=== PATIENT | male | born 1960 | race Caucasian/White ===

== ENCOUNTER 2016-10-23 19:07 | Emergency (ER) | payer MEDICARE, OTHER ==
[~2016-10-23] VITALS: Ht 170.2 cm; Wt 75.0 kg
[~2016-10-23 19:07] MED LIST: ARIP10TA14 PO; DSS100 PO; FERR-89 PO; INSLAN SQ; PROZ10 PO
[2016-10-23] MEDS ORDERED: METF500T4 PO (19:10)
[2016-10-23 19:35] LABS: BASOPHILS % (AUTO) 0.5 % (0.0-2.0); EOSINOPHILS % (AUTO) 1.8 % (1.0-6.0); HEMATOCRIT 44.7 % (41-53); HEMOGLOBIN 13.9 g/dL (13.5-17.5); LYMPHOCYTES # (AUTO) 2.2 K/uL (1.0-4.8); LYMPHOCYTES % (AUTO) 20.7 % (22.0-44.0); MEAN CORPUSCULAR HEMOGLOBIN 20.2 pg (26.0-34.0); MEAN CORPUSCULAR HGB CONC 31.2 G/dL (31.0-37.0); MEAN CORPUSCULAR VOLUME 65 fL (80-100); MONOCYTES # (AUTO) 0.7 K/uL (0.1-1.0); MONOCYTES % (AUTO) 6.7 % (2.0-9.0); NEUTROPHILS # (AUTO) 7.3 K/uL (1.8-7.7); NEUTROPHILS % (AUTO) 70.3 % (40.0-70.0); PLATELET COUNT (AUTO) 192 K/uL (150-450); RED BLOOD CELL COUNT(AUTO) 6.89 MIL/uL (4.50-5.90); RED CELL DISTRIBUTION WIDTH 16.1 % (11.5-14.5); WHITE BLOOD COUNT (AUTO) 10.4 K/uL (4.5-11.0)
[2016-10-23 19:49] LABS: ALANINE AMINOTRANSFERASE 26 U/L (12-78); ALBUMIN 3.5 g/dL (3.4-5.0); ANION GAP 8 mmol/L (8-16); ASPARTATE AMINOTRANSFERASE 13 U/L (15-37); BILIRUBIN,TOTAL 0.3 mg/dL (0.1-1.0); CALCIUM, TOTAL 8.8 mg/dL (8.8-10.5); CARBON DIOXIDE 25 mmol/L (22-29); CHLORIDE 96 mmol/L (98-107); CREATININE 1.51 mg/dL (0.60-1.30); GLOMERULAR FILTR. RATE CALC 48 mL/min (>60); POTASSIUM 4.1 mmol/L (3.5-5.1); SODIUM SERUM 129 mmol/L (136-145); TOTAL PROTEIN, SERUM 7.6 g/dL (6.4-8.2); UREA NITROGEN, BLOOD 22 mg/dL (7-18)
[2016-10-23] MEDS ORDERED: INSU100I15 SQ (20:25)
[2016-10-23] MEDS ORDERED: INSULIN REGULAR, HUMAN 100 UNITS/ML SQ ONE (20:30)
[2016-10-23 21:16] LABS: GLUCOSE,POINT OF CARE 553 MG/DL (70-110)
[2016-10-23 23:07] LABS: GLUCOSE,POINT OF CARE 378 MG/DL (70-110)
[2016-10-23 23:10] VITALS: BP 132/84
[2016-10-23] MEDS ORDERED: LORazepam 2 MG TABLET PO ONE (23:15)
== END 2016-10-23 23:37 | disposition home or self-care (01) ==
LOC: EMS 19:09
DX: F41.9 Anxiety disorder, unspecified (principal); F31.9 Bipolar disorder, unspecified; E11.65 Type 2 diabetes mellitus with hyperglycemia; R45.851 Suicidal ideations; Z79.4 Long term (current) use of insulin
CPT/HCPCS: 36415; 71010; 80053; 80307; 82009; 82962; 83690; 84484; 85025; 93005; 96372; 99285; G0480; J1815

== ENCOUNTER 2017-06-06 01:30 | Inpatient (IN) | payer MEDICARE, MEDICAID ==
[~2017-06-06] VITALS: Ht 170.2 cm; Wt 65.8 kg
[~2017-06-06 01:30] MED LIST changes: -ARIP10TA14 PO; +ARIP10TA8 PO; +INSU100I15 SQ; +METF500T4 PO
[2017-06-06 02:10] VITALS: BP 94/55
[2017-06-06] MEDS ORDERED: INFLUENZA VIRUS VACCINE QVS 2017-18 (3YR+)/PF 60 MCG/0.5 ML SYRINGE IM ONE (05:30)
[2017-06-06] MEDS ORDERED: PNEUMOCOCCAL VACCINE POLYVALENT 0.5 ML VIAL [PPSV23] IM ONE (05:30)
[2017-06-06 06:12] LABS: GLUCOSE,POINT OF CARE 156 MG/DL (70-110)
[2017-06-06 07:02] LABS: CHOL/HDL RATIO 5.5 (4.2-7.3)
[2017-06-06] MEDS ORDERED: ONDANSETRON HCL 4 MG TABLET PO PRN (07:45)
[2017-06-06] MEDS ORDERED: BENZOCAINE/MENTHOL LOZENGE [8 LOZENGES/PACKET] MM PRN (07:45)
[2017-06-06] MEDS ORDERED: CloNIDine HCL 0.1 MG TABLET PO PRN (07:45)
[2017-06-06] MEDS ORDERED: DEXTROSE 50%-WATER 25 GM/50 ML SYRINGE IVP PRN (07:45)
[2017-06-06] MEDS ORDERED: MAGNESIUM HYDROXIDE SUSPENSION 30 ML UDCUP PO PRN (07:45)
[2017-06-06] MEDS ORDERED: PETROLATUM,WHITE 71 GM JELLY TP PRN (07:45)
[2017-06-06] MEDS ORDERED: LOPERAMIDE HCL 2 MG CAPSULE PO PRN (07:45)
[2017-06-06] MEDS ORDERED: MAG HYDROX/AL HYDROX/SIMETH ES 30 ML SUSPENSION UDCUP PO PRN (07:45)
[2017-06-06] MEDS ORDERED: BACITRACIN 28.4 GM OINTMENT TP PRN (07:45)
[2017-06-06] MEDS ORDERED: ACETAMINOPHEN 325 MG TABLET PO PRN (07:45)
[2017-06-06] MEDS ORDERED: IBUPROFEN 600 MG TABLET PO PRN (07:45)
[2017-06-06] MEDS ORDERED: ALBUTEROL SULFATE HFA 90 MCG/PUFF 8 GM INHALER IH PRN (07:45)
[2017-06-06 11:18] LABS: GLUCOSE,POINT OF CARE 174 MG/DL (70-110)
[2017-06-06] MEDS: INSULIN ASPART 100 UNITS/ML SQ PRN ×2 (11:42→17:58)
[2017-06-06] MEDS: MetFORMIN HCL 500 MG TABLET PO SCH ×2 (16:27→17:30)
[2017-06-06] MEDS: INSULIN DETEMIR 100 UNITS/ML SQ SCH (21:00)
[2017-06-06 21:57] LABS: GLUCOSE,POINT OF CARE 295 MG/DL (70-110)
[2017-06-07 05:28] LABS: GLUCOSE COMMENT 1 Received Meds; GLUCOSE,POINT OF CARE 269 MG/DL (70-110)
[2017-06-07] MEDS: MetFORMIN HCL 500 MG TABLET PO SCH ×2 (07:25→17:30)
[2017-06-07] MEDS: INSULIN ASPART 100 UNITS/ML SQ PRN ×2 (07:27→11:48)
[2017-06-07 08:00] VITALS: BP 108/68
[2017-06-07] MEDS: FLUoxetine HCL 10 MG CAPSULE PO SCH (09:00)
[2017-06-07] MEDS: ARIPiprazole 10 MG TABLET PO SCH (09:00)
[2017-06-07 11:23] LABS: GLUCOSE,POINT OF CARE 284 MG/DL (70-110)
[2017-06-07] MEDS ORDERED: LORazepam 2 MG/ML VIAL IM ONE (15:15)
[2017-06-07] MEDS ORDERED: DiphenhydrAMINE HCL 50 MG/ML VIAL IM ONE (15:15)
[2017-06-07] MEDS ORDERED: HALOPERIDOL LACTATE 5 MG/ML VIAL IM ONE (15:15)
[2017-06-07] MEDS: INSULIN DETEMIR 100 UNITS/ML SQ SCH (21:00)
[2017-06-08 05:38] LABS: GLUCOSE COMMENT 1 Received Meds; GLUCOSE,POINT OF CARE 223 MG/DL (70-110)
[2017-06-08] MEDS: INSULIN ASPART 100 UNITS/ML SQ PRN ×2 (07:07→12:26)
[2017-06-08] MEDS: MetFORMIN HCL 500 MG TABLET PO SCH ×2 (07:16→17:07)
[2017-06-08 08:30] VITALS: BP 99/58
[2017-06-08] MEDS: FLUoxetine HCL 10 MG CAPSULE PO SCH (08:42)
[2017-06-08] MEDS: ARIPiprazole 10 MG TABLET PO SCH (08:42)
[2017-06-08] MEDS: OMEGA-3/DHA/EPA/FISH OIL 500 MG CAPSULE PO SCH (08:42)
[2017-06-08 12:07] LABS: GLUCOSE,POINT OF CARE 318 MG/DL (70-110)
[2017-06-08 16:43] LABS: GLUCOSE,POINT OF CARE 444 MG/DL (70-110)
[2017-06-08] MEDS: HALOPERIDOL 5 MG TABLET PO PRN (17:06)
[2017-06-08] MEDS: LORazepam 2 MG TABLET PO PRN (17:06)
[2017-06-08] MEDS ORDERED: INSULIN ASPART 100 UNITS/ML SQ ONE ×2 (17:30→19:00)
[2017-06-08 20:15] LABS: GLUCOSE,POINT OF CARE 336 MG/DL (70-110)
[2017-06-08 20:33] LABS: GLUCOSE,POINT OF CARE 295 MG/DL (70-110)
[2017-06-08 20:41] VITALS: BP 104/62
[2017-06-08] MEDS: INSULIN DETEMIR 100 UNITS/ML SQ SCH (21:00)
[2017-06-09 06:29] LABS: GLUCOSE COMMENT 1 Received Meds; GLUCOSE,POINT OF CARE 168 MG/DL (70-110)
[2017-06-09] MEDS: INSULIN ASPART 100 UNITS/ML SQ PRN ×4 (07:14→21:38)
[2017-06-09] MEDS: MetFORMIN HCL 500 MG TABLET PO SCH ×2 (07:14→16:32)
[2017-06-09 08:19] VITALS: BP 107/60
[2017-06-09] MEDS: OMEGA-3/DHA/EPA/FISH OIL 500 MG CAPSULE PO SCH (09:00)
[2017-06-09] MEDS: FLUoxetine HCL 10 MG CAPSULE PO SCH (09:00)
[2017-06-09] MEDS: ARIPiprazole 10 MG TABLET PO SCH (09:26)
[2017-06-09] MEDS ORDERED: PHENYLEPHRINE/SHK LV/MIN OIL/PET 57 GM OINTMENT TP PRN (10:45)
[2017-06-09 12:08] LABS: GLUCOSE,POINT OF CARE 300 MG/DL (70-110)
[2017-06-09 16:09] VITALS: BP 113/79
[2017-06-09] MEDS: LORazepam 2 MG TABLET PO PRN (17:30)
[2017-06-09] MEDS: HALOPERIDOL 5 MG TABLET PO PRN (17:30)
[2017-06-09 18:29] LABS: GLUCOSE,POINT OF CARE 310 MG/DL (70-110)
[2017-06-09] MEDS: INSULIN DETEMIR 100 UNITS/ML SQ SCH (21:37)
[2017-06-10 00:23] LABS: GLUCOSE,POINT OF CARE 348 MG/DL (70-110)
[2017-06-10] MEDS: MetFORMIN HCL 500 MG TABLET PO SCH ×2 (07:19→17:10)
[2017-06-10 08:55] VITALS: BP 93/54
[2017-06-10] MEDS: ARIPiprazole 10 MG TABLET PO SCH (09:00)
[2017-06-10] MEDS: OMEGA-3/DHA/EPA/FISH OIL 500 MG CAPSULE PO SCH (09:00)
[2017-06-10] MEDS: FLUoxetine HCL 10 MG CAPSULE PO SCH (09:00)
[2017-06-10] MEDS: INSULIN ASPART 100 UNITS/ML SQ PRN ×3 (11:39→21:09)
[2017-06-10 11:48] LABS: GLUCOSE,POINT OF CARE 280 MG/DL (70-110)
[2017-06-10 18:12] VITALS: BP 120/77
[2017-06-10 19:03] LABS: GLUCOSE,POINT OF CARE 292 MG/DL (70-110)
[2017-06-10] MEDS: INSULIN DETEMIR 100 UNITS/ML SQ SCH (21:08)
[2017-06-11 00:08] LABS: GLUCOSE,POINT OF CARE 249 MG/DL (70-110)
[2017-06-11 05:43] LABS: GLUCOSE COMMENT 1 Juice/Food/D50 Given; GLUCOSE,POINT OF CARE 169 MG/DL (70-110)
[2017-06-11 06:05] VITALS: BP 103/79
[2017-06-11] MEDS: MetFORMIN HCL 500 MG TABLET PO SCH ×2 (07:03→17:04)
[2017-06-11] MEDS: INSULIN ASPART 100 UNITS/ML SQ PRN ×4 (07:16→21:48)
[2017-06-11 08:45] VITALS: BP 104/76
[2017-06-11] MEDS: OMEGA-3/DHA/EPA/FISH OIL 500 MG CAPSULE PO SCH (09:00)
[2017-06-11] MEDS: FLUoxetine HCL 10 MG CAPSULE PO SCH (09:00)
[2017-06-11] MEDS: ARIPiprazole 10 MG TABLET PO SCH (09:13)
[2017-06-11 11:38] LABS: GLUCOSE,POINT OF CARE 197 MG/DL (70-110)
[2017-06-11 17:00] VITALS: BP 98/56
[2017-06-11 17:07] LABS: GLUCOSE COMMENT 1 Received Meds; GLUCOSE,POINT OF CARE 215 MG/DL (70-110)
[2017-06-11] MEDS: INSULIN DETEMIR 100 UNITS/ML SQ SCH (21:46)
[2017-06-11] MEDS: ZOLPIDEM TARTRATE 10 MG TABLET PO PRN (22:33)
[2017-06-11 23:28] LABS: GLUCOSE COMMENT 1 Received Meds; GLUCOSE,POINT OF CARE 270 MG/DL (70-110)
[2017-06-12 06:07] LABS: GLUCOSE,POINT OF CARE 133 MG/DL (70-110)
[2017-06-12] MEDS: MetFORMIN HCL 500 MG TABLET PO SCH ×2 (06:42→17:33)
[2017-06-12 08:29] VITALS: BP 118/78
[2017-06-12] MEDS: OMEGA-3/DHA/EPA/FISH OIL 500 MG CAPSULE PO SCH (09:00)
[2017-06-12] MEDS: FLUoxetine HCL 10 MG CAPSULE PO SCH (09:00)
[2017-06-12] MEDS: ARIPiprazole 10 MG TABLET PO SCH (09:00)
[2017-06-12 11:18] LABS: GLUCOSE COMMENT 1 Received Meds; GLUCOSE,POINT OF CARE 332 MG/DL (70-110)
[2017-06-12] MEDS: INSULIN ASPART 100 UNITS/ML SQ PRN ×3 (11:31→21:50)
[2017-06-12 16:45] VITALS: BP 105/77
[2017-06-12 17:37] LABS: GLUCOSE COMMENT 1 Received Meds; GLUCOSE,POINT OF CARE 231 MG/DL (70-110)
[2017-06-12] MEDS: ZOLPIDEM TARTRATE 10 MG TABLET PO PRN (20:10)
[2017-06-12 21:48] LABS: GLUCOSE,POINT OF CARE 251 MG/DL (70-110)
[2017-06-12] MEDS: INSULIN DETEMIR 100 UNITS/ML SQ SCH (21:49)
[2017-06-13 05:48] LABS: GLUCOSE,POINT OF CARE 139 MG/DL (70-110)
[2017-06-13] MEDS: MetFORMIN HCL 500 MG TABLET PO SCH ×2 (06:51→17:29)
[2017-06-13 07:08] LABS: BASOPHILS % (AUTO) 0.5 % (0.0-2.0); HEMOGLOBIN 12.4 g/dL (13.5-17.5); LYMPHOCYTES # (AUTO) 1.7 K/uL (1.0-4.8); LYMPHOCYTES % (AUTO) 25.9 % (22.0-44.0); MEAN CORPUSCULAR HEMOGLOBIN 20.6 pg (26.0-34.0); MEAN CORPUSCULAR HGB CONC 32.5 G/dL (31.0-37.0); MEAN CORPUSCULAR VOLUME 63 fL (80-100); MONOCYTES # (AUTO) 0.7 K/uL (0.1-1.0); MONOCYTES % (AUTO) 10.3 % (2.0-9.0); NEUTROPHILS # (AUTO) 3.9 K/uL (1.8-7.7); NEUTROPHILS % (AUTO) 59.3 % (40.0-70.0); PLATELET COUNT (AUTO) 177 K/uL (150-450); RED BLOOD CELL COUNT(AUTO) 6.01 MIL/uL (4.50-5.90); RED CELL DISTRIBUTION WIDTH 15.7 % (11.5-14.5); WHITE BLOOD COUNT (AUTO) 6.6 K/uL (4.5-11.0)
[2017-06-13 07:37] LABS: HEMOGLOBIN A1C 11.1 % (4.5-6.2)
[2017-06-13 07:46] LABS: ANION GAP 6 mmol/L (8-16); CALCIUM, TOTAL 8.7 mg/dL (8.8-10.5); CARBON DIOXIDE 31 mmol/L (22-29); CHLORIDE 100 mmol/L (98-107); CHOL/HDL RATIO 5.7 (4.2-7.3); CREATININE 0.88 mg/dL (0.60-1.30); GLOMERULAR FILTR. RATE CALC > 60 mL/min (>60); PHOSPHORUS 2.8 mg/dL (2.5-4.9); POTASSIUM 3.9 mmol/L (3.5-5.1); SODIUM SERUM 137 mmol/L (136-145); THYROID STIMULATING HORMONE 2.88 uIU/mL (0.36-3.74); UREA NITROGEN, BLOOD 20 mg/dL (7-18)
[2017-06-13 08:13] VITALS: BP 106/70
[2017-06-13 08:29] LABS: RBC MORPHOLOGY COMMENT ABNORMAL RBC MORPH
[2017-06-13] MEDS: ARIPiprazole 10 MG TABLET PO SCH (08:35)
[2017-06-13] MEDS: FLUoxetine HCL 10 MG CAPSULE PO SCH (08:35)
[2017-06-13] MEDS: OMEGA-3/DHA/EPA/FISH OIL 500 MG CAPSULE PO SCH (08:35)
[2017-06-13] MEDS: INSULIN ASPART 100 UNITS/ML SQ PRN ×3 (11:53→21:01)
[2017-06-13 13:20] LABS: GLUCOSE,POINT OF CARE 220 MG/DL (70-110)
[2017-06-13] MEDS: CARBAMIDE PEROXIDE 6.5% 15 ML OTIC SOLUTION AU SCH (16:23)
[2017-06-13] MEDS: INSULIN DETEMIR 100 UNITS/ML SQ SCH (21:00)
[2017-06-14] MEDS: MetFORMIN HCL 500 MG TABLET PO SCH ×2 (07:10→17:32)
[2017-06-14] MEDS: INSULIN ASPART 100 UNITS/ML SQ PRN ×2 (07:25→11:20)
[2017-06-14 08:03] LABS: GLUCOSE,POINT OF CARE 146 MG/DL (70-110)
[2017-06-14 08:39] VITALS: BP 101/70
[2017-06-14] MEDS: ARIPiprazole 10 MG TABLET PO SCH (08:41)
[2017-06-14] MEDS: OMEGA-3/DHA/EPA/FISH OIL 500 MG CAPSULE PO SCH (08:42)
[2017-06-14] MEDS: FLUoxetine HCL 10 MG CAPSULE PO SCH (08:42)
[2017-06-14] MEDS: CARBAMIDE PEROXIDE 6.5% 15 ML OTIC SOLUTION AU SCH ×2 (08:42→16:41)
[2017-06-14] MEDS ORDERED: CHOLECALCIFEROL (VIT D3) 1,000 UNITS TABLET PO SCH (09:00)
[2017-06-14 09:05] LABS: GLUCOSE COMMENT 1 Received Meds; GLUCOSE,POINT OF CARE 168 MG/DL (70-110)
[2017-06-14 09:11] LABS: GLUCOSE COMMENT 1 Received Meds; GLUCOSE,POINT OF CARE 291 MG/DL (70-110)
[2017-06-14 11:14] LABS: GLUCOSE,POINT OF CARE 188 MG/DL (70-110)
[2017-06-14] MEDS ORDERED: OMEG100033 PO (15:44)
[2017-06-14] MEDS ORDERED: INSU100V12 SQ (15:44)
[2017-06-14] MEDS ORDERED: CARB15DR61 AU (15:44)
[2017-06-14] MEDS ORDERED: VITAD1000 PO (15:44)
[2017-06-14 16:47] LABS: GLUCOSE COMMENT 1 Doctor Notified; GLUCOSE COMMENT 2 Received Meds; GLUCOSE,POINT OF CARE 410 MG/DL (70-110)
[2017-06-14 17:17] LABS: GLUCOSE COMMENT 1 Doctor Notified; GLUCOSE COMMENT 2 Received Meds; GLUCOSE,POINT OF CARE 424 MG/DL (70-110)
[2017-06-14] MEDS ORDERED: INSULIN ASPART 100 UNITS/ML SQ ONE (17:30)
[2017-06-14 20:06] LABS: GLUCOSE,POINT OF CARE 207 MG/DL (70-110)
== END 2017-06-14 20:15 | disposition home or self-care (01) | DRG 885 ==
LOC: 3EX 01:30
DX: F33.2 Major depressive disorder, recurrent severe without psychotic features (principal); E11.65 Type 2 diabetes mellitus with hyperglycemia; R45.851 Suicidal ideations; E78.5 Hyperlipidemia, unspecified; F60.9 Personality disorder, unspecified; G47.00 Insomnia, unspecified; K21.9 Gastro-esophageal reflux disease without esophagitis; K59.00 Constipation, unspecified; Z79.899 Other long term (current) drug therapy; Z91.19 Patient's noncompliance with other medical treatment and regimen; Z91.5 Personal history of self-harm; Z28.21 Immunization not carried out because of patient refusal
CPT/HCPCS: 82306; 82962; 83036; 83735; 84100; 84443; J1200; J1630; J1815; J2060

== ENCOUNTER 2017-08-13 20:21 | Inpatient (IN) | payer BC, MEDICAID ==
[~2017-08-13] VITALS: Ht 170.2 cm; Wt 64.9 kg
[~2017-08-13 20:21] MED LIST changes: +CARB15DR61 AU; -DSS100 PO; -FERR-89 PO; -INSLAN SQ; -INSU100I15 SQ; +INSU100V12 SQ; +OMEG100033 PO; +VITAD1000 PO
[2017-08-13] MEDS ORDERED: LORazepam 2 MG/ML VIAL IM ONE (21:00)
[2017-08-13] MEDS ORDERED: LORazepam 2 MG TABLET PO PRN (21:00)
[2017-08-13] MEDS ORDERED: HALOPERIDOL 5 MG TABLET PO PRN (21:00)
[2017-08-13] MEDS ORDERED: HALOPERIDOL LACTATE 5 MG/ML VIAL IM ONE ×2 (21:00→21:15)
[2017-08-13] MEDS ORDERED: ZOLPIDEM TARTRATE 10 MG TABLET PO PRN (21:00)
[2017-08-13] MEDS ORDERED: DiphenhydrAMINE HCL 50 MG/ML VIAL IM ONE (21:00)
[2017-08-13] MEDS ORDERED: LORazepam 2 MG/ML VIAL ONE (21:03)
[2017-08-13] MEDS ORDERED: HALOPERIDOL LACTATE 5 MG/ML VIAL ONE (21:03)
[2017-08-13] MEDS ORDERED: DiphenhydrAMINE HCL 50 MG/ML VIAL ONE (21:03)
[2017-08-13] MEDS ORDERED: QUEtiapine FUMARATE 100 MG TABLET PO PRN (21:15)
[2017-08-13] MEDS ORDERED: PNEUMOCOCCAL VACCINE POLYVALENT 0.5 ML VIAL [PPSV23] IM ONE (21:45)
[2017-08-13] MEDS ORDERED: INFLUENZA VIRUS VACCINE QVS 2017-18 (3YR+)/PF 60 MCG/0.5 ML SYRINGE IM ONE (21:45)
[2017-08-13 21:47] VITALS: BP 137/85
[2017-08-13 21:58] LABS: GLUCOSE,POINT OF CARE 326 MG/DL (70-110)
[2017-08-13] MEDS ORDERED: GLUCAGON,HUMAN RECOMBINANT 1 MG VIAL IM PRN (22:15)
[2017-08-13] MEDS: INSULIN ASPART 100 UNITS/ML SQ PRN (22:24)
[2017-08-14 06:23] LABS: GLUCOSE,POINT OF CARE 194 MG/DL (70-110)
[2017-08-14] MEDS: MetFORMIN HCL 500 MG TABLET PO SCH ×2 (06:54→17:10)
[2017-08-14] MEDS: INSULIN ASPART 100 UNITS/ML SQ PRN ×2 (06:56→17:11)
[2017-08-14 08:03] LABS: EOSINOPHILS % (AUTO) 4.8 % (1.0-6.0); HEMATOCRIT 41.7 % (41-53); HEMOGLOBIN 13.4 g/dL (13.5-17.5); LYMPHOCYTES # (AUTO) 2.3 K/uL (1.0-4.8); LYMPHOCYTES % (AUTO) 33.3 % (22.0-44.0); MEAN CORPUSCULAR HEMOGLOBIN 20.5 pg (26.0-34.0); MEAN CORPUSCULAR HGB CONC 32.1 G/dL (31.0-37.0); MEAN CORPUSCULAR VOLUME 64 fL (80-100); MONOCYTES # (AUTO) 0.6 K/uL (0.1-1.0); MONOCYTES % (AUTO) 8.7 % (2.0-9.0); NEUTROPHILS # (AUTO) 3.6 K/uL (1.8-7.7); NEUTROPHILS % (AUTO) 53.2 % (40.0-70.0); PLATELET COUNT (AUTO) 137 K/uL (150-450); RED BLOOD CELL COUNT(AUTO) 6.52 MIL/uL (4.50-5.90); RED CELL DISTRIBUTION WIDTH 16.3 % (11.5-14.5); WHITE BLOOD COUNT (AUTO) 6.8 K/uL (4.5-11.0)
[2017-08-14] MEDS ORDERED: ARIPiprazole 10 MG TABLET PO SCH (09:00)
[2017-08-14 09:13] LABS: ALANINE AMINOTRANSFERASE 34 U/L (12-78); ALBUMIN 3.3 g/dL (3.4-5.0); ANION GAP 8 mmol/L (8-16); ASPARTATE AMINOTRANSFERASE 22 U/L (15-37); BILIRUBIN,TOTAL 0.5 mg/dL (0.1-1.0); CALCIUM, TOTAL 8.6 mg/dL (8.8-10.5); CARBON DIOXIDE 30 mmol/L (22-29); CHLORIDE 100 mmol/L (98-107); CREATININE 0.81 mg/dL (0.60-1.30); GLOMERULAR FILTR. RATE CALC > 60 mL/min (>60); POTASSIUM 3.6 mmol/L (3.5-5.1); SODIUM SERUM 138 mmol/L (136-145); THYROID STIMULATING HORMONE 2.62 uIU/mL (0.36-3.74); TOTAL PROTEIN, SERUM 6.8 g/dL (6.4-8.2); UREA NITROGEN, BLOOD 17 mg/dL (7-18)
[2017-08-14] MEDS ORDERED: BACITRACIN 28.4 GM OINTMENT TP PRN (09:15)
[2017-08-14] MEDS ORDERED: IBUPROFEN 600 MG TABLET PO PRN (09:15)
[2017-08-14] MEDS ORDERED: PETROLATUM,WHITE 71 GM JELLY TP PRN (09:15)
[2017-08-14] MEDS ORDERED: CloNIDine HCL 0.1 MG TABLET PO PRN (09:15)
[2017-08-14] MEDS ORDERED: MAG HYDROX/AL HYDROX/SIMETH ES 30 ML SUSPENSION UDCUP PO PRN (09:15)
[2017-08-14] MEDS ORDERED: ALBUTEROL SULFATE HFA 90 MCG/PUFF 8 GM INHALER IH PRN (09:15)
[2017-08-14] MEDS ORDERED: LOPERAMIDE HCL 2 MG CAPSULE PO PRN ×2 (09:15→13:45)
[2017-08-14] MEDS ORDERED: MAGNESIUM HYDROXIDE SUSPENSION 30 ML UDCUP PO PRN (09:15)
[2017-08-14] MEDS ORDERED: ONDANSETRON HCL 4 MG TABLET PO PRN (09:15)
[2017-08-14] MEDS ORDERED: ACETAMINOPHEN 325 MG TABLET PO PRN (09:15)
[2017-08-14] MEDS ORDERED: BENZOCAINE/MENTHOL LOZENGE MM PRN (09:15)
[2017-08-14 10:04] LABS: HEMOGLOBIN A1C 8.5 % (4.5-6.2)
[2017-08-14 10:11] LABS: RBC MORPHOLOGY COMMENT ABNORMAL RBC MORPH
[2017-08-14] MEDS: CHOLECALCIFEROL (VIT D3) 1,000 UNITS TABLET PO SCH (10:38)
[2017-08-14] MEDS: FLUoxetine HCL 10 MG CAPSULE PO SCH (10:38)
[2017-08-14] MEDS: OMEGA-3/DHA/EPA/FISH OIL 1,000 MG CAPSULE PO SCH (10:40)
[2017-08-14] MEDS ORDERED: GuaiFENesin/D-METHORPHAN [SUGAR-FREE] 200-20MG/10 ML SYRUP UDCUP PO PRN (13:45)
[2017-08-14] MEDS ORDERED: PROMETHAZINE HCL 25 MG TABLET PO PRN (13:45)
[2017-08-14] MEDS ORDERED: HydrOXYzine PAMOATE 50 MG CAPSULE PO PRN (13:45)
[2017-08-14] MEDS ORDERED: OLANZapine 5 MG RAPDIS TABLET PO PRN (14:15)
[2017-08-14 16:05] VITALS: BP 101/62
[2017-08-14 16:22] LABS: GLUCOSE,POINT OF CARE 278 MG/DL (70-110)
[2017-08-14] MEDS: THIAMINE HCL 100 MG TABLET PO SCH (17:10)
[2017-08-14] MEDS: OLANZapine 5 MG RAPDIS TABLET PO SCH (21:00)
[2017-08-14] MEDS: INSULIN DETEMIR 100 UNITS/ML SQ SCH (21:00)
[2017-08-15 04:00] VITALS: BP 100/60
[2017-08-15 06:18] LABS: GLUCOSE,POINT OF CARE 253 MG/DL (70-110)
[2017-08-15] MEDS: MetFORMIN HCL 500 MG TABLET PO SCH ×2 (06:58→16:57)
[2017-08-15] MEDS: INSULIN ASPART 100 UNITS/ML SQ PRN ×3 (07:08→17:00)
[2017-08-15 08:21] VITALS: BP 110/68
[2017-08-15] MEDS: OMEGA-3/DHA/EPA/FISH OIL 1,000 MG CAPSULE PO SCH (08:50)
[2017-08-15] MEDS: FOLIC ACID 1 MG TABLET PO SCH (08:50)
[2017-08-15] MEDS: THIAMINE HCL 100 MG TABLET PO SCH ×2 (08:51→16:57)
[2017-08-15] MEDS: CHOLECALCIFEROL (VIT D3) 1,000 UNITS TABLET PO SCH (08:51)
[2017-08-15] MEDS: FLUoxetine HCL 10 MG CAPSULE PO SCH (08:51)
[2017-08-15] MEDS: MULTIVITAMINS WITH MINERALS, THERAPEUTIC TABLET PO SCH (08:51)
[2017-08-15] MEDS ORDERED: MULTIVITAMINS WITH MINERALS, THERAPEUTIC TABLET PO SCH (09:00)
[2017-08-15 11:38] LABS: GLUCOSE,POINT OF CARE 243 MG/DL (70-110)
[2017-08-15 16:04] VITALS: BP 103/63
[2017-08-15 16:42] LABS: GLUCOSE,POINT OF CARE 271 MG/DL (70-110)
[2017-08-15] MEDS: OLANZapine 5 MG RAPDIS TABLET PO SCH (20:42)
[2017-08-15] MEDS: INSULIN DETEMIR 100 UNITS/ML SQ SCH (20:42)
[2017-08-16 06:23] LABS: GLUCOSE,POINT OF CARE 202 MG/DL (70-110)
[2017-08-16 07:10] VITALS: BP 100/60
[2017-08-16] MEDS: MetFORMIN HCL 500 MG TABLET PO SCH ×2 (07:16→16:33)
[2017-08-16 08:06] VITALS: BP 115/69
[2017-08-16] MEDS: CHOLECALCIFEROL (VIT D3) 1,000 UNITS TABLET PO SCH (09:00)
[2017-08-16] MEDS: OMEGA-3/DHA/EPA/FISH OIL 1,000 MG CAPSULE PO SCH (09:00)
[2017-08-16] MEDS: FOLIC ACID 1 MG TABLET PO SCH (09:00)
[2017-08-16] MEDS: FLUoxetine HCL 10 MG CAPSULE PO SCH (09:00)
[2017-08-16] MEDS: THIAMINE HCL 100 MG TABLET PO SCH ×2 (09:00→16:33)
[2017-08-16] MEDS: MULTIVITAMINS WITH MINERALS, THERAPEUTIC TABLET PO SCH (09:00)
[2017-08-16] MEDS: INSULIN ASPART 100 UNITS/ML SQ PRN ×2 (11:03→16:15)
[2017-08-16 11:13] LABS: GLUCOSE,POINT OF CARE 208 MG/DL (70-110)
[2017-08-16 16:22] LABS: GLUCOSE COMMENT 1 Doctor Notified; GLUCOSE,POINT OF CARE 410 MG/DL (70-110)
[2017-08-16 16:35] VITALS: BP 112/65
[2017-08-16 17:58] LABS: GLUCOSE,POINT OF CARE 311 MG/DL (70-110)
[2017-08-16] MEDS ORDERED: INSULIN ASPART 100 UNITS/ML SQ ONE (18:00)
[2017-08-16 20:22] LABS: GLUCOSE,POINT OF CARE 214 MG/DL (70-110)
== END 2017-08-16 19:30 | disposition home or self-care (01) | DRG 885 ==
LOC: B2X 21:01 → EDSTATUS 21:25
PROVIDERS: ADMIT Psychiatry & Neurology Psychiatry; ATTEND Psychiatry & Neurology Psychiatry
DX: F25.1 Schizoaffective disorder, depressive type (principal); D69.6 Thrombocytopenia, unspecified; R45.851 Suicidal ideations; E11.65 Type 2 diabetes mellitus with hyperglycemia; E55.9 Vitamin D deficiency, unspecified; E78.5 Hyperlipidemia, unspecified; G47.00 Insomnia, unspecified; I10 Essential (primary) hypertension; K21.9 Gastro-esophageal reflux disease without esophagitis; K59.00 Constipation, unspecified; Z81.8 Family history of other mental and behavioral disorders; Z87.891 Personal history of nicotine dependence; Z91.19 Patient's noncompliance with other medical treatment and regimen; Z91.5 Personal history of self-harm; Z28.21 Immunization not carried out because of patient refusal
CPT/HCPCS: 82962; 83036; 84439; 84443; J1200; J1630; J1815; J2060

== ENCOUNTER 2017-09-05 11:40 | Inpatient (IN) | payer BC, MEDICAID ==
[~2017-09-05] VITALS: Ht 165.1 cm; Wt 70.8 kg
[~2017-09-05 11:40] MED LIST changes: -ARIP10TA8 PO; -CARB15DR61 AU; -PROZ10 PO
[2017-09-05] MEDS ORDERED: INSULIN REGULAR, HUMAN 100 UNITS/ML IVP ONE ×3 (12:00→19:15)
[2017-09-05] MEDS ORDERED: SODIUM CHLORIDE 0.9% 1,000 ML IV ONE ×2 (12:00→17:30)
[2017-09-05 12:04] LABS: GLUCOSE,POINT OF CARE 580 MG/DL (70-110)
[2017-09-05] MEDS ORDERED: HALOPERIDOL 5 MG TABLET PO PRN (13:15)
[2017-09-05 13:22] LABS: GLUCOSE,POINT OF CARE 376 MG/DL (70-110)
[2017-09-05 15:02] LABS: GLUCOSE,POINT OF CARE 248 MG/DL (70-110)
[2017-09-05 15:40] LABS: BASOPHILS % (AUTO) 0.4 % (0.0-2.0); EOSINOPHILS % (AUTO) 0.4 % (1.0-6.0); HEMATOCRIT 42.3 % (41-53); HEMOGLOBIN 13.7 g/dL (13.5-17.5); LYMPHOCYTES # (AUTO) 1.3 K/uL (1.0-4.8); LYMPHOCYTES % (AUTO) 14.7 % (22.0-44.0); MEAN CORPUSCULAR HEMOGLOBIN 20.3 pg (26.0-34.0); MEAN CORPUSCULAR HGB CONC 32.4 G/dL (31.0-37.0); MEAN CORPUSCULAR VOLUME 63 fL (80-100); MONOCYTES # (AUTO) 0.9 K/uL (0.1-1.0); MONOCYTES % (AUTO) 9.9 % (2.0-9.0); NEUTROPHILS # (AUTO) 6.7 K/uL (1.8-7.7); NEUTROPHILS % (AUTO) 74.6 % (40.0-70.0); PLATELET COUNT (AUTO) 167 K/uL (150-450); RED BLOOD CELL COUNT(AUTO) 6.76 MIL/uL (4.50-5.90); RED CELL DISTRIBUTION WIDTH 16.8 % (11.5-14.5)
[2017-09-05 15:48] LABS: ANION GAP 10 mmol/L (8-16); CALCIUM, TOTAL 9.1 mg/dL (8.8-10.5); CARBON DIOXIDE 28 mmol/L (22-29); CHLORIDE 100 mmol/L (98-107); GLOMERULAR FILTR. RATE CALC > 60 mL/min (>60); GLUCOSE,RANDOM 269 mg/dL (70-110); POTASSIUM 4.5 mmol/L (3.5-5.1); SODIUM SERUM 138 mmol/L (136-145); UREA NITROGEN, BLOOD 28 mg/dL (7-18)
[2017-09-05 15:54] LABS: ALANINE AMINOTRANSFERASE 32 U/L (12-78); ALBUMIN 3.5 g/dL (3.4-5.0); ALKALINE PHOSPHATASE 101 U/L (46-116); ASPARTATE AMINOTRANSFERASE 20 U/L (15-37); BILIRUBIN,TOTAL 0.7 mg/dL (0.1-1.0); TOTAL PROTEIN, SERUM 7.7 g/dL (6.4-8.2)
[2017-09-05 16:12] LABS: GLUCOSE,POINT OF CARE 249 MG/DL (70-110)
[2017-09-05 17:32] LABS: GLUCOSE,POINT OF CARE 273 MG/DL (70-110)
[2017-09-05] MEDS ORDERED: SODIUM CHLORIDE 0.9% 500 ML IV ONE (19:15)
[2017-09-05 19:27] LABS: GLUCOSE,POINT OF CARE 541 MG/DL (70-110)
[2017-09-05] MEDS ORDERED: DiphenhydrAMINE HCL 50 MG/ML VIAL IM ONE (19:30)
[2017-09-05] MEDS ORDERED: LORazepam 2 MG/ML VIAL IM ONE (19:30)
[2017-09-05] MEDS ORDERED: HALOPERIDOL LACTATE 5 MG/ML VIAL IM ONE (19:30)
[2017-09-05 20:27] LABS: GLUCOSE,POINT OF CARE 518 MG/DL (70-110)
[2017-09-05 21:32] LABS: GLUCOSE,POINT OF CARE 334 MG/DL (70-110)
[2017-09-05 22:47] LABS: GLUCOSE,POINT OF CARE 297 MG/DL (70-110)
[2017-09-05 23:47] LABS: GLUCOSE,POINT OF CARE 253 MG/DL (70-110)
[2017-09-06] MEDS ORDERED: PNEUMOCOCCAL VACCINE POLYVALENT 0.5 ML VIAL [PPSV23] IM ONE (00:15)
[2017-09-06] MEDS ORDERED: INFLUENZA VIRUS VACCINE QVS 2017-18 (3YR+)/PF 60 MCG/0.5 ML SYRINGE IM ONE (00:15)
[2017-09-06 00:33] VITALS: BP 100/61
[2017-09-06 00:42] LABS: GLUCOMETER DEV NAME(LOC) BV2S; GLUCOSE,POINT OF CARE 266 MG/DL (70-110)
[2017-09-06 06:13] LABS: GLUCOMETER DEV NAME(LOC) BV2S; GLUCOSE,POINT OF CARE 252 MG/DL (70-110)
[2017-09-06] MEDS: INSULIN ASPART 100 UNITS/ML SQ PRN ×2 (07:29→17:13)
[2017-09-06] MEDS ORDERED: GLUCAGON,HUMAN RECOMBINANT 1 MG VIAL IM PRN (07:30)
[2017-09-06 08:29] VITALS: BP 100/59
[2017-09-06 08:44] LABS: HEMOGLOBIN A1C 11.3 % (4.5-6.2)
[2017-09-06] MEDS: CHOLECALCIFEROL (VIT D3) 1,000 UNITS TABLET PO SCH (09:00)
[2017-09-06] MEDS: FOLIC ACID 1 MG TABLET PO SCH (09:00)
[2017-09-06] MEDS: OMEGA-3/DHA/EPA/FISH OIL 1,000 MG CAPSULE PO SCH (09:00)
[2017-09-06] MEDS: THIAMINE HCL 100 MG TABLET PO SCH ×2 (09:00→16:46)
[2017-09-06] MEDS: MULTIVITAMINS WITH MINERALS, THERAPEUTIC TABLET PO SCH (09:00)
[2017-09-06 09:20] LABS: CHOL/HDL RATIO 4.5 (4.2-7.3); CHOLESTEROL 154 mg/dL (131-200); FREE T4 (FREE THYROXINE) 1.07 ng/dL (0.76-1.46); HDL CHOLESTEROL 34 mg/dL (40-60); LDL CHOL (CALC.) 99 mg/dL (0-130); THYROID STIMULATING HORMONE 1.88 uIU/mL (0.36-3.74); TRIGLYCERIDES 106 mg/dL (15-150)
[2017-09-06] MEDS ORDERED: LORazepam 2 MG/ML VIAL IM ONE (11:45)
[2017-09-06] MEDS ORDERED: HALOPERIDOL LACTATE 5 MG/ML VIAL IM ONE (11:45)
[2017-09-06] MEDS ORDERED: DiphenhydrAMINE HCL 50 MG/ML VIAL IM ONE (11:45)
[2017-09-06 13:08] LABS: VALPROIC ACID < 3 mcg/mL (50-100)
[2017-09-06] MEDS: LITHIUM CARBONATE 300 MG CAPSULE PO SCH (16:46)
[2017-09-06] MEDS: MetFORMIN HCL 500 MG TABLET PO SCH (16:46)
[2017-09-06] MEDS: DIVALPROEX SODIUM 500 MG DR TABLET PO SCH (16:46)
[2017-09-06 16:58] LABS: GLUCOMETER DEV NAME(LOC) BV2S; GLUCOSE,POINT OF CARE 242 MG/DL (70-110)
[2017-09-06 17:30] VITALS: BP 139/93
[2017-09-06] MEDS ORDERED: ACETAMINOPHEN 325 MG TABLET PO PRN (19:45)
[2017-09-06] MEDS ORDERED: ALBUTEROL SULFATE HFA 90 MCG/PUFF 8 GM INHALER IH PRN (19:45)
[2017-09-06] MEDS ORDERED: BACITRACIN 28.4 GM OINTMENT TP PRN (19:45)
[2017-09-06] MEDS ORDERED: MAGNESIUM HYDROXIDE SUSPENSION 30 ML UDCUP PO PRN (19:45)
[2017-09-06] MEDS ORDERED: BENZOCAINE/MENTHOL LOZENGE MM PRN (19:45)
[2017-09-06] MEDS ORDERED: PETROLATUM,WHITE 71 GM JELLY TP PRN (19:45)
[2017-09-06] MEDS ORDERED: MAG HYDROX/AL HYDROX/SIMETH ES 30 ML SUSPENSION UDCUP PO PRN (19:45)
[2017-09-06] MEDS ORDERED: CloNIDine HCL 0.1 MG TABLET PO PRN (19:45)
[2017-09-06] MEDS ORDERED: ONDANSETRON HCL 4 MG TABLET PO PRN (19:45)
[2017-09-06] MEDS ORDERED: LOPERAMIDE HCL 2 MG CAPSULE PO PRN (19:45)
[2017-09-06] MEDS ORDERED: IBUPROFEN 600 MG TABLET PO PRN (19:45)
[2017-09-06] MEDS: INSULIN DETEMIR 100 UNITS/ML SQ SCH (21:00)
[2017-09-06] MEDS: OLANZapine 10 MG RAPDIS TABLET PO SCH (21:00)
[2017-09-06 21:28] LABS: GLUCOMETER DEV NAME(LOC) BV2S; GLUCOSE,POINT OF CARE 125 MG/DL (70-110)
[2017-09-07] MEDS: MetFORMIN HCL 500 MG TABLET PO SCH ×2 (07:00→17:00)
[2017-09-07 08:44] VITALS: BP 98/65
[2017-09-07] MEDS: OMEGA-3/DHA/EPA/FISH OIL 1,000 MG CAPSULE PO SCH (09:09)
[2017-09-07] MEDS: MULTIVITAMINS WITH MINERALS, THERAPEUTIC TABLET PO SCH (09:09)
[2017-09-07] MEDS: DIVALPROEX SODIUM 500 MG DR TABLET PO SCH ×2 (09:09→17:00)
[2017-09-07] MEDS: THIAMINE HCL 100 MG TABLET PO SCH ×2 (09:09→17:00)
[2017-09-07] MEDS: FOLIC ACID 1 MG TABLET PO SCH (09:09)
[2017-09-07] MEDS: OMEPRAZOLE 20 MG CAPSULE PO SCH (09:09)
[2017-09-07] MEDS: LITHIUM CARBONATE 300 MG CAPSULE PO SCH ×2 (09:09→17:00)
[2017-09-07] MEDS: CHOLECALCIFEROL (VIT D3) 1,000 UNITS TABLET PO SCH (09:09)
[2017-09-07] MEDS: DOCUSATE SODIUM 100 MG CAPSULE PO SCH (09:09)
[2017-09-07] MEDS ORDERED: LORazepam 2 MG/ML VIAL ONE (10:02)
[2017-09-07] MEDS ORDERED: DiphenhydrAMINE HCL 50 MG/ML VIAL ONE (10:02)
[2017-09-07] MEDS ORDERED: HALOPERIDOL LACTATE 5 MG/ML VIAL ONE (10:03)
[2017-09-07] MEDS ORDERED: HALOPERIDOL LACTATE 5 MG/ML VIAL IM ONE (10:15)
[2017-09-07] MEDS ORDERED: LORazepam 2 MG/ML VIAL IM ONE (10:15)
[2017-09-07] MEDS ORDERED: DiphenhydrAMINE HCL 50 MG/ML VIAL IM ONE (10:15)
[2017-09-07] MEDS: INSULIN ASPART 100 UNITS/ML SQ PRN (11:13)
[2017-09-07 11:28] LABS: GLUCOMETER DEV NAME(LOC) BV2S; GLUCOSE,POINT OF CARE 229 MG/DL (70-110)
[2017-09-07 17:03] LABS: GLUCOMETER DEV NAME(LOC) BV2S; GLUCOSE,POINT OF CARE 80 MG/DL (70-110)
[2017-09-07] MEDS: OLANZapine 10 MG RAPDIS TABLET PO SCH (20:42)
[2017-09-07] MEDS: INSULIN DETEMIR 100 UNITS/ML SQ SCH (20:43)
[2017-09-08] MEDS: MetFORMIN HCL 500 MG TABLET PO SCH ×2 (07:00→17:29)
[2017-09-08] MEDS ORDERED: MUPIROCIN CALCIUM 2% 15 GM CREAM TP SCH (09:00)
[2017-09-08] MEDS: MULTIVITAMINS WITH MINERALS, THERAPEUTIC TABLET PO SCH (09:00)
[2017-09-08] MEDS: CHOLECALCIFEROL (VIT D3) 1,000 UNITS TABLET PO SCH (09:00)
[2017-09-08] MEDS: FOLIC ACID 1 MG TABLET PO SCH (09:00)
[2017-09-08] MEDS: DOCUSATE SODIUM 100 MG CAPSULE PO SCH (09:00)
[2017-09-08] MEDS: LITHIUM CARBONATE 300 MG CAPSULE PO SCH ×2 (09:00→17:29)
[2017-09-08] MEDS: OMEPRAZOLE 20 MG CAPSULE PO SCH (09:00)
[2017-09-08] MEDS: THIAMINE HCL 100 MG TABLET PO SCH ×2 (09:00→17:29)
[2017-09-08] MEDS: OMEGA-3/DHA/EPA/FISH OIL 1,000 MG CAPSULE PO SCH (09:00)
[2017-09-08] MEDS: MUPIROCIN CALCIUM 2% 22 GM OINTMENT NASAL SCH ×2 (09:00→17:29)
[2017-09-08] MEDS: DIVALPROEX SODIUM 500 MG DR TABLET PO SCH ×2 (09:00→17:29)
[2017-09-08] MEDS ORDERED: HALOPERIDOL LACTATE 5 MG/ML VIAL IM ONE (15:00)
[2017-09-08] MEDS ORDERED: DiphenhydrAMINE HCL 50 MG/ML VIAL IM ONE (15:00)
[2017-09-08] MEDS ORDERED: LORazepam 2 MG/ML VIAL IM ONE (15:00)
[2017-09-08] MEDS ORDERED: LORazepam 2 MG/ML VIAL ONE (15:07)
[2017-09-08] MEDS ORDERED: DiphenhydrAMINE HCL 50 MG/ML VIAL ONE (15:07)
[2017-09-08] MEDS ORDERED: HALOPERIDOL LACTATE 5 MG/ML VIAL ONE (15:07)
[2017-09-08] MEDS: INSULIN ASPART 100 UNITS/ML SQ PRN (16:48)
[2017-09-08 17:03] LABS: GLUCOMETER DEV NAME(LOC) BV2S; GLUCOSE,POINT OF CARE 361 MG/DL (70-110)
[2017-09-08] MEDS: SULFAMETHOX/TRIMETH DS 800-160 MG/TABLET PO SCH (17:29)
[2017-09-08] MEDS: OLANZapine 10 MG RAPDIS TABLET PO SCH (20:47)
[2017-09-08] MEDS: INSULIN DETEMIR 100 UNITS/ML SQ SCH (20:47)
[2017-09-09] MEDS: MetFORMIN HCL 500 MG TABLET PO SCH ×2 (06:48→17:00)
[2017-09-09 08:15] VITALS: BP 101/60
[2017-09-09] MEDS: LITHIUM CARBONATE 300 MG CAPSULE PO SCH ×2 (08:44→17:00)
[2017-09-09] MEDS: MUPIROCIN CALCIUM 2% 22 GM OINTMENT NASAL SCH ×2 (08:44→16:25)
[2017-09-09] MEDS: SULFAMETHOX/TRIMETH DS 800-160 MG/TABLET PO SCH ×2 (08:44→16:36)
[2017-09-09] MEDS: OMEGA-3/DHA/EPA/FISH OIL 1,000 MG CAPSULE PO SCH (08:45)
[2017-09-09] MEDS: MULTIVITAMINS WITH MINERALS, THERAPEUTIC TABLET PO SCH (08:45)
[2017-09-09] MEDS: FOLIC ACID 1 MG TABLET PO SCH (08:45)
[2017-09-09] MEDS: DOCUSATE SODIUM 100 MG CAPSULE PO SCH (08:45)
[2017-09-09] MEDS: DIVALPROEX SODIUM 500 MG DR TABLET PO SCH ×2 (08:45→17:00)
[2017-09-09] MEDS: THIAMINE HCL 100 MG TABLET PO SCH ×2 (08:45→17:00)
[2017-09-09] MEDS: OMEPRAZOLE 20 MG CAPSULE PO SCH (08:45)
[2017-09-09] MEDS: CHOLECALCIFEROL (VIT D3) 1,000 UNITS TABLET PO SCH (08:46)
[2017-09-09] MEDS: INSULIN ASPART 100 UNITS/ML SQ PRN ×2 (11:05→17:03)
[2017-09-09 11:13] LABS: GLUCOMETER DEV NAME(LOC) BV2S; GLUCOSE,POINT OF CARE 272 MG/DL (70-110)
[2017-09-09] MEDS: MUPIROCIN CALCIUM 2% 15 GM CREAM TP PRN (12:20)
[2017-09-09 16:02] VITALS: BP 120/81
[2017-09-09 17:02] LABS: GLUCOMETER DEV NAME(LOC) BV2S; GLUCOSE,POINT OF CARE 360 MG/DL (70-110)
[2017-09-09] MEDS: OLANZapine 10 MG RAPDIS TABLET PO SCH (21:00)
[2017-09-09] MEDS: INSULIN DETEMIR 100 UNITS/ML SQ SCH (21:00)
[2017-09-09] MEDS: ZOLPIDEM TARTRATE 10 MG TABLET PO PRN (21:17)
[2017-09-10] MEDS: MetFORMIN HCL 500 MG TABLET PO SCH ×2 (06:34→17:00)
[2017-09-10 08:09] VITALS: BP 102/66
[2017-09-10] MEDS: DOCUSATE SODIUM 100 MG CAPSULE PO SCH (09:00)
[2017-09-10] MEDS: SULFAMETHOX/TRIMETH DS 800-160 MG/TABLET PO SCH ×2 (09:00→17:00)
[2017-09-10] MEDS: THIAMINE HCL 100 MG TABLET PO SCH ×2 (09:00→17:00)
[2017-09-10] MEDS: OMEGA-3/DHA/EPA/FISH OIL 1,000 MG CAPSULE PO SCH (09:00)
[2017-09-10] MEDS: OMEPRAZOLE 20 MG CAPSULE PO SCH (09:00)
[2017-09-10] MEDS: DIVALPROEX SODIUM 500 MG DR TABLET PO SCH ×2 (09:00→17:00)
[2017-09-10] MEDS: MULTIVITAMINS WITH MINERALS, THERAPEUTIC TABLET PO SCH (09:00)
[2017-09-10] MEDS: FOLIC ACID 1 MG TABLET PO SCH (09:00)
[2017-09-10] MEDS: LITHIUM CARBONATE 300 MG CAPSULE PO SCH ×2 (09:00→17:00)
[2017-09-10] MEDS: CHOLECALCIFEROL (VIT D3) 1,000 UNITS TABLET PO SCH (09:00)
[2017-09-10] MEDS: MUPIROCIN CALCIUM 2% 15 GM CREAM TP PRN (09:13)
[2017-09-10] MEDS: MUPIROCIN CALCIUM 2% 22 GM OINTMENT NASAL SCH ×2 (09:13→17:00)
[2017-09-10] MEDS: INSULIN ASPART 100 UNITS/ML SQ PRN ×2 (11:03→17:07)
[2017-09-10 11:23] LABS: GLUCOMETER DEV NAME(LOC) BV2S; GLUCOSE,POINT OF CARE 319 MG/DL (70-110)
[2017-09-10 16:03] VITALS: BP 111/72
[2017-09-10 16:17] LABS: GLUCOMETER DEV NAME(LOC) BV2S; GLUCOSE,POINT OF CARE 329 MG/DL (70-110)
[2017-09-10] MEDS ORDERED: LORazepam 2 MG/ML VIAL IM ONE (18:00)
[2017-09-10] MEDS ORDERED: HALOPERIDOL LACTATE 5 MG/ML VIAL IM ONE (18:00)
[2017-09-10] MEDS ORDERED: DiphenhydrAMINE HCL 50 MG/ML VIAL IM ONE (18:00)
[2017-09-10 19:40] VITALS: BP 108/64
[2017-09-10] MEDS: OLANZapine 10 MG RAPDIS TABLET PO SCH (21:00)
[2017-09-10] MEDS: INSULIN DETEMIR 100 UNITS/ML SQ SCH (21:00)
[2017-09-11] MEDS: MetFORMIN HCL 500 MG TABLET PO SCH ×2 (06:50→17:00)
[2017-09-11 08:10] VITALS: BP 104/63
[2017-09-11] MEDS: THIAMINE HCL 100 MG TABLET PO SCH ×2 (09:00→17:00)
[2017-09-11] MEDS: SULFAMETHOX/TRIMETH DS 800-160 MG/TABLET PO SCH ×2 (09:00→17:00)
[2017-09-11] MEDS: OMEGA-3/DHA/EPA/FISH OIL 1,000 MG CAPSULE PO SCH (09:00)
[2017-09-11] MEDS: DOCUSATE SODIUM 100 MG CAPSULE PO SCH (09:00)
[2017-09-11] MEDS: OMEPRAZOLE 20 MG CAPSULE PO SCH (09:00)
[2017-09-11] MEDS: MUPIROCIN CALCIUM 2% 22 GM OINTMENT NASAL SCH ×2 (09:00→17:00)
[2017-09-11] MEDS: CHOLECALCIFEROL (VIT D3) 1,000 UNITS TABLET PO SCH (09:00)
[2017-09-11] MEDS: LITHIUM CARBONATE 300 MG CAPSULE PO SCH ×2 (09:00→17:00)
[2017-09-11] MEDS: DIVALPROEX SODIUM 500 MG DR TABLET PO SCH ×2 (09:00→17:00)
[2017-09-11] MEDS: FOLIC ACID 1 MG TABLET PO SCH (09:00)
[2017-09-11] MEDS: MULTIVITAMINS WITH MINERALS, THERAPEUTIC TABLET PO SCH (09:00)
[2017-09-11] MEDS ORDERED: HALOPERIDOL LACTATE 5 MG/ML VIAL ONE (16:08)
[2017-09-11] MEDS ORDERED: LORazepam 2 MG/ML VIAL ONE (16:08)
[2017-09-11] MEDS ORDERED: DiphenhydrAMINE HCL 50 MG/ML VIAL ONE (16:08)
[2017-09-11] MEDS ORDERED: DiphenhydrAMINE HCL 50 MG/ML VIAL IM ONE (16:15)
[2017-09-11] MEDS ORDERED: LORazepam 2 MG/ML VIAL IM ONE (16:15)
[2017-09-11] MEDS ORDERED: HALOPERIDOL LACTATE 5 MG/ML VIAL IM ONE (16:15)
[2017-09-11] MEDS: INSULIN DETEMIR 100 UNITS/ML SQ SCH (20:56)
[2017-09-11] MEDS: INSULIN ASPART 100 UNITS/ML SQ PRN (20:56)
[2017-09-11] MEDS: OLANZapine 10 MG RAPDIS TABLET PO SCH (20:56)
[2017-09-11 20:58] LABS: GLUCOMETER DEV NAME(LOC) BV2S; GLUCOSE,POINT OF CARE 193 MG/DL (70-110)
[2017-09-12] MEDS: MetFORMIN HCL 500 MG TABLET PO SCH ×2 (07:00→17:00)
[2017-09-12] MEDS: MUPIROCIN CALCIUM 2% 22 GM OINTMENT NASAL SCH ×2 (09:00→16:40)
[2017-09-12] MEDS: CHOLECALCIFEROL (VIT D3) 1,000 UNITS TABLET PO SCH (09:00)
[2017-09-12] MEDS: OMEGA-3/DHA/EPA/FISH OIL 1,000 MG CAPSULE PO SCH (09:00)
[2017-09-12] MEDS: MULTIVITAMINS WITH MINERALS, THERAPEUTIC TABLET PO SCH (09:00)
[2017-09-12] MEDS: DIVALPROEX SODIUM 500 MG DR TABLET PO SCH ×2 (09:00→16:39)
[2017-09-12] MEDS: FOLIC ACID 1 MG TABLET PO SCH (09:00)
[2017-09-12] MEDS: THIAMINE HCL 100 MG TABLET PO SCH ×2 (09:00→16:39)
[2017-09-12] MEDS: LITHIUM CARBONATE 300 MG CAPSULE PO SCH ×2 (09:00→16:40)
[2017-09-12] MEDS: SULFAMETHOX/TRIMETH DS 800-160 MG/TABLET PO SCH ×2 (09:00→17:32)
[2017-09-12] MEDS: OMEPRAZOLE 20 MG CAPSULE PO SCH (09:00)
[2017-09-12] MEDS: DOCUSATE SODIUM 100 MG CAPSULE PO SCH (09:00)
[2017-09-12] MEDS: LORazepam 2 MG TABLET PO PRN (12:42)
[2017-09-12 16:03] VITALS: BP 116/70
[2017-09-12 16:38] LABS: GLUCOMETER DEV NAME(LOC) BV2S; GLUCOSE,POINT OF CARE 325 MG/DL (70-110)
[2017-09-12] MEDS: INSULIN ASPART 100 UNITS/ML SQ PRN ×2 (17:47→21:36)
[2017-09-12] MEDS: INSULIN DETEMIR 100 UNITS/ML SQ SCH (21:02)
[2017-09-12] MEDS: OLANZapine 10 MG RAPDIS TABLET PO SCH (21:22)
[2017-09-12] MEDS: ZOLPIDEM TARTRATE 10 MG TABLET PO PRN (23:07)
[2017-09-13] MEDS: MetFORMIN HCL 500 MG TABLET PO SCH ×2 (06:34→16:31)
[2017-09-13 06:37] VITALS: BP 100/61
[2017-09-13] MEDS: INSULIN ASPART 100 UNITS/ML SQ PRN ×4 (07:00→20:35)
[2017-09-13 07:08] LABS: GLUCOMETER DEV NAME(LOC) BV2S; GLUCOSE,POINT OF CARE 155 MG/DL (70-110)
[2017-09-13] MEDS: OMEPRAZOLE 20 MG CAPSULE PO SCH (08:23)
[2017-09-13] MEDS: CHOLECALCIFEROL (VIT D3) 1,000 UNITS TABLET PO SCH (08:23)
[2017-09-13] MEDS: FOLIC ACID 1 MG TABLET PO SCH (08:23)
[2017-09-13] MEDS: DIVALPROEX SODIUM 500 MG DR TABLET PO SCH ×2 (08:23→16:31)
[2017-09-13] MEDS: MULTIVITAMINS WITH MINERALS, THERAPEUTIC TABLET PO SCH (08:23)
[2017-09-13] MEDS: LITHIUM CARBONATE 300 MG CAPSULE PO SCH ×2 (08:23→16:31)
[2017-09-13] MEDS: OMEGA-3/DHA/EPA/FISH OIL 1,000 MG CAPSULE PO SCH (08:23)
[2017-09-13] MEDS: DOCUSATE SODIUM 100 MG CAPSULE PO SCH (08:23)
[2017-09-13] MEDS: THIAMINE HCL 100 MG TABLET PO SCH ×2 (08:23→16:30)
[2017-09-13] MEDS: SULFAMETHOX/TRIMETH DS 800-160 MG/TABLET PO SCH ×2 (08:23→16:31)
[2017-09-13 16:22] LABS: GLUCOMETER DEV NAME(LOC) BV2S; GLUCOSE,POINT OF CARE 158 MG/DL (70-110)
[2017-09-13 16:23] LABS: GLUCOMETER DEV NAME(LOC) BV2S; GLUCOSE,POINT OF CARE 199 MG/DL (70-110)
[2017-09-13 17:13] VITALS: BP 100/59
[2017-09-13] MEDS: MUPIROCIN CALCIUM 2% 15 GM CREAM TP PRN (18:00)
[2017-09-13 20:28] LABS: GLUCOMETER DEV NAME(LOC) BV2S; GLUCOSE,POINT OF CARE 321 MG/DL (70-110)
[2017-09-13] MEDS: OLANZapine 10 MG RAPDIS TABLET PO SCH (20:33)
[2017-09-13] MEDS: INSULIN DETEMIR 100 UNITS/ML SQ SCH (20:35)
[2017-09-14 00:34] VITALS: BP 110/69
[2017-09-14] MEDS: LORazepam 2 MG TABLET PO PRN (00:40)
[2017-09-14] MEDS: ZOLPIDEM TARTRATE 10 MG TABLET PO PRN (00:40)
[2017-09-14] MEDS: MetFORMIN HCL 500 MG TABLET PO SCH ×2 (06:21→16:42)
[2017-09-14 06:29] LABS: GLUCOMETER DEV NAME(LOC) BV2S; GLUCOSE,POINT OF CARE 93 MG/DL (70-110)
[2017-09-14 08:30] VITALS: BP 97/63
[2017-09-14] MEDS: DOCUSATE SODIUM 100 MG CAPSULE PO SCH (08:48)
[2017-09-14] MEDS: DIVALPROEX SODIUM 500 MG DR TABLET PO SCH ×2 (08:48→16:41)
[2017-09-14] MEDS: THIAMINE HCL 100 MG TABLET PO SCH ×2 (08:48→16:41)
[2017-09-14] MEDS: MULTIVITAMINS WITH MINERALS, THERAPEUTIC TABLET PO SCH (08:48)
[2017-09-14] MEDS: FOLIC ACID 1 MG TABLET PO SCH (08:48)
[2017-09-14] MEDS: OMEPRAZOLE 20 MG CAPSULE PO SCH (08:48)
[2017-09-14] MEDS: CHOLECALCIFEROL (VIT D3) 1,000 UNITS TABLET PO SCH (08:49)
[2017-09-14] MEDS: OMEGA-3/DHA/EPA/FISH OIL 1,000 MG CAPSULE PO SCH (08:49)
[2017-09-14] MEDS: SULFAMETHOX/TRIMETH DS 800-160 MG/TABLET PO SCH ×2 (08:49→16:41)
[2017-09-14] MEDS: LITHIUM CARBONATE 300 MG CAPSULE PO SCH ×2 (08:49→16:41)
[2017-09-14] MEDS: INSULIN ASPART 100 UNITS/ML SQ PRN ×3 (11:16→20:46)
[2017-09-14 11:17] LABS: GLUCOMETER DEV NAME(LOC) BV2S; GLUCOSE,POINT OF CARE 246 MG/DL (70-110)
[2017-09-14 16:01] VITALS: BP 100/62
[2017-09-14 16:43] LABS: GLUCOMETER DEV NAME(LOC) BV2S; GLUCOSE,POINT OF CARE 257 MG/DL (70-110)
[2017-09-14] MEDS: OLANZapine 10 MG RAPDIS TABLET PO SCH (20:43)
[2017-09-14] MEDS: INSULIN DETEMIR 100 UNITS/ML SQ SCH (20:46)
[2017-09-14 20:47] LABS: GLUCOMETER DEV NAME(LOC) BV2S; GLUCOSE,POINT OF CARE 292 MG/DL (70-110)
[2017-09-15] MEDS: MetFORMIN HCL 500 MG TABLET PO SCH ×2 (06:56→16:23)
[2017-09-15 06:58] LABS: GLUCOMETER DEV NAME(LOC) BV2S; GLUCOSE,POINT OF CARE 104 MG/DL (70-110)
[2017-09-15 07:36] VITALS: BP 119/69
[2017-09-15 08:04] VITALS: BP 119/69
[2017-09-15] MEDS: DIVALPROEX SODIUM 500 MG DR TABLET PO SCH ×2 (09:11→16:23)
[2017-09-15] MEDS: DOCUSATE SODIUM 100 MG CAPSULE PO SCH (09:11)
[2017-09-15] MEDS: SULFAMETHOX/TRIMETH DS 800-160 MG/TABLET PO SCH (09:11)
[2017-09-15] MEDS: MULTIVITAMINS WITH MINERALS, THERAPEUTIC TABLET PO SCH (09:11)
[2017-09-15] MEDS: LITHIUM CARBONATE 300 MG CAPSULE PO SCH ×2 (09:12→16:23)
[2017-09-15] MEDS: CHOLECALCIFEROL (VIT D3) 1,000 UNITS TABLET PO SCH (09:12)
[2017-09-15] MEDS: FOLIC ACID 1 MG TABLET PO SCH (09:12)
[2017-09-15] MEDS: OMEPRAZOLE 20 MG CAPSULE PO SCH (09:12)
[2017-09-15] MEDS: THIAMINE HCL 100 MG TABLET PO SCH ×2 (09:12→16:23)
[2017-09-15] MEDS: OMEGA-3/DHA/EPA/FISH OIL 1,000 MG CAPSULE PO SCH (09:12)
[2017-09-15] MEDS: INSULIN ASPART 100 UNITS/ML SQ PRN ×3 (11:17→20:30)
[2017-09-15 11:38] LABS: GLUCOMETER DEV NAME(LOC) BV2S; GLUCOSE,POINT OF CARE 284 MG/DL (70-110)
[2017-09-15 16:43] LABS: GLUCOMETER DEV NAME(LOC) BV2S; GLUCOSE,POINT OF CARE 328 MG/DL (70-110)
[2017-09-15] MEDS: OLANZapine 10 MG RAPDIS TABLET PO SCH (20:14)
[2017-09-15] MEDS: ZOLPIDEM TARTRATE 10 MG TABLET PO PRN (20:20)
[2017-09-15] MEDS: INSULIN DETEMIR 100 UNITS/ML SQ SCH (20:30)
[2017-09-15 20:33] LABS: GLUCOMETER DEV NAME(LOC) BV2S; GLUCOSE,POINT OF CARE 222 MG/DL (70-110)
[2017-09-16 06:23] LABS: GLUCOMETER DEV NAME(LOC) BV2S; GLUCOSE,POINT OF CARE 142 MG/DL (70-110)
[2017-09-16] MEDS: INSULIN ASPART 100 UNITS/ML SQ PRN ×4 (06:59→20:36)
[2017-09-16] MEDS: MetFORMIN HCL 500 MG TABLET PO SCH ×2 (07:01→16:58)
[2017-09-16 08:10] VITALS: BP 105/62
[2017-09-16] MEDS: MULTIVITAMINS WITH MINERALS, THERAPEUTIC TABLET PO SCH (09:03)
[2017-09-16] MEDS: DOCUSATE SODIUM 100 MG CAPSULE PO SCH (09:03)
[2017-09-16] MEDS: LITHIUM CARBONATE 300 MG CAPSULE PO SCH ×2 (09:03→16:58)
[2017-09-16] MEDS: FOLIC ACID 1 MG TABLET PO SCH (09:03)
[2017-09-16] MEDS: OMEGA-3/DHA/EPA/FISH OIL 1,000 MG CAPSULE PO SCH (09:03)
[2017-09-16] MEDS: OMEPRAZOLE 20 MG CAPSULE PO SCH (09:03)
[2017-09-16] MEDS: THIAMINE HCL 100 MG TABLET PO SCH ×2 (09:03→16:58)
[2017-09-16] MEDS: DIVALPROEX SODIUM 500 MG DR TABLET PO SCH ×2 (09:03→16:58)
[2017-09-16] MEDS: CHOLECALCIFEROL (VIT D3) 1,000 UNITS TABLET PO SCH (09:03)
[2017-09-16 11:28] LABS: GLUCOMETER DEV NAME(LOC) BV2S; GLUCOSE,POINT OF CARE 249 MG/DL (70-110)
[2017-09-16 16:03] VITALS: BP 104/67
[2017-09-16 17:08] LABS: GLUCOMETER DEV NAME(LOC) BV2S; GLUCOSE,POINT OF CARE 345 MG/DL (70-110)
[2017-09-16] MEDS: OLANZapine 10 MG RAPDIS TABLET PO SCH (20:27)
[2017-09-16] MEDS: INSULIN DETEMIR 100 UNITS/ML SQ SCH (20:36)
[2017-09-16 20:54] LABS: GLUCOMETER DEV NAME(LOC) BV2S; GLUCOSE,POINT OF CARE 302 MG/DL (70-110)
[2017-09-16] MEDS: ZOLPIDEM TARTRATE 10 MG TABLET PO PRN (21:08)
[2017-09-17 06:03] LABS: GLUCOMETER DEV NAME(LOC) BV2S; GLUCOSE,POINT OF CARE 108 MG/DL (70-110)
[2017-09-17 06:10] VITALS: BP 116/66
[2017-09-17] MEDS: MetFORMIN HCL 500 MG TABLET PO SCH ×2 (06:51→16:33)
[2017-09-17 08:07] VITALS: BP 100/60
[2017-09-17] MEDS: OMEPRAZOLE 20 MG CAPSULE PO SCH (08:41)
[2017-09-17] MEDS: LITHIUM CARBONATE 300 MG CAPSULE PO SCH ×2 (08:41→16:33)
[2017-09-17] MEDS: DOCUSATE SODIUM 100 MG CAPSULE PO SCH (08:41)
[2017-09-17] MEDS: FOLIC ACID 1 MG TABLET PO SCH (08:41)
[2017-09-17] MEDS: CHOLECALCIFEROL (VIT D3) 1,000 UNITS TABLET PO SCH (08:41)
[2017-09-17] MEDS: MULTIVITAMINS WITH MINERALS, THERAPEUTIC TABLET PO SCH (08:41)
[2017-09-17] MEDS: DIVALPROEX SODIUM 500 MG DR TABLET PO SCH ×2 (08:41→16:33)
[2017-09-17] MEDS: OMEGA-3/DHA/EPA/FISH OIL 1,000 MG CAPSULE PO SCH (08:41)
[2017-09-17] MEDS: THIAMINE HCL 100 MG TABLET PO SCH ×2 (08:41→16:33)
[2017-09-17] MEDS: INSULIN ASPART 100 UNITS/ML SQ PRN (11:15)
[2017-09-17 12:42] LABS: GLUCOMETER DEV NAME(LOC) BV2S; GLUCOSE,POINT OF CARE 189 MG/DL (70-110)
[2017-09-17 16:12] VITALS: BP 103/66
[2017-09-17 16:27] LABS: GLUCOMETER DEV NAME(LOC) BV2S; GLUCOSE,POINT OF CARE 446 MG/DL (70-110)
[2017-09-17] MEDS ORDERED: INSULIN ASPART 100 UNITS/ML SQ ONE (16:45)
[2017-09-17] MEDS: INSULIN DETEMIR 100 UNITS/ML SQ SCH (20:46)
[2017-09-17] MEDS: OLANZapine 10 MG RAPDIS TABLET PO SCH (20:46)
[2017-09-17 20:52] LABS: GLUCOMETER DEV NAME(LOC) BV2S; GLUCOSE,POINT OF CARE 94 MG/DL (70-110)
[2017-09-18 06:02] LABS: GLUCOMETER DEV NAME(LOC) BV2S; GLUCOSE,POINT OF CARE 98 MG/DL (70-110)
[2017-09-18] MEDS: MetFORMIN HCL 500 MG TABLET PO SCH ×2 (06:50→16:30)
[2017-09-18 07:05] VITALS: BP 96/57
[2017-09-18 08:19] VITALS: BP 108/63
[2017-09-18] MEDS: LITHIUM CARBONATE 300 MG CAPSULE PO SCH ×2 (08:46→16:31)
[2017-09-18] MEDS: FOLIC ACID 1 MG TABLET PO SCH (08:46)
[2017-09-18] MEDS: THIAMINE HCL 100 MG TABLET PO SCH ×2 (08:46→16:31)
[2017-09-18] MEDS: DOCUSATE SODIUM 100 MG CAPSULE PO SCH (08:46)
[2017-09-18] MEDS: OMEPRAZOLE 20 MG CAPSULE PO SCH (08:46)
[2017-09-18] MEDS: CHOLECALCIFEROL (VIT D3) 1,000 UNITS TABLET PO SCH (08:46)
[2017-09-18] MEDS: OMEGA-3/DHA/EPA/FISH OIL 1,000 MG CAPSULE PO SCH (08:46)
[2017-09-18] MEDS: MULTIVITAMINS WITH MINERALS, THERAPEUTIC TABLET PO SCH (08:46)
[2017-09-18] MEDS: DIVALPROEX SODIUM 500 MG DR TABLET PO SCH ×2 (08:46→16:31)
[2017-09-18] MEDS: INSULIN ASPART 100 UNITS/ML SQ PRN ×3 (11:02→20:42)
[2017-09-18 12:57] LABS: GLUCOMETER DEV NAME(LOC) BV2S; GLUCOSE,POINT OF CARE 243 MG/DL (70-110)
[2017-09-18 16:00] VITALS: BP 108/78
[2017-09-18 16:13] LABS: GLUCOMETER DEV NAME(LOC) BV2S; GLUCOSE,POINT OF CARE 273 MG/DL (70-110)
[2017-09-18 20:23] LABS: GLUCOMETER DEV NAME(LOC) BV2S; GLUCOSE,POINT OF CARE 332 MG/DL (70-110)
[2017-09-18] MEDS: OLANZapine 10 MG RAPDIS TABLET PO SCH (20:41)
[2017-09-18] MEDS: INSULIN DETEMIR 100 UNITS/ML SQ SCH (20:42)
[2017-09-19 06:23] VITALS: BP 121/78
[2017-09-19] MEDS: MetFORMIN HCL 500 MG TABLET PO SCH ×2 (06:39→16:30)
[2017-09-19 07:13] LABS: GLUCOMETER DEV NAME(LOC) BV2S; GLUCOSE,POINT OF CARE 98 MG/DL (70-110)
[2017-09-19] MEDS: MULTIVITAMINS WITH MINERALS, THERAPEUTIC TABLET PO SCH (08:26)
[2017-09-19] MEDS: DIVALPROEX SODIUM 500 MG DR TABLET PO SCH ×2 (08:26→16:30)
[2017-09-19] MEDS: THIAMINE HCL 100 MG TABLET PO SCH ×2 (08:26→16:30)
[2017-09-19] MEDS: OMEGA-3/DHA/EPA/FISH OIL 1,000 MG CAPSULE PO SCH (08:26)
[2017-09-19] MEDS: OMEPRAZOLE 20 MG CAPSULE PO SCH (08:26)
[2017-09-19] MEDS: LITHIUM CARBONATE 300 MG CAPSULE PO SCH ×2 (08:26→16:30)
[2017-09-19] MEDS: CHOLECALCIFEROL (VIT D3) 1,000 UNITS TABLET PO SCH (08:26)
[2017-09-19] MEDS: DOCUSATE SODIUM 100 MG CAPSULE PO SCH (08:26)
[2017-09-19] MEDS: FOLIC ACID 1 MG TABLET PO SCH (08:26)
[2017-09-19 08:32] VITALS: BP 102/61
[2017-09-19] MEDS: INSULIN ASPART 100 UNITS/ML SQ PRN ×2 (11:08→20:40)
[2017-09-19 11:12] LABS: GLUCOMETER DEV NAME(LOC) BV2S; GLUCOSE,POINT OF CARE 261 MG/DL (70-110)
[2017-09-19 16:12] LABS: GLUCOMETER DEV NAME(LOC) BV2S; GLUCOSE,POINT OF CARE 434 MG/DL (70-110)
[2017-09-19] MEDS ORDERED: INSULIN ASPART 100 UNITS/ML SQ ONE ×2 (16:20→17:15)
[2017-09-19 16:31] VITALS: BP 102/78
[2017-09-19 17:07] LABS: GLUCOMETER DEV NAME(LOC) BV2S; GLUCOSE,POINT OF CARE 363 MG/DL (70-110)
[2017-09-19 20:27] LABS: GLUCOMETER DEV NAME(LOC) BV2S; GLUCOSE,POINT OF CARE 163 MG/DL (70-110)
[2017-09-19] MEDS: OLANZapine 10 MG RAPDIS TABLET PO SCH (20:29)
[2017-09-19] MEDS: INSULIN DETEMIR 100 UNITS/ML SQ SCH (20:39)
[2017-09-20 00:15] VITALS: BP 108/62
[2017-09-20] MEDS: MetFORMIN HCL 500 MG TABLET PO SCH ×2 (07:06→16:33)
[2017-09-20] MEDS: MULTIVITAMINS WITH MINERALS, THERAPEUTIC TABLET PO SCH (08:33)
[2017-09-20] MEDS: DOCUSATE SODIUM 100 MG CAPSULE PO SCH (08:33)
[2017-09-20] MEDS: CHOLECALCIFEROL (VIT D3) 1,000 UNITS TABLET PO SCH (08:33)
[2017-09-20] MEDS: FOLIC ACID 1 MG TABLET PO SCH (08:34)
[2017-09-20] MEDS: OMEGA-3/DHA/EPA/FISH OIL 1,000 MG CAPSULE PO SCH (08:34)
[2017-09-20] MEDS: THIAMINE HCL 100 MG TABLET PO SCH ×2 (08:34→16:33)
[2017-09-20] MEDS: LITHIUM CARBONATE 300 MG CAPSULE PO SCH ×2 (08:34→17:12)
[2017-09-20] MEDS: DIVALPROEX SODIUM 500 MG DR TABLET PO SCH ×2 (08:34→17:12)
[2017-09-20] MEDS: OMEPRAZOLE 20 MG CAPSULE PO SCH (08:34)
[2017-09-20] MEDS: INSULIN GLARGINE,HUM.REC.ANLOG 100 UNITS/ML SQ SCH (11:02)
[2017-09-20] MEDS: INSULIN ASPART 100 UNITS/ML SQ PRN ×3 (11:02→20:36)
[2017-09-20 12:07] LABS: GLUCOMETER DEV NAME(LOC) BV2S; GLUCOSE,POINT OF CARE 204 MG/DL (70-110)
[2017-09-20 17:10] VITALS: BP 109/67
[2017-09-20 17:12] LABS: GLUCOMETER DEV NAME(LOC) BV2S; GLUCOSE,POINT OF CARE 275 MG/DL (70-110)
[2017-09-20 20:17] LABS: GLUCOMETER DEV NAME(LOC) BV2S; GLUCOSE,POINT OF CARE 317 MG/DL (70-110)
[2017-09-20] MEDS: OLANZapine 10 MG RAPDIS TABLET PO SCH (20:35)
[2017-09-20] MEDS: INSULIN DETEMIR 100 UNITS/ML SQ SCH (20:36)
[2017-09-21 06:33] LABS: GLUCOMETER DEV NAME(LOC) BV2S; GLUCOSE,POINT OF CARE 87 MG/DL (70-110)
[2017-09-21 06:44] VITALS: BP 108/62
[2017-09-21] MEDS: MetFORMIN HCL 500 MG TABLET PO SCH (07:00)
[2017-09-21] MEDS: OMEPRAZOLE 20 MG CAPSULE PO SCH (08:09)
[2017-09-21] MEDS: FOLIC ACID 1 MG TABLET PO SCH (08:09)
[2017-09-21] MEDS: MULTIVITAMINS WITH MINERALS, THERAPEUTIC TABLET PO SCH (08:09)
[2017-09-21] MEDS: DIVALPROEX SODIUM 500 MG DR TABLET PO SCH (08:09)
[2017-09-21] MEDS: LITHIUM CARBONATE 300 MG CAPSULE PO SCH (08:09)
[2017-09-21] MEDS: DOCUSATE SODIUM 100 MG CAPSULE PO SCH (08:09)
[2017-09-21] MEDS: OMEGA-3/DHA/EPA/FISH OIL 1,000 MG CAPSULE PO SCH (08:09)
[2017-09-21] MEDS: CHOLECALCIFEROL (VIT D3) 1,000 UNITS TABLET PO SCH (08:10)
[2017-09-21] MEDS: THIAMINE HCL 100 MG TABLET PO SCH (08:10)
[2017-09-21 08:18] VITALS: BP 120/78
[2017-09-21] MEDS ORDERED: DIVA250T4 PO (10:13)
[2017-09-21] MEDS ORDERED: OLAN10TA6 PO (10:13)
[2017-09-21] MEDS ORDERED: LITH300C3 PO (10:13)
[2017-09-21 11:07] LABS: GLUCOMETER DEV NAME(LOC) BV2S; GLUCOSE,POINT OF CARE 176 MG/DL (70-110)
[2017-09-21] MEDS: INSULIN ASPART 100 UNITS/ML SQ PRN (11:09)
[2017-09-21] MEDS: INSULIN GLARGINE,HUM.REC.ANLOG 100 UNITS/ML SQ SCH (11:09)
== END 2017-09-21 13:05 | disposition home or self-care (01) | DRG 885 ==
LOC: EMS 11:41 → B2X 16:06 → B2S 09-07 22:52 → B2X 09-08 11:49
PROVIDERS: ADMIT Psychiatry & Neurology Psychiatry; ATTEND Psychiatry & Neurology Psychiatry
DX: F25.9 Schizoaffective disorder, unspecified (principal); R45.851 Suicidal ideations; E11.65 Type 2 diabetes mellitus with hyperglycemia; K59.00 Constipation, unspecified; E78.5 Hyperlipidemia, unspecified; K21.9 Gastro-esophageal reflux disease without esophagitis; E55.9 Vitamin D deficiency, unspecified; F32.9 Major depressive disorder, single episode, unspecified; G47.00 Insomnia, unspecified; N49.2 Inflammatory disorders of scrotum; Z22.322 Carrier or suspected carrier of Methicillin resistant Staphylococcus aureus; Z79.84 Long term (current) use of oral hypoglycemic drugs; Z79.899 Other long term (current) drug therapy; Z59.0 Homelessness
CPT/HCPCS: 82962; 83036; 84439; 84443; 87070; 87081; 87205; 96361; 96372; 96374; 96376; 99285; G0480; J1200; J1630; J1815; J2060; J7030; J7040

== ENCOUNTER 2017-10-10 03:55 | Inpatient (IN) | payer BC, MEDICAID ==
[~2017-10-10] VITALS: Ht 170.2 cm; Wt 65.9 kg
[~2017-10-10 03:55] MED LIST changes: +DIVA250T4 PO; +LITH300C3 PO; +OLAN10TA6 PO
[2017-10-10] MEDS ORDERED: LITH300C3 PO (04:03)
[2017-10-10 04:55] LABS: ANION GAP 11 mmol/L (8-16); CALCIUM, TOTAL 9.2 mg/dL (8.8-10.5); CARBON DIOXIDE 30 mmol/L (22-29); CHLORIDE 104 mmol/L (98-107); CREATININE 1.02 mg/dL (0.60-1.30); GLOMERULAR FILTR. RATE CALC > 60 mL/min (>60); GLUCOSE,RANDOM 325 mg/dL (70-110); POTASSIUM 4.4 mmol/L (3.5-5.1); SODIUM SERUM 145 mmol/L (136-145); UREA NITROGEN, BLOOD 16 mg/dL (7-18)
[2017-10-10 05:00] LABS: ALANINE AMINOTRANSFERASE 19 U/L (12-78); ALBUMIN 3.5 g/dL (3.4-5.0); ALKALINE PHOSPHATASE 99 U/L (46-116); ASPARTATE AMINOTRANSFERASE 20 U/L (15-37); BILIRUBIN,TOTAL 0.8 mg/dL (0.1-1.0); TOTAL PROTEIN, SERUM 7.5 g/dL (6.4-8.2)
[2017-10-10] MEDS ORDERED: ZOLPIDEM TARTRATE 10 MG TABLET PO PRN (05:00)
[2017-10-10 05:11] LABS: HEMATOCRIT 41.1 % (41-53); HEMOGLOBIN 13.2 g/dL (13.5-17.5); RED BLOOD CELL COUNT(AUTO) 6.56 MIL/uL (4.50-5.90)
[2017-10-10 05:12] LABS: BASOPHILS % (AUTO) 0.4 % (0.0-2.0); LYMPHOCYTES # (AUTO) 1.5 K/uL (1.0-4.8); LYMPHOCYTES % (AUTO) 21.5 % (22.0-44.0); MEAN CORPUSCULAR HEMOGLOBIN 20.2 pg (26.0-34.0); MEAN CORPUSCULAR HGB CONC 32.2 G/dL (31.0-37.0); MEAN CORPUSCULAR VOLUME 63 fL (80-100); MONOCYTES # (AUTO) 0.8 K/uL (0.1-1.0); MONOCYTES % (AUTO) 11.3 % (2.0-9.0); NEUTROPHILS # (AUTO) 4.4 K/uL (1.8-7.7); NEUTROPHILS % (AUTO) 64.8 % (40.0-70.0); PLATELET COUNT (AUTO) 150 K/uL (150-450); RED CELL DISTRIBUTION WIDTH 17.2 % (11.5-14.5)
[2017-10-10 05:24] LABS: CHOL/HDL RATIO 5.7 (4.2-7.3); CHOLESTEROL 193 mg/dL (131-200); HDL CHOLESTEROL 34 mg/dL (40-60); LDL CHOL (CALC.) 120 mg/dL (0-130); THYROID STIMULATING HORMONE 2.95 uIU/mL (0.36-3.74); TRIGLYCERIDES 194 mg/dL (15-150)
[2017-10-10] MEDS ORDERED: LORazepam 2 MG/ML VIAL IM ONE ×2 (06:45→19:30)
[2017-10-10 07:23] LABS: GLUCOSE,POINT OF CARE 240 MG/DL (70-110)
[2017-10-10 11:38] LABS: GLUCOSE,POINT OF CARE 299 MG/DL (70-110)
[2017-10-10 13:55] LABS: APPEARANCE,URINE CLEAR (CLEAR); BILIRUBIN,URINE NEGATIVE (NEGATIVE); GLUCOSE, URINE (UA) >=1000 mg/dL (NEGATIVE); KETONES,URINE TRACE mg/dL (NEGATIVE); LEUKOCYTE ESTERASE ,URINE NEGATIVE (NEGATIVE); NITRATE,URINE NEGATIVE (NEGATIVE); OCCULT BLOOD,URINE NEGATIVE (NEGATIVE); PROTEIN,URINE NEGATIVE (NEGATIVE)
[2017-10-10 14:03] LABS: RBC,URINE 0-2 /HPF (0-2); WBC,URINE 0-2 /HPF (0-5)
[2017-10-10 14:04] LABS: BACTERIA,URINE None Seen /HPF (None Seen); SQUAMOUS EPITHELIAL CELL,UR None Seen /LPF (None Seen)
[2017-10-10 15:21] LABS: AMPHET/METH SCREEN,URINE NEGATIVE (NEGATIVE); BARBITURATE SCREEN, URINE NEGATIVE (NEGATIVE); BENZODIAZEPINES SCREEN,URINE NEGATIVE (NEGATIVE); CANNABINOID SCREEN,URINE NEGATIVE (NEGATIVE); COCAINE SCREEN,URINE NEGATIVE (NEGATIVE); METHADONE SCREEN, URINE NEGATIVE (NEGATIVE); OPIATE SCREEN,URINE NEGATIVE (NEGATIVE); PHENCYCLIDINE SCREEN,URINE NEGATIVE (NEGATIVE)
[2017-10-10] MEDS ORDERED: INSULIN REGULAR, HUMAN 100 UNITS/ML IVP ONE (16:30)
[2017-10-10 18:39] VITALS: BP 98/71
[2017-10-10] MEDS ORDERED: HALOPERIDOL LACTATE 5 MG/ML VIAL IM ONE (19:30)
[2017-10-10] MEDS ORDERED: DiphenhydrAMINE HCL 50 MG/ML VIAL IM ONE (19:30)
[2017-10-10 19:33] LABS: GLUCOSE,POINT OF CARE 317 MG/DL (70-110)
[2017-10-11] MEDS ORDERED: PNEUMOCOCCAL VACCINE POLYVALENT 0.5 ML VIAL [PPSV23] IM ONE (00:15)
[2017-10-11] MEDS ORDERED: INFLUENZA VIRUS VACCINE QVS 2017-18 (3YR+)/PF 60 MCG/0.5 ML SYRINGE IM ONE (00:15)
[2017-10-11 07:12] LABS: GLUCOMETER DEV NAME(LOC) 3EC; GLUCOSE,POINT OF CARE 247 MG/DL (70-110)
[2017-10-11] MEDS ORDERED: IBUPROFEN 600 MG TABLET PO PRN (07:30)
[2017-10-11] MEDS ORDERED: LOPERAMIDE HCL 2 MG CAPSULE PO PRN ×2 (07:30→13:00)
[2017-10-11] MEDS ORDERED: ACETAMINOPHEN 325 MG TABLET PO PRN ×2 (07:30→13:00)
[2017-10-11] MEDS ORDERED: BACITRACIN 28.4 GM OINTMENT TP PRN (07:30)
[2017-10-11] MEDS ORDERED: DEXTROSE 50%-WATER 25 GM/50 ML SYRINGE IVP PRN (07:30)
[2017-10-11] MEDS ORDERED: BENZOCAINE/MENTHOL LOZENGE MM PRN (07:30)
[2017-10-11] MEDS ORDERED: ONDANSETRON HCL 4 MG TABLET PO PRN (07:30)
[2017-10-11] MEDS ORDERED: ALBUTEROL SULFATE HFA 90 MCG/PUFF 8 GM INHALER IH PRN (07:30)
[2017-10-11] MEDS: MetFORMIN HCL 500 MG TABLET PO SCH ×2 (07:30→17:54)
[2017-10-11] MEDS ORDERED: CloNIDine HCL 0.1 MG TABLET PO PRN (07:30)
[2017-10-11] MEDS ORDERED: MAGNESIUM HYDROXIDE SUSPENSION 30 ML UDCUP PO PRN ×2 (07:30→13:00)
[2017-10-11] MEDS ORDERED: PETROLATUM,WHITE 71 GM JELLY TP PRN (07:30)
[2017-10-11] MEDS ORDERED: MAG HYDROX/AL HYDROX/SIMETH ES 30 ML SUSPENSION UDCUP PO PRN (07:30)
[2017-10-11] MEDS: CHOLECALCIFEROL (VIT D3) 1,000 UNITS TABLET PO SCH (09:00)
[2017-10-11] MEDS: OMEPRAZOLE 20 MG CAPSULE PO SCH (09:00)
[2017-10-11] MEDS: OMEGA-3/DHA/EPA/FISH OIL 1,000 MG CAPSULE PO SCH (09:00)
[2017-10-11] MEDS ORDERED: PROMETHAZINE HCL 25 MG TABLET PO PRN (13:00)
[2017-10-11] MEDS ORDERED: GuaiFENesin/D-METHORPHAN [SUGAR-FREE] 200-20MG/10 ML SYRUP UDCUP PO PRN (13:00)
[2017-10-11] MEDS ORDERED: LORazepam 2 MG/ML VIAL IM ONE (15:00)
[2017-10-11] MEDS ORDERED: HALOPERIDOL LACTATE 5 MG/ML VIAL IM ONE (15:00)
[2017-10-11] MEDS ORDERED: DiphenhydrAMINE HCL 50 MG/ML VIAL IM ONE (15:00)
[2017-10-11] MEDS ORDERED: DiphenhydrAMINE HCL 50 MG/ML VIAL ONE (15:03)
[2017-10-11] MEDS ORDERED: HALOPERIDOL LACTATE 5 MG/ML VIAL ONE (15:03)
[2017-10-11] MEDS ORDERED: LORazepam 2 MG/ML VIAL ONE (15:03)
[2017-10-11 16:23] LABS: GLUCOMETER DEV NAME(LOC) 3EC; GLUCOSE,POINT OF CARE 467 MG/DL (70-110)
[2017-10-11] MEDS: THIAMINE HCL 100 MG TABLET PO SCH (16:24)
[2017-10-11 16:30] VITALS: BP 139/85
[2017-10-11] MEDS ORDERED: INSULIN ASPART 100 UNITS/ML SQ ONE (17:45)
[2017-10-11 18:53] LABS: GLUCOMETER DEV NAME(LOC) 3EC; GLUCOSE,POINT OF CARE 302 MG/DL (70-110)
[2017-10-11] MEDS ORDERED: INSULIN DETEMIR 100 UNITS/ML SQ SCH (21:00)
[2017-10-11] MEDS: INSULIN DETEMIR 100 UNITS/ML SQ SCH (21:00)
[2017-10-11] MEDS: OLANZapine 5 MG RAPDIS TABLET PO SCH (21:28)
[2017-10-12 05:47] LABS: GLUCOMETER DEV NAME(LOC) 3EC; GLUCOSE,POINT OF CARE 136 MG/DL (70-110)
[2017-10-12 06:57] LABS: BASOPHILS % (AUTO) 0.7 % (0.0-2.0); EOSINOPHILS % (AUTO) 3.4 % (1.0-6.0); HEMATOCRIT 41.1 % (41-53); HEMOGLOBIN 13.6 g/dL (13.5-17.5); LYMPHOCYTES % (AUTO) 22.1 % (22.0-44.0); MEAN CORPUSCULAR HEMOGLOBIN 20.8 pg (26.0-34.0); MEAN CORPUSCULAR HGB CONC 33.2 G/dL (31.0-37.0); MEAN CORPUSCULAR VOLUME 63 fL (80-100); MONOCYTES # (AUTO) 0.7 K/uL (0.1-1.0); MONOCYTES % (AUTO) 8.2 % (2.0-9.0); NEUTROPHILS # (AUTO) 5.8 K/uL (1.8-7.7); NEUTROPHILS % (AUTO) 65.6 % (40.0-70.0); PLATELET COUNT (AUTO) 83 K/uL (150-450); RED BLOOD CELL COUNT(AUTO) 6.55 MIL/uL (4.50-5.90); RED CELL DISTRIBUTION WIDTH 16.8 % (11.5-14.5)
[2017-10-12] MEDS: MetFORMIN HCL 500 MG TABLET PO SCH ×2 (07:03→17:42)
[2017-10-12] MEDS: INSULIN ASPART 100 UNITS/ML SQ PRN ×2 (07:04→11:42)
[2017-10-12 07:29] LABS: ALANINE AMINOTRANSFERASE 25 U/L (12-78); ALBUMIN 3.2 g/dL (3.4-5.0); ALKALINE PHOSPHATASE 92 U/L (46-116); ANION GAP 7 mmol/L (8-16); ASPARTATE AMINOTRANSFERASE 44 U/L (15-37); BILIRUBIN,TOTAL 0.6 mg/dL (0.1-1.0); CALCIUM, TOTAL 8.8 mg/dL (8.8-10.5); CARBON DIOXIDE 30 mmol/L (22-29); CHLORIDE 102 mmol/L (98-107); CHOLESTEROL 176 mg/dL (131-200); CREATININE 0.77 mg/dL (0.60-1.30); FREE T4 (FREE THYROXINE) 0.99 ng/dL (0.76-1.46); GLOMERULAR FILTR. RATE CALC > 60 mL/min (>60); GLUCOSE,RANDOM 137 mg/dL (70-110); HDL CHOLESTEROL 35 mg/dL (40-60); LDL CHOL (CALC.) 109 mg/dL (0-130); POTASSIUM 3.9 mmol/L (3.5-5.1); SODIUM SERUM 139 mmol/L (136-145); THYROID STIMULATING HORMONE 2.11 uIU/mL (0.36-3.74); TRIGLYCERIDES 160 mg/dL (15-150); UREA NITROGEN, BLOOD 22 mg/dL (7-18)
[2017-10-12 07:56] LABS: LITHIUM < 0.20 mmol/L (0.60-1.20)
[2017-10-12] MEDS: THIAMINE HCL 100 MG TABLET PO SCH ×2 (08:47→17:42)
[2017-10-12] MEDS: FOLIC ACID 1 MG TABLET PO SCH (08:47)
[2017-10-12] MEDS: OMEPRAZOLE 20 MG CAPSULE PO SCH (08:47)
[2017-10-12] MEDS: OMEGA-3/DHA/EPA/FISH OIL 1,000 MG CAPSULE PO SCH (08:47)
[2017-10-12] MEDS: CHOLECALCIFEROL (VIT D3) 1,000 UNITS TABLET PO SCH (08:47)
[2017-10-12] MEDS: FLUoxetine HCL 20 MG CAPSULE PO SCH (08:47)
[2017-10-12] MEDS: MULTIVITAMINS WITH MINERALS, THERAPEUTIC TABLET PO SCH (08:47)
[2017-10-12] MEDS: LORazepam 2 MG TABLET PO PRN (08:48)
[2017-10-12 11:28] LABS: GLUCOMETER DEV NAME(LOC) 3EC; GLUCOSE,POINT OF CARE 315 MG/DL (70-110)
[2017-10-12] MEDS: INSULIN DETEMIR 100 UNITS/ML SQ SCH (21:00)
[2017-10-12] MEDS: OLANZapine 5 MG RAPDIS TABLET PO SCH (21:18)
[2017-10-13 06:23] LABS: GLUCOMETER DEV NAME(LOC) 3EC; GLUCOSE,POINT OF CARE 219 MG/DL (70-110)
[2017-10-13] MEDS: INSULIN ASPART 100 UNITS/ML SQ PRN ×4 (06:57→21:16)
[2017-10-13] MEDS: MetFORMIN HCL 500 MG TABLET PO SCH ×2 (07:06→16:37)
[2017-10-13 08:03] VITALS: BP 120/72
[2017-10-13] MEDS: THIAMINE HCL 100 MG TABLET PO SCH ×2 (10:22→16:16)
[2017-10-13] MEDS: OMEPRAZOLE 20 MG CAPSULE PO SCH (10:22)
[2017-10-13] MEDS: FOLIC ACID 1 MG TABLET PO SCH (10:22)
[2017-10-13] MEDS: OMEGA-3/DHA/EPA/FISH OIL 1,000 MG CAPSULE PO SCH (10:22)
[2017-10-13] MEDS: CHOLECALCIFEROL (VIT D3) 1,000 UNITS TABLET PO SCH (10:24)
[2017-10-13] MEDS: FLUoxetine HCL 20 MG CAPSULE PO SCH (10:24)
[2017-10-13] MEDS: MULTIVITAMINS WITH MINERALS, THERAPEUTIC TABLET PO SCH (10:24)
[2017-10-13 11:48] LABS: GLUCOMETER DEV NAME(LOC) 3EC; GLUCOSE,POINT OF CARE 303 MG/DL (70-110)
[2017-10-13] MEDS: LORazepam 2 MG TABLET PO PRN ×2 (11:59→16:20)
[2017-10-13] MEDS: OLANZapine 5 MG RAPDIS TABLET PO PRN (12:00)
[2017-10-13] MEDS: HydrOXYzine PAMOATE 50 MG CAPSULE PO PRN (14:14)
[2017-10-13 16:17] LABS: GLUCOMETER DEV NAME(LOC) 3EC; GLUCOSE,POINT OF CARE 312 MG/DL (70-110)
[2017-10-13 17:18] VITALS: BP 121/77
[2017-10-13] MEDS: OLANZapine 5 MG RAPDIS TABLET PO SCH (20:14)
[2017-10-13 20:23] LABS: GLUCOMETER DEV NAME(LOC) 3EC; GLUCOSE,POINT OF CARE 181 MG/DL (70-110)
[2017-10-13] MEDS: INSULIN DETEMIR 100 UNITS/ML SQ SCH (21:08)
[2017-10-14 06:23] LABS: GLUCOMETER DEV NAME(LOC) 3EC; GLUCOSE,POINT OF CARE 161 MG/DL (70-110)
[2017-10-14] MEDS: MetFORMIN HCL 500 MG TABLET PO SCH ×2 (06:47→16:25)
[2017-10-14] MEDS: INSULIN ASPART 100 UNITS/ML SQ PRN ×4 (06:47→21:44)
[2017-10-14 08:05] VITALS: BP 106/68
[2017-10-14] MEDS: OMEGA-3/DHA/EPA/FISH OIL 1,000 MG CAPSULE PO SCH (08:22)
[2017-10-14] MEDS: MULTIVITAMINS WITH MINERALS, THERAPEUTIC TABLET PO SCH (08:27)
[2017-10-14] MEDS: CHOLECALCIFEROL (VIT D3) 1,000 UNITS TABLET PO SCH (08:27)
[2017-10-14] MEDS: FOLIC ACID 1 MG TABLET PO SCH (08:28)
[2017-10-14] MEDS: HydrOXYzine PAMOATE 50 MG CAPSULE PO PRN (08:28)
[2017-10-14] MEDS: OMEPRAZOLE 20 MG CAPSULE PO SCH (08:28)
[2017-10-14] MEDS: LORazepam 2 MG TABLET PO PRN (08:28)
[2017-10-14] MEDS: THIAMINE HCL 100 MG TABLET PO SCH ×2 (08:28→16:25)
[2017-10-14] MEDS: FLUoxetine HCL 20 MG CAPSULE PO SCH (08:28)
[2017-10-14] MEDS: OLANZapine 5 MG RAPDIS TABLET PO PRN (08:29)
[2017-10-14 11:58] LABS: GLUCOMETER DEV NAME(LOC) 3EC; GLUCOSE,POINT OF CARE 152 MG/DL (70-110)
[2017-10-14 16:46] VITALS: BP 111/87
[2017-10-14 18:13] LABS: GLUCOMETER DEV NAME(LOC) 3EC; GLUCOSE,POINT OF CARE 213 MG/DL (70-110)
[2017-10-14] MEDS: OLANZapine 5 MG RAPDIS TABLET PO SCH (20:46)
[2017-10-14] MEDS: INSULIN DETEMIR 100 UNITS/ML SQ SCH (21:41)
[2017-10-14 21:43] LABS: GLUCOMETER DEV NAME(LOC) 3EC; GLUCOSE,POINT OF CARE 292 MG/DL (70-110)
[2017-10-15 06:38] LABS: GLUCOMETER DEV NAME(LOC) 3EC; GLUCOSE,POINT OF CARE 140 MG/DL (70-110)
[2017-10-15] MEDS: MetFORMIN HCL 500 MG TABLET PO SCH ×2 (07:13→16:13)
[2017-10-15 08:06] VITALS: BP 122/72
[2017-10-15] MEDS: FOLIC ACID 1 MG TABLET PO SCH (08:19)
[2017-10-15] MEDS: OMEGA-3/DHA/EPA/FISH OIL 1,000 MG CAPSULE PO SCH (08:19)
[2017-10-15] MEDS: CHOLECALCIFEROL (VIT D3) 1,000 UNITS TABLET PO SCH (08:20)
[2017-10-15] MEDS: FLUoxetine HCL 20 MG CAPSULE PO SCH (08:20)
[2017-10-15] MEDS: MULTIVITAMINS WITH MINERALS, THERAPEUTIC TABLET PO SCH (08:20)
[2017-10-15] MEDS: THIAMINE HCL 100 MG TABLET PO SCH ×2 (08:20→16:13)
[2017-10-15] MEDS: OMEPRAZOLE 20 MG CAPSULE PO SCH (08:20)
[2017-10-15] MEDS: INSULIN ASPART 100 UNITS/ML SQ PRN ×3 (11:28→21:34)
[2017-10-15 11:37] LABS: GLUCOMETER DEV NAME(LOC) 3EC; GLUCOSE,POINT OF CARE 262 MG/DL (70-110)
[2017-10-15 16:58] LABS: GLUCOMETER DEV NAME(LOC) 3EC; GLUCOSE,POINT OF CARE 361 MG/DL (70-110)
[2017-10-15] MEDS: OLANZapine 10 MG RAPDIS TABLET PO SCH (21:34)
[2017-10-15] MEDS: INSULIN DETEMIR 100 UNITS/ML SQ SCH (21:34)
[2017-10-15 21:52] LABS: GLUCOMETER DEV NAME(LOC) 3EC; GLUCOSE,POINT OF CARE 177 MG/DL (70-110)
[2017-10-16 02:56] VITALS: BP 112/65
[2017-10-16 06:37] LABS: GLUCOMETER DEV NAME(LOC) 3EC; GLUCOSE,POINT OF CARE 221 MG/DL (70-110)
[2017-10-16] MEDS: MetFORMIN HCL 500 MG TABLET PO SCH ×2 (07:00→17:48)
[2017-10-16] MEDS: INSULIN ASPART 100 UNITS/ML SQ PRN ×3 (07:01→20:38)
[2017-10-16 08:22] VITALS: BP 112/78
[2017-10-16] MEDS: MULTIVITAMINS WITH MINERALS, THERAPEUTIC TABLET PO SCH (08:30)
[2017-10-16] MEDS: FOLIC ACID 1 MG TABLET PO SCH (08:31)
[2017-10-16] MEDS: THIAMINE HCL 100 MG TABLET PO SCH ×2 (08:31→15:54)
[2017-10-16] MEDS: OMEPRAZOLE 20 MG CAPSULE PO SCH (08:31)
[2017-10-16] MEDS: CHOLECALCIFEROL (VIT D3) 1,000 UNITS TABLET PO SCH (08:31)
[2017-10-16] MEDS: FLUoxetine HCL 20 MG CAPSULE PO SCH (08:31)
[2017-10-16] MEDS: OMEGA-3/DHA/EPA/FISH OIL 1,000 MG CAPSULE PO SCH (08:32)
[2017-10-16 11:48] LABS: GLUCOMETER DEV NAME(LOC) 3EC; GLUCOSE,POINT OF CARE 448 MG/DL (70-110)
[2017-10-16] MEDS ORDERED: INSULIN ASPART 100 UNITS/ML SQ ONE (12:00)
[2017-10-16 13:23] LABS: GLUCOMETER DEV NAME(LOC) 3EC; GLUCOSE,POINT OF CARE 367 MG/DL (70-110)
[2017-10-16 15:58] LABS: GLUCOMETER DEV NAME(LOC) 3EC; GLUCOSE,POINT OF CARE 263 MG/DL (70-110)
[2017-10-16 16:05] VITALS: BP 114/79
[2017-10-16] MEDS: INSULIN DETEMIR 100 UNITS/ML SQ SCH (20:37)
[2017-10-16 20:38] LABS: GLUCOMETER DEV NAME(LOC) 3EC; GLUCOSE,POINT OF CARE 247 MG/DL (70-110)
[2017-10-16] MEDS: OLANZapine 10 MG RAPDIS TABLET PO SCH (20:39)
[2017-10-17 06:08] LABS: GLUCOMETER DEV NAME(LOC) 3EC; GLUCOSE,POINT OF CARE 152 MG/DL (70-110)
[2017-10-17] MEDS: MetFORMIN HCL 500 MG TABLET PO SCH ×2 (07:03→16:57)
[2017-10-17] MEDS: INSULIN ASPART 100 UNITS/ML SQ PRN ×2 (07:10→11:59)
[2017-10-17 08:08] VITALS: BP 96/61
[2017-10-17] MEDS: OMEGA-3/DHA/EPA/FISH OIL 1,000 MG CAPSULE PO SCH (08:57)
[2017-10-17] MEDS: FLUoxetine HCL 20 MG CAPSULE PO SCH (08:58)
[2017-10-17] MEDS: MULTIVITAMINS WITH MINERALS, THERAPEUTIC TABLET PO SCH (08:58)
[2017-10-17] MEDS: OMEPRAZOLE 20 MG CAPSULE PO SCH (08:58)
[2017-10-17] MEDS: THIAMINE HCL 100 MG TABLET PO SCH ×2 (08:58→16:57)
[2017-10-17] MEDS: FOLIC ACID 1 MG TABLET PO SCH (08:59)
[2017-10-17] MEDS: CHOLECALCIFEROL (VIT D3) 1,000 UNITS TABLET PO SCH (08:59)
[2017-10-17 11:23] LABS: GLUCOMETER DEV NAME(LOC) 3EC; GLUCOSE,POINT OF CARE 224 MG/DL (70-110)
[2017-10-17 17:43] LABS: GLUCOMETER DEV NAME(LOC) 3EC; GLUCOSE,POINT OF CARE 133 MG/DL (70-110)
[2017-10-17 18:19] VITALS: BP 112/74
[2017-10-17] MEDS: OLANZapine 10 MG RAPDIS TABLET PO SCH (20:29)
[2017-10-17 20:52] LABS: GLUCOMETER DEV NAME(LOC) 3EC; GLUCOSE,POINT OF CARE 94 MG/DL (70-110)
[2017-10-17] MEDS: INSULIN DETEMIR 100 UNITS/ML SQ SCH (21:29)
[2017-10-18 05:33] LABS: GLUCOMETER DEV NAME(LOC) 3EC; GLUCOSE,POINT OF CARE 163 MG/DL (70-110)
[2017-10-18] MEDS: MetFORMIN HCL 500 MG TABLET PO SCH ×2 (07:00→16:08)
[2017-10-18] MEDS: INSULIN ASPART 100 UNITS/ML SQ PRN ×4 (07:06→20:59)
[2017-10-18 08:12] VITALS: BP 130/83
[2017-10-18] MEDS: FOLIC ACID 1 MG TABLET PO SCH (10:07)
[2017-10-18] MEDS: OMEGA-3/DHA/EPA/FISH OIL 1,000 MG CAPSULE PO SCH (10:07)
[2017-10-18] MEDS: CHOLECALCIFEROL (VIT D3) 1,000 UNITS TABLET PO SCH (10:08)
[2017-10-18] MEDS: FLUoxetine HCL 20 MG CAPSULE PO SCH (10:08)
[2017-10-18] MEDS: THIAMINE HCL 100 MG TABLET PO SCH ×2 (10:08→16:08)
[2017-10-18] MEDS: OMEPRAZOLE 20 MG CAPSULE PO SCH (10:08)
[2017-10-18] MEDS: MULTIVITAMINS WITH MINERALS, THERAPEUTIC TABLET PO SCH (10:08)
[2017-10-18 11:43] LABS: GLUCOMETER DEV NAME(LOC) 3EC; GLUCOSE,POINT OF CARE 252 MG/DL (70-110)
[2017-10-18] MEDS ORDERED: OLAN10TA22 PO (12:03)
[2017-10-18] MEDS ORDERED: OMEG-135 PO (12:03)
[2017-10-18] MEDS ORDERED: FLUO-191 PO (12:03)
[2017-10-18 16:00] VITALS: BP 109/65
[2017-10-18 16:38] LABS: GLUCOMETER DEV NAME(LOC) 3EC; GLUCOSE,POINT OF CARE 300 MG/DL (70-110)
[2017-10-18] MEDS: LORazepam 2 MG TABLET PO PRN (18:50)
[2017-10-18 20:48] LABS: GLUCOMETER DEV NAME(LOC) 3EC; GLUCOSE,POINT OF CARE 261 MG/DL (70-110)
[2017-10-18] MEDS: OLANZapine 10 MG RAPDIS TABLET PO SCH (20:55)
[2017-10-18] MEDS: INSULIN DETEMIR 100 UNITS/ML SQ SCH (20:58)
[2017-10-19 06:39] LABS: GLUCOMETER DEV NAME(LOC) 3EC; GLUCOSE,POINT OF CARE 123 MG/DL (70-110)
[2017-10-19] MEDS: MetFORMIN HCL 500 MG TABLET PO SCH (06:52)
[2017-10-19 08:07] VITALS: BP 105/66
[2017-10-19] MEDS: CHOLECALCIFEROL (VIT D3) 1,000 UNITS TABLET PO SCH (09:51)
[2017-10-19] MEDS: MULTIVITAMINS WITH MINERALS, THERAPEUTIC TABLET PO SCH (10:03)
[2017-10-19] MEDS: FLUoxetine HCL 20 MG CAPSULE PO SCH (10:03)
[2017-10-19] MEDS: THIAMINE HCL 100 MG TABLET PO SCH (10:03)
[2017-10-19] MEDS: OMEPRAZOLE 20 MG CAPSULE PO SCH (10:03)
[2017-10-19] MEDS: FOLIC ACID 1 MG TABLET PO SCH (10:03)
[2017-10-19] MEDS: OMEGA-3/DHA/EPA/FISH OIL 1,000 MG CAPSULE PO SCH (10:03)
[2017-10-19] MEDS ORDERED: METF500T4 PO (11:27)
[2017-10-19] MEDS ORDERED: OMEP20 PO (11:28)
[2017-10-19 12:28] LABS: GLUCOMETER DEV NAME(LOC) 3EC; GLUCOSE,POINT OF CARE 210 MG/DL (70-110)
[2017-10-19] MEDS: INSULIN ASPART 100 UNITS/ML SQ PRN (12:32)
== END 2017-10-19 14:30 | disposition home or self-care (01) | DRG 885 ==
LOC: EMS 03:58 → 3EX 15:56 → 3EC 20:47
PROVIDERS: ADMIT Psychiatry & Neurology Psychiatry; ATTEND Psychiatry & Neurology Psychiatry
PROC: 3E0234Z Introduction of Serum, Toxoid and Vaccine into Muscle, Percutaneous Approach (ICD-10-PCS; principal; 2017-10-11)
DX: F25.9 Schizoaffective disorder, unspecified (principal); R45.851 Suicidal ideations; E11.65 Type 2 diabetes mellitus with hyperglycemia; E78.1 Pure hyperglyceridemia; E78.5 Hyperlipidemia, unspecified; F17.200 Nicotine dependence, unspecified, uncomplicated; F32.9 Major depressive disorder, single episode, unspecified; I10 Essential (primary) hypertension; J44.9 Chronic obstructive pulmonary disease, unspecified; K21.9 Gastro-esophageal reflux disease without esophagitis; K59.00 Constipation, unspecified; E55.9 Vitamin D deficiency, unspecified; Z65.3 Problems related to other legal circumstances; Z91.19 Patient's noncompliance with other medical treatment and regimen; Z78.1 Physical restraint status; Z79.4 Long term (current) use of insulin; Z79.84 Long term (current) use of oral hypoglycemic drugs; Z23 Encounter for immunization
CPT/HCPCS: 82962; 84439; 84443; 86592; 87081; 96372; 96374; 99285; G0480; J1200; J1630; J1815; J2060

== ENCOUNTER 2017-10-30 15:03 | Inpatient (IN) | payer BC, MEDICAID ==
[~2017-10-30] VITALS: Ht 170.2 cm; Wt 66.2 kg
[~2017-10-30 15:03] MED LIST changes: -DIVA250T4 PO; +FLUO-191 PO; -LITH300C3 PO; +OLAN10TA22 PO; -OLAN10TA6 PO; +OMEG-135 PO; -OMEG100033 PO; +OMEP20 PO
[2017-10-30] MEDS ORDERED: HydrOXYzine PAMOATE 50 MG CAPSULE PO PRN (17:00)
[2017-10-30] MEDS ORDERED: MAG HYDROX/AL HYDROX/SIMETH ES 30 ML SUSPENSION UDCUP PO PRN (17:00)
[2017-10-30] MEDS ORDERED: MAGNESIUM HYDROXIDE SUSPENSION 30 ML UDCUP PO PRN (17:00)
[2017-10-30] MEDS ORDERED: ACETAMINOPHEN 325 MG TABLET PO PRN (17:00)
[2017-10-30] MEDS ORDERED: GuaiFENesin/D-METHORPHAN [SUGAR-FREE] 200-20MG/10 ML SYRUP UDCUP PO PRN (17:00)
[2017-10-30] MEDS ORDERED: PROMETHAZINE HCL 25 MG TABLET PO PRN (17:00)
[2017-10-30] MEDS ORDERED: LOPERAMIDE HCL 2 MG CAPSULE PO PRN (17:00)
[2017-10-30] MEDS ORDERED: SODIUM CHLORIDE 0.9% 1,000 ML IV ONE ×3 (17:05→17:30)
[2017-10-30 17:24] LABS: BASOPHILS % (AUTO) 0.7 % (0.0-2.0); EOSINOPHILS % (AUTO) 0.7 % (1.0-6.0); HEMOGLOBIN 12.8 g/dL (13.5-17.5); LYMPHOCYTES % (AUTO) 14.7 % (22.0-44.0); MEAN CORPUSCULAR HEMOGLOBIN 19.9 pg (26.0-34.0); MEAN CORPUSCULAR HGB CONC 31.2 G/dL (31.0-37.0); MEAN CORPUSCULAR VOLUME 64 fL (80-100); MONOCYTES # (AUTO) 0.7 K/uL (0.1-1.0); MONOCYTES % (AUTO) 9.3 % (2.0-9.0); NEUTROPHILS # (AUTO) 5.3 K/uL (1.8-7.7); NEUTROPHILS % (AUTO) 74.6 % (40.0-70.0); PLATELET COUNT (AUTO) 158 K/uL (150-450); RED BLOOD CELL COUNT(AUTO) 6.42 MIL/uL (4.50-5.90); RED CELL DISTRIBUTION WIDTH 17.1 % (11.5-14.5)
[2017-10-30] MEDS: LITHIUM CARBONATE 300 MG CAPSULE PO SCH (17:30)
[2017-10-30] MEDS ORDERED: INSULIN REGULAR, HUMAN 100 UNITS/ML IVP ONE ×2 (17:30→17:45)
[2017-10-30 17:31] LABS: AMPHET/METH SCREEN,URINE NEGATIVE (NEGATIVE); BARBITURATE SCREEN, URINE NEGATIVE (NEGATIVE); BENZODIAZEPINES SCREEN,URINE NEGATIVE (NEGATIVE); CANNABINOID SCREEN,URINE NEGATIVE (NEGATIVE); COCAINE SCREEN,URINE NEGATIVE (NEGATIVE); METHADONE SCREEN, URINE NEGATIVE (NEGATIVE); OPIATE SCREEN,URINE NEGATIVE (NEGATIVE)
[2017-10-30 17:32] LABS: PHENCYCLIDINE SCREEN,URINE NEGATIVE (NEGATIVE)
[2017-10-30 17:43] LABS: GLUCOSE,POINT OF CARE 367 MG/DL (70-110)
[2017-10-30 17:44] LABS: ALANINE AMINOTRANSFERASE 24 U/L (12-78); ALBUMIN 3.6 g/dL (3.4-5.0); ALKALINE PHOSPHATASE 91 U/L (46-116); ANION GAP 12 mmol/L (8-16); ASPARTATE AMINOTRANSFERASE 18 U/L (15-37); BILIRUBIN,TOTAL 0.5 mg/dL (0.1-1.0); CALCIUM, TOTAL 8.9 mg/dL (8.8-10.5); CARBON DIOXIDE 27 mmol/L (22-29); CHLORIDE 97 mmol/L (98-107); CREATININE 1.05 mg/dL (0.60-1.30); GLOMERULAR FILTR. RATE CALC > 60 mL/min (>60); POTASSIUM 4.2 mmol/L (3.5-5.1); SODIUM SERUM 136 mmol/L (136-145); TOTAL PROTEIN, SERUM 7.6 g/dL (6.4-8.2); UREA NITROGEN, BLOOD 16 mg/dL (7-18)
[2017-10-30 17:46] LABS: GLUCOSE,RANDOM 506 mg/dL (70-110)
[2017-10-30] MEDS: THIAMINE HCL 100 MG TABLET PO SCH (18:57)
[2017-10-30 19:13] LABS: GLUCOSE,POINT OF CARE 146 MG/DL (70-110)
[2017-10-30 20:02] LABS: GLUCOSE,POINT OF CARE 134 MG/DL (70-110)
[2017-10-30] MEDS: OLANZapine 5 MG RAPDIS TABLET PO SCH (21:00)
[2017-10-30] MEDS: LORazepam 2 MG TABLET PO PRN (21:50)
[2017-10-31 00:31] VITALS: BP 147/80
[2017-10-31] MEDS ORDERED: PNEUMOCOCCAL VACCINE POLYVALENT 0.5 ML VIAL [PPSV23] IM ONE (01:30)
[2017-10-31] MEDS ORDERED: INFLUENZA VIRUS VACCINE QVS 2017-18 (3YR+)/PF 60 MCG/0.5 ML SYRINGE IM ONE (01:30)
[2017-10-31] MEDS: LITHIUM CARBONATE 300 MG CAPSULE PO SCH ×2 (06:32→16:37)
[2017-10-31 06:33] LABS: GLUCOMETER DEV NAME(LOC) BV3N5; GLUCOSE,POINT OF CARE 261 MG/DL (70-110)
[2017-10-31] MEDS ORDERED: GLUCAGON,HUMAN RECOMBINANT 1 MG VIAL IM PRN (08:15)
[2017-10-31] MEDS: FOLIC ACID 1 MG TABLET PO SCH (08:17)
[2017-10-31] MEDS: LORazepam 2 MG TABLET PO PRN ×2 (08:17→14:35)
[2017-10-31] MEDS: THIAMINE HCL 100 MG TABLET PO SCH ×2 (08:17→16:37)
[2017-10-31] MEDS: MULTIVITAMINS WITH MINERALS, THERAPEUTIC TABLET PO SCH (08:17)
[2017-10-31] MEDS: FLUoxetine HCL 20 MG CAPSULE PO SCH (08:17)
[2017-10-31 08:37] VITALS: BP 113/76
[2017-10-31] MEDS: INSULIN ASPART 100 UNITS/ML SQ PRN ×2 (11:38→16:38)
[2017-10-31 11:44] LABS: GLUCOMETER DEV NAME(LOC) BV3N5; GLUCOSE,POINT OF CARE 337 MG/DL (70-110)
[2017-10-31] MEDS: OLANZapine 5 MG RAPDIS TABLET PO PRN (14:35)
[2017-10-31] MEDS: FERROUS SULFATE 325 MG EC TABLET PO SCH (16:37)
[2017-10-31] MEDS: MetFORMIN HCL 500 MG TABLET PO SCH (16:37)
[2017-10-31 16:51] VITALS: BP 109/70
[2017-10-31 17:08] LABS: GLUCOMETER DEV NAME(LOC) BV3N5; GLUCOSE,POINT OF CARE 166 MG/DL (70-110)
[2017-10-31] MEDS: INSULIN DETEMIR 100 UNITS/ML SQ SCH (21:00)
[2017-10-31] MEDS: OLANZapine 5 MG RAPDIS TABLET PO SCH (21:18)
[2017-10-31 21:32] LABS: GLUCOMETER DEV NAME(LOC) BV3N5; GLUCOSE,POINT OF CARE 103 MG/DL (70-110)
[2017-11-01 06:34] VITALS: BP 112/73
[2017-11-01] MEDS: FERROUS SULFATE 325 MG EC TABLET PO SCH ×2 (06:34→16:56)
[2017-11-01] MEDS: LITHIUM CARBONATE 300 MG CAPSULE PO SCH ×2 (06:34→16:56)
[2017-11-01] MEDS: MetFORMIN HCL 500 MG TABLET PO SCH ×2 (06:34→16:55)
[2017-11-01 06:48] LABS: GLUCOMETER DEV NAME(LOC) BV3N5; GLUCOSE,POINT OF CARE 139 MG/DL (70-110)
[2017-11-01 08:12] VITALS: BP 115/63
[2017-11-01 08:35] LABS: BASOPHILS % (AUTO) 0.4 % (0.0-2.0); EOSINOPHILS % (AUTO) 2.5 % (1.0-6.0); HEMATOCRIT 39.4 % (41-53); HEMOGLOBIN 12.6 g/dL (13.5-17.5); LYMPHOCYTES # (AUTO) 1.7 K/uL (1.0-4.8); LYMPHOCYTES % (AUTO) 17.6 % (22.0-44.0); MEAN CORPUSCULAR HEMOGLOBIN 20.2 pg (26.0-34.0); MEAN CORPUSCULAR VOLUME 63 fL (80-100); MONOCYTES # (AUTO) 0.7 K/uL (0.1-1.0); MONOCYTES % (AUTO) 6.8 % (2.0-9.0); NEUTROPHILS # (AUTO) 7.1 K/uL (1.8-7.7); NEUTROPHILS % (AUTO) 72.7 % (40.0-70.0); PLATELET COUNT (AUTO) 150 K/uL (150-450); RED BLOOD CELL COUNT(AUTO) 6.25 MIL/uL (4.50-5.90)
[2017-11-01 08:58] LABS: ALANINE AMINOTRANSFERASE 26 U/L (12-78); ALKALINE PHOSPHATASE 72 U/L (46-116); ANION GAP 9 mmol/L (8-16); ASPARTATE AMINOTRANSFERASE 21 U/L (15-37); BILIRUBIN,TOTAL 0.7 mg/dL (0.1-1.0); CALCIUM, TOTAL 9.1 mg/dL (8.8-10.5); CARBON DIOXIDE 30 mmol/L (22-29); CHLORIDE 104 mmol/L (98-107); CHOL/HDL RATIO 4.1 (4.2-7.3); CHOLESTEROL 153 mg/dL (131-200); CREATININE 0.77 mg/dL (0.60-1.30); GLOMERULAR FILTR. RATE CALC > 60 mL/min (>60); GLUCOSE,RANDOM 219 mg/dL (70-110); HDL CHOLESTEROL 37 mg/dL (40-60); LDL CHOL (CALC.) 89 mg/dL (0-130); POTASSIUM 3.9 mmol/L (3.5-5.1); SODIUM SERUM 143 mmol/L (136-145); TOTAL PROTEIN, SERUM 6.6 g/dL (6.4-8.2); TRIGLYCERIDES 134 mg/dL (15-150); UREA NITROGEN, BLOOD 16 mg/dL (7-18)
[2017-11-01 09:09] LABS: ALBUMIN 3.3 g/dL (3.4-5.0)
[2017-11-01] MEDS: MULTIVITAMINS WITH MINERALS, THERAPEUTIC TABLET PO SCH (09:36)
[2017-11-01] MEDS: THIAMINE HCL 100 MG TABLET PO SCH ×2 (09:36→16:56)
[2017-11-01] MEDS: FLUoxetine HCL 20 MG CAPSULE PO SCH (09:36)
[2017-11-01] MEDS: FOLIC ACID 1 MG TABLET PO SCH (09:36)
[2017-11-01] MEDS: LORazepam 2 MG TABLET PO PRN (09:36)
[2017-11-01] MEDS: INSULIN ASPART 100 UNITS/ML SQ PRN ×3 (11:46→21:19)
[2017-11-01 12:03] LABS: GLUCOMETER DEV NAME(LOC) BV3N5; GLUCOSE,POINT OF CARE 281 MG/DL (70-110)
[2017-11-01 16:00] VITALS: BP 120/65
[2017-11-01 17:08] LABS: GLUCOMETER DEV NAME(LOC) BV3N5; GLUCOSE,POINT OF CARE 292 MG/DL (70-110)
[2017-11-01] MEDS: OLANZapine 5 MG RAPDIS TABLET PO SCH (21:03)
[2017-11-01] MEDS: INSULIN DETEMIR 100 UNITS/ML SQ SCH (21:17)
[2017-11-01] MEDS: ZOLPIDEM TARTRATE 10 MG TABLET PO PRN (21:53)
[2017-11-02 01:37] LABS: GLUCOMETER DEV NAME(LOC) BV2N3; GLUCOSE,POINT OF CARE 260 MG/DL (70-110)
[2017-11-02 06:14] VITALS: BP 109/67
[2017-11-02 06:28] LABS: GLUCOMETER DEV NAME(LOC) BV2N3; GLUCOSE,POINT OF CARE 155 MG/DL (70-110)
[2017-11-02] MEDS: LITHIUM CARBONATE 300 MG CAPSULE PO SCH ×2 (07:03→17:00)
[2017-11-02] MEDS: MetFORMIN HCL 500 MG TABLET PO SCH ×2 (07:03→17:00)
[2017-11-02] MEDS: FERROUS SULFATE 325 MG EC TABLET PO SCH ×2 (07:03→17:00)
[2017-11-02] MEDS: INSULIN ASPART 100 UNITS/ML SQ PRN ×2 (07:20→20:34)
[2017-11-02] MEDS: FOLIC ACID 1 MG TABLET PO SCH (08:30)
[2017-11-02] MEDS: MULTIVITAMINS WITH MINERALS, THERAPEUTIC TABLET PO SCH (08:30)
[2017-11-02] MEDS: FLUoxetine HCL 20 MG CAPSULE PO SCH (08:30)
[2017-11-02] MEDS: THIAMINE HCL 100 MG TABLET PO SCH ×2 (08:30→17:00)
[2017-11-02 10:08] VITALS: BP 100/60
[2017-11-02 11:03] LABS: GLUCOMETER DEV NAME(LOC) BV2N3; GLUCOSE,POINT OF CARE 473 MG/DL (70-110)
[2017-11-02] MEDS ORDERED: INSULIN ASPART 100 UNITS/ML SQ ONE ×3 (11:15→14:00)
[2017-11-02] MEDS: LORazepam 2 MG TABLET PO PRN (11:23)
[2017-11-02] MEDS: OLANZapine 5 MG RAPDIS TABLET PO PRN (11:23)
[2017-11-02 11:58] LABS: GLUCOMETER DEV NAME(LOC) BV2N3; GLUCOSE,POINT OF CARE 480 MG/DL (70-110)
[2017-11-02 12:43] LABS: GLUCOMETER DEV NAME(LOC) BV2S; GLUCOSE,POINT OF CARE 427 MG/DL (70-110)
[2017-11-02 13:47] LABS: GLUCOMETER DEV NAME(LOC) BV2S; GLUCOSE,POINT OF CARE 284 MG/DL (70-110)
[2017-11-02 14:53] LABS: GLUCOMETER DEV NAME(LOC) BV2S; GLUCOSE,POINT OF CARE 122 MG/DL (70-110)
[2017-11-02 16:00] VITALS: BP 124/69
[2017-11-02 16:48] LABS: GLUCOMETER DEV NAME(LOC) BV2S; GLUCOSE,POINT OF CARE 71 MG/DL (70-110)
[2017-11-02] MEDS: OLANZapine 5 MG RAPDIS TABLET PO SCH (20:32)
[2017-11-02] MEDS: INSULIN DETEMIR 100 UNITS/ML SQ SCH (20:34)
[2017-11-02 20:52] LABS: GLUCOMETER DEV NAME(LOC) BV2S; GLUCOSE,POINT OF CARE 240 MG/DL (70-110)
[2017-11-03 06:15] VITALS: BP 125/78
[2017-11-03] MEDS: MetFORMIN HCL 500 MG TABLET PO SCH ×2 (06:40→16:42)
[2017-11-03] MEDS: FERROUS SULFATE 325 MG EC TABLET PO SCH ×2 (06:40→16:42)
[2017-11-03] MEDS: LITHIUM CARBONATE 300 MG CAPSULE PO SCH ×2 (06:41→16:42)
[2017-11-03 06:58] LABS: GLUCOMETER DEV NAME(LOC) BV2S; GLUCOSE,POINT OF CARE 118 MG/DL (70-110)
[2017-11-03] MEDS: THIAMINE HCL 100 MG TABLET PO SCH ×2 (08:16→16:42)
[2017-11-03] MEDS: FLUoxetine HCL 20 MG CAPSULE PO SCH (08:16)
[2017-11-03] MEDS: FOLIC ACID 1 MG TABLET PO SCH (08:16)
[2017-11-03] MEDS: MULTIVITAMINS WITH MINERALS, THERAPEUTIC TABLET PO SCH (08:16)
[2017-11-03 08:28] VITALS: BP 106/65
[2017-11-03] MEDS: INSULIN ASPART 100 UNITS/ML SQ PRN ×3 (11:02→20:31)
[2017-11-03 11:12] LABS: GLUCOMETER DEV NAME(LOC) BV2S; GLUCOSE,POINT OF CARE 328 MG/DL (70-110)
[2017-11-03] MEDS: LORazepam 2 MG TABLET PO PRN (12:46)
[2017-11-03 16:13] VITALS: BP 109/62
[2017-11-03 17:23] LABS: GLUCOMETER DEV NAME(LOC) BV2S; GLUCOSE,POINT OF CARE 244 MG/DL (70-110)
[2017-11-03] MEDS: INSULIN DETEMIR 100 UNITS/ML SQ SCH (20:31)
[2017-11-03] MEDS: OLANZapine 5 MG RAPDIS TABLET PO SCH (20:37)
[2017-11-03 20:38] LABS: GLUCOMETER DEV NAME(LOC) BV2S; GLUCOSE,POINT OF CARE 232 MG/DL (70-110)
[2017-11-04 01:12] VITALS: BP 104/65
[2017-11-04 06:33] LABS: GLUCOMETER DEV NAME(LOC) BV2S; GLUCOSE,POINT OF CARE 137 MG/DL (70-110)
[2017-11-04] MEDS: MetFORMIN HCL 500 MG TABLET PO SCH ×2 (06:43→16:51)
[2017-11-04] MEDS: LITHIUM CARBONATE 300 MG CAPSULE PO SCH ×2 (06:43→16:51)
[2017-11-04] MEDS: FERROUS SULFATE 325 MG EC TABLET PO SCH ×2 (06:43→16:51)
[2017-11-04] MEDS: FLUoxetine HCL 20 MG CAPSULE PO SCH (08:25)
[2017-11-04] MEDS: FOLIC ACID 1 MG TABLET PO SCH (08:25)
[2017-11-04] MEDS: MULTIVITAMINS WITH MINERALS, THERAPEUTIC TABLET PO SCH (08:26)
[2017-11-04] MEDS: THIAMINE HCL 100 MG TABLET PO SCH ×2 (08:26→16:51)
[2017-11-04 08:32] VITALS: BP 114/60
[2017-11-04] MEDS: INSULIN ASPART 100 UNITS/ML SQ PRN ×3 (11:10→20:07)
[2017-11-04 11:12] LABS: GLUCOMETER DEV NAME(LOC) BV2S; GLUCOSE,POINT OF CARE 188 MG/DL (70-110)
[2017-11-04 16:00] VITALS: BP 114/71
[2017-11-04] MEDS: OLANZapine 5 MG RAPDIS TABLET PO SCH (20:04)
[2017-11-04] MEDS: INSULIN DETEMIR 100 UNITS/ML SQ SCH (20:07)
[2017-11-04] MEDS: ZOLPIDEM TARTRATE 10 MG TABLET PO PRN (21:06)
[2017-11-04 21:23] LABS: GLUCOMETER DEV NAME(LOC) BV2S; GLUCOSE,POINT OF CARE 278 MG/DL (70-110)
[2017-11-04 21:23] LABS: GLUCOMETER DEV NAME(LOC) BV2S; GLUCOSE,POINT OF CARE 171 MG/DL (70-110)
[2017-11-05 06:13] VITALS: BP 126/77
[2017-11-05 06:18] LABS: GLUCOMETER DEV NAME(LOC) BV2S; GLUCOSE,POINT OF CARE 127 MG/DL (70-110)
[2017-11-05] MEDS: LITHIUM CARBONATE 300 MG CAPSULE PO SCH ×2 (06:28→16:38)
[2017-11-05] MEDS: MetFORMIN HCL 500 MG TABLET PO SCH ×2 (06:29→16:38)
[2017-11-05] MEDS: FERROUS SULFATE 325 MG EC TABLET PO SCH ×2 (06:29→16:37)
[2017-11-05 08:35] VITALS: BP 122/78
[2017-11-05] MEDS: THIAMINE HCL 100 MG TABLET PO SCH ×2 (08:41→16:38)
[2017-11-05] MEDS: FOLIC ACID 1 MG TABLET PO SCH (08:41)
[2017-11-05] MEDS: FLUoxetine HCL 20 MG CAPSULE PO SCH (08:41)
[2017-11-05] MEDS: MULTIVITAMINS WITH MINERALS, THERAPEUTIC TABLET PO SCH (08:41)
[2017-11-05] MEDS: INSULIN ASPART 100 UNITS/ML SQ PRN ×3 (11:04→20:48)
[2017-11-05 11:08] LABS: GLUCOMETER DEV NAME(LOC) BV2S; GLUCOSE,POINT OF CARE 256 MG/DL (70-110)
[2017-11-05 16:01] VITALS: BP 123/76
[2017-11-05 16:32] LABS: GLUCOMETER DEV NAME(LOC) BV2S; GLUCOSE,POINT OF CARE 301 MG/DL (70-110)
[2017-11-05] MEDS: OLANZapine 5 MG RAPDIS TABLET PO PRN (18:25)
[2017-11-05] MEDS: LORazepam 2 MG TABLET PO PRN (18:25)
[2017-11-05 20:17] LABS: GLUCOMETER DEV NAME(LOC) BV2S; GLUCOSE,POINT OF CARE 167 MG/DL (70-110)
[2017-11-05] MEDS: OLANZapine 5 MG RAPDIS TABLET PO SCH (20:46)
[2017-11-05] MEDS: INSULIN DETEMIR 100 UNITS/ML SQ SCH (20:48)
[2017-11-05] MEDS: ZOLPIDEM TARTRATE 10 MG TABLET PO PRN (21:03)
[2017-11-06 06:23] VITALS: BP 109/64
[2017-11-06 06:34] LABS: GLUCOMETER DEV NAME(LOC) BV2S; GLUCOSE,POINT OF CARE 123 MG/DL (70-110)
[2017-11-06] MEDS: FERROUS SULFATE 325 MG EC TABLET PO SCH ×2 (07:04→16:35)
[2017-11-06] MEDS: MetFORMIN HCL 500 MG TABLET PO SCH ×2 (07:04→16:35)
[2017-11-06] MEDS: LITHIUM CARBONATE 300 MG CAPSULE PO SCH ×2 (07:04→16:35)
[2017-11-06 08:21] VITALS: BP 115/63
[2017-11-06] MEDS: FOLIC ACID 1 MG TABLET PO SCH (08:26)
[2017-11-06] MEDS: FLUoxetine HCL 20 MG CAPSULE PO SCH (08:26)
[2017-11-06] MEDS: MULTIVITAMINS WITH MINERALS, THERAPEUTIC TABLET PO SCH (08:26)
[2017-11-06] MEDS: THIAMINE HCL 100 MG TABLET PO SCH ×2 (08:26→16:35)
[2017-11-06] MEDS: INSULIN ASPART 100 UNITS/ML SQ PRN ×3 (11:05→20:47)
[2017-11-06 11:12] LABS: GLUCOMETER DEV NAME(LOC) BV2S; GLUCOSE,POINT OF CARE 193 MG/DL (70-110)
[2017-11-06 16:07] VITALS: BP 109/73
[2017-11-06 16:22] LABS: GLUCOMETER DEV NAME(LOC) BV2S; GLUCOSE,POINT OF CARE 227 MG/DL (70-110)
[2017-11-06 20:32] LABS: GLUCOMETER DEV NAME(LOC) BV2S; GLUCOSE,POINT OF CARE 286 MG/DL (70-110)
[2017-11-06] MEDS: INSULIN DETEMIR 100 UNITS/ML SQ SCH (20:46)
[2017-11-06] MEDS: OLANZapine 10 MG RAPDIS TABLET PO SCH (20:46)
[2017-11-06] MEDS: ZOLPIDEM TARTRATE 10 MG TABLET PO PRN (20:56)
[2017-11-07 05:33] VITALS: BP 126/87
[2017-11-07] MEDS: LORazepam 2 MG TABLET PO PRN (05:34)
[2017-11-07 06:22] LABS: GLUCOMETER DEV NAME(LOC) BV2S; GLUCOSE,POINT OF CARE 181 MG/DL (70-110)
[2017-11-07] MEDS: INSULIN ASPART 100 UNITS/ML SQ PRN ×4 (07:05→20:37)
[2017-11-07] MEDS: LITHIUM CARBONATE 300 MG CAPSULE PO SCH ×2 (07:06→16:34)
[2017-11-07] MEDS: FERROUS SULFATE 325 MG EC TABLET PO SCH ×2 (07:06→16:34)
[2017-11-07] MEDS: MetFORMIN HCL 500 MG TABLET PO SCH ×2 (07:06→16:34)
[2017-11-07 08:23] LABS: LITHIUM 0.48 mmol/L (0.60-1.20)
[2017-11-07 08:25] LABS: ANION GAP 9 mmol/L (8-16); CALCIUM, TOTAL 8.9 mg/dL (8.8-10.5); CARBON DIOXIDE 31 mmol/L (22-29); CHLORIDE 101 mmol/L (98-107); CREATININE 0.82 mg/dL (0.60-1.30); GLOMERULAR FILTR. RATE CALC > 60 mL/min (>60); GLUCOSE,RANDOM 195 mg/dL (70-110); POTASSIUM 3.7 mmol/L (3.5-5.1); SODIUM SERUM 141 mmol/L (136-145); UREA NITROGEN, BLOOD 23 mg/dL (7-18)
[2017-11-07] MEDS: THIAMINE HCL 100 MG TABLET PO SCH ×2 (08:36→16:34)
[2017-11-07] MEDS: FOLIC ACID 1 MG TABLET PO SCH (08:36)
[2017-11-07] MEDS: FLUoxetine HCL 20 MG CAPSULE PO SCH (08:36)
[2017-11-07] MEDS: MULTIVITAMINS WITH MINERALS, THERAPEUTIC TABLET PO SCH (08:36)
[2017-11-07 09:40] VITALS: BP 125/69
[2017-11-07 15:12] LABS: GLUCOMETER DEV NAME(LOC) BV2S; GLUCOSE,POINT OF CARE 290 MG/DL (70-110)
[2017-11-07 16:08] VITALS: BP 113/75
[2017-11-07 16:32] LABS: GLUCOMETER DEV NAME(LOC) BV2S; GLUCOSE,POINT OF CARE 314 MG/DL (70-110)
[2017-11-07 20:22] LABS: GLUCOMETER DEV NAME(LOC) BV2S; GLUCOSE,POINT OF CARE 187 MG/DL (70-110)
[2017-11-07] MEDS: OLANZapine 10 MG RAPDIS TABLET PO SCH (20:34)
[2017-11-07] MEDS: INSULIN DETEMIR 100 UNITS/ML SQ SCH (20:37)
[2017-11-08 02:00] VITALS: BP 122/88
[2017-11-08 06:32] LABS: GLUCOMETER DEV NAME(LOC) BV2S; GLUCOSE,POINT OF CARE 123 MG/DL (70-110)
[2017-11-08] MEDS: MetFORMIN HCL 500 MG TABLET PO SCH ×2 (06:44→16:38)
[2017-11-08] MEDS: LITHIUM CARBONATE 300 MG CAPSULE PO SCH ×2 (06:44→16:38)
[2017-11-08] MEDS: FERROUS SULFATE 325 MG EC TABLET PO SCH ×2 (06:44→16:38)
[2017-11-08 08:14] VITALS: BP 109/62
[2017-11-08] MEDS: THIAMINE HCL 100 MG TABLET PO SCH ×2 (08:14→16:40)
[2017-11-08] MEDS: MULTIVITAMINS WITH MINERALS, THERAPEUTIC TABLET PO SCH (08:15)
[2017-11-08] MEDS: FOLIC ACID 1 MG TABLET PO SCH (08:15)
[2017-11-08] MEDS: FLUoxetine HCL 20 MG CAPSULE PO SCH (08:15)
[2017-11-08] MEDS: INSULIN ASPART 100 UNITS/ML SQ PRN ×3 (11:01→20:45)
[2017-11-08 11:07] LABS: GLUCOMETER DEV NAME(LOC) BV2S; GLUCOSE,POINT OF CARE 228 MG/DL (70-110)
[2017-11-08] MEDS ORDERED: OLAN10TA22 PO (11:39)
[2017-11-08] MEDS: LORazepam 2 MG TABLET PO PRN (14:22)
[2017-11-08] MEDS ORDERED: FLUO-191 PO (14:25)
[2017-11-08 16:10] VITALS: BP 134/72
[2017-11-08 16:27] LABS: GLUCOMETER DEV NAME(LOC) BV2S; GLUCOSE,POINT OF CARE 333 MG/DL (70-110)
[2017-11-08 20:22] LABS: GLUCOMETER DEV NAME(LOC) BV2S; GLUCOSE,POINT OF CARE 217 MG/DL (70-110)
[2017-11-08] MEDS: OLANZapine 10 MG RAPDIS TABLET PO SCH (20:31)
[2017-11-08] MEDS: INSULIN DETEMIR 100 UNITS/ML SQ SCH (20:45)
[2017-11-09 06:15] VITALS: BP 118/62
[2017-11-09] MEDS: INSULIN ASPART 100 UNITS/ML SQ PRN ×3 (06:49→20:53)
[2017-11-09 06:53] LABS: GLUCOMETER DEV NAME(LOC) BV2S; GLUCOSE,POINT OF CARE 189 MG/DL (70-110)
[2017-11-09] MEDS: MetFORMIN HCL 500 MG TABLET PO SCH ×2 (07:09→16:43)
[2017-11-09] MEDS: LITHIUM CARBONATE 300 MG CAPSULE PO SCH ×3 (07:09→16:43)
[2017-11-09] MEDS: FERROUS SULFATE 325 MG EC TABLET PO SCH ×2 (07:09→16:43)
[2017-11-09 08:03] VITALS: BP 137/77
[2017-11-09] MEDS: FLUoxetine HCL 20 MG CAPSULE PO SCH (08:13)
[2017-11-09] MEDS: THIAMINE HCL 100 MG TABLET PO SCH (08:13)
[2017-11-09] MEDS: FOLIC ACID 1 MG TABLET PO SCH (08:13)
[2017-11-09] MEDS: MULTIVITAMINS WITH MINERALS, THERAPEUTIC TABLET PO SCH (08:13)
[2017-11-09] MEDS ORDERED: LITH300C3 PO ×3 (08:23→08:37)
[2017-11-09] MEDS ORDERED: FLUO-191 PO (08:37)
[2017-11-09] MEDS ORDERED: OLAN10TA3 PO (08:37)
[2017-11-09] MEDS ORDERED: FERR-89 PO (08:37)
[2017-11-09 11:17] LABS: GLUCOMETER DEV NAME(LOC) BV2S; GLUCOSE,POINT OF CARE 347 MG/DL (70-110)
[2017-11-09] MEDS: LORazepam 2 MG TABLET PO PRN (12:53)
[2017-11-09 16:21] LABS: GLUCOMETER DEV NAME(LOC) BV2S; GLUCOSE,POINT OF CARE 123 MG/DL (70-110)
[2017-11-09 16:30] VITALS: BP 101/66
[2017-11-09 20:17] LABS: GLUCOMETER DEV NAME(LOC) BV2S; GLUCOSE,POINT OF CARE 262 MG/DL (70-110)
[2017-11-09] MEDS: OLANZapine 10 MG RAPDIS TABLET PO SCH (20:47)
[2017-11-09] MEDS: INSULIN DETEMIR 100 UNITS/ML SQ SCH (20:53)
[2017-11-09] MEDS: ZOLPIDEM TARTRATE 10 MG TABLET PO PRN (23:42)
[2017-11-10] VITALS: BP 137/72
[2017-11-10 06:47] LABS: GLUCOMETER DEV NAME(LOC) BV2S; GLUCOSE,POINT OF CARE 117 MG/DL (70-110)
[2017-11-10] MEDS: FERROUS SULFATE 325 MG EC TABLET PO SCH ×2 (06:47→17:16)
[2017-11-10] MEDS: MetFORMIN HCL 500 MG TABLET PO SCH ×2 (06:47→17:16)
[2017-11-10] MEDS: LITHIUM CARBONATE 300 MG CAPSULE PO SCH ×3 (06:47→17:16)
[2017-11-10 08:00] VITALS: BP 106/57
[2017-11-10] MEDS: FLUoxetine HCL 20 MG CAPSULE PO SCH (08:06)
[2017-11-10] MEDS: MULTIVITAMINS WITH MINERALS, THERAPEUTIC TABLET PO SCH (08:06)
[2017-11-10] MEDS: INSULIN ASPART 100 UNITS/ML SQ PRN ×3 (11:02→20:59)
[2017-11-10 16:10] LABS: GLUCOMETER DEV NAME(LOC) BV2S; GLUCOSE,POINT OF CARE 261 MG/DL (70-110)
[2017-11-10 16:14] VITALS: BP 115/61
[2017-11-10 16:28] LABS: GLUCOMETER DEV NAME(LOC) BV2S; GLUCOSE,POINT OF CARE 325 MG/DL (70-110)
[2017-11-10] MEDS: OLANZapine 10 MG RAPDIS TABLET PO SCH (20:51)
[2017-11-10] MEDS: INSULIN DETEMIR 100 UNITS/ML SQ SCH (20:59)
[2017-11-10 21:07] LABS: GLUCOMETER DEV NAME(LOC) BV2S; GLUCOSE,POINT OF CARE 212 MG/DL (70-110)
[2017-11-11 06:13] LABS: GLUCOMETER DEV NAME(LOC) BV2S; GLUCOSE,POINT OF CARE 159 MG/DL (70-110)
[2017-11-11] MEDS: LITHIUM CARBONATE 300 MG CAPSULE PO SCH ×3 (06:42→16:57)
[2017-11-11] MEDS: MetFORMIN HCL 500 MG TABLET PO SCH ×2 (06:43→16:58)
[2017-11-11] MEDS: FERROUS SULFATE 325 MG EC TABLET PO SCH ×2 (06:43→16:58)
[2017-11-11] MEDS: INSULIN ASPART 100 UNITS/ML SQ PRN ×4 (06:45→20:31)
[2017-11-11] MEDS: FLUoxetine HCL 20 MG CAPSULE PO SCH (08:31)
[2017-11-11] MEDS: MULTIVITAMINS WITH MINERALS, THERAPEUTIC TABLET PO SCH (08:32)
[2017-11-11 09:30] VITALS: BP 110/68
[2017-11-11 11:12] LABS: GLUCOMETER DEV NAME(LOC) BV2S; GLUCOSE,POINT OF CARE 233 MG/DL (70-110)
[2017-11-11 16:01] VITALS: BP 135/75
[2017-11-11] MEDS: INSULIN DETEMIR 100 UNITS/ML SQ SCH (20:31)
[2017-11-11] MEDS: LORazepam 2 MG TABLET PO PRN (20:33)
[2017-11-11] MEDS: OLANZapine 10 MG RAPDIS TABLET PO SCH (20:33)
[2017-11-11 22:23] LABS: GLUCOMETER DEV NAME(LOC) BV2S; GLUCOSE,POINT OF CARE 262 MG/DL (70-110)
[2017-11-11 22:23] LABS: GLUCOMETER DEV NAME(LOC) BV2S; GLUCOSE,POINT OF CARE 192 MG/DL (70-110)
[2017-11-12 06:00] VITALS: BP 117/72
[2017-11-12 06:03] LABS: GLUCOMETER DEV NAME(LOC) BV2S; GLUCOSE,POINT OF CARE 151 MG/DL (70-110)
[2017-11-12] MEDS: INSULIN ASPART 100 UNITS/ML SQ PRN ×4 (06:04→21:14)
[2017-11-12] MEDS: LITHIUM CARBONATE 300 MG CAPSULE PO SCH ×3 (06:28→16:36)
[2017-11-12] MEDS: FERROUS SULFATE 325 MG EC TABLET PO SCH ×2 (06:28→16:36)
[2017-11-12] MEDS: MetFORMIN HCL 500 MG TABLET PO SCH ×2 (06:29→16:36)
[2017-11-12] MEDS: MULTIVITAMINS WITH MINERALS, THERAPEUTIC TABLET PO SCH (08:17)
[2017-11-12] MEDS: FLUoxetine HCL 20 MG CAPSULE PO SCH (08:17)
[2017-11-12 09:15] VITALS: BP 114/69
[2017-11-12 15:07] LABS: GLUCOMETER DEV NAME(LOC) BV2S; GLUCOSE,POINT OF CARE 193 MG/DL (70-110)
[2017-11-12 17:27] LABS: GLUCOMETER DEV NAME(LOC) BV2N3; GLUCOSE,POINT OF CARE 280 MG/DL (70-110)
[2017-11-12 18:06] VITALS: BP 111/67
[2017-11-12] MEDS: OLANZapine 10 MG RAPDIS TABLET PO SCH (20:34)
[2017-11-12] MEDS: INSULIN DETEMIR 100 UNITS/ML SQ SCH (20:36)
[2017-11-12] MEDS ORDERED: CARBAMIDE PEROXIDE 6.5% 15 ML OTIC SOLUTION AS SCH (21:00)
[2017-11-12] MEDS ORDERED: CARBAMIDE PEROXIDE 6.5% 15 ML OTIC SOLUTION AU SCH (21:00)
[2017-11-12 21:12] LABS: GLUCOMETER DEV NAME(LOC) BV2N3; GLUCOSE,POINT OF CARE 169 MG/DL (70-110)
[2017-11-13 05:53] LABS: GLUCOMETER DEV NAME(LOC) BV2N3; GLUCOSE,POINT OF CARE 126 MG/DL (70-110)
[2017-11-13] MEDS: FERROUS SULFATE 325 MG EC TABLET PO SCH (06:16)
[2017-11-13] MEDS: MetFORMIN HCL 500 MG TABLET PO SCH (06:16)
[2017-11-13] MEDS: LITHIUM CARBONATE 300 MG CAPSULE PO SCH ×2 (06:16→11:20)
[2017-11-13 06:59] VITALS: BP 120/68
[2017-11-13 08:12] VITALS: BP 110/76
[2017-11-13] MEDS: MULTIVITAMINS WITH MINERALS, THERAPEUTIC TABLET PO SCH (08:42)
[2017-11-13] MEDS: FLUoxetine HCL 20 MG CAPSULE PO SCH (08:42)
[2017-11-13] MEDS: LORazepam 2 MG TABLET PO PRN (08:59)
[2017-11-13 10:48] LABS: GLUCOMETER DEV NAME(LOC) BV2N3; GLUCOSE,POINT OF CARE 349 MG/DL (70-110)
[2017-11-13] MEDS: INSULIN ASPART 100 UNITS/ML SQ PRN (11:22)
== END 2017-11-13 13:30 | disposition home or self-care (01) | DRG 885 ==
LOC: EMS 15:04 → B3A 18:24 → B2S 11-01 19:34 → B2X 11-02 10:51 → B2S 11-12 11:58
PROVIDERS: ADMIT Psychiatry & Neurology Psychiatry; ATTEND Psychiatry & Neurology Psychiatry
DX: F25.0 Schizoaffective disorder, bipolar type (principal); E11.65 Type 2 diabetes mellitus with hyperglycemia; R45.851 Suicidal ideations; Z78.1 Physical restraint status; E55.9 Vitamin D deficiency, unspecified; E78.5 Hyperlipidemia, unspecified; F41.9 Anxiety disorder, unspecified; D50.9 Iron deficiency anemia, unspecified; G47.00 Insomnia, unspecified; I10 Essential (primary) hypertension; K59.00 Constipation, unspecified; K31.9 Disease of stomach and duodenum, unspecified; I44.7 Left bundle-branch block, unspecified; K21.9 Gastro-esophageal reflux disease without esophagitis; Z81.8 Family history of other mental and behavioral disorders; Z91.19 Patient's noncompliance with other medical treatment and regimen; Z59.0 Homelessness
CPT/HCPCS: 82962; 87081; 96361; 96374; 99285; G0480; J1815; J7030

== ENCOUNTER 2017-12-03 15:16 | Inpatient (IN) | payer BC ==
[~2017-12-03] VITALS: Ht 167.6 cm; Wt 67.7 kg
[~2017-12-03 15:16] MED LIST changes: +GUAIFDM PO; +INSLAN SQ; -INSU100V12 SQ; +LITH300C3 PO; +OLAN10TA20 PO; -OLAN10TA22 PO; +OLAN10TA3 PO; -OMEP20 PO; +SIMV-259 PO
[2017-12-03] MEDS ORDERED: ZOLPIDEM TARTRATE 10 MG TABLET PO PRN (16:30)
[2017-12-03] MEDS ORDERED: OLANZapine 5 MG RAPDIS TABLET PO PRN (16:30)
[2017-12-03] MEDS ORDERED: LORazepam 2 MG TABLET PO PRN (16:30)
[2017-12-03] MEDS ORDERED: PNEUMOCOCCAL VACCINE POLYVALENT 0.5 ML VIAL [PPSV23] IM ONE (17:30)
[2017-12-03 18:04] VITALS: BP 97/62
[2017-12-03] MEDS ORDERED: ALBUTEROL SULFATE HFA 90 MCG/PUFF 8 GM INHALER IH PRN (19:45)
[2017-12-03] MEDS ORDERED: PETROLATUM,WHITE 71 GM JELLY TP PRN (19:45)
[2017-12-03] MEDS ORDERED: GLUCAGON,HUMAN RECOMBINANT 1 MG VIAL IM PRN (19:45)
[2017-12-03] MEDS ORDERED: ACETAMINOPHEN 325 MG TABLET PO PRN (19:45)
[2017-12-03] MEDS ORDERED: IBUPROFEN 600 MG TABLET PO PRN (19:45)
[2017-12-03] MEDS ORDERED: BACITRACIN 28.4 GM OINTMENT TP PRN (19:45)
[2017-12-03] MEDS ORDERED: CloNIDine HCL 0.1 MG TABLET PO PRN (19:45)
[2017-12-03] MEDS ORDERED: ONDANSETRON HCL 4 MG TABLET PO PRN (19:45)
[2017-12-03] MEDS ORDERED: BENZOCAINE/MENTHOL LOZENGE MM PRN (19:45)
[2017-12-03] MEDS ORDERED: MAG HYDROX/AL HYDROX/SIMETH ES 30 ML SUSPENSION UDCUP PO PRN (19:45)
[2017-12-03] MEDS ORDERED: LOPERAMIDE HCL 2 MG CAPSULE PO PRN (19:45)
[2017-12-03] MEDS ORDERED: MAGNESIUM HYDROXIDE SUSPENSION 30 ML UDCUP PO PRN (19:45)
[2017-12-03 20:27] LABS: GLUCOMETER DEV NAME(LOC) BV2S; GLUCOSE,POINT OF CARE 313 MG/DL (70-110)
[2017-12-03] MEDS: SIMVASTATIN 10 MG TABLET PO SCH (20:43)
[2017-12-03] MEDS: LITHIUM CARBONATE 300 MG CAPSULE PO SCH (20:44)
[2017-12-03] MEDS: OLANZapine 10 MG TABLET PO SCH (20:44)
[2017-12-03] MEDS: INSULIN GLARGINE,HUM.REC.ANLOG 100 UNITS/ML SQ SCH (21:19)
[2017-12-03] MEDS: INSULIN REGULAR, HUMAN 100 UNITS/ML SQ PRN (21:19)
[2017-12-04 00:12] VITALS: BP 109/65
[2017-12-04 06:07] LABS: GLUCOMETER DEV NAME(LOC) BV2S; GLUCOSE,POINT OF CARE 110 MG/DL (70-110)
[2017-12-04] MEDS: MetFORMIN HCL 500 MG TABLET PO SCH ×2 (06:21→16:32)
[2017-12-04 08:44] VITALS: BP 124/75
[2017-12-04] MEDS: LITHIUM CARBONATE 300 MG CAPSULE PO SCH ×3 (08:45→16:32)
[2017-12-04] MEDS: DOCUSATE SODIUM 100 MG CAPSULE PO SCH (08:45)
[2017-12-04] MEDS: FLUoxetine HCL 20 MG CAPSULE PO SCH (08:45)
[2017-12-04] MEDS: OMEPRAZOLE 20 MG CAPSULE PO SCH (08:45)
[2017-12-04] MEDS: CHOLECALCIFEROL (VIT D3) 1,000 UNITS TABLET PO SCH (08:45)
[2017-12-04] MEDS: OMEGA-3/DHA/EPA/FISH OIL 1,000 MG CAPSULE PO SCH (08:45)
[2017-12-04] MEDS ORDERED: HydrOXYzine PAMOATE 50 MG CAPSULE PO PRN (09:45)
[2017-12-04] MEDS ORDERED: LOPERAMIDE HCL 2 MG CAPSULE PO PRN (09:45)
[2017-12-04] MEDS ORDERED: GuaiFENesin/D-METHORPHAN [SUGAR-FREE] 200-20MG/10 ML SYRUP UDCUP PO PRN (09:45)
[2017-12-04] MEDS: INSULIN REGULAR, HUMAN 100 UNITS/ML SQ PRN ×3 (11:04→20:39)
[2017-12-04 11:07] LABS: GLUCOMETER DEV NAME(LOC) BV2S; GLUCOSE,POINT OF CARE 211 MG/DL (70-110)
[2017-12-04 16:19] VITALS: BP 100/68
[2017-12-04 16:22] LABS: GLUCOMETER DEV NAME(LOC) BV2S; GLUCOSE,POINT OF CARE 185 MG/DL (70-110)
[2017-12-04] MEDS: THIAMINE HCL 100 MG TABLET PO SCH (16:32)
[2017-12-04 20:22] LABS: GLUCOMETER DEV NAME(LOC) BV2S; GLUCOSE,POINT OF CARE 164 MG/DL (70-110)
[2017-12-04] MEDS: SIMVASTATIN 10 MG TABLET PO SCH (20:36)
[2017-12-04] MEDS: OLANZapine 10 MG TABLET PO SCH (20:37)
[2017-12-04] MEDS: INSULIN GLARGINE,HUM.REC.ANLOG 100 UNITS/ML SQ SCH (20:38)
[2017-12-05 05:48] LABS: GLUCOMETER DEV NAME(LOC) BV2S; GLUCOSE,POINT OF CARE 87 MG/DL (70-110)
[2017-12-05] MEDS: MetFORMIN HCL 500 MG TABLET PO SCH ×2 (06:47→17:00)
[2017-12-05 08:21] VITALS: BP 108/60
[2017-12-05] MEDS: OMEPRAZOLE 20 MG CAPSULE PO SCH (09:00)
[2017-12-05] MEDS: MULTIVITAMINS WITH MINERALS, THERAPEUTIC TABLET PO SCH (09:00)
[2017-12-05] MEDS: FLUoxetine HCL 20 MG CAPSULE PO SCH (09:00)
[2017-12-05] MEDS: OMEGA-3/DHA/EPA/FISH OIL 1,000 MG CAPSULE PO SCH (09:00)
[2017-12-05] MEDS: CHOLECALCIFEROL (VIT D3) 1,000 UNITS TABLET PO SCH (09:00)
[2017-12-05] MEDS: FOLIC ACID 1 MG TABLET PO SCH (09:00)
[2017-12-05] MEDS: DOCUSATE SODIUM 100 MG CAPSULE PO SCH (09:00)
[2017-12-05] MEDS: THIAMINE HCL 100 MG TABLET PO SCH ×2 (09:00→17:00)
[2017-12-05] MEDS: LITHIUM CARBONATE 300 MG CAPSULE PO SCH ×3 (09:00→17:00)
[2017-12-05 09:40] LABS: BASOPHILS % (AUTO) 0.6 % (0.0-2.0); EOSINOPHILS % (AUTO) 3.6 % (1.0-6.0); HEMATOCRIT 41.3 % (41-53); HEMOGLOBIN 13.5 g/dL (13.5-17.5); LYMPHOCYTES # (AUTO) 1.6 K/uL (1.0-4.8); LYMPHOCYTES % (AUTO) 18.5 % (22.0-44.0); MEAN CORPUSCULAR HEMOGLOBIN 20.9 pg (26.0-34.0); MEAN CORPUSCULAR HGB CONC 32.7 G/dL (31.0-37.0); MEAN CORPUSCULAR VOLUME 64 fL (80-100); MONOCYTES # (AUTO) 0.7 K/uL (0.1-1.0); MONOCYTES % (AUTO) 8.2 % (2.0-9.0); NEUTROPHILS # (AUTO) 5.9 K/uL (1.8-7.7); NEUTROPHILS % (AUTO) 69.1 % (40.0-70.0); PLATELET COUNT (AUTO) 161 K/uL (150-450); RED BLOOD CELL COUNT(AUTO) 6.45 MIL/uL (4.50-5.90); RED CELL DISTRIBUTION WIDTH 16.3 % (11.5-14.5)
[2017-12-05 10:40] LABS: ALANINE AMINOTRANSFERASE 23 U/L (12-78); ALBUMIN 3.3 g/dL (3.4-5.0); ALKALINE PHOSPHATASE 82 U/L (46-116); ANION GAP 8 mmol/L (8-16); ASPARTATE AMINOTRANSFERASE 20 U/L (15-37); BILIRUBIN,TOTAL 0.4 mg/dL (0.1-1.0); CALCIUM, TOTAL 9.3 mg/dL (8.8-10.5); CARBON DIOXIDE 31 mmol/L (22-29); CHLORIDE 101 mmol/L (98-107); CREATININE 0.89 mg/dL (0.60-1.30); GLOMERULAR FILTR. RATE CALC > 60 mL/min (>60); GLUCOSE,RANDOM 73 mg/dL (70-110); POTASSIUM 3.9 mmol/L (3.5-5.1); SODIUM SERUM 140 mmol/L (136-145); TOTAL PROTEIN, SERUM 7.5 g/dL (6.4-8.2); UREA NITROGEN, BLOOD 20 mg/dL (7-18)
[2017-12-05 11:02] LABS: GLUCOMETER DEV NAME(LOC) BV2S; GLUCOSE,POINT OF CARE 102 MG/DL (70-110)
[2017-12-05 15:16] LABS: LITHIUM 0.67 mmol/L (0.60-1.20)
[2017-12-05 15:57] LABS: HEMOGLOBIN A1C 9.5 % (4.5-6.2)
[2017-12-05 16:23] LABS: GLUCOMETER DEV NAME(LOC) BV2S; GLUCOSE,POINT OF CARE 191 MG/DL (70-110)
[2017-12-05 16:32] VITALS: BP 101/66
[2017-12-05] MEDS: INSULIN REGULAR, HUMAN 100 UNITS/ML SQ PRN ×2 (17:04→20:46)
[2017-12-05] MEDS: OLANZapine 10 MG TABLET PO SCH (20:39)
[2017-12-05] MEDS: SIMVASTATIN 10 MG TABLET PO SCH (20:39)
[2017-12-05 20:47] LABS: GLUCOMETER DEV NAME(LOC) BV2S; GLUCOSE,POINT OF CARE 236 MG/DL (70-110)
[2017-12-05] MEDS: INSULIN GLARGINE,HUM.REC.ANLOG 100 UNITS/ML SQ SCH (20:47)
[2017-12-06 00:41] VITALS: BP 113/68
[2017-12-06 06:18] LABS: GLUCOMETER DEV NAME(LOC) BV2S; GLUCOSE,POINT OF CARE 80 MG/DL (70-110)
[2017-12-06] MEDS: MetFORMIN HCL 500 MG TABLET PO SCH ×2 (06:34→16:43)
[2017-12-06 08:00] VITALS: BP 119/74
[2017-12-06] MEDS: CHOLECALCIFEROL (VIT D3) 1,000 UNITS TABLET PO SCH (09:00)
[2017-12-06] MEDS: DOCUSATE SODIUM 100 MG CAPSULE PO SCH (09:00)
[2017-12-06] MEDS: OMEGA-3/DHA/EPA/FISH OIL 1,000 MG CAPSULE PO SCH (09:00)
[2017-12-06] MEDS: FOLIC ACID 1 MG TABLET PO SCH (09:00)
[2017-12-06] MEDS: FLUoxetine HCL 20 MG CAPSULE PO SCH (09:00)
[2017-12-06] MEDS: LITHIUM CARBONATE 300 MG CAPSULE PO SCH ×3 (09:00→16:43)
[2017-12-06] MEDS: OMEPRAZOLE 20 MG CAPSULE PO SCH (09:00)
[2017-12-06] MEDS: MULTIVITAMINS WITH MINERALS, THERAPEUTIC TABLET PO SCH (09:00)
[2017-12-06] MEDS: THIAMINE HCL 100 MG TABLET PO SCH ×2 (09:00→16:43)
[2017-12-06] MEDS: INSULIN REGULAR, HUMAN 100 UNITS/ML SQ PRN ×3 (11:07→20:43)
[2017-12-06 11:08] LABS: GLUCOMETER DEV NAME(LOC) BV2S; GLUCOSE,POINT OF CARE 147 MG/DL (70-110)
[2017-12-06 16:21] VITALS: BP 103/63
[2017-12-06 16:43] LABS: GLUCOMETER DEV NAME(LOC) BV2S; GLUCOSE,POINT OF CARE 202 MG/DL (70-110)
[2017-12-06 20:33] LABS: GLUCOMETER DEV NAME(LOC) BV2S; GLUCOSE,POINT OF CARE 233 MG/DL (70-110)
[2017-12-06] MEDS: OLANZapine 10 MG TABLET PO SCH (20:38)
[2017-12-06] MEDS: SIMVASTATIN 10 MG TABLET PO SCH (20:38)
[2017-12-06] MEDS: INSULIN GLARGINE,HUM.REC.ANLOG 100 UNITS/ML SQ SCH (20:44)
[2017-12-07 01:04] VITALS: BP 113/85
[2017-12-07] MEDS: MetFORMIN HCL 500 MG TABLET PO SCH ×2 (06:18→16:40)
[2017-12-07 06:23] LABS: GLUCOMETER DEV NAME(LOC) BV2S; GLUCOSE,POINT OF CARE 97 MG/DL (70-110)
[2017-12-07 08:48] VITALS: BP 109/74
[2017-12-07] MEDS: LORATADINE 10 MG TABLET PO SCH (08:48)
[2017-12-07] MEDS: LITHIUM CARBONATE 300 MG CAPSULE PO SCH (08:49)
[2017-12-07] MEDS: DOCUSATE SODIUM 100 MG CAPSULE PO SCH (08:49)
[2017-12-07] MEDS: OMEGA-3/DHA/EPA/FISH OIL 1,000 MG CAPSULE PO SCH (08:50)
[2017-12-07] MEDS: THIAMINE HCL 100 MG TABLET PO SCH ×2 (08:50→16:40)
[2017-12-07] MEDS: FOLIC ACID 1 MG TABLET PO SCH (08:50)
[2017-12-07] MEDS: OMEPRAZOLE 20 MG CAPSULE PO SCH (08:50)
[2017-12-07] MEDS: FLUoxetine HCL 20 MG CAPSULE PO SCH (08:50)
[2017-12-07] MEDS: MULTIVITAMINS WITH MINERALS, THERAPEUTIC TABLET PO SCH (08:50)
[2017-12-07] MEDS: CHOLECALCIFEROL (VIT D3) 1,000 UNITS TABLET PO SCH (08:50)
[2017-12-07] MEDS: INSULIN REGULAR, HUMAN 100 UNITS/ML SQ PRN ×3 (11:02→20:42)
[2017-12-07 11:07] LABS: GLUCOMETER DEV NAME(LOC) BV2S; GLUCOSE,POINT OF CARE 247 MG/DL (70-110)
[2017-12-07] MEDS: FLUoxetine HCL 10 MG CAPSULE PO SCH (16:10)
[2017-12-07 16:23] LABS: GLUCOMETER DEV NAME(LOC) BV2S; GLUCOSE,POINT OF CARE 238 MG/DL (70-110)
[2017-12-07 17:25] VITALS: BP 105/64
[2017-12-07 20:22] LABS: GLUCOMETER DEV NAME(LOC) BV2S; GLUCOSE,POINT OF CARE 166 MG/DL (70-110)
[2017-12-07] MEDS: SIMVASTATIN 10 MG TABLET PO SCH (20:38)
[2017-12-07] MEDS: INSULIN GLARGINE,HUM.REC.ANLOG 100 UNITS/ML SQ SCH (20:42)
[2017-12-07] MEDS ORDERED: ARIPiprazole 5 MG TABLET PO SCH (21:00)
[2017-12-08] MEDS: MetFORMIN HCL 500 MG TABLET PO SCH ×2 (06:18→17:00)
[2017-12-08 06:24] VITALS: BP 104/62
[2017-12-08 06:47] LABS: GLUCOMETER DEV NAME(LOC) BV2S; GLUCOSE,POINT OF CARE 100 MG/DL (70-110)
[2017-12-08 08:00] VITALS: BP 105/66
[2017-12-08] MEDS: LORATADINE 10 MG TABLET PO SCH (08:35)
[2017-12-08] MEDS: FLUoxetine HCL 10 MG CAPSULE PO SCH (08:35)
[2017-12-08] MEDS: DOCUSATE SODIUM 100 MG CAPSULE PO SCH (08:38)
[2017-12-08] MEDS: FOLIC ACID 1 MG TABLET PO SCH (08:39)
[2017-12-08] MEDS: OMEGA-3/DHA/EPA/FISH OIL 1,000 MG CAPSULE PO SCH (08:39)
[2017-12-08] MEDS: THIAMINE HCL 100 MG TABLET PO SCH ×2 (08:39→17:00)
[2017-12-08] MEDS: MULTIVITAMINS WITH MINERALS, THERAPEUTIC TABLET PO SCH (08:39)
[2017-12-08] MEDS: OMEPRAZOLE 20 MG CAPSULE PO SCH (08:39)
[2017-12-08] MEDS: CHOLECALCIFEROL (VIT D3) 1,000 UNITS TABLET PO SCH (08:40)
[2017-12-08] MEDS: INSULIN REGULAR, HUMAN 100 UNITS/ML SQ PRN ×2 (11:12→16:49)
[2017-12-08 11:27] LABS: GLUCOMETER DEV NAME(LOC) BV2S; GLUCOSE,POINT OF CARE 173 MG/DL (70-110)
[2017-12-08 16:17] VITALS: BP 111/68
[2017-12-08 17:03] LABS: GLUCOMETER DEV NAME(LOC) BV2S; GLUCOSE,POINT OF CARE 200 MG/DL (70-110)
[2017-12-08] MEDS: ARIPiprazole 5 MG TABLET PO SCH (20:21)
[2017-12-08] MEDS: INSULIN GLARGINE,HUM.REC.ANLOG 100 UNITS/ML SQ SCH (20:21)
[2017-12-08] MEDS: SIMVASTATIN 10 MG TABLET PO SCH (20:21)
[2017-12-08 20:32] LABS: GLUCOMETER DEV NAME(LOC) BV2S; GLUCOSE,POINT OF CARE 93 MG/DL (70-110)
[2017-12-09 01:58] VITALS: BP 102/64
[2017-12-09 05:48] LABS: GLUCOMETER DEV NAME(LOC) BV2S; GLUCOSE,POINT OF CARE 126 MG/DL (70-110)
[2017-12-09] MEDS: MetFORMIN HCL 500 MG TABLET PO SCH ×2 (06:37→16:34)
[2017-12-09] MEDS: FLUoxetine HCL 10 MG CAPSULE PO SCH (08:40)
[2017-12-09 08:41] VITALS: BP 114/69
[2017-12-09] MEDS: LORATADINE 10 MG TABLET PO SCH (08:41)
[2017-12-09] MEDS: MULTIVITAMINS WITH MINERALS, THERAPEUTIC TABLET PO SCH (08:41)
[2017-12-09] MEDS: DOCUSATE SODIUM 100 MG CAPSULE PO SCH (08:41)
[2017-12-09] MEDS: THIAMINE HCL 100 MG TABLET PO SCH ×2 (08:41→16:22)
[2017-12-09] MEDS: OMEPRAZOLE 20 MG CAPSULE PO SCH (08:41)
[2017-12-09] MEDS: FOLIC ACID 1 MG TABLET PO SCH (08:41)
[2017-12-09] MEDS: OMEGA-3/DHA/EPA/FISH OIL 1,000 MG CAPSULE PO SCH (08:41)
[2017-12-09] MEDS: CHOLECALCIFEROL (VIT D3) 1,000 UNITS TABLET PO SCH (08:42)
[2017-12-09] MEDS: INSULIN REGULAR, HUMAN 100 UNITS/ML SQ PRN ×3 (11:01→21:02)
[2017-12-09 11:08] LABS: GLUCOMETER DEV NAME(LOC) BV2S; GLUCOSE,POINT OF CARE 177 MG/DL (70-110)
[2017-12-09 16:15] VITALS: BP 105/65
[2017-12-09 17:08] LABS: GLUCOMETER DEV NAME(LOC) BV2S; GLUCOSE,POINT OF CARE 166 MG/DL (70-110)
[2017-12-09] MEDS: SIMVASTATIN 10 MG TABLET PO SCH (20:45)
[2017-12-09] MEDS: ARIPiprazole 5 MG TABLET PO SCH (20:45)
[2017-12-09] MEDS: INSULIN GLARGINE,HUM.REC.ANLOG 100 UNITS/ML SQ SCH (21:02)
[2017-12-09 21:13] LABS: GLUCOMETER DEV NAME(LOC) BV2S; GLUCOSE,POINT OF CARE 147 MG/DL (70-110)
[2017-12-10 00:34] VITALS: BP 102/60
[2017-12-10 06:32] LABS: GLUCOMETER DEV NAME(LOC) BV2S; GLUCOSE,POINT OF CARE 114 MG/DL (70-110)
[2017-12-10] MEDS: MetFORMIN HCL 500 MG TABLET PO SCH (06:48)
[2017-12-10 08:23] VITALS: BP 104/60
[2017-12-10] MEDS: LORATADINE 10 MG TABLET PO SCH (08:57)
[2017-12-10] MEDS: FLUoxetine HCL 10 MG CAPSULE PO SCH (08:57)
[2017-12-10] MEDS: MULTIVITAMINS WITH MINERALS, THERAPEUTIC TABLET PO SCH (09:00)
[2017-12-10] MEDS: DOCUSATE SODIUM 100 MG CAPSULE PO SCH (09:00)
[2017-12-10] MEDS: FOLIC ACID 1 MG TABLET PO SCH (09:00)
[2017-12-10] MEDS: OMEGA-3/DHA/EPA/FISH OIL 1,000 MG CAPSULE PO SCH (09:00)
[2017-12-10] MEDS: THIAMINE HCL 100 MG TABLET PO SCH (09:00)
[2017-12-10] MEDS: OMEPRAZOLE 20 MG CAPSULE PO SCH (09:00)
[2017-12-10] MEDS: CHOLECALCIFEROL (VIT D3) 1,000 UNITS TABLET PO SCH (09:00)
[2017-12-10] MEDS ORDERED: MULT-959 PO (10:59)
[2017-12-10] MEDS ORDERED: DOCU-119 PO (10:59)
[2017-12-10] MEDS ORDERED: LORA10TA60 PO (10:59)
[2017-12-10] MEDS ORDERED: OMEP20 PO (10:59)
[2017-12-10] MEDS ORDERED: ARIP5TAB8 PO (11:03)
[2017-12-10] MEDS: INSULIN REGULAR, HUMAN 100 UNITS/ML SQ PRN (11:03)
[2017-12-10 11:07] LABS: GLUCOMETER DEV NAME(LOC) BV2S; GLUCOSE,POINT OF CARE 156 MG/DL (70-110)
== END 2017-12-10 11:15 | disposition home or self-care (01) | DRG 885 ==
LOC: B2X 16:33
PROVIDERS: ADMIT Psychiatry & Neurology Psychiatry; ATTEND Psychiatry & Neurology Psychiatry
DX: F25.0 Schizoaffective disorder, bipolar type (principal); R45.851 Suicidal ideations; E11.65 Type 2 diabetes mellitus with hyperglycemia; D50.9 Iron deficiency anemia, unspecified; E55.9 Vitamin D deficiency, unspecified; F17.210 Nicotine dependence, cigarettes, uncomplicated; E78.5 Hyperlipidemia, unspecified; F41.9 Anxiety disorder, unspecified; G47.00 Insomnia, unspecified; K21.9 Gastro-esophageal reflux disease without esophagitis; Z91.14 Patient's other noncompliance with medication regimen; Z91.19 Patient's noncompliance with other medical treatment and regimen; Z91.5 Personal history of self-harm; Z28.21 Immunization not carried out because of patient refusal; Z79.899 Other long term (current) drug therapy; Z79.4 Long term (current) use of insulin
CPT/HCPCS: 82962; 83036; 87081; J1815

== ENCOUNTER 2017-12-27 05:55 | Inpatient (IN) | payer BC ==
[~2017-12-27] VITALS: Ht 160 cm; Wt 68.8 kg
[~2017-12-27 05:55] MED LIST changes: +ARIP5TAB8 PO; +DOCU-119 PO; -FLUO-191 PO; -GUAIFDM PO; -LITH300C3 PO; +LORA10TA60 PO; -METF500T4 PO; +METF500T6 PO; +MULT-959 PO; -OLAN10TA20 PO; -OLAN10TA3 PO; +OMEP20 PO
[2017-12-27 07:57] VITALS: BP 108/50
[2017-12-27] MEDS ORDERED: PNEUMOCOCCAL VACCINE POLYVALENT 0.5 ML VIAL [PPSV23] IM ONE (08:15)
[2017-12-27] MEDS ORDERED: LORazepam 2 MG TABLET PO PRN (08:30)
[2017-12-27] MEDS ORDERED: ZOLPIDEM TARTRATE 10 MG TABLET PO PRN (08:30)
[2017-12-27] MEDS ORDERED: ONDANSETRON HCL 4 MG TABLET PO PRN (10:15)
[2017-12-27] MEDS ORDERED: IBUPROFEN 600 MG TABLET PO PRN (10:15)
[2017-12-27] MEDS ORDERED: GLUCAGON,HUMAN RECOMBINANT 1 MG VIAL IM PRN (10:15)
[2017-12-27] MEDS ORDERED: LOPERAMIDE HCL 2 MG CAPSULE PO PRN ×2 (10:15→11:45)
[2017-12-27] MEDS ORDERED: ALBUTEROL SULFATE HFA 90 MCG/PUFF 8 GM INHALER IH PRN (10:15)
[2017-12-27] MEDS ORDERED: PETROLATUM,WHITE 71 GM JELLY TP PRN (10:15)
[2017-12-27] MEDS ORDERED: BACITRACIN 28.4 GM OINTMENT TP PRN (10:15)
[2017-12-27] MEDS ORDERED: BENZOCAINE/MENTHOL LOZENGE MM PRN (10:15)
[2017-12-27] MEDS ORDERED: MAG HYDROX/AL HYDROX/SIMETH ES 30 ML SUSPENSION UDCUP PO PRN ×2 (10:15→11:45)
[2017-12-27] MEDS ORDERED: ACETAMINOPHEN 325 MG TABLET PO PRN ×2 (10:15→11:45)
[2017-12-27] MEDS ORDERED: CloNIDine HCL 0.1 MG TABLET PO PRN (10:15)
[2017-12-27] MEDS ORDERED: MAGNESIUM HYDROXIDE SUSPENSION 30 ML UDCUP PO PRN ×2 (10:15→11:45)
[2017-12-27] MEDS ORDERED: MULTIVITAMINS, THERAPEUTIC TABLET PO SCH (10:28)
[2017-12-27 10:36] VITALS: BP 106/67
[2017-12-27] MEDS: OMEGA-3/DHA/EPA/FISH OIL 1,000 MG CAPSULE PO SCH (10:48)
[2017-12-27] MEDS: CHOLECALCIFEROL (VIT D3) 1,000 UNITS TABLET PO SCH (10:48)
[2017-12-27] MEDS: LORATADINE 10 MG TABLET PO SCH (10:48)
[2017-12-27] MEDS: OMEPRAZOLE 20 MG CAPSULE PO SCH (10:48)
[2017-12-27] MEDS: INSULIN LISPRO 100 UNITS/ML SQ PRN ×3 (11:04→20:49)
[2017-12-27 11:06] LABS: GLUCOMETER DEV NAME(LOC) BV2S; GLUCOSE,POINT OF CARE 333 MG/DL (70-110)
[2017-12-27] MEDS ORDERED: PROMETHAZINE HCL 25 MG TABLET PO PRN (11:45)
[2017-12-27] MEDS ORDERED: HydrOXYzine PAMOATE 50 MG CAPSULE PO PRN (11:45)
[2017-12-27] MEDS ORDERED: PALIPERIDONE 3 MG ER TABLET PO PRN (11:45)
[2017-12-27] MEDS ORDERED: GuaiFENesin/D-METHORPHAN [SUGAR-FREE] 200-20MG/10 ML SYRUP UDCUP PO PRN (11:45)
[2017-12-27] MEDS ORDERED: PALIPERIDONE PALMITATE 234 MG/1.5 ML SYRINGE IM ONE (15:00)
[2017-12-27 16:21] VITALS: BP 128/79
[2017-12-27 16:37] LABS: GLUCOMETER DEV NAME(LOC) BV2S; GLUCOSE,POINT OF CARE 316 MG/DL (70-110)
[2017-12-27] MEDS: MetFORMIN HCL 500 MG TABLET PO SCH (17:07)
[2017-12-27] MEDS: THIAMINE HCL 100 MG TABLET PO SCH (17:07)
[2017-12-27] MEDS: PALIPERIDONE 6 MG ER TABLET PO SCH (20:27)
[2017-12-27] MEDS: SIMVASTATIN 10 MG TABLET PO SCH (20:27)
[2017-12-27] MEDS: INSULIN GLARGINE,HUM.REC.ANLOG 100 UNITS/ML SQ SCH (20:49)
[2017-12-27 21:52] LABS: GLUCOMETER DEV NAME(LOC) BV2S; GLUCOSE,POINT OF CARE 268 MG/DL (70-110)
[2017-12-28 06:10] VITALS: BP 105/65
[2017-12-28 06:12] LABS: GLUCOMETER DEV NAME(LOC) BV2S; GLUCOSE,POINT OF CARE 130 MG/DL (70-110)
[2017-12-28] MEDS: MetFORMIN HCL 500 MG TABLET PO SCH ×2 (06:45→17:12)
[2017-12-28 08:20] VITALS: BP 108/72
[2017-12-28] MEDS: LORATADINE 10 MG TABLET PO SCH (09:02)
[2017-12-28] MEDS: OMEGA-3/DHA/EPA/FISH OIL 1,000 MG CAPSULE PO SCH (09:02)
[2017-12-28] MEDS: MULTIVITAMINS WITH MINERALS, THERAPEUTIC TABLET PO SCH (09:02)
[2017-12-28] MEDS: CHOLECALCIFEROL (VIT D3) 1,000 UNITS TABLET PO SCH (09:02)
[2017-12-28] MEDS: OMEPRAZOLE 20 MG CAPSULE PO SCH (09:03)
[2017-12-28] MEDS: THIAMINE HCL 100 MG TABLET PO SCH ×2 (09:03→16:29)
[2017-12-28] MEDS: FOLIC ACID 1 MG TABLET PO SCH (09:03)
[2017-12-28] MEDS: INSULIN LISPRO 100 UNITS/ML SQ PRN ×2 (11:11→21:15)
[2017-12-28 11:17] LABS: GLUCOMETER DEV NAME(LOC) BV2S; GLUCOSE,POINT OF CARE 229 MG/DL (70-110)
[2017-12-28 16:20] VITALS: BP 133/62
[2017-12-28 16:37] LABS: GLUCOMETER DEV NAME(LOC) BV2S; GLUCOSE,POINT OF CARE 109 MG/DL (70-110)
[2017-12-28] MEDS: SIMVASTATIN 10 MG TABLET PO SCH (20:49)
[2017-12-28] MEDS: PALIPERIDONE 6 MG ER TABLET PO SCH (20:49)
[2017-12-28 21:13] LABS: GLUCOMETER DEV NAME(LOC) BV2S; GLUCOSE,POINT OF CARE 197 MG/DL (70-110)
[2017-12-28] MEDS: INSULIN GLARGINE,HUM.REC.ANLOG 100 UNITS/ML SQ SCH (21:15)
[2017-12-29 03:00] VITALS: BP 106/65
[2017-12-29 07:02] LABS: GLUCOMETER DEV NAME(LOC) BV2S; GLUCOSE,POINT OF CARE 110 MG/DL (70-110)
[2017-12-29] MEDS: MetFORMIN HCL 500 MG TABLET PO SCH ×2 (07:06→16:29)
[2017-12-29 08:46] VITALS: BP 108/70
[2017-12-29 08:57] LABS: BASOPHILS % (AUTO) 0.4 % (0.0-2.0); EOSINOPHILS % (AUTO) 2.9 % (1.0-6.0); HEMATOCRIT 38.9 % (41-53); HEMOGLOBIN 12.6 g/dL (13.5-17.5); LYMPHOCYTES # (AUTO) 1.4 K/uL (1.0-4.8); LYMPHOCYTES % (AUTO) 15.9 % (22.0-44.0); MEAN CORPUSCULAR HEMOGLOBIN 20.7 pg (26.0-34.0); MEAN CORPUSCULAR HGB CONC 32.4 G/dL (31.0-37.0); MEAN CORPUSCULAR VOLUME 64 fL (80-100); MONOCYTES # (AUTO) 0.9 K/uL (0.1-1.0); MONOCYTES % (AUTO) 9.5 % (2.0-9.0); NEUTROPHILS # (AUTO) 6.5 K/uL (1.8-7.7); NEUTROPHILS % (AUTO) 71.3 % (40.0-70.0); PLATELET COUNT (AUTO) 169 K/uL (150-450); RED BLOOD CELL COUNT(AUTO) 6.09 MIL/uL (4.50-5.90); RED CELL DISTRIBUTION WIDTH 16.6 % (11.5-14.5)
[2017-12-29] MEDS: LORATADINE 10 MG TABLET PO SCH (09:01)
[2017-12-29] MEDS: OMEGA-3/DHA/EPA/FISH OIL 1,000 MG CAPSULE PO SCH (09:01)
[2017-12-29] MEDS: THIAMINE HCL 100 MG TABLET PO SCH ×2 (09:01→16:29)
[2017-12-29] MEDS: OMEPRAZOLE 20 MG CAPSULE PO SCH (09:01)
[2017-12-29] MEDS: MULTIVITAMINS WITH MINERALS, THERAPEUTIC TABLET PO SCH (09:01)
[2017-12-29] MEDS: CHOLECALCIFEROL (VIT D3) 1,000 UNITS TABLET PO SCH (09:01)
[2017-12-29] MEDS: FOLIC ACID 1 MG TABLET PO SCH (09:02)
[2017-12-29 09:37] LABS: HEMOGLOBIN A1C 8.4 % (4.5-6.2)
[2017-12-29 09:41] LABS: ALANINE AMINOTRANSFERASE 27 U/L (12-78); ALBUMIN 3.2 g/dL (3.4-5.0); ALKALINE PHOSPHATASE 72 U/L (46-116); ANION GAP 6 mmol/L (8-16); ASPARTATE AMINOTRANSFERASE 18 U/L (15-37); BILIRUBIN,TOTAL 0.8 mg/dL (0.1-1.0); CALCIUM, TOTAL 8.8 mg/dL (8.8-10.5); CARBON DIOXIDE 33 mmol/L (22-29); CHLORIDE 102 mmol/L (98-107); CHOL/HDL RATIO 4.3 (4.2-7.3); CHOLESTEROL 153 mg/dL (131-200); CREATININE 0.83 mg/dL (0.60-1.30); GLOMERULAR FILTR. RATE CALC > 60 mL/min (>60); GLUCOSE,RANDOM 96 mg/dL (70-110); HDL CHOLESTEROL 36 mg/dL (40-60); POTASSIUM 3.4 mmol/L (3.5-5.1); SODIUM SERUM 141 mmol/L (136-145); TOTAL PROTEIN, SERUM 7.2 g/dL (6.4-8.2); TRIGLYCERIDES 146 mg/dL (15-150); UREA NITROGEN, BLOOD 14 mg/dL (7-18)
[2017-12-29 09:42] LABS: FREE T4 (FREE THYROXINE) 1.03 ng/dL (0.76-1.46); LDL CHOL (CALC.) 88 mg/dL (0-130); THYROID STIMULATING HORMONE 2.68 uIU/mL (0.36-3.74)
[2017-12-29] MEDS: INSULIN LISPRO 100 UNITS/ML SQ PRN ×2 (11:05→21:14)
[2017-12-29 11:13] LABS: GLUCOMETER DEV NAME(LOC) BV2N3; GLUCOSE,POINT OF CARE 228 MG/DL (70-110)
[2017-12-29] MEDS ORDERED: POTASSIUM CHLORIDE 20 MEQ ER TABLET PO ONE (12:00)
[2017-12-29 16:00] VITALS: BP 103/63
[2017-12-29] MEDS: MUPIROCIN CALCIUM 2% 22 GM OINTMENT NASAL SCH (16:29)
[2017-12-29 17:08] LABS: GLUCOMETER DEV NAME(LOC) BV2S; GLUCOSE,POINT OF CARE 129 MG/DL (70-110)
[2017-12-29] MEDS: PALIPERIDONE 6 MG ER TABLET PO SCH (20:47)
[2017-12-29] MEDS: SIMVASTATIN 10 MG TABLET PO SCH (20:47)
[2017-12-29 20:57] LABS: GLUCOMETER DEV NAME(LOC) BV2S; GLUCOSE,POINT OF CARE 233 MG/DL (70-110)
[2017-12-29] MEDS: INSULIN GLARGINE,HUM.REC.ANLOG 100 UNITS/ML SQ SCH (21:14)
[2017-12-30 06:03] LABS: GLUCOMETER DEV NAME(LOC) BV2S; GLUCOSE,POINT OF CARE 95 MG/DL (70-110)
[2017-12-30 06:52] VITALS: BP 100/65
[2017-12-30] MEDS: MetFORMIN HCL 500 MG TABLET PO SCH ×2 (06:53→17:16)
[2017-12-30 08:28] LABS: ANION GAP 8 mmol/L (8-16); CALCIUM, TOTAL 8.9 mg/dL (8.8-10.5); CARBON DIOXIDE 31 mmol/L (22-29); CHLORIDE 99 mmol/L (98-107); CREATININE 0.79 mg/dL (0.60-1.30); GLOMERULAR FILTR. RATE CALC > 60 mL/min (>60); GLUCOSE,RANDOM 84 mg/dL (70-110); POTASSIUM 3.6 mmol/L (3.5-5.1); SODIUM SERUM 138 mmol/L (136-145); UREA NITROGEN, BLOOD 18 mg/dL (7-18)
[2017-12-30] MEDS: LORATADINE 10 MG TABLET PO SCH (08:59)
[2017-12-30] MEDS: CHOLECALCIFEROL (VIT D3) 1,000 UNITS TABLET PO SCH (08:59)
[2017-12-30] MEDS: MULTIVITAMINS WITH MINERALS, THERAPEUTIC TABLET PO SCH (08:59)
[2017-12-30] MEDS: OMEPRAZOLE 20 MG CAPSULE PO SCH (08:59)
[2017-12-30] MEDS: FOLIC ACID 1 MG TABLET PO SCH (08:59)
[2017-12-30] MEDS: OMEGA-3/DHA/EPA/FISH OIL 1,000 MG CAPSULE PO SCH (08:59)
[2017-12-30] MEDS: THIAMINE HCL 100 MG TABLET PO SCH ×2 (08:59→17:16)
[2017-12-30] MEDS: MUPIROCIN CALCIUM 2% 22 GM OINTMENT NASAL SCH ×2 (09:01→17:16)
[2017-12-30 09:17] VITALS: BP 112/71
[2017-12-30] MEDS: INSULIN LISPRO 100 UNITS/ML SQ PRN ×2 (11:07→20:54)
[2017-12-30 11:12] LABS: GLUCOMETER DEV NAME(LOC) BV2S; GLUCOSE,POINT OF CARE 147 MG/DL (70-110)
[2017-12-30 16:49] VITALS: BP 100/61
[2017-12-30 16:58] LABS: GLUCOMETER DEV NAME(LOC) BV2S; GLUCOSE,POINT OF CARE 124 MG/DL (70-110)
[2017-12-30] MEDS: SIMVASTATIN 10 MG TABLET PO SCH (20:32)
[2017-12-30] MEDS: PALIPERIDONE 6 MG ER TABLET PO SCH (20:32)
[2017-12-30] MEDS: INSULIN GLARGINE,HUM.REC.ANLOG 100 UNITS/ML SQ SCH (20:54)
[2017-12-30 21:08] LABS: GLUCOMETER DEV NAME(LOC) BV2S; GLUCOSE,POINT OF CARE 206 MG/DL (70-110)
[2017-12-31 01:23] VITALS: BP 99/60
[2017-12-31 06:07] LABS: GLUCOMETER DEV NAME(LOC) BV2S; GLUCOSE,POINT OF CARE 97 MG/DL (70-110)
[2017-12-31] MEDS: MetFORMIN HCL 500 MG TABLET PO SCH ×2 (06:44→16:37)
[2017-12-31 08:47] VITALS: BP 108/73
[2017-12-31] MEDS: THIAMINE HCL 100 MG TABLET PO SCH ×2 (08:59→16:37)
[2017-12-31] MEDS: OMEGA-3/DHA/EPA/FISH OIL 1,000 MG CAPSULE PO SCH (08:59)
[2017-12-31] MEDS: LORATADINE 10 MG TABLET PO SCH (08:59)
[2017-12-31] MEDS: MULTIVITAMINS WITH MINERALS, THERAPEUTIC TABLET PO SCH (08:59)
[2017-12-31] MEDS: FOLIC ACID 1 MG TABLET PO SCH (08:59)
[2017-12-31] MEDS: OMEPRAZOLE 20 MG CAPSULE PO SCH (08:59)
[2017-12-31] MEDS: CHOLECALCIFEROL (VIT D3) 1,000 UNITS TABLET PO SCH (08:59)
[2017-12-31] MEDS ORDERED: PALIPERIDONE PALMITATE 156 MG/ML SYRINGE IM ONE (09:00)
[2017-12-31] MEDS ORDERED: PALIPERIDONE 6 MG ER TABLET PO SCH (09:00)
[2017-12-31] MEDS: MUPIROCIN CALCIUM 2% 22 GM OINTMENT NASAL SCH ×2 (09:01→16:37)
[2017-12-31] MEDS: INSULIN LISPRO 100 UNITS/ML SQ PRN ×2 (11:02→16:40)
[2017-12-31 11:07] LABS: GLUCOMETER DEV NAME(LOC) BV2S; GLUCOSE,POINT OF CARE 164 MG/DL (70-110)
[2017-12-31 16:05] VITALS: BP 105/65
[2017-12-31 16:47] LABS: GLUCOMETER DEV NAME(LOC) BV2S; GLUCOSE,POINT OF CARE 346 MG/DL (70-110)
[2017-12-31] MEDS: SIMVASTATIN 10 MG TABLET PO SCH (20:35)
[2017-12-31] MEDS: INSULIN GLARGINE,HUM.REC.ANLOG 100 UNITS/ML SQ SCH (20:39)
[2017-12-31 20:48] LABS: GLUCOMETER DEV NAME(LOC) BV2S; GLUCOSE,POINT OF CARE 122 MG/DL (70-110)
[2018-01-01 03:00] VITALS: BP 100/60
[2018-01-01 06:37] LABS: GLUCOMETER DEV NAME(LOC) BV2S; GLUCOSE,POINT OF CARE 104 MG/DL (70-110)
[2018-01-01] MEDS: MetFORMIN HCL 500 MG TABLET PO SCH ×2 (07:12→17:07)
[2018-01-01 08:41] VITALS: BP 102/60
[2018-01-01] MEDS: OMEPRAZOLE 20 MG CAPSULE PO SCH (08:44)
[2018-01-01] MEDS: THIAMINE HCL 100 MG TABLET PO SCH ×2 (08:44→17:06)
[2018-01-01] MEDS: LORATADINE 10 MG TABLET PO SCH (08:44)
[2018-01-01] MEDS: FOLIC ACID 1 MG TABLET PO SCH (08:44)
[2018-01-01] MEDS: CHOLECALCIFEROL (VIT D3) 1,000 UNITS TABLET PO SCH (08:44)
[2018-01-01] MEDS: MULTIVITAMINS WITH MINERALS, THERAPEUTIC TABLET PO SCH (08:44)
[2018-01-01] MEDS: OMEGA-3/DHA/EPA/FISH OIL 1,000 MG CAPSULE PO SCH (08:44)
[2018-01-01] MEDS: MUPIROCIN CALCIUM 2% 22 GM OINTMENT NASAL SCH ×2 (08:46→17:07)
[2018-01-01] MEDS: INSULIN LISPRO 100 UNITS/ML SQ PRN ×2 (11:04→21:02)
[2018-01-01 11:13] LABS: GLUCOMETER DEV NAME(LOC) BV2S; GLUCOSE,POINT OF CARE 215 MG/DL (70-110)
[2018-01-01 16:14] VITALS: BP 110/62
[2018-01-01 16:39] LABS: GLUCOMETER DEV NAME(LOC) BV2S; GLUCOSE,POINT OF CARE 103 MG/DL (70-110)
[2018-01-01] MEDS: SIMVASTATIN 10 MG TABLET PO SCH (21:01)
[2018-01-01] MEDS: INSULIN GLARGINE,HUM.REC.ANLOG 100 UNITS/ML SQ SCH (21:02)
[2018-01-01 21:08] LABS: GLUCOMETER DEV NAME(LOC) BV2S; GLUCOSE,POINT OF CARE 156 MG/DL (70-110)
[2018-01-02 03:00] VITALS: BP 101/73
[2018-01-02] MEDS: MetFORMIN HCL 500 MG TABLET PO SCH ×2 (07:03→16:37)
[2018-01-02 07:22] LABS: GLUCOMETER DEV NAME(LOC) BV2S; GLUCOSE,POINT OF CARE 90 MG/DL (70-110)
[2018-01-02 08:31] VITALS: BP 113/68
[2018-01-02] MEDS: OMEPRAZOLE 20 MG CAPSULE PO SCH (08:38)
[2018-01-02] MEDS: MULTIVITAMINS WITH MINERALS, THERAPEUTIC TABLET PO SCH (08:38)
[2018-01-02] MEDS: CHOLECALCIFEROL (VIT D3) 1,000 UNITS TABLET PO SCH (08:38)
[2018-01-02] MEDS: FOLIC ACID 1 MG TABLET PO SCH (08:39)
[2018-01-02] MEDS: THIAMINE HCL 100 MG TABLET PO SCH ×2 (08:39→16:37)
[2018-01-02] MEDS: OMEGA-3/DHA/EPA/FISH OIL 1,000 MG CAPSULE PO SCH (08:39)
[2018-01-02] MEDS: LORATADINE 10 MG TABLET PO SCH (08:39)
[2018-01-02] MEDS: MUPIROCIN CALCIUM 2% 22 GM OINTMENT NASAL SCH ×2 (08:41→16:36)
[2018-01-02] MEDS: INSULIN LISPRO 100 UNITS/ML SQ PRN ×3 (11:05→20:52)
[2018-01-02 11:12] LABS: GLUCOMETER DEV NAME(LOC) BV2S; GLUCOSE,POINT OF CARE 169 MG/DL (70-110)
[2018-01-02 16:09] VITALS: BP 116/69
[2018-01-02 16:18] LABS: GLUCOMETER DEV NAME(LOC) BV2S; GLUCOSE,POINT OF CARE 160 MG/DL (70-110)
[2018-01-02 20:42] LABS: GLUCOMETER DEV NAME(LOC) BV2S; GLUCOSE,POINT OF CARE 170 MG/DL (70-110)
[2018-01-02] MEDS: SIMVASTATIN 10 MG TABLET PO SCH (20:45)
[2018-01-02] MEDS: INSULIN GLARGINE,HUM.REC.ANLOG 100 UNITS/ML SQ SCH (20:53)
[2018-01-03 06:17] LABS: GLUCOMETER DEV NAME(LOC) BV2S; GLUCOSE,POINT OF CARE 87 MG/DL (70-110)
[2018-01-03] MEDS: MetFORMIN HCL 500 MG TABLET PO SCH ×2 (06:59→16:40)
[2018-01-03 07:06] VITALS: BP 110/68
[2018-01-03 08:38] VITALS: BP 109/79
[2018-01-03] MEDS: MUPIROCIN CALCIUM 2% 22 GM OINTMENT NASAL SCH (08:56)
[2018-01-03] MEDS: CHOLECALCIFEROL (VIT D3) 1,000 UNITS TABLET PO SCH (09:00)
[2018-01-03] MEDS: THIAMINE HCL 100 MG TABLET PO SCH ×2 (09:00→16:40)
[2018-01-03] MEDS: MULTIVITAMINS WITH MINERALS, THERAPEUTIC TABLET PO SCH (09:00)
[2018-01-03] MEDS: OMEGA-3/DHA/EPA/FISH OIL 1,000 MG CAPSULE PO SCH (09:00)
[2018-01-03] MEDS: LORATADINE 10 MG TABLET PO SCH (09:00)
[2018-01-03] MEDS: FOLIC ACID 1 MG TABLET PO SCH (09:00)
[2018-01-03] MEDS: OMEPRAZOLE 20 MG CAPSULE PO SCH (09:00)
[2018-01-03] MEDS: INSULIN LISPRO 100 UNITS/ML SQ PRN ×2 (11:08→16:43)
[2018-01-03 11:12] LABS: GLUCOMETER DEV NAME(LOC) BV2S; GLUCOSE,POINT OF CARE 201 MG/DL (70-110)
[2018-01-03 16:11] VITALS: BP 111/69
[2018-01-03 16:28] LABS: GLUCOMETER DEV NAME(LOC) BV2S; GLUCOSE,POINT OF CARE 258 MG/DL (70-110)
[2018-01-03] MEDS: SIMVASTATIN 10 MG TABLET PO SCH (20:45)
[2018-01-03 20:52] LABS: GLUCOMETER DEV NAME(LOC) BV2S; GLUCOSE,POINT OF CARE 135 MG/DL (70-110)
[2018-01-03] MEDS: INSULIN GLARGINE,HUM.REC.ANLOG 100 UNITS/ML SQ SCH (20:53)
[2018-01-04 01:44] VITALS: BP 115/75
[2018-01-04 06:33] LABS: GLUCOMETER DEV NAME(LOC) BV2S; GLUCOSE,POINT OF CARE 114 MG/DL (70-110)
[2018-01-04] MEDS: MetFORMIN HCL 500 MG TABLET PO SCH ×2 (07:00→16:35)
[2018-01-04 08:45] VITALS: BP 109/67
[2018-01-04] MEDS: OMEPRAZOLE 20 MG CAPSULE PO SCH (08:47)
[2018-01-04] MEDS: CHOLECALCIFEROL (VIT D3) 1,000 UNITS TABLET PO SCH (08:47)
[2018-01-04] MEDS: OMEGA-3/DHA/EPA/FISH OIL 1,000 MG CAPSULE PO SCH (08:47)
[2018-01-04] MEDS: MULTIVITAMINS WITH MINERALS, THERAPEUTIC TABLET PO SCH (08:48)
[2018-01-04] MEDS: FOLIC ACID 1 MG TABLET PO SCH (08:48)
[2018-01-04] MEDS: THIAMINE HCL 100 MG TABLET PO SCH ×2 (08:48→16:35)
[2018-01-04] MEDS: LORATADINE 10 MG TABLET PO SCH (08:48)
[2018-01-04 11:17] LABS: GLUCOMETER DEV NAME(LOC) BV2S; GLUCOSE,POINT OF CARE 140 MG/DL (70-110)
[2018-01-04 16:00] VITALS: BP 101/62
[2018-01-04 16:17] LABS: GLUCOMETER DEV NAME(LOC) BV2S; GLUCOSE,POINT OF CARE 209 MG/DL (70-110)
[2018-01-04] MEDS: INSULIN LISPRO 100 UNITS/ML SQ PRN (16:49)
[2018-01-04] MEDS: SIMVASTATIN 10 MG TABLET PO SCH (20:44)
[2018-01-04 20:47] LABS: GLUCOMETER DEV NAME(LOC) BV2S; GLUCOSE,POINT OF CARE 122 MG/DL (70-110)
[2018-01-04] MEDS: INSULIN GLARGINE,HUM.REC.ANLOG 100 UNITS/ML SQ SCH (20:54)
[2018-01-05 06:23] LABS: GLUCOMETER DEV NAME(LOC) BV2S; GLUCOSE,POINT OF CARE 72 MG/DL (70-110)
[2018-01-05] MEDS: MetFORMIN HCL 500 MG TABLET PO SCH ×2 (06:40→16:31)
[2018-01-05 07:02] VITALS: BP 102/61
[2018-01-05 08:13] VITALS: BP 101/70
[2018-01-05] MEDS: MULTIVITAMINS WITH MINERALS, THERAPEUTIC TABLET PO SCH (08:26)
[2018-01-05] MEDS: OMEGA-3/DHA/EPA/FISH OIL 1,000 MG CAPSULE PO SCH (08:26)
[2018-01-05] MEDS: CHOLECALCIFEROL (VIT D3) 1,000 UNITS TABLET PO SCH (08:26)
[2018-01-05] MEDS: LORATADINE 10 MG TABLET PO SCH (08:26)
[2018-01-05] MEDS: THIAMINE HCL 100 MG TABLET PO SCH ×2 (08:26→16:31)
[2018-01-05] MEDS: OMEPRAZOLE 20 MG CAPSULE PO SCH (08:26)
[2018-01-05] MEDS: FOLIC ACID 1 MG TABLET PO SCH (08:26)
[2018-01-05] MEDS: INSULIN LISPRO 100 UNITS/ML SQ PRN ×3 (11:04→20:43)
[2018-01-05 11:12] LABS: GLUCOMETER DEV NAME(LOC) BV2S; GLUCOSE,POINT OF CARE 221 MG/DL (70-110)
[2018-01-05 16:27] LABS: GLUCOMETER DEV NAME(LOC) BV2S; GLUCOSE,POINT OF CARE 232 MG/DL (70-110)
[2018-01-05 16:30] VITALS: BP 106/72
[2018-01-05] MEDS: SIMVASTATIN 10 MG TABLET PO SCH (20:42)
[2018-01-05] MEDS: INSULIN GLARGINE,HUM.REC.ANLOG 100 UNITS/ML SQ SCH (20:43)
[2018-01-05 20:47] LABS: GLUCOMETER DEV NAME(LOC) BV2S; GLUCOSE,POINT OF CARE 196 MG/DL (70-110)
[2018-01-06 06:17] LABS: GLUCOMETER DEV NAME(LOC) BV2S; GLUCOSE,POINT OF CARE 71 MG/DL (70-110)
[2018-01-06] MEDS: MetFORMIN HCL 500 MG TABLET PO SCH ×2 (06:50→17:01)
[2018-01-06 07:24] VITALS: BP 107/61
[2018-01-06 08:43] VITALS: BP 105/63
[2018-01-06] MEDS: THIAMINE HCL 100 MG TABLET PO SCH (09:02)
[2018-01-06] MEDS: MULTIVITAMINS WITH MINERALS, THERAPEUTIC TABLET PO SCH (09:02)
[2018-01-06] MEDS: CHOLECALCIFEROL (VIT D3) 1,000 UNITS TABLET PO SCH (09:02)
[2018-01-06] MEDS: OMEPRAZOLE 20 MG CAPSULE PO SCH (09:02)
[2018-01-06] MEDS: OMEGA-3/DHA/EPA/FISH OIL 1,000 MG CAPSULE PO SCH (09:02)
[2018-01-06] MEDS: FOLIC ACID 1 MG TABLET PO SCH (09:02)
[2018-01-06] MEDS: LORATADINE 10 MG TABLET PO SCH (09:02)
[2018-01-06] MEDS: INSULIN LISPRO 100 UNITS/ML SQ PRN ×3 (11:03→20:47)
[2018-01-06 11:07] LABS: GLUCOMETER DEV NAME(LOC) BV2N3; GLUCOSE,POINT OF CARE 207 MG/DL (70-110)
[2018-01-06 16:40] VITALS: BP 108/61
[2018-01-06 16:53] LABS: GLUCOMETER DEV NAME(LOC) BV2N3; GLUCOSE,POINT OF CARE 201 MG/DL (70-110)
[2018-01-06 20:37] LABS: GLUCOMETER DEV NAME(LOC) BV2N3; GLUCOSE,POINT OF CARE 166 MG/DL (70-110)
[2018-01-06] MEDS: SIMVASTATIN 10 MG TABLET PO SCH (20:39)
[2018-01-06] MEDS: INSULIN GLARGINE,HUM.REC.ANLOG 100 UNITS/ML SQ SCH (20:47)
[2018-01-07 06:23] VITALS: BP 102/66
[2018-01-07] MEDS: MetFORMIN HCL 500 MG TABLET PO SCH ×2 (06:46→16:43)
[2018-01-07 07:12] LABS: GLUCOMETER DEV NAME(LOC) BV2N3; GLUCOSE,POINT OF CARE 120 MG/DL (70-110)
[2018-01-07 08:33] VITALS: BP 104/70
[2018-01-07] MEDS: LORATADINE 10 MG TABLET PO SCH (08:37)
[2018-01-07] MEDS: MULTIVITAMINS WITH MINERALS, THERAPEUTIC TABLET PO SCH (08:37)
[2018-01-07] MEDS: OMEPRAZOLE 20 MG CAPSULE PO SCH (08:37)
[2018-01-07] MEDS: OMEGA-3/DHA/EPA/FISH OIL 1,000 MG CAPSULE PO SCH (08:37)
[2018-01-07] MEDS: CHOLECALCIFEROL (VIT D3) 1,000 UNITS TABLET PO SCH (08:37)
[2018-01-07 11:02] LABS: GLUCOMETER DEV NAME(LOC) BV2N3; GLUCOSE,POINT OF CARE 192 MG/DL (70-110)
[2018-01-07] MEDS: INSULIN LISPRO 100 UNITS/ML SQ PRN ×2 (11:02→16:50)
[2018-01-07 16:26] VITALS: BP 118/60
[2018-01-07 19:13] LABS: GLUCOMETER DEV NAME(LOC) BV2N3; GLUCOSE,POINT OF CARE 266 MG/DL (70-110)
[2018-01-07 21:17] LABS: GLUCOMETER DEV NAME(LOC) BV2S 2; GLUCOSE,POINT OF CARE 79 MG/DL (70-110)
[2018-01-07] MEDS: SIMVASTATIN 10 MG TABLET PO SCH (22:23)
[2018-01-07] MEDS: INSULIN GLARGINE,HUM.REC.ANLOG 100 UNITS/ML SQ SCH (22:33)
[2018-01-08 05:37] LABS: GLUCOMETER DEV NAME(LOC) BV2S 2; GLUCOSE,POINT OF CARE 91 MG/DL (70-110)
[2018-01-08 06:35] VITALS: BP 104/60
[2018-01-08] MEDS: MetFORMIN HCL 500 MG TABLET PO SCH (06:43)
[2018-01-08] MEDS: OMEGA-3/DHA/EPA/FISH OIL 1,000 MG CAPSULE PO SCH (08:01)
[2018-01-08] MEDS: MULTIVITAMINS WITH MINERALS, THERAPEUTIC TABLET PO SCH (08:01)
[2018-01-08] MEDS: LORATADINE 10 MG TABLET PO SCH (08:01)
[2018-01-08] MEDS: OMEPRAZOLE 20 MG CAPSULE PO SCH (08:02)
[2018-01-08] MEDS: CHOLECALCIFEROL (VIT D3) 1,000 UNITS TABLET PO SCH (08:03)
[2018-01-08] MEDS ORDERED: PALI156D IM (08:11)
[2018-01-08 08:54] VITALS: BP 110/77
== END 2018-01-08 09:45 | disposition home or self-care (01) | DRG 885 ==
LOC: EDSTATUS 09:01 → B2X 09:46 → B2S 12-29 07:40 → B2X 12-29 14:15 → B2S 01-07 18:44
PROVIDERS: ADMIT Psychiatry & Neurology Psychiatry; ATTEND Psychiatry & Neurology Psychiatry
DX: F25.0 Schizoaffective disorder, bipolar type (principal); E11.65 Type 2 diabetes mellitus with hyperglycemia; R45.851 Suicidal ideations; E55.9 Vitamin D deficiency, unspecified; E78.5 Hyperlipidemia, unspecified; F17.210 Nicotine dependence, cigarettes, uncomplicated; G47.00 Insomnia, unspecified; J31.0 Chronic rhinitis; K21.9 Gastro-esophageal reflux disease without esophagitis; B95.62 Methicillin resistant Staphylococcus aureus infection as the cause of diseases classified elsewhere; E87.6 Hypokalemia; Z59.0 Homelessness; Z65.3 Problems related to other legal circumstances; Z91.14 Patient's other noncompliance with medication regimen; Z91.19 Patient's noncompliance with other medical treatment and regimen; Z79.84 Long term (current) use of oral hypoglycemic drugs; Z79.899 Other long term (current) drug therapy; Z79.4 Long term (current) use of insulin; Z71.6 Tobacco abuse counseling
CPT/HCPCS: 82306; 83036; 84439; 84443; 87081; J1815

== ENCOUNTER 2018-03-21 14:39 | Inpatient (IN) | payer MEDICARE, MEDICAID ==
[~2018-03-21] VITALS: Ht 167.6 cm; Wt 68.0 kg
[~2018-03-21 14:39] MED LIST changes: -ARIP5TAB8 PO; -DOCU-119 PO; +PALI156D IM
[2018-03-21] MEDS ORDERED: MAG HYDROX/AL HYDROX/SIMETH ES 30 ML SUSPENSION UDCUP PO PRN ×2 (16:30→18:45)
[2018-03-21] MEDS ORDERED: PROMETHAZINE HCL 25 MG TABLET PO PRN (16:30)
[2018-03-21] MEDS ORDERED: ACETAMINOPHEN 325 MG TABLET PO PRN ×2 (16:30→18:45)
[2018-03-21] MEDS ORDERED: PALIPERIDONE 1.5 MG ER TABLET PO PRN (16:30)
[2018-03-21] MEDS ORDERED: LOPERAMIDE HCL 2 MG CAPSULE PO PRN ×2 (16:30→18:45)
[2018-03-21] MEDS ORDERED: HydrOXYzine PAMOATE 50 MG CAPSULE PO PRN (16:30)
[2018-03-21] MEDS ORDERED: PALIPERIDONE PALMITATE 234 MG/1.5 ML SYRINGE IM ONE (16:30)
[2018-03-21] MEDS ORDERED: MAGNESIUM HYDROXIDE SUSPENSION 30 ML UDCUP PO PRN ×2 (16:30→18:45)
[2018-03-21 17:21] VITALS: BP 101/68
[2018-03-21] MEDS ORDERED: GLUCAGON,HUMAN RECOMBINANT 1 MG VIAL IM PRN (18:00)
[2018-03-21] MEDS ORDERED: PNEUMOCOCCAL VACCINE POLYVALENT 0.5 ML VIAL [PPSV23] IM ONE (18:30)
[2018-03-21] MEDS: INSULIN LISPRO 100 UNITS/ML SQ PRN ×2 (18:37→21:00)
[2018-03-21] MEDS: THIAMINE HCL 100 MG TABLET PO SCH (18:39)
[2018-03-21] MEDS: OMEGA-3/DHA/EPA/FISH OIL 1,000 MG CAPSULE PO SCH (18:39)
[2018-03-21] MEDS ORDERED: ONDANSETRON HCL 4 MG TABLET PO PRN (18:45)
[2018-03-21] MEDS ORDERED: CloNIDine HCL 0.1 MG TABLET PO PRN (18:45)
[2018-03-21] MEDS ORDERED: ALBUTEROL SULFATE HFA 90 MCG/PUFF 8 GM INHALER IH PRN (18:45)
[2018-03-21] MEDS ORDERED: IBUPROFEN 600 MG TABLET PO PRN (18:45)
[2018-03-21] MEDS ORDERED: PETROLATUM,WHITE 71 GM JELLY TP PRN (18:45)
[2018-03-21] MEDS ORDERED: BACITRACIN 28.4 GM OINTMENT TP PRN (18:45)
[2018-03-21] MEDS: INSULIN GLARGINE,HUM.REC.ANLOG 100 UNITS/ML SQ SCH (21:00)
[2018-03-21] MEDS: PALIPERIDONE 3 MG ER TABLET PO SCH (21:58)
[2018-03-21] MEDS: SIMVASTATIN 10 MG TABLET PO SCH (21:58)
[2018-03-21 22:38] LABS: GLUCOMETER DEV NAME(LOC) BV3N5; GLUCOSE,POINT OF CARE 154 MG/DL (70-110)
[2018-03-22 06:23] LABS: GLUCOMETER DEV NAME(LOC) BV3N5; GLUCOSE,POINT OF CARE 137 MG/DL (70-110)
[2018-03-22] MEDS: INSULIN LISPRO 100 UNITS/ML SQ PRN ×3 (06:23→16:58)
[2018-03-22 06:26] VITALS: BP 112/71
[2018-03-22] MEDS: MetFORMIN HCL 500 MG TABLET PO SCH ×2 (06:26→16:28)
[2018-03-22 08:13] VITALS: BP 106/62
[2018-03-22] MEDS ORDERED: OMEPRAZOLE 20 MG CAPSULE PO SCH (09:00)
[2018-03-22] MEDS: OMEPRAZOLE 20 MG CAPSULE PO SCH (09:58)
[2018-03-22] MEDS: THIAMINE HCL 100 MG TABLET PO SCH ×2 (09:58→16:28)
[2018-03-22] MEDS: FOLIC ACID 1 MG TABLET PO SCH (09:58)
[2018-03-22] MEDS: MULTIVITAMINS WITH MINERALS, THERAPEUTIC TABLET PO SCH (09:58)
[2018-03-22] MEDS: OMEGA-3/DHA/EPA/FISH OIL 1,000 MG CAPSULE PO SCH ×2 (09:58→16:28)
[2018-03-22] MEDS: DOCUSATE SODIUM 100 MG CAPSULE PO SCH (09:58)
[2018-03-22 12:04] LABS: GLUCOMETER DEV NAME(LOC) BV3N5; GLUCOSE,POINT OF CARE 183 MG/DL (70-110)
[2018-03-22 16:10] VITALS: BP 105/63
[2018-03-22 16:54] LABS: GLUCOMETER DEV NAME(LOC) BV3N5; GLUCOSE,POINT OF CARE 125 MG/DL (70-110)
[2018-03-22] MEDS: SIMVASTATIN 10 MG TABLET PO SCH (20:28)
[2018-03-22] MEDS: PALIPERIDONE 3 MG ER TABLET PO SCH (20:28)
[2018-03-22] MEDS: INSULIN GLARGINE,HUM.REC.ANLOG 100 UNITS/ML SQ SCH (20:28)
[2018-03-23 06:14] LABS: GLUCOMETER DEV NAME(LOC) BV3N5; GLUCOSE,POINT OF CARE 133 MG/DL (70-110)
[2018-03-23] MEDS: INSULIN LISPRO 100 UNITS/ML SQ PRN ×4 (06:19→20:59)
[2018-03-23] MEDS: MetFORMIN HCL 500 MG TABLET PO SCH ×2 (06:20→16:27)
[2018-03-23 06:26] VITALS: BP 103/63
[2018-03-23 08:34] VITALS: BP 96/64
[2018-03-23] MEDS: THIAMINE HCL 100 MG TABLET PO SCH ×2 (08:48→16:27)
[2018-03-23] MEDS: OMEPRAZOLE 20 MG CAPSULE PO SCH (08:48)
[2018-03-23] MEDS: FOLIC ACID 1 MG TABLET PO SCH (08:48)
[2018-03-23] MEDS: DOCUSATE SODIUM 100 MG CAPSULE PO SCH (08:48)
[2018-03-23] MEDS: OMEGA-3/DHA/EPA/FISH OIL 1,000 MG CAPSULE PO SCH ×2 (08:48→16:27)
[2018-03-23] MEDS: MULTIVITAMINS WITH MINERALS, THERAPEUTIC TABLET PO SCH (08:48)
[2018-03-23 11:38] LABS: GLUCOMETER DEV NAME(LOC) BV3N5; GLUCOSE,POINT OF CARE 273 MG/DL (70-110)
[2018-03-23 16:00] VITALS: BP 103/65
[2018-03-23 16:38] LABS: GLUCOMETER DEV NAME(LOC) BV3N5; GLUCOSE,POINT OF CARE 140 MG/DL (70-110)
[2018-03-23] MEDS: PHENYLEPHRINE/SHK LV/MIN OIL/PET 57 GM OINTMENT TP SCH (17:15)
[2018-03-23] MEDS ORDERED: PHENYLEPHRINE/SHK LV/MIN OIL/PET 57 GM OINTMENT TP PRN (17:15)
[2018-03-23 20:59] LABS: GLUCOMETER DEV NAME(LOC) BV3N5; GLUCOSE,POINT OF CARE 145 MG/DL (70-110)
[2018-03-23] MEDS: PALIPERIDONE 3 MG ER TABLET PO SCH (20:59)
[2018-03-23] MEDS: INSULIN GLARGINE,HUM.REC.ANLOG 100 UNITS/ML SQ SCH (20:59)
[2018-03-23] MEDS: SIMVASTATIN 10 MG TABLET PO SCH (20:59)
[2018-03-24] MEDS: MetFORMIN HCL 500 MG TABLET PO SCH ×2 (06:21→16:44)
[2018-03-24 08:23] VITALS: BP 105/65
[2018-03-24] MEDS: MULTIVITAMINS WITH MINERALS, THERAPEUTIC TABLET PO SCH (09:00)
[2018-03-24] MEDS: OMEPRAZOLE 20 MG CAPSULE PO SCH (09:00)
[2018-03-24] MEDS: FOLIC ACID 1 MG TABLET PO SCH (09:00)
[2018-03-24] MEDS: THIAMINE HCL 100 MG TABLET PO SCH ×2 (09:00→16:44)
[2018-03-24] MEDS: OMEGA-3/DHA/EPA/FISH OIL 1,000 MG CAPSULE PO SCH ×2 (09:00→16:44)
[2018-03-24] MEDS: DOCUSATE SODIUM 100 MG CAPSULE PO SCH (09:00)
[2018-03-24] MEDS: PHENYLEPHRINE/SHK LV/MIN OIL/PET 57 GM OINTMENT TP SCH ×2 (09:42→16:44)
[2018-03-24 16:00] VITALS: BP 114/64
[2018-03-24 16:54] LABS: GLUCOMETER DEV NAME(LOC) BV3N5; GLUCOSE,POINT OF CARE 229 MG/DL (70-110)
[2018-03-24] MEDS: SIMVASTATIN 10 MG TABLET PO SCH (20:31)
[2018-03-24] MEDS: PALIPERIDONE 3 MG ER TABLET PO SCH (20:31)
[2018-03-24] MEDS: INSULIN GLARGINE,HUM.REC.ANLOG 100 UNITS/ML SQ SCH (20:31)
[2018-03-24] MEDS: INSULIN LISPRO 100 UNITS/ML SQ PRN (20:33)
[2018-03-25] MEDS: MetFORMIN HCL 500 MG TABLET PO SCH ×2 (06:21→16:52)
[2018-03-25] MEDS: DOCUSATE SODIUM 100 MG CAPSULE PO SCH (08:14)
[2018-03-25] MEDS: OMEGA-3/DHA/EPA/FISH OIL 1,000 MG CAPSULE PO SCH ×2 (08:14→16:52)
[2018-03-25] MEDS: THIAMINE HCL 100 MG TABLET PO SCH ×2 (08:15→16:52)
[2018-03-25] MEDS: OMEPRAZOLE 20 MG CAPSULE PO SCH (08:15)
[2018-03-25] MEDS: PHENYLEPHRINE/SHK LV/MIN OIL/PET 57 GM OINTMENT TP SCH ×2 (08:15→16:52)
[2018-03-25] MEDS: FOLIC ACID 1 MG TABLET PO SCH (08:15)
[2018-03-25] MEDS: MULTIVITAMINS WITH MINERALS, THERAPEUTIC TABLET PO SCH (08:15)
[2018-03-25] MEDS ORDERED: PALIPERIDONE PALMITATE 156 MG/ML SYRINGE IM ONE (09:00)
[2018-03-25 11:06] VITALS: BP 101/70
[2018-03-25 16:00] VITALS: BP 109/65
[2018-03-25] MEDS: BENZOCAINE/MENTHOL LOZENGE MM PRN (18:13)
[2018-03-25] MEDS: GuaiFENesin/D-METHORPHAN [SUGAR-FREE] 200-20MG/10 ML SYRUP UDCUP PO PRN (18:28)
[2018-03-25] MEDS: INSULIN GLARGINE,HUM.REC.ANLOG 100 UNITS/ML SQ SCH (21:00)
[2018-03-25] MEDS: SIMVASTATIN 10 MG TABLET PO SCH (21:00)
[2018-03-25] MEDS: PALIPERIDONE 3 MG ER TABLET PO SCH (21:00)
[2018-03-25] MEDS: ZOLPIDEM TARTRATE 10 MG TABLET PO PRN (21:27)
[2018-03-26] MEDS: MetFORMIN HCL 500 MG TABLET PO SCH ×2 (06:37→16:42)
[2018-03-26] MEDS: OMEPRAZOLE 20 MG CAPSULE PO SCH (09:00)
[2018-03-26] MEDS: DOCUSATE SODIUM 100 MG CAPSULE PO SCH (09:00)
[2018-03-26] MEDS: FOLIC ACID 1 MG TABLET PO SCH (09:00)
[2018-03-26] MEDS: OMEGA-3/DHA/EPA/FISH OIL 1,000 MG CAPSULE PO SCH ×2 (09:00→16:42)
[2018-03-26] MEDS: THIAMINE HCL 100 MG TABLET PO SCH ×2 (09:00→16:43)
[2018-03-26] MEDS: MULTIVITAMINS WITH MINERALS, THERAPEUTIC TABLET PO SCH (09:00)
[2018-03-26 09:13] VITALS: BP 105/62
[2018-03-26] MEDS: PHENYLEPHRINE/SHK LV/MIN OIL/PET 57 GM OINTMENT TP SCH ×2 (09:53→16:43)
[2018-03-26 11:19] LABS: GLUCOMETER DEV NAME(LOC) BV3N5; GLUCOSE,POINT OF CARE 237 MG/DL (70-110)
[2018-03-26] MEDS: INSULIN LISPRO 100 UNITS/ML SQ PRN (11:20)
[2018-03-26] MEDS: BENZOCAINE/MENTHOL LOZENGE MM PRN (14:58)
[2018-03-26 16:00] VITALS: BP 116/62
[2018-03-26] MEDS: GuaiFENesin/D-METHORPHAN [SUGAR-FREE] 200-20MG/10 ML SYRUP UDCUP PO PRN (16:31)
[2018-03-26] MEDS: INSULIN GLARGINE,HUM.REC.ANLOG 100 UNITS/ML SQ SCH (21:00)
[2018-03-26] MEDS: PALIPERIDONE 3 MG ER TABLET PO SCH (21:00)
[2018-03-26] MEDS: SIMVASTATIN 10 MG TABLET PO SCH (21:00)
[2018-03-27 00:20] VITALS: BP 109/63
[2018-03-27] MEDS: MetFORMIN HCL 500 MG TABLET PO SCH ×2 (06:54→17:00)
[2018-03-27] MEDS: INSULIN LISPRO 100 UNITS/ML SQ PRN ×2 (06:56→14:55)
[2018-03-27 08:20] VITALS: BP 116/70
[2018-03-27] MEDS: OMEGA-3/DHA/EPA/FISH OIL 1,000 MG CAPSULE PO SCH ×2 (09:00→17:00)
[2018-03-27] MEDS: OMEPRAZOLE 20 MG CAPSULE PO SCH (09:00)
[2018-03-27] MEDS: THIAMINE HCL 100 MG TABLET PO SCH ×2 (09:00→17:00)
[2018-03-27] MEDS: MULTIVITAMINS WITH MINERALS, THERAPEUTIC TABLET PO SCH (09:00)
[2018-03-27] MEDS: DOCUSATE SODIUM 100 MG CAPSULE PO SCH (09:00)
[2018-03-27] MEDS: FOLIC ACID 1 MG TABLET PO SCH (09:00)
[2018-03-27 12:59] LABS: GLUCOMETER DEV NAME(LOC) BV3N5; GLUCOSE,POINT OF CARE 173 MG/DL (70-110)
[2018-03-27] MEDS ORDERED: PALIPERIDONE PALMITATE 234 MG/1.5 ML SYRINGE IM ONE (13:45)
[2018-03-27 15:03] LABS: GLUCOMETER DEV NAME(LOC) BV3N5; GLUCOSE,POINT OF CARE 286 MG/DL (70-110)
[2018-03-27 16:00] VITALS: BP 114/63
[2018-03-27] MEDS: BENZOCAINE/MENTHOL LOZENGE MM PRN (17:26)
[2018-03-27] MEDS: GuaiFENesin/D-METHORPHAN [SUGAR-FREE] 200-20MG/10 ML SYRUP UDCUP PO PRN (17:26)
[2018-03-27] MEDS: INSULIN GLARGINE,HUM.REC.ANLOG 100 UNITS/ML SQ SCH (21:00)
[2018-03-27] MEDS: SIMVASTATIN 10 MG TABLET PO SCH (21:00)
[2018-03-27] MEDS: PALIPERIDONE 3 MG ER TABLET PO SCH (21:00)
[2018-03-28 06:33] VITALS: BP 108/62
[2018-03-28] MEDS: MetFORMIN HCL 500 MG TABLET PO SCH ×2 (07:03→16:35)
[2018-03-28 08:21] VITALS: BP 102/63
[2018-03-28] MEDS: OMEGA-3/DHA/EPA/FISH OIL 1,000 MG CAPSULE PO SCH ×2 (09:00→16:35)
[2018-03-28] MEDS: MULTIVITAMINS WITH MINERALS, THERAPEUTIC TABLET PO SCH (09:00)
[2018-03-28] MEDS: FOLIC ACID 1 MG TABLET PO SCH (09:00)
[2018-03-28] MEDS: DOCUSATE SODIUM 100 MG CAPSULE PO SCH (09:00)
[2018-03-28] MEDS: OMEPRAZOLE 20 MG CAPSULE PO SCH (09:00)
[2018-03-28] MEDS: THIAMINE HCL 100 MG TABLET PO SCH ×2 (09:00→16:35)
[2018-03-28 11:43] LABS: GLUCOMETER DEV NAME(LOC) BV3N5; GLUCOSE,POINT OF CARE 244 MG/DL (70-110)
[2018-03-28] MEDS: INSULIN LISPRO 100 UNITS/ML SQ PRN (11:46)
[2018-03-28 16:00] VITALS: BP 104/65
[2018-03-28] MEDS: PALIPERIDONE 3 MG ER TABLET PO SCH (20:42)
[2018-03-28] MEDS: INSULIN GLARGINE,HUM.REC.ANLOG 100 UNITS/ML SQ SCH (20:43)
[2018-03-28] MEDS: SIMVASTATIN 10 MG TABLET PO SCH (20:43)
[2018-03-29] MEDS: MetFORMIN HCL 500 MG TABLET PO SCH ×2 (06:50→16:28)
[2018-03-29] MEDS: INSULIN LISPRO 100 UNITS/ML SQ PRN ×4 (06:50→21:00)
[2018-03-29 06:53] LABS: GLUCOMETER DEV NAME(LOC) BV3N5; GLUCOSE,POINT OF CARE 178 MG/DL (70-110)
[2018-03-29 08:00] VITALS: BP 106/64
[2018-03-29] MEDS: OMEGA-3/DHA/EPA/FISH OIL 1,000 MG CAPSULE PO SCH ×2 (08:58→16:27)
[2018-03-29] MEDS: DOCUSATE SODIUM 100 MG CAPSULE PO SCH (08:58)
[2018-03-29] MEDS: FOLIC ACID 1 MG TABLET PO SCH (08:58)
[2018-03-29] MEDS: THIAMINE HCL 100 MG TABLET PO SCH (08:58)
[2018-03-29] MEDS: MULTIVITAMINS WITH MINERALS, THERAPEUTIC TABLET PO SCH (08:58)
[2018-03-29] MEDS: OMEPRAZOLE 20 MG CAPSULE PO SCH (08:58)
[2018-03-29 11:44] LABS: GLUCOMETER DEV NAME(LOC) BV3N5; GLUCOSE,POINT OF CARE 188 MG/DL (70-110)
[2018-03-29 16:00] VITALS: BP 105/67
[2018-03-29 16:38] LABS: GLUCOMETER DEV NAME(LOC) BV3N5; GLUCOSE,POINT OF CARE 177 MG/DL (70-110)
[2018-03-29] MEDS: SIMVASTATIN 10 MG TABLET PO SCH (20:38)
[2018-03-29] MEDS: INSULIN GLARGINE,HUM.REC.ANLOG 100 UNITS/ML SQ SCH (21:00)
[2018-03-29 21:22] LABS: GLUCOMETER DEV NAME(LOC) BV3N5; GLUCOSE,POINT OF CARE 164 MG/DL (70-110)
[2018-03-30] MEDS: MetFORMIN HCL 500 MG TABLET PO SCH ×2 (06:32→16:14)
[2018-03-30] MEDS: INSULIN LISPRO 100 UNITS/ML SQ PRN ×4 (06:33→21:17)
[2018-03-30 06:35] LABS: GLUCOMETER DEV NAME(LOC) BV3N5; GLUCOSE,POINT OF CARE 135 MG/DL (70-110)
[2018-03-30 08:33] VITALS: BP 106/67
[2018-03-30] MEDS: OMEPRAZOLE 20 MG CAPSULE PO SCH (09:00)
[2018-03-30] MEDS: OMEGA-3/DHA/EPA/FISH OIL 1,000 MG CAPSULE PO SCH ×2 (09:00→16:13)
[2018-03-30] MEDS: GuaiFENesin/D-METHORPHAN [SUGAR-FREE] 200-20MG/10 ML SYRUP UDCUP PO PRN ×2 (10:58→16:14)
[2018-03-30 11:43] LABS: GLUCOMETER DEV NAME(LOC) BV3N5; GLUCOSE,POINT OF CARE 235 MG/DL (70-110)
[2018-03-30] MEDS: BENZOCAINE/MENTHOL LOZENGE MM PRN (16:14)
[2018-03-30] MEDS: LORazepam 2 MG TABLET PO PRN (16:14)
[2018-03-30] MEDS ORDERED: BENZOCAINE 10% 7 GM GEL TP PRN (16:30)
[2018-03-30 16:34] LABS: GLUCOMETER DEV NAME(LOC) BV3N5; GLUCOSE,POINT OF CARE 160 MG/DL (70-110)
[2018-03-30 16:37] VITALS: BP 126/77
[2018-03-30] MEDS: INSULIN GLARGINE,HUM.REC.ANLOG 100 UNITS/ML SQ SCH (21:17)
[2018-03-30] MEDS: ZOLPIDEM TARTRATE 10 MG TABLET PO PRN (21:18)
[2018-03-30] MEDS: SIMVASTATIN 10 MG TABLET PO SCH (21:18)
[2018-03-30 21:39] LABS: GLUCOMETER DEV NAME(LOC) BV3N5; GLUCOSE,POINT OF CARE 135 MG/DL (70-110)
[2018-03-31] MEDS: MetFORMIN HCL 500 MG TABLET PO SCH ×2 (06:32→16:14)
[2018-03-31 06:34] LABS: GLUCOMETER DEV NAME(LOC) BV3N5; GLUCOSE,POINT OF CARE 105 MG/DL (70-110)
[2018-03-31 08:21] VITALS: BP 104/69
[2018-03-31] MEDS: OMEPRAZOLE 20 MG CAPSULE PO SCH (08:55)
[2018-03-31] MEDS: OMEGA-3/DHA/EPA/FISH OIL 1,000 MG CAPSULE PO SCH ×2 (08:55→16:14)
[2018-03-31] MEDS ORDERED: PALIPERIDONE PALMITATE 156 MG/ML SYRINGE IM ONE (09:00)
[2018-03-31 11:43] LABS: GLUCOMETER DEV NAME(LOC) BV3N5; GLUCOSE,POINT OF CARE 187 MG/DL (70-110)
[2018-03-31] MEDS: INSULIN LISPRO 100 UNITS/ML SQ PRN ×2 (11:43→16:15)
[2018-03-31] MEDS: LORazepam 2 MG TABLET PO PRN (16:14)
[2018-03-31] MEDS: BENZOCAINE/MENTHOL LOZENGE MM PRN (16:19)
[2018-03-31] MEDS: GuaiFENesin/D-METHORPHAN [SUGAR-FREE] 200-20MG/10 ML SYRUP UDCUP PO PRN (16:19)
[2018-03-31 16:36] VITALS: BP 119/81
[2018-03-31 16:49] LABS: GLUCOMETER DEV NAME(LOC) BV3N5; GLUCOSE,POINT OF CARE 181 MG/DL (70-110)
[2018-03-31] MEDS: SIMVASTATIN 10 MG TABLET PO SCH (20:47)
[2018-03-31] MEDS: INSULIN GLARGINE,HUM.REC.ANLOG 100 UNITS/ML SQ SCH (20:49)
[2018-03-31 22:43] LABS: GLUCOMETER DEV NAME(LOC) BV3N5; GLUCOSE,POINT OF CARE 159 MG/DL (70-110)
[2018-04-01] MEDS: MetFORMIN HCL 500 MG TABLET PO SCH ×2 (06:25→16:36)
[2018-04-01 06:28] LABS: GLUCOMETER DEV NAME(LOC) BV3N5; GLUCOSE,POINT OF CARE 97 MG/DL (70-110)
[2018-04-01 08:40] VITALS: BP 104/62
[2018-04-01] MEDS: OMEGA-3/DHA/EPA/FISH OIL 1,000 MG CAPSULE PO SCH ×2 (09:16→16:36)
[2018-04-01] MEDS: OMEPRAZOLE 20 MG CAPSULE PO SCH (09:16)
[2018-04-01] MEDS: INSULIN LISPRO 100 UNITS/ML SQ PRN ×3 (11:41→21:22)
[2018-04-01 11:44] LABS: GLUCOMETER DEV NAME(LOC) BV3N5; GLUCOSE,POINT OF CARE 150 MG/DL (70-110)
[2018-04-01 16:00] VITALS: BP 104/62
[2018-04-01 16:58] LABS: GLUCOMETER DEV NAME(LOC) BV3N5; GLUCOSE,POINT OF CARE 196 MG/DL (70-110)
[2018-04-01] MEDS: GuaiFENesin/D-METHORPHAN [SUGAR-FREE] 200-20MG/10 ML SYRUP UDCUP PO PRN (17:17)
[2018-04-01] MEDS: BENZOCAINE/MENTHOL LOZENGE MM PRN (17:18)
[2018-04-01] MEDS: SIMVASTATIN 10 MG TABLET PO SCH (21:19)
[2018-04-01] MEDS: LORazepam 2 MG TABLET PO PRN (21:19)
[2018-04-01] MEDS: INSULIN GLARGINE,HUM.REC.ANLOG 100 UNITS/ML SQ SCH (21:23)
[2018-04-01 21:54] LABS: GLUCOMETER DEV NAME(LOC) BV3N5; GLUCOSE,POINT OF CARE 126 MG/DL (70-110)
[2018-04-02 06:05] VITALS: BP 110/70
[2018-04-02] MEDS: MetFORMIN HCL 500 MG TABLET PO SCH ×2 (06:21→16:36)
[2018-04-02 06:28] LABS: GLUCOMETER DEV NAME(LOC) BV3N5; GLUCOSE,POINT OF CARE 89 MG/DL (70-110)
[2018-04-02 08:20] VITALS: BP 101/60
[2018-04-02] MEDS: OMEGA-3/DHA/EPA/FISH OIL 1,000 MG CAPSULE PO SCH ×2 (08:33→16:37)
[2018-04-02] MEDS: OMEPRAZOLE 20 MG CAPSULE PO SCH (08:33)
[2018-04-02] MEDS: INSULIN LISPRO 100 UNITS/ML SQ PRN ×3 (11:47→21:00)
[2018-04-02 11:49] LABS: GLUCOMETER DEV NAME(LOC) BV3N5; GLUCOSE,POINT OF CARE 129 MG/DL (70-110)
[2018-04-02 16:24] LABS: GLUCOMETER DEV NAME(LOC) BV3N5; GLUCOSE,POINT OF CARE 159 MG/DL (70-110)
[2018-04-02 16:27] VITALS: BP 105/69
[2018-04-02] MEDS: BENZOCAINE/MENTHOL LOZENGE MM PRN (16:37)
[2018-04-02] MEDS: GuaiFENesin/D-METHORPHAN [SUGAR-FREE] 200-20MG/10 ML SYRUP UDCUP PO PRN (16:37)
[2018-04-02] MEDS: INSULIN GLARGINE,HUM.REC.ANLOG 100 UNITS/ML SQ SCH (21:00)
[2018-04-02 21:18] LABS: GLUCOMETER DEV NAME(LOC) BV3N5; GLUCOSE,POINT OF CARE 167 MG/DL (70-110)
[2018-04-02] MEDS: LORazepam 2 MG TABLET PO PRN (21:32)
[2018-04-02] MEDS: SIMVASTATIN 10 MG TABLET PO SCH (21:32)
[2018-04-03 00:19] VITALS: BP 101/62
[2018-04-03 06:28] LABS: GLUCOMETER DEV NAME(LOC) BV3N5; GLUCOSE,POINT OF CARE 84 MG/DL (70-110)
[2018-04-03] MEDS: MetFORMIN HCL 500 MG TABLET PO SCH ×2 (06:35→16:22)
[2018-04-03 08:16] VITALS: BP 113/70
[2018-04-03] MEDS: OMEPRAZOLE 20 MG CAPSULE PO SCH (09:08)
[2018-04-03] MEDS: OMEGA-3/DHA/EPA/FISH OIL 1,000 MG CAPSULE PO SCH ×2 (09:08→16:22)
[2018-04-03 11:49] LABS: GLUCOMETER DEV NAME(LOC) BV3N5; GLUCOSE,POINT OF CARE 136 MG/DL (70-110)
[2018-04-03] MEDS: INSULIN LISPRO 100 UNITS/ML SQ PRN ×3 (11:49→21:15)
[2018-04-03] MEDS: BENZOCAINE/MENTHOL LOZENGE MM PRN ×2 (14:07→16:22)
[2018-04-03 16:00] VITALS: BP 105/65
[2018-04-03] MEDS: GuaiFENesin/D-METHORPHAN [SUGAR-FREE] 200-20MG/10 ML SYRUP UDCUP PO PRN (16:22)
[2018-04-03] MEDS: LORazepam 2 MG TABLET PO PRN (16:22)
[2018-04-03 17:08] LABS: GLUCOMETER DEV NAME(LOC) BV3N5; GLUCOSE,POINT OF CARE 169 MG/DL (70-110)
[2018-04-03] MEDS: SODIUM CHLORIDE 0.65% 44 ML NASAL SPRAY NASAL SCH (21:00)
[2018-04-03] MEDS: SIMVASTATIN 10 MG TABLET PO SCH (21:09)
[2018-04-03] MEDS: INSULIN GLARGINE,HUM.REC.ANLOG 100 UNITS/ML SQ SCH (21:15)
[2018-04-03 21:23] LABS: GLUCOMETER DEV NAME(LOC) BV3N5; GLUCOSE,POINT OF CARE 166 MG/DL (70-110)
[2018-04-04 06:18] LABS: GLUCOMETER DEV NAME(LOC) BV3N5; GLUCOSE,POINT OF CARE 117 MG/DL (70-110)
[2018-04-04] MEDS: MetFORMIN HCL 500 MG TABLET PO SCH ×2 (06:32→16:21)
[2018-04-04 06:38] VITALS: BP 118/72
[2018-04-04 08:29] VITALS: BP 128/72
[2018-04-04] MEDS: OMEGA-3/DHA/EPA/FISH OIL 1,000 MG CAPSULE PO SCH ×2 (09:10→16:21)
[2018-04-04] MEDS: SODIUM CHLORIDE 0.65% 44 ML NASAL SPRAY NASAL SCH ×2 (09:10→16:21)
[2018-04-04] MEDS: OMEPRAZOLE 20 MG CAPSULE PO SCH (09:10)
[2018-04-04] MEDS ORDERED: PALI117D IM (11:37)
[2018-04-04] MEDS: INSULIN LISPRO 100 UNITS/ML SQ PRN ×3 (11:41→21:14)
[2018-04-04 12:29] LABS: GLUCOMETER DEV NAME(LOC) BV3N5; GLUCOSE,POINT OF CARE 173 MG/DL (70-110)
[2018-04-04 16:00] VITALS: BP 107/68
[2018-04-04] MEDS: LORazepam 2 MG TABLET PO PRN (16:21)
[2018-04-04] MEDS: GuaiFENesin/D-METHORPHAN [SUGAR-FREE] 200-20MG/10 ML SYRUP UDCUP PO PRN (16:21)
[2018-04-04] MEDS: BENZOCAINE/MENTHOL LOZENGE MM PRN (16:22)
[2018-04-04 17:28] LABS: GLUCOMETER DEV NAME(LOC) BV3N5; GLUCOSE,POINT OF CARE 227 MG/DL (70-110)
[2018-04-04] MEDS: SIMVASTATIN 10 MG TABLET PO SCH (21:07)
[2018-04-04] MEDS: INSULIN GLARGINE,HUM.REC.ANLOG 100 UNITS/ML SQ SCH (21:14)
[2018-04-04 21:33] LABS: GLUCOMETER DEV NAME(LOC) BV3N5; GLUCOSE,POINT OF CARE 215 MG/DL (70-110)
[2018-04-05] MEDS: MetFORMIN HCL 500 MG TABLET PO SCH ×2 (06:17→16:13)
[2018-04-05 06:18] LABS: GLUCOMETER DEV NAME(LOC) BV3N5; GLUCOSE,POINT OF CARE 124 MG/DL (70-110)
[2018-04-05] MEDS: INSULIN LISPRO 100 UNITS/ML SQ PRN ×3 (06:21→20:52)
[2018-04-05 06:36] VITALS: BP 106/79
[2018-04-05 08:26] VITALS: BP 99/54
[2018-04-05] MEDS: OMEPRAZOLE 20 MG CAPSULE PO SCH (08:52)
[2018-04-05] MEDS: SODIUM CHLORIDE 0.65% 44 ML NASAL SPRAY NASAL SCH ×2 (08:52→16:13)
[2018-04-05] MEDS: OMEGA-3/DHA/EPA/FISH OIL 1,000 MG CAPSULE PO SCH ×2 (08:52→16:13)
[2018-04-05] MEDS ORDERED: TUBERCULIN, PURIFIED PROTEIN DERIVATIVE 5 TU/0.1 ML SYG ID ONE (09:00)
[2018-04-05 12:23] LABS: GLUCOMETER DEV NAME(LOC) BV3N5; GLUCOSE,POINT OF CARE 120 MG/DL (70-110)
[2018-04-05 16:00] VITALS: BP 111/64
[2018-04-05] MEDS: LORazepam 2 MG TABLET PO PRN (16:13)
[2018-04-05] MEDS: GuaiFENesin/D-METHORPHAN [SUGAR-FREE] 200-20MG/10 ML SYRUP UDCUP PO PRN (16:13)
[2018-04-05] MEDS: BENZOCAINE/MENTHOL LOZENGE MM PRN (16:17)
[2018-04-05 17:08] LABS: GLUCOMETER DEV NAME(LOC) BV3N5; GLUCOSE,POINT OF CARE 175 MG/DL (70-110)
[2018-04-05] MEDS: SIMVASTATIN 10 MG TABLET PO SCH (20:51)
[2018-04-05] MEDS: INSULIN GLARGINE,HUM.REC.ANLOG 100 UNITS/ML SQ SCH (20:53)
[2018-04-05 20:59] LABS: GLUCOMETER DEV NAME(LOC) BV3N5; GLUCOSE,POINT OF CARE 131 MG/DL (70-110)
[2018-04-06] MEDS: MetFORMIN HCL 500 MG TABLET PO SCH ×2 (06:17→16:24)
[2018-04-06 06:19] LABS: GLUCOMETER DEV NAME(LOC) BV3N5; GLUCOSE,POINT OF CARE 95 MG/DL (70-110)
[2018-04-06 06:32] VITALS: BP 116/74
[2018-04-06 07:52] VITALS: BP 107/72
[2018-04-06] MEDS: SODIUM CHLORIDE 0.65% 44 ML NASAL SPRAY NASAL SCH ×2 (08:44→16:24)
[2018-04-06] MEDS: OMEGA-3/DHA/EPA/FISH OIL 1,000 MG CAPSULE PO SCH ×2 (08:45→16:24)
[2018-04-06] MEDS: OMEPRAZOLE 20 MG CAPSULE PO SCH (08:45)
[2018-04-06 11:43] LABS: GLUCOMETER DEV NAME(LOC) BV3N5; GLUCOSE,POINT OF CARE 186 MG/DL (70-110)
[2018-04-06] MEDS: INSULIN LISPRO 100 UNITS/ML SQ PRN ×2 (11:43→16:39)
[2018-04-06] MEDS: GuaiFENesin/D-METHORPHAN [SUGAR-FREE] 200-20MG/10 ML SYRUP UDCUP PO PRN (12:34)
[2018-04-06] MEDS: BENZOCAINE/MENTHOL LOZENGE MM PRN (12:36)
[2018-04-06 13:06] VITALS: BP 122/78
[2018-04-06 16:27] VITALS: BP 108/62
[2018-04-06 16:43] LABS: GLUCOMETER DEV NAME(LOC) BV3N5; GLUCOSE,POINT OF CARE 120 MG/DL (70-110)
[2018-04-06] MEDS: SIMVASTATIN 10 MG TABLET PO SCH (20:10)
[2018-04-06] MEDS: ZOLPIDEM TARTRATE 10 MG TABLET PO PRN (20:10)
[2018-04-06 20:23] LABS: GLUCOMETER DEV NAME(LOC) BV3N5; GLUCOSE,POINT OF CARE 125 MG/DL (70-110)
[2018-04-06] MEDS: INSULIN GLARGINE,HUM.REC.ANLOG 100 UNITS/ML SQ SCH (20:47)
[2018-04-07 06:23] LABS: GLUCOMETER DEV NAME(LOC) BV3N5; GLUCOSE,POINT OF CARE 87 MG/DL (70-110)
[2018-04-07] MEDS: MetFORMIN HCL 500 MG TABLET PO SCH ×2 (06:24→16:54)
[2018-04-07 06:30] VITALS: BP 117/65
[2018-04-07 08:48] VITALS: BP 107/72
[2018-04-07] MEDS: SODIUM CHLORIDE 0.65% 44 ML NASAL SPRAY NASAL SCH ×2 (08:52→16:52)
[2018-04-07] MEDS: OMEPRAZOLE 20 MG CAPSULE PO SCH (08:53)
[2018-04-07] MEDS: OMEGA-3/DHA/EPA/FISH OIL 1,000 MG CAPSULE PO SCH ×2 (08:53→16:53)
[2018-04-07 11:23] LABS: GLUCOMETER DEV NAME(LOC) BV3N5; GLUCOSE,POINT OF CARE 141 MG/DL (70-110)
[2018-04-07] MEDS: INSULIN LISPRO 100 UNITS/ML SQ PRN ×2 (11:43→17:01)
[2018-04-07 15:39] LABS: GLUCOMETER DEV NAME(LOC) BV3N5; GLUCOSE,POINT OF CARE 187 MG/DL (70-110)
[2018-04-07 16:14] VITALS: BP 114/68
[2018-04-07] MEDS: ZOLPIDEM TARTRATE 10 MG TABLET PO PRN (20:41)
[2018-04-07] MEDS: SIMVASTATIN 10 MG TABLET PO SCH (20:41)
[2018-04-07 20:48] LABS: GLUCOMETER DEV NAME(LOC) BV3N5; GLUCOSE,POINT OF CARE 79 MG/DL (70-110)
[2018-04-07] MEDS: INSULIN GLARGINE,HUM.REC.ANLOG 100 UNITS/ML SQ SCH (21:34)
[2018-04-08 06:20] VITALS: BP 110/65
[2018-04-08 06:35] LABS: GLUCOMETER DEV NAME(LOC) BV3N5; GLUCOSE,POINT OF CARE 82 MG/DL (70-110)
[2018-04-08] MEDS: MetFORMIN HCL 500 MG TABLET PO SCH ×2 (06:37→16:10)
[2018-04-08 08:09] VITALS: BP 111/64
[2018-04-08] MEDS ORDERED: CHOLECALCIFEROL (VIT D3) 1,000 UNITS TABLET PO SCH (09:00)
[2018-04-08] MEDS: SODIUM CHLORIDE 0.65% 44 ML NASAL SPRAY NASAL SCH ×2 (09:10→16:10)
[2018-04-08] MEDS: OMEGA-3/DHA/EPA/FISH OIL 1,000 MG CAPSULE PO SCH ×2 (09:10→16:10)
[2018-04-08] MEDS: OMEPRAZOLE 20 MG CAPSULE PO SCH (09:10)
[2018-04-08] MEDS: INSULIN LISPRO 100 UNITS/ML SQ PRN ×2 (11:39→16:11)
[2018-04-08 11:44] LABS: GLUCOMETER DEV NAME(LOC) BV3N5; GLUCOSE,POINT OF CARE 128 MG/DL (70-110)
[2018-04-08] MEDS ORDERED: INSLAN SQ (13:52)
[2018-04-08 17:08] LABS: GLUCOMETER DEV NAME(LOC) BV3N5; GLUCOSE,POINT OF CARE 309 MG/DL (70-110)
== END 2018-04-08 17:05 | disposition home or self-care (01) | DRG 885 ==
LOC: B3A 16:28
PROVIDERS: ADMIT Psychiatry & Neurology Psychiatry; ATTEND Psychiatry & Neurology Psychiatry
DX: F25.0 Schizoaffective disorder, bipolar type (principal); R45.851 Suicidal ideations; Z28.21 Immunization not carried out because of patient refusal; E55.9 Vitamin D deficiency, unspecified; E11.65 Type 2 diabetes mellitus with hyperglycemia; F41.9 Anxiety disorder, unspecified; G47.00 Insomnia, unspecified; I10 Essential (primary) hypertension; K12.0 Recurrent oral aphthae; K21.9 Gastro-esophageal reflux disease without esophagitis; Z59.0 Homelessness; Z91.14 Patient's other noncompliance with medication regimen; Z91.19 Patient's noncompliance with other medical treatment and regimen; F17.210 Nicotine dependence, cigarettes, uncomplicated; E78.5 Hyperlipidemia, unspecified; D50.9 Iron deficiency anemia, unspecified; Z79.899 Other long term (current) drug therapy
CPT/HCPCS: 87081; 90471; J1815

== ENCOUNTER 2018-11-13 01:07 | Inpatient (IN) | payer MEDICARE, MEDICAID ==
[~2018-11-13] VITALS: Ht 167.6 cm; Wt 67.3 kg
[~2018-11-13 01:07] MED LIST changes: -INSLAN SQ; -LORA10TA60 PO; +METF500T PO; -METF500T6 PO; -MULT-959 PO; -OMEP20 PO; +PALI117D IM; -PALI156D IM; -SIMV-259 PO; +SIMV10TA2 PO; +TRIH2TAB3 PO; -VITAD1000 PO
[2018-11-13] MEDS ORDERED: LORazepam 2 MG TABLET PO PRN (05:00)
[2018-11-13 06:05] VITALS: BP 114/84
[2018-11-13 06:43] LABS: GLUCOMETER DEV NAME(LOC) BV2S.; GLUCOSE,POINT OF CARE 152 MG/DL (70-110)
[2018-11-13] MEDS ORDERED: MAGNESIUM HYDROXIDE SUSPENSION 30 ML UDCUP PO PRN (08:30)
[2018-11-13] MEDS ORDERED: ONDANSETRON HCL 4 MG TABLET PO PRN (08:30)
[2018-11-13] MEDS ORDERED: DOCUSATE SODIUM 100 MG CAPSULE PO PRN (08:30)
[2018-11-13] MEDS ORDERED: CloNIDine HCL 0.1 MG TABLET PO PRN (08:30)
[2018-11-13] MEDS ORDERED: PETROLATUM,WHITE 28 GM JELLY TP PRN (08:30)
[2018-11-13] MEDS ORDERED: IBUPROFEN 400 MG TABLET PO PRN (08:30)
[2018-11-13] MEDS ORDERED: MAG HYDROX/AL HYDROX/SIMETH ES 30 ML SUSPENSION UDCUP PO PRN (08:30)
[2018-11-13] MEDS ORDERED: ALBUTEROL SULFATE HFA 90 MCG/PUFF 8 GM INHALER IH PRN (08:30)
[2018-11-13] MEDS ORDERED: NICOTINE 14 MG/24 HOUR PATCH TD PRN (08:30)
[2018-11-13] MEDS ORDERED: ACETAMINOPHEN 325 MG TABLET PO PRN (08:30)
[2018-11-13] MEDS ORDERED: GuaiFENesin/D-METHORPHAN [SUGAR-FREE] 200-20MG/10 ML SYRUP UDCUP PO PRN (08:30)
[2018-11-13] MEDS ORDERED: LOPERAMIDE HCL 2 MG CAPSULE PO PRN (08:30)
[2018-11-13 09:00] VITALS: BP 100/63
[2018-11-13] MEDS ORDERED: GLUCAGON,HUMAN RECOMBINANT 1 MG VIAL IM PRN (09:00)
[2018-11-13] MEDS ORDERED: PNEUMOCOCCAL VACCINE POLYVALENT 0.5 ML VIAL [PPSV23] IM ONE (10:45)
[2018-11-13 11:13] LABS: GLUCOMETER DEV NAME(LOC) BV2S.; GLUCOSE,POINT OF CARE 140 MG/DL (70-110)
[2018-11-13 16:08] LABS: GLUCOMETER DEV NAME(LOC) BV2S.; GLUCOSE,POINT OF CARE 224 MG/DL (70-110)
[2018-11-13] MEDS: MetFORMIN HCL 500 MG TABLET PO SCH (16:43)
[2018-11-13] MEDS: INSULIN LISPRO 100 UNITS/ML SQ PRN (16:44)
[2018-11-13 16:47] VITALS: BP 116/71
[2018-11-13 20:39] LABS: GLUCOMETER DEV NAME(LOC) BV2S.; GLUCOSE,POINT OF CARE 129 MG/DL (70-110)
[2018-11-13] MEDS ORDERED: RisperiDONE 3 MG TABLET PO SCH (21:00)
[2018-11-13] MEDS: ZOLPIDEM TARTRATE 10 MG TABLET PO PRN (21:13)
[2018-11-14 00:59] VITALS: BP 120/81
[2018-11-14 06:44] LABS: GLUCOMETER DEV NAME(LOC) BV2S.; GLUCOSE,POINT OF CARE 155 MG/DL (70-110)
[2018-11-14] MEDS: INSULIN LISPRO 100 UNITS/ML SQ PRN ×4 (06:45→21:09)
[2018-11-14] MEDS: MetFORMIN HCL 500 MG TABLET PO SCH ×2 (06:47→16:38)
[2018-11-14 08:11] VITALS: BP 102/68
[2018-11-14 11:14] LABS: GLUCOMETER DEV NAME(LOC) BV2S.; GLUCOSE,POINT OF CARE 224 MG/DL (70-110)
[2018-11-14] MEDS ORDERED: PALIPERIDONE PALMITATE 234 MG/1.5 ML SYRINGE IM ONE (13:00)
[2018-11-14] MEDS ORDERED: HydrOXYzine PAMOATE 50 MG CAPSULE PO PRN (13:00)
[2018-11-14] MEDS ORDERED: ACETAMINOPHEN 325 MG TABLET PO PRN (13:00)
[2018-11-14] MEDS ORDERED: MAG HYDROX/AL HYDROX/SIMETH ES 30 ML SUSPENSION UDCUP PO PRN (13:00)
[2018-11-14] MEDS ORDERED: PROMETHAZINE HCL 25 MG TABLET PO PRN (13:00)
[2018-11-14] MEDS ORDERED: GuaiFENesin/D-METHORPHAN [SUGAR-FREE] 200-20MG/10 ML SYRUP UDCUP PO PRN (13:00)
[2018-11-14] MEDS ORDERED: MAGNESIUM HYDROXIDE SUSPENSION 30 ML UDCUP PO PRN (13:00)
[2018-11-14] MEDS ORDERED: LOPERAMIDE HCL 2 MG CAPSULE PO PRN (13:00)
[2018-11-14] MEDS ORDERED: PALIPERIDONE 1.5 MG ER TABLET PO PRN (13:00)
[2018-11-14 16:28] VITALS: BP 109/61
[2018-11-14 16:29] LABS: GLUCOMETER DEV NAME(LOC) BV2S.; GLUCOSE,POINT OF CARE 213 MG/DL (70-110)
[2018-11-14] MEDS: THIAMINE HCL 100 MG TABLET PO SCH (16:38)
[2018-11-14 20:23] LABS: GLUCOMETER DEV NAME(LOC) BV2S.; GLUCOSE,POINT OF CARE 176 MG/DL (70-110)
[2018-11-14] MEDS ORDERED: PALIPERIDONE 3 MG ER TABLET PO SCH (21:00)
[2018-11-14] MEDS: ZOLPIDEM TARTRATE 10 MG TABLET PO PRN (21:05)
[2018-11-14 23:30] VITALS: BP 105/68
[2018-11-15] VITALS: BP 110/65
[2018-11-15 06:19] LABS: GLUCOMETER DEV NAME(LOC) BV2S.; GLUCOSE,POINT OF CARE 159 MG/DL (70-110)
[2018-11-15] MEDS: MetFORMIN HCL 500 MG TABLET PO SCH ×2 (07:02→17:01)
[2018-11-15] MEDS: INSULIN LISPRO 100 UNITS/ML SQ PRN ×4 (07:03→20:57)
[2018-11-15 08:41] VITALS: BP 125/64
[2018-11-15] MEDS: THIAMINE HCL 100 MG TABLET PO SCH ×2 (08:48→17:01)
[2018-11-15] MEDS: MULTIVITAMINS WITH MINERALS, THERAPEUTIC TABLET PO SCH (08:48)
[2018-11-15] MEDS: FOLIC ACID 1 MG TABLET PO SCH (08:49)
[2018-11-15 11:18] LABS: GLUCOMETER DEV NAME(LOC) BV2S.; GLUCOSE,POINT OF CARE 197 MG/DL (70-110)
[2018-11-15 16:58] LABS: GLUCOMETER DEV NAME(LOC) BV2S.; GLUCOSE,POINT OF CARE 188 MG/DL (70-110)
[2018-11-15 18:20] VITALS: BP 133/75
[2018-11-15] MEDS: ZOLPIDEM TARTRATE 10 MG TABLET PO PRN (20:54)
[2018-11-16 06:02] VITALS: BP 117/74
[2018-11-16 06:13] LABS: GLUCOMETER DEV NAME(LOC) BV2S.; GLUCOSE,POINT OF CARE 163 MG/DL (70-110)
[2018-11-16] MEDS: GlipiZIDE 5 MG TABLET PO SCH (06:52)
[2018-11-16] MEDS: MetFORMIN HCL 500 MG TABLET PO SCH ×2 (06:53→16:45)
[2018-11-16] MEDS: INSULIN LISPRO 100 UNITS/ML SQ PRN ×3 (06:56→16:46)
[2018-11-16 07:18] LABS: GLUCOMETER DEV NAME(LOC) BV2S.; GLUCOSE,POINT OF CARE 150 MG/DL (70-110)
[2018-11-16 08:45] VITALS: BP 135/75
[2018-11-16] MEDS: THIAMINE HCL 100 MG TABLET PO SCH ×2 (09:04→16:45)
[2018-11-16] MEDS: MULTIVITAMINS WITH MINERALS, THERAPEUTIC TABLET PO SCH (09:04)
[2018-11-16] MEDS: FOLIC ACID 1 MG TABLET PO SCH (09:04)
[2018-11-16 11:24] LABS: GLUCOMETER DEV NAME(LOC) BV2S.; GLUCOSE,POINT OF CARE 189 MG/DL (70-110)
[2018-11-16 16:08] VITALS: BP 126/85
[2018-11-16 16:24] LABS: GLUCOMETER DEV NAME(LOC) BV2S.; GLUCOSE,POINT OF CARE 255 MG/DL (70-110)
[2018-11-16 20:29] LABS: GLUCOMETER DEV NAME(LOC) BV2S.; GLUCOSE,POINT OF CARE 87 MG/DL (70-110)
[2018-11-16] MEDS: ZOLPIDEM TARTRATE 10 MG TABLET PO PRN (20:43)
[2018-11-17 05:27] VITALS: BP 122/88
[2018-11-17 06:39] LABS: GLUCOMETER DEV NAME(LOC) BV2S.; GLUCOSE,POINT OF CARE 134 MG/DL (70-110)
[2018-11-17] MEDS: GlipiZIDE 5 MG TABLET PO SCH (06:49)
[2018-11-17] MEDS: MetFORMIN HCL 500 MG TABLET PO SCH ×2 (06:49→16:52)
[2018-11-17] MEDS: THIAMINE HCL 100 MG TABLET PO SCH ×2 (08:59→16:52)
[2018-11-17] MEDS: MULTIVITAMINS WITH MINERALS, THERAPEUTIC TABLET PO SCH (08:59)
[2018-11-17] MEDS: FOLIC ACID 1 MG TABLET PO SCH (08:59)
[2018-11-17 09:06] VITALS: BP 100/60
[2018-11-17 11:04] LABS: GLUCOMETER DEV NAME(LOC) BV2S.; GLUCOSE,POINT OF CARE 93 MG/DL (70-110)
[2018-11-17 16:18] VITALS: BP 122/68
[2018-11-17 16:43] LABS: GLUCOMETER DEV NAME(LOC) BV2S.; GLUCOSE,POINT OF CARE 183 MG/DL (70-110)
[2018-11-17] MEDS: INSULIN LISPRO 100 UNITS/ML SQ PRN (16:53)
[2018-11-17 20:23] LABS: GLUCOMETER DEV NAME(LOC) BV2S.; GLUCOSE,POINT OF CARE 116 MG/DL (70-110)
[2018-11-17] MEDS: ZOLPIDEM TARTRATE 10 MG TABLET PO PRN (20:54)
[2018-11-18 00:45] VITALS: BP 106/64
[2018-11-18 06:29] LABS: GLUCOMETER DEV NAME(LOC) BV2S.; GLUCOSE,POINT OF CARE 148 MG/DL (70-110)
[2018-11-18] MEDS: MetFORMIN HCL 500 MG TABLET PO SCH ×2 (07:03→16:44)
[2018-11-18] MEDS: GlipiZIDE 5 MG TABLET PO SCH (07:03)
[2018-11-18] MEDS: INSULIN LISPRO 100 UNITS/ML SQ PRN ×2 (07:04→16:55)
[2018-11-18] MEDS: MULTIVITAMINS WITH MINERALS, THERAPEUTIC TABLET PO SCH (08:33)
[2018-11-18] MEDS: FOLIC ACID 1 MG TABLET PO SCH (08:33)
[2018-11-18] MEDS: THIAMINE HCL 100 MG TABLET PO SCH ×2 (08:34→16:43)
[2018-11-18 08:52] VITALS: BP 103/70
[2018-11-18] MEDS ORDERED: PALIPERIDONE PALMITATE 156 MG/ML SYRINGE IM ONE (09:00)
[2018-11-18 11:02] LABS: GLUCOMETER DEV NAME(LOC) BV2S.; GLUCOSE,POINT OF CARE 127 MG/DL (70-110)
[2018-11-18] MEDS ORDERED: PALI117D IM (15:40)
[2018-11-18 16:33] LABS: GLUCOMETER DEV NAME(LOC) BV2S.; GLUCOSE,POINT OF CARE 206 MG/DL (70-110)
[2018-11-18 16:34] VITALS: BP 130/64
[2018-11-18 20:18] LABS: GLUCOMETER DEV NAME(LOC) BV2S.; GLUCOSE,POINT OF CARE 99 MG/DL (70-110)
[2018-11-18] MEDS: ZOLPIDEM TARTRATE 10 MG TABLET PO PRN (20:53)
[2018-11-19 05:50] VITALS: BP 125/70
[2018-11-19 06:24] LABS: GLUCOMETER DEV NAME(LOC) BV2S.; GLUCOSE,POINT OF CARE 90 MG/DL (70-110)
[2018-11-19] MEDS: GlipiZIDE 5 MG TABLET PO SCH (06:49)
[2018-11-19] MEDS: MetFORMIN HCL 500 MG TABLET PO SCH ×2 (06:49→16:38)
[2018-11-19] MEDS: THIAMINE HCL 100 MG TABLET PO SCH ×2 (08:24→16:37)
[2018-11-19] MEDS: MULTIVITAMINS WITH MINERALS, THERAPEUTIC TABLET PO SCH (08:24)
[2018-11-19] MEDS: FOLIC ACID 1 MG TABLET PO SCH (08:25)
[2018-11-19 08:43] VITALS: BP 122/70
[2018-11-19 16:10] VITALS: BP 106/65
[2018-11-19 16:14] LABS: GLUCOMETER DEV NAME(LOC) BV2S.; GLUCOSE,POINT OF CARE 98 MG/DL (70-110)
[2018-11-19 16:24] LABS: GLUCOMETER DEV NAME(LOC) BV2S.; GLUCOSE,POINT OF CARE 228 MG/DL (70-110)
[2018-11-19] MEDS: INSULIN LISPRO 100 UNITS/ML SQ PRN (16:42)
[2018-11-19 16:49] VITALS: BP 110/63
[2018-11-19] MEDS: PROPRANOLOL HCL 10 MG TABLET PO SCH (16:49)
[2018-11-19 20:35] LABS: GLUCOMETER DEV NAME(LOC) BV2S.; GLUCOSE,POINT OF CARE 89 MG/DL (70-110)
[2018-11-19] MEDS: ZOLPIDEM TARTRATE 10 MG TABLET PO PRN (20:52)
[2018-11-20 05:15] VITALS: BP 115/65
[2018-11-20 05:49] LABS: GLUCOMETER DEV NAME(LOC) BV2S.; GLUCOSE,POINT OF CARE 110 MG/DL (70-110)
[2018-11-20] MEDS: GlipiZIDE 5 MG TABLET PO SCH (06:49)
[2018-11-20] MEDS: MetFORMIN HCL 500 MG TABLET PO SCH ×2 (07:07→16:37)
[2018-11-20 08:24] VITALS: BP 110/67
[2018-11-20] MEDS: FOLIC ACID 1 MG TABLET PO SCH (08:29)
[2018-11-20] MEDS: PROPRANOLOL HCL 10 MG TABLET PO SCH ×2 (08:29→12:51)
[2018-11-20] MEDS: MULTIVITAMINS WITH MINERALS, THERAPEUTIC TABLET PO SCH (08:29)
[2018-11-20] MEDS: THIAMINE HCL 100 MG TABLET PO SCH ×2 (08:29→16:37)
[2018-11-20] MEDS: INSULIN LISPRO 100 UNITS/ML SQ PRN ×2 (11:02→16:40)
[2018-11-20 12:50] VITALS: BP 102/60
[2018-11-20 16:17] VITALS: BP 121/68
[2018-11-20 16:29] LABS: GLUCOMETER DEV NAME(LOC) BV2S.; GLUCOSE,POINT OF CARE 275 MG/DL (70-110)
[2018-11-20] MEDS: TRIHEXYPHENIDYL HCL 5 MG TABLET PO SCH (16:37)
[2018-11-20 20:28] LABS: GLUCOMETER DEV NAME(LOC) BV2S.; GLUCOSE,POINT OF CARE 110 MG/DL (70-110)
[2018-11-20] MEDS: ZOLPIDEM TARTRATE 10 MG TABLET PO PRN (20:54)
[2018-11-21 06:24] VITALS: BP 104/63
[2018-11-21 06:29] LABS: GLUCOMETER DEV NAME(LOC) BV2S.; GLUCOSE,POINT OF CARE 112 MG/DL (70-110)
[2018-11-21] MEDS: GlipiZIDE 5 MG TABLET PO SCH (06:46)
[2018-11-21] MEDS: INSULIN LISPRO 100 UNITS/ML SQ PRN ×2 (06:49→20:50)
[2018-11-21] MEDS: MetFORMIN HCL 500 MG TABLET PO SCH ×2 (06:56→16:40)
[2018-11-21 08:17] VITALS: BP 110/66
[2018-11-21] MEDS: MULTIVITAMINS WITH MINERALS, THERAPEUTIC TABLET PO SCH (08:36)
[2018-11-21] MEDS: THIAMINE HCL 100 MG TABLET PO SCH ×2 (08:36→16:40)
[2018-11-21] MEDS: TRIHEXYPHENIDYL HCL 5 MG TABLET PO SCH ×3 (08:36→16:40)
[2018-11-21] MEDS: FOLIC ACID 1 MG TABLET PO SCH (08:36)
[2018-11-21 11:09] LABS: GLUCOMETER DEV NAME(LOC) BV2S.; GLUCOSE,POINT OF CARE 77 MG/DL (70-110)
[2018-11-21 16:24] LABS: GLUCOMETER DEV NAME(LOC) BV2S.; GLUCOSE,POINT OF CARE 104 MG/DL (70-110)
[2018-11-21 16:42] VITALS: BP 110/67
[2018-11-21 20:34] LABS: GLUCOMETER DEV NAME(LOC) BV2S.; GLUCOSE,POINT OF CARE 159 MG/DL (70-110)
[2018-11-21] MEDS: ZOLPIDEM TARTRATE 10 MG TABLET PO PRN (20:51)
[2018-11-22 06:24] VITALS: BP 115/73
[2018-11-22] MEDS: GlipiZIDE 5 MG TABLET PO SCH (06:31)
[2018-11-22 06:34] LABS: GLUCOMETER DEV NAME(LOC) BV2S.; GLUCOSE,POINT OF CARE 111 MG/DL (70-110)
[2018-11-22] MEDS: MetFORMIN HCL 500 MG TABLET PO SCH ×2 (06:41→16:33)
[2018-11-22] MEDS: MULTIVITAMINS WITH MINERALS, THERAPEUTIC TABLET PO SCH (08:41)
[2018-11-22] MEDS: THIAMINE HCL 100 MG TABLET PO SCH ×2 (08:41→16:33)
[2018-11-22] MEDS: TRIHEXYPHENIDYL HCL 5 MG TABLET PO SCH ×3 (08:41→16:33)
[2018-11-22] MEDS: FOLIC ACID 1 MG TABLET PO SCH (08:41)
[2018-11-22 11:03] LABS: GLUCOMETER DEV NAME(LOC) BV2S.; GLUCOSE,POINT OF CARE 88 MG/DL (70-110)
[2018-11-22 16:20] LABS: GLUCOMETER DEV NAME(LOC) BV2S.; GLUCOSE,POINT OF CARE 133 MG/DL (70-110)
[2018-11-22 16:52] VITALS: BP 107/62
[2018-11-22 20:39] LABS: GLUCOMETER DEV NAME(LOC) BV2S.; GLUCOSE,POINT OF CARE 158 MG/DL (70-110)
[2018-11-22] MEDS: ZOLPIDEM TARTRATE 10 MG TABLET PO PRN (20:52)
[2018-11-22] MEDS: INSULIN LISPRO 100 UNITS/ML SQ PRN (20:53)
[2018-11-23 06:37] VITALS: BP 115/70
[2018-11-23] MEDS: MetFORMIN HCL 500 MG TABLET PO SCH ×2 (06:39→16:45)
[2018-11-23] MEDS: GlipiZIDE 5 MG TABLET PO SCH (06:39)
[2018-11-23 06:58] LABS: GLUCOMETER DEV NAME(LOC) BV2S.; GLUCOSE,POINT OF CARE 118 MG/DL (70-110)
[2018-11-23 07:08] LABS: BASOPHILS % (AUTO) 0.5 % (0.0-2.0); HEMATOCRIT 37.7 % (41-53); HEMOGLOBIN 11.9 g/dL (13.5-17.5); LYMPHOCYTES # (AUTO) 1.7 K/uL (1.0-4.8); MEAN CORPUSCULAR HGB CONC 31.7 G/dL (31.0-37.0); MEAN CORPUSCULAR VOLUME 63 fL (80-100); MONOCYTES # (AUTO) 0.6 K/uL (0.1-1.0); MONOCYTES % (AUTO) 9.5 % (2.0-9.0); PLATELET COUNT (AUTO) 188 K/uL (150-450); RED BLOOD CELL COUNT(AUTO) 5.97 MIL/uL (4.50-5.90); RED CELL DISTRIBUTION WIDTH 15.3 % (11.5-14.5)
[2018-11-23 07:54] LABS: ALANINE AMINOTRANSFERASE 18 U/L (12-78); ALBUMIN 3.6 g/dL (3.4-5.0); ALKALINE PHOSPHATASE 61 U/L (46-116); ANION GAP 13 mmol/L (8-16); ASPARTATE AMINOTRANSFERASE 17 U/L (15-37); BILIRUBIN,TOTAL 0.6 mg/dL (0.1-1.0); CALCIUM, TOTAL 9.3 mg/dL (8.8-10.5); CARBON DIOXIDE 27 mmol/L (22-29); CHLORIDE 101 mmol/L (98-107); CHOL/HDL RATIO 4.7 (4.2-7.3); CHOLESTEROL 175 mg/dL (131-200); CREATININE 0.84 mg/dL (0.60-1.30); FREE T4 (FREE THYROXINE) 1.34 ng/dL (0.76-1.46); GLOMERULAR FILTR. RATE CALC > 60 mL/min (>60); GLUCOSE,RANDOM 112 mg/dL (70-110); HDL CHOLESTEROL 37 mg/dL (40-60); LDL CHOL (CALC.) 111 mg/dL (0-130); POTASSIUM 3.7 mmol/L (3.5-5.1); SODIUM SERUM 141 mmol/L (136-145); THYROID STIMULATING HORMONE 3.14 uIU/mL (0.36-3.74); TOTAL PROTEIN, SERUM 6.9 g/dL (6.4-8.2); TRIGLYCERIDES 136 mg/dL (15-150); UREA NITROGEN, BLOOD 18 mg/dL (7-18)
[2018-11-23 08:15] VITALS: BP 109/68
[2018-11-23] MEDS: THIAMINE HCL 100 MG TABLET PO SCH ×2 (08:39→16:45)
[2018-11-23] MEDS: TRIHEXYPHENIDYL HCL 5 MG TABLET PO SCH ×3 (08:39→16:45)
[2018-11-23] MEDS: FOLIC ACID 1 MG TABLET PO SCH (08:39)
[2018-11-23] MEDS: MULTIVITAMINS WITH MINERALS, THERAPEUTIC TABLET PO SCH (08:39)
[2018-11-23 08:47] LABS: HEMOGLOBIN A1C 9.2 % (4.5-6.2)
[2018-11-23] MEDS: INSULIN LISPRO 100 UNITS/ML SQ PRN ×3 (11:00→20:57)
[2018-11-23 11:09] LABS: GLUCOMETER DEV NAME(LOC) BV2S.; GLUCOSE,POINT OF CARE 163 MG/DL (70-110)
[2018-11-23 16:16] VITALS: BP 119/69
[2018-11-23 16:24] LABS: GLUCOMETER DEV NAME(LOC) BV2S.; GLUCOSE,POINT OF CARE 178 MG/DL (70-110)
[2018-11-23 20:38] LABS: GLUCOMETER DEV NAME(LOC) BV2S.; GLUCOSE,POINT OF CARE 147 MG/DL (70-110)
[2018-11-23] MEDS: ZOLPIDEM TARTRATE 10 MG TABLET PO PRN (20:54)
[2018-11-24 01:15] VITALS: BP 103/62
[2018-11-24] MEDS: MetFORMIN HCL 500 MG TABLET PO SCH ×2 (06:40→17:03)
[2018-11-24] MEDS: GlipiZIDE 5 MG TABLET PO SCH (06:40)
[2018-11-24 06:53] LABS: GLUCOMETER DEV NAME(LOC) BV2S.; GLUCOSE,POINT OF CARE 123 MG/DL (70-110)
[2018-11-24 07:59] LABS: % IRON SATURATION 31.4 % (30-44)
[2018-11-24 08:26] VITALS: BP 112/68
[2018-11-24] MEDS: THIAMINE HCL 100 MG TABLET PO SCH (08:44)
[2018-11-24] MEDS: MULTIVITAMINS WITH MINERALS, THERAPEUTIC TABLET PO SCH (08:44)
[2018-11-24] MEDS: FOLIC ACID 1 MG TABLET PO SCH (08:44)
[2018-11-24] MEDS: TRIHEXYPHENIDYL HCL 5 MG TABLET PO SCH ×3 (08:44→17:03)
[2018-11-24 11:04] LABS: GLUCOMETER DEV NAME(LOC) BV2S.; GLUCOSE,POINT OF CARE 88 MG/DL (70-110)
[2018-11-24 16:08] VITALS: BP 102/65
[2018-11-24] MEDS: INSULIN LISPRO 100 UNITS/ML SQ PRN (16:52)
[2018-11-24 17:00] LABS: GLUCOMETER DEV NAME(LOC) BV2S.; GLUCOSE,POINT OF CARE 154 MG/DL (70-110)
[2018-11-25 01:09] LABS: GLUCOMETER DEV NAME(LOC) BV2S.; GLUCOSE,POINT OF CARE 150 MG/DL (70-110)
[2018-11-25 01:21] VITALS: BP 108/61
[2018-11-25 06:38] LABS: GLUCOMETER DEV NAME(LOC) BV2S.; GLUCOSE,POINT OF CARE 116 MG/DL (70-110)
[2018-11-25] MEDS: MetFORMIN HCL 500 MG TABLET PO SCH ×2 (06:46→16:36)
[2018-11-25] MEDS: GlipiZIDE 5 MG TABLET PO SCH (06:46)
[2018-11-25] MEDS: FERROUS SULFATE 325 MG EC TABLET PO SCH ×3 (06:46→16:36)
[2018-11-25 08:24] VITALS: BP 100/61
[2018-11-25] MEDS: TRIHEXYPHENIDYL HCL 5 MG TABLET PO SCH ×3 (09:07→16:36)
[2018-11-25] MEDS: MULTIVITAMINS WITH MINERALS, THERAPEUTIC TABLET PO SCH (09:08)
[2018-11-25 16:13] VITALS: BP 116/69
[2018-11-25 16:34] LABS: GLUCOMETER DEV NAME(LOC) BV2S.; GLUCOSE,POINT OF CARE 174 MG/DL (70-110)
[2018-11-25 20:20] LABS: GLUCOMETER DEV NAME(LOC) BV2S.; GLUCOSE,POINT OF CARE 149 MG/DL (70-110)
[2018-11-26 00:33] VITALS: BP 106/60
[2018-11-26 06:24] LABS: GLUCOMETER DEV NAME(LOC) BV2S.; GLUCOSE,POINT OF CARE 123 MG/DL (70-110)
[2018-11-26] MEDS: GlipiZIDE 5 MG TABLET PO SCH (06:48)
[2018-11-26] MEDS: MetFORMIN HCL 500 MG TABLET PO SCH ×2 (06:53→16:36)
[2018-11-26] MEDS: FERROUS SULFATE 325 MG EC TABLET PO SCH ×3 (06:53→16:36)
[2018-11-26 08:29] VITALS: BP 109/69
[2018-11-26] MEDS: MULTIVITAMINS WITH MINERALS, THERAPEUTIC TABLET PO SCH (08:30)
[2018-11-26] MEDS: TRIHEXYPHENIDYL HCL 5 MG TABLET PO SCH ×3 (08:30→16:36)
[2018-11-26 16:16] VITALS: BP 122/60
[2018-11-26 16:29] LABS: GLUCOMETER DEV NAME(LOC) BV2S.; GLUCOSE,POINT OF CARE 172 MG/DL (70-110)
[2018-11-26] MEDS: ZOLPIDEM TARTRATE 10 MG TABLET PO PRN (20:57)
[2018-11-27 05:53] VITALS: BP 112/70
[2018-11-27] MEDS: GlipiZIDE 5 MG TABLET PO SCH (06:30)
[2018-11-27] MEDS: MetFORMIN HCL 500 MG TABLET PO SCH ×2 (07:00→16:38)
[2018-11-27] MEDS: FERROUS SULFATE 325 MG EC TABLET PO SCH ×3 (07:00→16:37)
[2018-11-27 08:19] VITALS: BP 110/73
[2018-11-27] MEDS: TRIHEXYPHENIDYL HCL 5 MG TABLET PO SCH ×3 (08:24→16:37)
[2018-11-27] MEDS: MULTIVITAMINS WITH MINERALS, THERAPEUTIC TABLET PO SCH (08:24)
[2018-11-27] MEDS ORDERED: MULT-1239 PO (09:55)
[2018-11-27] MEDS ORDERED: FERR-89 PO (09:55)
[2018-11-27] MEDS ORDERED: GLIP5 PO (09:55)
[2018-11-27 16:28] LABS: GLUCOMETER DEV NAME(LOC) BV2S.; GLUCOSE,POINT OF CARE 142 MG/DL (70-110)
[2018-11-27 16:33] VITALS: BP 108/73
[2018-11-28 00:39] VITALS: BP 103/64
[2018-11-28 06:34] LABS: GLUCOMETER DEV NAME(LOC) BV2S.; GLUCOSE,POINT OF CARE 115 MG/DL (70-110)
[2018-11-28] MEDS: FERROUS SULFATE 325 MG EC TABLET PO SCH ×3 (07:15→16:42)
[2018-11-28] MEDS: GlipiZIDE 5 MG TABLET PO SCH (07:15)
[2018-11-28] MEDS: MetFORMIN HCL 500 MG TABLET PO SCH ×2 (07:15→16:42)
[2018-11-28] MEDS: TRIHEXYPHENIDYL HCL 5 MG TABLET PO SCH ×3 (08:06→16:42)
[2018-11-28] MEDS: MULTIVITAMINS WITH MINERALS, THERAPEUTIC TABLET PO SCH (08:06)
[2018-11-28 08:23] VITALS: BP 109/70
[2018-11-28 16:07] VITALS: BP 140/71
[2018-11-28 16:25] LABS: GLUCOMETER DEV NAME(LOC) BV2S.; GLUCOSE,POINT OF CARE 122 MG/DL (70-110)
[2018-11-29 00:35] VITALS: BP 130/70
[2018-11-29 05:53] LABS: GLUCOMETER DEV NAME(LOC) BV2S.; GLUCOSE,POINT OF CARE 105 MG/DL (70-110)
[2018-11-29] MEDS: MetFORMIN HCL 500 MG TABLET PO SCH ×2 (06:40→17:23)
[2018-11-29] MEDS: GlipiZIDE 5 MG TABLET PO SCH (06:40)
[2018-11-29] MEDS: FERROUS SULFATE 325 MG EC TABLET PO SCH ×3 (06:40→17:24)
[2018-11-29 08:25] VITALS: BP 109/69
[2018-11-29] MEDS: MULTIVITAMINS WITH MINERALS, THERAPEUTIC TABLET PO SCH (08:40)
[2018-11-29] MEDS: TRIHEXYPHENIDYL HCL 5 MG TABLET PO SCH ×3 (08:40→17:23)
[2018-11-29 16:39] VITALS: BP 118/70
[2018-11-29 17:26] LABS: GLUCOMETER DEV NAME(LOC) BV2S.; GLUCOSE,POINT OF CARE 80 MG/DL (70-110)
[2018-11-30 05:44] LABS: GLUCOMETER DEV NAME(LOC) BV2S.; GLUCOSE,POINT OF CARE 90 MG/DL (70-110)
[2018-11-30 06:24] VITALS: BP 110/68
[2018-11-30] MEDS: FERROUS SULFATE 325 MG EC TABLET PO SCH ×3 (06:33→17:08)
[2018-11-30] MEDS: MetFORMIN HCL 500 MG TABLET PO SCH ×2 (06:34→17:07)
[2018-11-30] MEDS: GlipiZIDE 5 MG TABLET PO SCH (06:41)
[2018-11-30] MEDS: MULTIVITAMINS WITH MINERALS, THERAPEUTIC TABLET PO SCH (09:00)
[2018-11-30] MEDS: TRIHEXYPHENIDYL HCL 5 MG TABLET PO SCH ×3 (09:00→17:08)
[2018-11-30 12:55] VITALS: BP 77/57
[2018-11-30 13:00] VITALS: BP 90/50
[2018-11-30 13:19] LABS: GLUCOMETER DEV NAME(LOC) BV2S.; GLUCOSE,POINT OF CARE 90 MG/DL (70-110)
[2018-11-30 13:20] VITALS: BP 96/64
[2018-11-30 14:00] VITALS: BP 96/67
[2018-11-30 17:09] LABS: GLUCOMETER DEV NAME(LOC) BV2S.; GLUCOSE,POINT OF CARE 164 MG/DL (70-110)
[2018-11-30 17:29] VITALS: BP 98/62
[2018-12-01 06:26] VITALS: BP 97/55
[2018-12-01 06:34] LABS: GLUCOMETER DEV NAME(LOC) BV2S.; GLUCOSE,POINT OF CARE 98 MG/DL (70-110)
[2018-12-01] MEDS: GlipiZIDE 5 MG TABLET PO SCH (06:56)
[2018-12-01] MEDS: FERROUS SULFATE 325 MG EC TABLET PO SCH ×3 (06:56→16:32)
[2018-12-01] MEDS: MetFORMIN HCL 500 MG TABLET PO SCH ×2 (06:56→16:32)
[2018-12-01 08:12] VITALS: BP 104/61
[2018-12-01] MEDS: MULTIVITAMINS WITH MINERALS, THERAPEUTIC TABLET PO SCH (08:50)
[2018-12-01] MEDS: TRIHEXYPHENIDYL HCL 5 MG TABLET PO SCH ×3 (08:50→16:32)
[2018-12-01 16:30] VITALS: BP 100/60
[2018-12-01 16:34] LABS: GLUCOMETER DEV NAME(LOC) BV2S.; GLUCOSE,POINT OF CARE 199 MG/DL (70-110)
[2018-12-02 06:43] VITALS: BP 110/64
[2018-12-02] MEDS: GlipiZIDE 5 MG TABLET PO SCH (06:52)
[2018-12-02] MEDS: FERROUS SULFATE 325 MG EC TABLET PO SCH ×3 (06:52→16:30)
[2018-12-02] MEDS: MetFORMIN HCL 500 MG TABLET PO SCH ×2 (06:52→16:30)
[2018-12-02] MEDS: MULTIVITAMINS WITH MINERALS, THERAPEUTIC TABLET PO SCH (08:52)
[2018-12-02] MEDS: TRIHEXYPHENIDYL HCL 5 MG TABLET PO SCH ×3 (08:52→16:30)
[2018-12-02 11:22] VITALS: BP 102/73
[2018-12-02 16:24] LABS: GLUCOMETER DEV NAME(LOC) BV2S.; GLUCOSE,POINT OF CARE 172 MG/DL (70-110)
[2018-12-02] MEDS ORDERED: TRIH5TAB2 PO (16:39)
[2018-12-02 19:32] VITALS: BP 110/72
[2018-12-03 00:19] VITALS: BP 95/64
[2018-12-03 06:50] LABS: GLUCOMETER DEV NAME(LOC) BV2S.; GLUCOSE,POINT OF CARE 143 MG/DL (70-110)
[2018-12-03] MEDS: GlipiZIDE 5 MG TABLET PO SCH (06:54)
[2018-12-03] MEDS: FERROUS SULFATE 325 MG EC TABLET PO SCH ×3 (06:55→16:40)
[2018-12-03] MEDS: MetFORMIN HCL 500 MG TABLET PO SCH ×2 (06:55→16:40)
[2018-12-03 08:46] VITALS: BP 92/73
[2018-12-03] MEDS: TRIHEXYPHENIDYL HCL 5 MG TABLET PO SCH ×3 (09:03→16:40)
[2018-12-03] MEDS: MULTIVITAMINS WITH MINERALS, THERAPEUTIC TABLET PO SCH (09:04)
[2018-12-03] MEDS: DULoxetine HCL 20 MG CAPSULE PO SCH (09:04)
[2018-12-03] MEDS ORDERED: TRIH5TAB2 PO (13:44)
[2018-12-03] MEDS ORDERED: DULO20CA30 PO (13:44)
[2018-12-03 16:00] VITALS: BP 109/64
[2018-12-03 16:29] LABS: GLUCOMETER DEV NAME(LOC) BV2S.; GLUCOSE,POINT OF CARE 140 MG/DL (70-110)
[2018-12-03] MEDS: ZOLPIDEM TARTRATE 10 MG TABLET PO PRN (21:22)
[2018-12-04 02:13] VITALS: BP 104/62
[2018-12-04] MEDS: GlipiZIDE 5 MG TABLET PO SCH (07:04)
[2018-12-04] MEDS: FERROUS SULFATE 325 MG EC TABLET PO SCH (07:04)
[2018-12-04] MEDS: MetFORMIN HCL 500 MG TABLET PO SCH (07:04)
[2018-12-04] MEDS ORDERED: DULO20CA30 PO (08:00)
[2018-12-04] MEDS ORDERED: PALI117D IM (08:22)
[2018-12-04] MEDS: TRIHEXYPHENIDYL HCL 5 MG TABLET PO SCH (08:35)
[2018-12-04] MEDS: DULoxetine HCL 20 MG CAPSULE PO SCH (08:35)
[2018-12-04] MEDS: MULTIVITAMINS WITH MINERALS, THERAPEUTIC TABLET PO SCH (08:35)
[2018-12-04 08:43] VITALS: BP 113/66
== END 2018-12-04 11:20 | disposition home or self-care (01) | DRG 885 ==
LOC: B2X 05:00 → EDSTATUS 05:52
PROVIDERS: ATTEND Psychiatry & Neurology Psychiatry
DX: F25.0 Schizoaffective disorder, bipolar type (principal); R45.851 Suicidal ideations; K29.70 Gastritis, unspecified, without bleeding; K21.9 Gastro-esophageal reflux disease without esophagitis; D64.9 Anemia, unspecified; E11.9 Type 2 diabetes mellitus without complications; E55.9 Vitamin D deficiency, unspecified; E78.5 Hyperlipidemia, unspecified; I10 Essential (primary) hypertension; J45.909 Unspecified asthma, uncomplicated; Z91.5 Personal history of self-harm; Z91.19 Patient's noncompliance with other medical treatment and regimen; Z87.11 Personal history of peptic ulcer disease; Z79.899 Other long term (current) drug therapy
CPT/HCPCS: 82728; 83036; 83540; 83550; 84439; 84443

== ENCOUNTER 2019-01-03 19:35 | Inpatient (IN) | payer MEDICARE ==
[~2019-01-03] VITALS: Ht 170.2 cm; Wt 65.3 kg
[~2019-01-03 19:35] MED LIST changes: +DULO20CA30 PO; +FERR-89 PO; +GLIP5 PO; +MULT-1239 PO; -OMEG-135 PO; -SIMV10TA2 PO; -TRIH2TAB3 PO; +TRIH5TAB2 PO
[2019-01-03 23:04] VITALS: BP 136/86
[2019-01-03] MEDS ORDERED: QUEtiapine FUMARATE 100 MG TABLET PO PRN (23:30)
[2019-01-03] MEDS ORDERED: LORazepam 2 MG TABLET PO PRN (23:30)
[2019-01-04 01:30] VITALS: BP 128/75
[2019-01-04] MEDS ORDERED: PNEUMOCOCCAL VACCINE POLYVALENT 0.5 ML VIAL [PPSV23] IM ONE (01:30)
[2019-01-04] MEDS ORDERED: DOCUSATE SODIUM 100 MG CAPSULE PO PRN (02:00)
[2019-01-04] MEDS ORDERED: GuaiFENesin/D-METHORPHAN [SUGAR-FREE] 200-20MG/10 ML SYRUP UDCUP PO PRN (02:00)
[2019-01-04] MEDS ORDERED: PETROLATUM,WHITE 28 GM JELLY TP PRN (02:00)
[2019-01-04] MEDS ORDERED: CloNIDine HCL 0.1 MG TABLET PO PRN (02:00)
[2019-01-04] MEDS ORDERED: MAG HYDROX/AL HYDROX/SIMETH ES 30 ML SUSPENSION UDCUP PO PRN (02:00)
[2019-01-04] MEDS ORDERED: LOPERAMIDE HCL 2 MG CAPSULE PO PRN (02:00)
[2019-01-04] MEDS ORDERED: MAGNESIUM HYDROXIDE SUSPENSION 30 ML UDCUP PO PRN (02:00)
[2019-01-04] MEDS ORDERED: ALBUTEROL SULFATE HFA 90 MCG/PUFF 8 GM INHALER IH PRN (02:00)
[2019-01-04] MEDS ORDERED: NICOTINE 14 MG/24 HOUR PATCH TD PRN (02:00)
[2019-01-04] MEDS ORDERED: ONDANSETRON HCL 4 MG TABLET PO PRN (02:00)
[2019-01-04] MEDS ORDERED: GLUCAGON,HUMAN RECOMBINANT 1 MG VIAL IM PRN (05:45)
[2019-01-04 07:22] LABS: BASOPHILS % (AUTO) 0.4 % (0.0-2.0); EOSINOPHILS % (AUTO) 2.5 % (1.0-6.0); HEMATOCRIT 34.5 % (41-53); HEMOGLOBIN 10.9 g/dL (13.5-17.5); LYMPHOCYTES # (AUTO) 2.5 K/uL (1.0-4.8); LYMPHOCYTES % (AUTO) 25.6 % (22.0-44.0); MEAN CORPUSCULAR HEMOGLOBIN 20.2 pg (26.0-34.0); MEAN CORPUSCULAR HGB CONC 31.7 G/dL (31.0-37.0); MEAN CORPUSCULAR VOLUME 64 fL (80-100); MONOCYTES # (AUTO) 1.1 K/uL (0.1-1.0); MONOCYTES % (AUTO) 11.5 % (2.0-9.0); NEUTROPHILS # (AUTO) 5.7 K/uL (1.8-7.7); PLATELET COUNT (AUTO) 188 K/uL (150-450); RED BLOOD CELL COUNT(AUTO) 5.41 MIL/uL (4.50-5.90); RED CELL DISTRIBUTION WIDTH 16.1 % (11.5-14.5)
[2019-01-04 07:24] LABS: GLUCOMETER DEV NAME(LOC) BV2X.; GLUCOSE,POINT OF CARE 183 MG/DL (70-110)
[2019-01-04] MEDS: INSULIN LISPRO 100 UNITS/ML SQ PRN ×3 (07:31→16:43)
[2019-01-04 08:05] VITALS: BP 114/71
[2019-01-04 08:19] LABS: HEMOGLOBIN A1C 8.6 % (4.5-6.2)
[2019-01-04 08:22] LABS: ALANINE AMINOTRANSFERASE 13 U/L (12-78); ALBUMIN 3.3 g/dL (3.4-5.0); ALKALINE PHOSPHATASE 92 U/L (46-116); ANION GAP 11 mmol/L (8-16); ASPARTATE AMINOTRANSFERASE 12 U/L (15-37); BILIRUBIN,TOTAL 0.4 mg/dL (0.1-1.0); CALCIUM, TOTAL 8.8 mg/dL (8.8-10.5); CARBON DIOXIDE 29 mmol/L (22-29); CHLORIDE 102 mmol/L (98-107); CHOL/HDL RATIO 5.9 (4.2-7.3); CHOLESTEROL 183 mg/dL (131-200); CREATININE 0.87 mg/dL (0.60-1.30); FREE T4 (FREE THYROXINE) 1.14 ng/dL (0.76-1.46); GLOMERULAR FILTR. RATE CALC > 60 mL/min (>60); GLUCOSE,RANDOM 178 mg/dL (70-110); HDL CHOLESTEROL 31 mg/dL (40-60); LDL CHOL (CALC.) 133 mg/dL (0-130); POTASSIUM 3.5 mmol/L (3.5-5.1); SODIUM SERUM 142 mmol/L (136-145); THYROID STIMULATING HORMONE 1.69 uIU/mL (0.36-3.74); TOTAL PROTEIN, SERUM 6.8 g/dL (6.4-8.2); TRIGLYCERIDES 95 mg/dL (15-150); UREA NITROGEN, BLOOD 17 mg/dL (7-18)
[2019-01-04] MEDS: DULoxetine HCL 20 MG CAPSULE PO SCH (08:59)
[2019-01-04] MEDS: TRIHEXYPHENIDYL HCL 5 MG TABLET PO SCH ×2 (08:59→16:39)
[2019-01-04 11:05] LABS: GLUCOMETER DEV NAME(LOC) BV2X.; GLUCOSE,POINT OF CARE 183 MG/DL (70-110)
[2019-01-04 16:43] VITALS: BP 144/76
[2019-01-04 16:44] LABS: GLUCOMETER DEV NAME(LOC) BV2X.; GLUCOSE,POINT OF CARE 161 MG/DL (70-110)
[2019-01-04] MEDS: MetFORMIN HCL 500 MG TABLET PO SCH (17:10)
[2019-01-04] MEDS: FERROUS SULFATE 325 MG EC TABLET PO SCH (17:10)
[2019-01-04] MEDS ORDERED: CARBAMIDE PEROXIDE 6.5% 15 ML OTIC SOLUTION AS ONE (17:30)
[2019-01-04] MEDS: RisperiDONE 2 MG TABLET PO SCH (20:39)
[2019-01-04 21:04] LABS: GLUCOMETER DEV NAME(LOC) BV2X.; GLUCOSE,POINT OF CARE 139 MG/DL (70-110)
[2019-01-05 01:00] VITALS: BP 131/86
[2019-01-05 06:40] LABS: GLUCOMETER DEV NAME(LOC) BV2X.; GLUCOSE,POINT OF CARE 187 MG/DL (70-110)
[2019-01-05] MEDS: GlipiZIDE 5 MG TABLET PO SCH (07:01)
[2019-01-05] MEDS: MetFORMIN HCL 500 MG TABLET PO SCH ×2 (07:01→17:02)
[2019-01-05] MEDS: FERROUS SULFATE 325 MG EC TABLET PO SCH ×3 (07:01→17:02)
[2019-01-05] MEDS: INSULIN LISPRO 100 UNITS/ML SQ PRN ×2 (07:05→20:54)
[2019-01-05] MEDS: TRIHEXYPHENIDYL HCL 5 MG TABLET PO SCH ×2 (08:36→17:02)
[2019-01-05] MEDS: DULoxetine HCL 20 MG CAPSULE PO SCH (08:36)
[2019-01-05 11:15] LABS: GLUCOMETER DEV NAME(LOC) BV2X.; GLUCOSE,POINT OF CARE 131 MG/DL (70-110)
[2019-01-05 17:23] VITALS: BP 113/82
[2019-01-05] MEDS: ACETAMINOPHEN 325 MG TABLET PO PRN (17:23)
[2019-01-05] MEDS: RisperiDONE 2 MG TABLET PO SCH (20:52)
[2019-01-06 00:42] VITALS: BP 110/68
[2019-01-06 01:34] LABS: GLUCOMETER DEV NAME(LOC) BV2X.; GLUCOSE,POINT OF CARE 174 MG/DL (70-110)
[2019-01-06 01:34] LABS: GLUCOMETER DEV NAME(LOC) BV2X.; GLUCOSE,POINT OF CARE 131 MG/DL (70-110)
[2019-01-06 06:05] LABS: GLUCOMETER DEV NAME(LOC) BV2X.; GLUCOSE,POINT OF CARE 136 MG/DL (70-110)
[2019-01-06] MEDS: MetFORMIN HCL 500 MG TABLET PO SCH ×2 (07:09→16:42)
[2019-01-06] MEDS: FERROUS SULFATE 325 MG EC TABLET PO SCH ×3 (07:09→16:42)
[2019-01-06] MEDS: GlipiZIDE 5 MG TABLET PO SCH (07:09)
[2019-01-06 08:33] VITALS: BP 106/63
[2019-01-06] MEDS: TRIHEXYPHENIDYL HCL 5 MG TABLET PO SCH (09:26)
[2019-01-06] MEDS: DULoxetine HCL 20 MG CAPSULE PO SCH (09:27)
[2019-01-06 11:29] LABS: GLUCOMETER DEV NAME(LOC) BV2X.; GLUCOSE,POINT OF CARE 124 MG/DL (70-110)
[2019-01-06] MEDS ORDERED: PALIPERIDONE PALMITATE 234 MG/1.5 ML SYRINGE IM ONE (16:15)
[2019-01-06] MEDS ORDERED: PALIPERIDONE 1.5 MG ER TABLET PO PRN (16:15)
[2019-01-06 16:30] VITALS: BP 100/58
[2019-01-06 16:45] VITALS: BP 106/64
[2019-01-06] MEDS: IBUPROFEN 400 MG TABLET PO PRN (16:45)
[2019-01-06 16:50] LABS: GLUCOMETER DEV NAME(LOC) BV2X.; GLUCOSE,POINT OF CARE 156 MG/DL (70-110)
[2019-01-06] MEDS: INSULIN LISPRO 100 UNITS/ML SQ PRN (17:19)
[2019-01-06 21:35] LABS: GLUCOMETER DEV NAME(LOC) BV2X.; GLUCOSE,POINT OF CARE 220 MG/DL (70-110)
[2019-01-06] MEDS: PALIPERIDONE 3 MG ER TABLET PO SCH (22:19)
[2019-01-07 01:12] VITALS: BP 110/68
[2019-01-07] MEDS: GlipiZIDE 5 MG TABLET PO SCH ×2 (06:30→06:49)
[2019-01-07] MEDS: FERROUS SULFATE 325 MG EC TABLET PO SCH ×4 (06:49→16:30)
[2019-01-07] MEDS: MetFORMIN HCL 500 MG TABLET PO SCH ×3 (06:49→16:29)
[2019-01-07 08:28] VITALS: BP 117/65
[2019-01-07 11:51] LABS: GLUCOMETER DEV NAME(LOC) BV2X.; GLUCOSE,POINT OF CARE 138 MG/DL (70-110)
[2019-01-07 16:19] VITALS: BP 104/68
[2019-01-07 16:20] LABS: GLUCOMETER DEV NAME(LOC) BV2X.; GLUCOSE,POINT OF CARE 204 MG/DL (70-110)
[2019-01-07] MEDS: INSULIN LISPRO 100 UNITS/ML SQ PRN ×2 (17:07→21:28)
[2019-01-07 21:10] LABS: GLUCOMETER DEV NAME(LOC) BV2X.; GLUCOSE,POINT OF CARE 162 MG/DL (70-110)
[2019-01-07] MEDS: PALIPERIDONE 3 MG ER TABLET PO SCH (21:11)
[2019-01-07 21:12] VITALS: BP 119/75
[2019-01-07] MEDS: IBUPROFEN 400 MG TABLET PO PRN (21:12)
[2019-01-08 00:13] VITALS: BP 107/67
[2019-01-08] MEDS: FERROUS SULFATE 325 MG EC TABLET PO SCH ×3 (06:51→17:03)
[2019-01-08] MEDS: GlipiZIDE 5 MG TABLET PO SCH (06:51)
[2019-01-08] MEDS: MetFORMIN HCL 500 MG TABLET PO SCH ×2 (06:51→17:03)
[2019-01-08 07:00] LABS: GLUCOMETER DEV NAME(LOC) BV2X.; GLUCOSE,POINT OF CARE 123 MG/DL (70-110)
[2019-01-08 08:17] VITALS: BP 122/61
[2019-01-08 11:06] LABS: GLUCOMETER DEV NAME(LOC) BV2X.; GLUCOSE,POINT OF CARE 88 MG/DL (70-110)
[2019-01-08 16:21] VITALS: BP_SYST 104; BP_SYST 114; BP_DIAS 70; BP_DIAS 74
[2019-01-08 16:55] LABS: GLUCOMETER DEV NAME(LOC) BV2X.; GLUCOSE,POINT OF CARE 112 MG/DL (70-110)
[2019-01-08] MEDS: CIPROFLOXACIN HCL 0.2%/HYDROCORT 1% 10 ML OTIC SUSPENSION AD SCH (17:04)
[2019-01-08 21:29] LABS: GLUCOMETER DEV NAME(LOC) BV2X.; GLUCOSE,POINT OF CARE 132 MG/DL (70-110)
[2019-01-09 06:24] LABS: GLUCOMETER DEV NAME(LOC) BV2X.; GLUCOSE,POINT OF CARE 127 MG/DL (70-110)
[2019-01-09] MEDS: GlipiZIDE 5 MG TABLET PO SCH (06:42)
[2019-01-09] MEDS: FERROUS SULFATE 325 MG EC TABLET PO SCH ×3 (06:42→16:34)
[2019-01-09] MEDS: MetFORMIN HCL 500 MG TABLET PO SCH ×2 (06:43→16:34)
[2019-01-09 07:17] VITALS: BP 103/70
[2019-01-09] MEDS: CIPROFLOXACIN HCL 0.2%/HYDROCORT 1% 10 ML OTIC SUSPENSION AD SCH ×3 (08:26→16:35)
[2019-01-09 08:29] VITALS: BP 104/60
[2019-01-09 11:04] LABS: GLUCOMETER DEV NAME(LOC) BV2X.; GLUCOSE,POINT OF CARE 102 MG/DL (70-110)
[2019-01-09 16:01] VITALS: BP 141/68
[2019-01-09] MEDS: IBUPROFEN 400 MG TABLET PO PRN (16:01)
[2019-01-09 16:29] LABS: GLUCOMETER DEV NAME(LOC) BV2X.; GLUCOSE,POINT OF CARE 162 MG/DL (70-110)
[2019-01-09 20:49] LABS: GLUCOMETER DEV NAME(LOC) BV2X.; GLUCOSE,POINT OF CARE 127 MG/DL (70-110)
[2019-01-10 01:57] VITALS: BP 110/68
[2019-01-10 06:20] LABS: GLUCOMETER DEV NAME(LOC) BV2X.; GLUCOSE,POINT OF CARE 110 MG/DL (70-110)
[2019-01-10] MEDS: MetFORMIN HCL 500 MG TABLET PO SCH ×2 (06:55→17:12)
[2019-01-10] MEDS: GlipiZIDE 5 MG TABLET PO SCH (06:55)
[2019-01-10] MEDS: FERROUS SULFATE 325 MG EC TABLET PO SCH ×3 (06:55→17:12)
[2019-01-10 08:22] VITALS: BP 126/95
[2019-01-10] MEDS: CIPROFLOXACIN HCL 0.2%/HYDROCORT 1% 10 ML OTIC SUSPENSION AD SCH ×3 (08:25→17:13)
[2019-01-10] MEDS: INSULIN LISPRO 100 UNITS/ML SQ PRN ×3 (10:59→20:41)
[2019-01-10 11:14] LABS: GLUCOMETER DEV NAME(LOC) BV2X.; GLUCOSE,POINT OF CARE 188 MG/DL (70-110)
[2019-01-10 16:22] VITALS: BP 109/75
[2019-01-10 16:59] LABS: GLUCOMETER DEV NAME(LOC) BV2X.; GLUCOSE,POINT OF CARE 164 MG/DL (70-110)
[2019-01-10] MEDS: TRIHEXYPHENIDYL HCL 2 MG TABLET PO SCH (17:11)
[2019-01-10] MEDS: ACETAMINOPHEN 325 MG TABLET PO PRN (17:13)
[2019-01-10] MEDS: BACITRACIN 28.4 GM OINTMENT TP SCH (19:30)
[2019-01-10] MEDS: ZOLPIDEM TARTRATE 10 MG TABLET PO PRN (20:42)
[2019-01-10 21:09] LABS: GLUCOMETER DEV NAME(LOC) BV2X.; GLUCOSE,POINT OF CARE 180 MG/DL (70-110)
[2019-01-11 03:01] VITALS: BP 111/69
[2019-01-11 06:15] LABS: GLUCOMETER DEV NAME(LOC) BV2X.; GLUCOSE,POINT OF CARE 116 MG/DL (70-110)
[2019-01-11] MEDS: FERROUS SULFATE 325 MG EC TABLET PO SCH ×3 (06:51→17:12)
[2019-01-11] MEDS: MetFORMIN HCL 500 MG TABLET PO SCH ×2 (06:51→17:12)
[2019-01-11] MEDS: GlipiZIDE 5 MG TABLET PO SCH (06:51)
[2019-01-11 08:22] VITALS: BP 129/80
[2019-01-11] MEDS: BACITRACIN 28.4 GM OINTMENT TP SCH ×2 (08:48→17:13)
[2019-01-11] MEDS: TRIHEXYPHENIDYL HCL 2 MG TABLET PO SCH ×3 (08:48→17:12)
[2019-01-11] MEDS: CIPROFLOXACIN HCL 0.2%/HYDROCORT 1% 10 ML OTIC SUSPENSION AD SCH ×3 (08:48→17:13)
[2019-01-11] MEDS: INSULIN LISPRO 100 UNITS/ML SQ PRN ×2 (10:58→16:41)
[2019-01-11 11:09] LABS: GLUCOMETER DEV NAME(LOC) BV2X.; GLUCOSE,POINT OF CARE 146 MG/DL (70-110)
[2019-01-11 16:16] VITALS: BP 107/62
[2019-01-11 16:54] LABS: GLUCOMETER DEV NAME(LOC) BV2X.; GLUCOSE,POINT OF CARE 141 MG/DL (70-110)
[2019-01-11] MEDS: ZOLPIDEM TARTRATE 10 MG TABLET PO PRN (20:32)
[2019-01-11 20:59] LABS: GLUCOMETER DEV NAME(LOC) BV2X.; GLUCOSE,POINT OF CARE 98 MG/DL (70-110)
[2019-01-12 06:19] LABS: GLUCOMETER DEV NAME(LOC) BV2X.; GLUCOSE,POINT OF CARE 101 MG/DL (70-110)
[2019-01-12] MEDS: GlipiZIDE 5 MG TABLET PO SCH (06:40)
[2019-01-12] MEDS: FERROUS SULFATE 325 MG EC TABLET PO SCH ×3 (06:41→17:16)
[2019-01-12] MEDS: MetFORMIN HCL 500 MG TABLET PO SCH ×2 (06:41→17:16)
[2019-01-12 07:01] VITALS: BP 111/50
[2019-01-12 08:07] VITALS: BP 100/63
[2019-01-12] MEDS ORDERED: PALIPERIDONE PALMITATE 156 MG/ML SYRINGE IM ONE (09:00)
[2019-01-12] MEDS: TRIHEXYPHENIDYL HCL 2 MG TABLET PO SCH ×3 (09:01→17:16)
[2019-01-12] MEDS: CARBAMIDE PEROXIDE 6.5% 15 ML OTIC SOLUTION AD SCH ×2 (09:01→18:09)
[2019-01-12] MEDS: BACITRACIN 28.4 GM OINTMENT TP SCH ×2 (09:02→17:16)
[2019-01-12] MEDS: CIPROFLOXACIN HCL 0.2%/HYDROCORT 1% 10 ML OTIC SUSPENSION AD SCH ×3 (09:37→18:41)
[2019-01-12] MEDS: INSULIN LISPRO 100 UNITS/ML SQ PRN ×2 (10:57→16:46)
[2019-01-12 11:04] LABS: GLUCOMETER DEV NAME(LOC) BV2X.; GLUCOSE,POINT OF CARE 159 MG/DL (70-110)
[2019-01-12 16:05] VITALS: BP 103/66
[2019-01-12 16:54] LABS: GLUCOMETER DEV NAME(LOC) BV2X.; GLUCOSE,POINT OF CARE 234 MG/DL (70-110)
[2019-01-12] MEDS: ZOLPIDEM TARTRATE 10 MG TABLET PO PRN (20:49)
[2019-01-12 21:09] LABS: GLUCOMETER DEV NAME(LOC) BV2X.; GLUCOSE,POINT OF CARE 101 MG/DL (70-110)
[2019-01-13 02:26] VITALS: BP 132/81
[2019-01-13] MEDS: FERROUS SULFATE 325 MG EC TABLET PO SCH ×3 (07:12→18:37)
[2019-01-13] MEDS: MetFORMIN HCL 500 MG TABLET PO SCH ×2 (07:12→18:36)
[2019-01-13] MEDS: GlipiZIDE 5 MG TABLET PO SCH (07:13)
[2019-01-13 08:00] VITALS: BP 123/66
[2019-01-13] MEDS: TRIHEXYPHENIDYL HCL 2 MG TABLET PO SCH ×3 (09:45→18:36)
[2019-01-13] MEDS: BACITRACIN 28.4 GM OINTMENT TP SCH ×2 (09:45→18:37)
[2019-01-13] MEDS: CARBAMIDE PEROXIDE 6.5% 15 ML OTIC SOLUTION AD SCH ×2 (09:47→17:03)
[2019-01-13] MEDS: CIPROFLOXACIN HCL 0.2%/HYDROCORT 1% 10 ML OTIC SUSPENSION AD SCH ×3 (09:47→17:02)
[2019-01-13 11:14] LABS: GLUCOMETER DEV NAME(LOC) BV2X.; GLUCOSE,POINT OF CARE 133 MG/DL (70-110)
[2019-01-13] MEDS: INSULIN LISPRO 100 UNITS/ML SQ PRN ×2 (11:18→16:55)
[2019-01-13 16:09] VITALS: BP 106/60
[2019-01-13] MEDS ORDERED: PALI117D IM (16:27)
[2019-01-13 16:33] LABS: GLUCOMETER DEV NAME(LOC) BV2X.; GLUCOSE,POINT OF CARE 238 MG/DL (70-110)
[2019-01-13 20:44] LABS: GLUCOMETER DEV NAME(LOC) BV2X.; GLUCOSE,POINT OF CARE 126 MG/DL (70-110)
[2019-01-13] MEDS: ZOLPIDEM TARTRATE 10 MG TABLET PO PRN (20:52)
[2019-01-14 06:15] VITALS: BP 137/79
[2019-01-14] MEDS: GlipiZIDE 5 MG TABLET PO SCH (06:30)
[2019-01-14] MEDS: MetFORMIN HCL 500 MG TABLET PO SCH (06:41)
[2019-01-14] MEDS: FERROUS SULFATE 325 MG EC TABLET PO SCH ×2 (06:41→12:27)
[2019-01-14] MEDS ORDERED: PALI156D IM (08:17)
[2019-01-14] MEDS ORDERED: CIPOTIC (08:17)
[2019-01-14] MEDS ORDERED: TRIH2TAB3 PO (08:17)
[2019-01-14] MEDS ORDERED: BACI28.434 (08:18)
[2019-01-14] MEDS ORDERED: CARB15DR61 (08:21)
[2019-01-14] MEDS: TRIHEXYPHENIDYL HCL 2 MG TABLET PO SCH ×2 (08:47→12:27)
[2019-01-14] MEDS: BACITRACIN 28.4 GM OINTMENT TP SCH (08:48)
[2019-01-14] MEDS: CARBAMIDE PEROXIDE 6.5% 15 ML OTIC SOLUTION AD SCH (08:48)
[2019-01-14] MEDS: CIPROFLOXACIN HCL 0.2%/HYDROCORT 1% 10 ML OTIC SUSPENSION AD SCH ×2 (09:17→12:27)
[2019-01-14] MEDS: INSULIN LISPRO 100 UNITS/ML SQ PRN (10:58)
[2019-01-14 11:04] LABS: GLUCOMETER DEV NAME(LOC) BV2X.; GLUCOSE,POINT OF CARE 296 MG/DL (70-110)
== END 2019-01-14 13:25 | disposition home or self-care (01) | DRG 885 ==
LOC: B2X 23:30
PROVIDERS: ADMIT Psychiatry & Neurology Psychiatry; ATTEND Psychiatry & Neurology Psychiatry
DX: F25.0 Schizoaffective disorder, bipolar type (principal); R45.851 Suicidal ideations; E78.5 Hyperlipidemia, unspecified; E55.9 Vitamin D deficiency, unspecified; E11.9 Type 2 diabetes mellitus without complications; D64.9 Anemia, unspecified; G47.00 Insomnia, unspecified; K21.9 Gastro-esophageal reflux disease without esophagitis; K27.9 Peptic ulcer, site unspecified, unspecified as acute or chronic, without hemorrhage or perforation; Z79.899 Other long term (current) drug therapy; Z87.11 Personal history of peptic ulcer disease; Z91.14 Patient's other noncompliance with medication regimen; Z91.19 Patient's noncompliance with other medical treatment and regimen
CPT/HCPCS: 83036; 84439; 84443

== ENCOUNTER 2019-01-18 14:41 | Inpatient (IN) | payer BC, MEDICAID ==
[~2019-01-18] VITALS: Ht 167.6 cm; Wt 72.3 kg
[~2019-01-18 14:41] MED LIST changes: +BACI28.434; +CARB15DR61; +CIPOTIC; -DULO20CA30 PO; -MULT-1239 PO; -TRIH5TAB2 PO
[2019-01-18] MEDS ORDERED: SODIUM CHLORIDE 0.9% 2,000 ML IV ONE (15:15)
[2019-01-18] MEDS ORDERED: INSULIN REGULAR, HUMAN 100 UNITS/ML IVP ONE (15:15)
[2019-01-18] MEDS ORDERED: LORazepam 2 MG/ML VIAL ONE (15:51)
[2019-01-18 15:53] LABS: ANION GAP 8 mmol/L (8-16); CALCIUM, TOTAL 8.8 mg/dL (8.8-10.5); CARBON DIOXIDE 29 mmol/L (22-29); CHLORIDE 99 mmol/L (98-107); CREATININE 1.25 mg/dL (0.60-1.30); GLOMERULAR FILTR. RATE CALC 60 mL/min (>60); GLUCOSE,RANDOM 395 mg/dL (70-110); POTASSIUM 3.9 mmol/L (3.5-5.1); SODIUM SERUM 136 mmol/L (136-145); UREA NITROGEN, BLOOD 15 mg/dL (7-18)
[2019-01-18 15:54] LABS: BASOPHILS % (AUTO) 0.4 % (0.0-2.0); EOSINOPHILS % (AUTO) 1.7 % (1.0-6.0); HEMATOCRIT 32.2 % (41-53); HEMOGLOBIN 10.3 g/dL (13.5-17.5); LYMPHOCYTES # (AUTO) 1.5 K/uL (1.0-4.8); LYMPHOCYTES % (AUTO) 18.3 % (22.0-44.0); MEAN CORPUSCULAR HEMOGLOBIN 19.9 pg (26.0-34.0); MEAN CORPUSCULAR VOLUME 62 fL (80-100); MONOCYTES # (AUTO) 0.6 K/uL (0.1-1.0); MONOCYTES % (AUTO) 7.1 % (2.0-9.0); NEUTROPHILS # (AUTO) 5.8 K/uL (1.8-7.7); NEUTROPHILS % (AUTO) 72.5 % (40.0-70.0); PLATELET COUNT (AUTO) 260 K/uL (150-450); RED BLOOD CELL COUNT(AUTO) 5.19 MIL/uL (4.50-5.90); RED CELL DISTRIBUTION WIDTH 16.4 % (11.5-14.5)
[2019-01-18 16:00] LABS: ALANINE AMINOTRANSFERASE 15 U/L (12-78); ALKALINE PHOSPHATASE 70 U/L (46-116); ASPARTATE AMINOTRANSFERASE 18 U/L (15-37); BILIRUBIN,TOTAL 0.4 mg/dL (0.1-1.0); TOTAL PROTEIN, SERUM 7.5 g/dL (6.4-8.2)
[2019-01-18] MEDS ORDERED: LORazepam 2 MG/ML VIAL IVP ONE ×2 (16:00→16:30)
[2019-01-18 16:29] LABS: GLUCOSE,POINT OF CARE 367 MG/DL (70-110)
[2019-01-18] MEDS ORDERED: DiphenhydrAMINE HCL 50 MG/ML VIAL IVP ONE (16:30)
[2019-01-18] MEDS ORDERED: HALOPERIDOL LACTATE 5 MG/ML VIAL IVP ONE (16:30)
[2019-01-18] MEDS ORDERED: SODIUM CHLORIDE 0.9% 1,000 ML IV ONE (18:15)
[2019-01-18 19:19] LABS: GLUCOSE,POINT OF CARE 249 MG/DL (70-110)
[2019-01-18 19:42] LABS: AMPHET/METH SCREEN,URINE NEGATIVE (NEGATIVE); BARBITURATE SCREEN, URINE NEGATIVE (NEGATIVE); BENZODIAZEPINES SCREEN,URINE NEGATIVE (NEGATIVE); CANNABINOID SCREEN,URINE NEGATIVE (NEGATIVE); COCAINE SCREEN,URINE NEGATIVE (NEGATIVE); METHADONE SCREEN, URINE NEGATIVE (NEGATIVE); OPIATE SCREEN,URINE NEGATIVE (NEGATIVE)
[2019-01-18 19:44] LABS: PHENCYCLIDINE SCREEN,URINE NEGATIVE (NEGATIVE)
[2019-01-18 19:52] LABS: APPEARANCE,URINE CLEAR (CLEAR); BILIRUBIN,URINE NEGATIVE (NEGATIVE); GLUCOSE, URINE (UA) >=1000 mg/dL (NEGATIVE); KETONES,URINE NEGATIVE (NEGATIVE); LEUKOCYTE ESTERASE ,URINE NEGATIVE (NEGATIVE); NITRATE,URINE NEGATIVE (NEGATIVE); OCCULT BLOOD,URINE NEGATIVE (NEGATIVE); PROTEIN,URINE NEGATIVE (NEGATIVE); UROBILINOGEN,URINE 0.2 mg/dL (<=1.0)
[2019-01-18 20:29] LABS: BACTERIA,URINE None Seen /HPF (None Seen); RBC,URINE None Seen /HPF (0-2); SQUAMOUS EPITHELIAL CELL,UR Rare /LPF (None Seen); WBC,URINE 0-2 /HPF (0-5)
[2019-01-18] MEDS ORDERED: QUEtiapine FUMARATE 100 MG TABLET PO PRN (21:00)
[2019-01-18] MEDS ORDERED: NICOTINE 14 MG/24 HOUR PATCH TD PRN (22:15)
[2019-01-18] MEDS ORDERED: ONDANSETRON HCL 4 MG TABLET PO PRN (22:15)
[2019-01-18] MEDS ORDERED: ALBUTEROL SULFATE HFA 90 MCG/PUFF 8 GM INHALER IH PRN (22:15)
[2019-01-18] MEDS ORDERED: PETROLATUM,WHITE 28 GM JELLY TP PRN (22:15)
[2019-01-18] MEDS ORDERED: ACETAMINOPHEN 325 MG TABLET PO PRN (22:15)
[2019-01-18] MEDS ORDERED: GuaiFENesin/D-METHORPHAN [SUGAR-FREE] 200-20MG/10 ML SYRUP UDCUP PO PRN (22:15)
[2019-01-18] MEDS ORDERED: LOPERAMIDE HCL 2 MG CAPSULE PO PRN (22:15)
[2019-01-18] MEDS ORDERED: IBUPROFEN 400 MG TABLET PO PRN (22:15)
[2019-01-18] MEDS ORDERED: CloNIDine HCL 0.1 MG TABLET PO PRN (22:15)
[2019-01-18] MEDS ORDERED: MAG HYDROX/AL HYDROX/SIMETH ES 30 ML SUSPENSION UDCUP PO PRN (22:15)
[2019-01-18 22:37] VITALS: BP 127/64
[2019-01-18] MEDS ORDERED: DEXTROSE 50%-WATER 25 GM/50 ML SYRINGE IVP PRN (22:45)
[2019-01-19 05:24] LABS: GLUCOMETER DEV NAME(LOC) 3E.I; GLUCOSE,POINT OF CARE 125 MG/DL (70-110)
[2019-01-19 06:01] VITALS: BP 116/71
[2019-01-19] MEDS: GlipiZIDE 5 MG TABLET PO SCH (06:38)
[2019-01-19] MEDS: INSULIN LISPRO 100 UNITS/ML SQ PRN ×3 (06:39→21:04)
[2019-01-19 06:43] LABS: BASOPHILS % (AUTO) 0.4 % (0.0-2.0); EOSINOPHILS % (AUTO) 3.6 % (1.0-6.0); HEMATOCRIT 32.4 % (41-53); HEMOGLOBIN 10.2 g/dL (13.5-17.5); LYMPHOCYTES # (AUTO) 2.3 K/uL (1.0-4.8); LYMPHOCYTES % (AUTO) 29.7 % (22.0-44.0); MEAN CORPUSCULAR HGB CONC 31.4 G/dL (31.0-37.0); MEAN CORPUSCULAR VOLUME 64 fL (80-100); MONOCYTES # (AUTO) 0.7 K/uL (0.1-1.0); MONOCYTES % (AUTO) 8.9 % (2.0-9.0); NEUTROPHILS # (AUTO) 4.4 K/uL (1.8-7.7); NEUTROPHILS % (AUTO) 57.4 % (40.0-70.0); PLATELET COUNT (AUTO) 245 K/uL (150-450); RED BLOOD CELL COUNT(AUTO) 5.09 MIL/uL (4.50-5.90); RED CELL DISTRIBUTION WIDTH 16.6 % (11.5-14.5)
[2019-01-19 07:14] LABS: ALANINE AMINOTRANSFERASE 14 U/L (12-78); ALBUMIN 2.4 g/dL (3.4-5.0); ALKALINE PHOSPHATASE 59 U/L (46-116); ANION GAP 9 mmol/L (8-16); ASPARTATE AMINOTRANSFERASE 16 U/L (15-37); BILIRUBIN,TOTAL 0.4 mg/dL (0.1-1.0); CALCIUM, TOTAL 8.1 mg/dL (8.8-10.5); CARBON DIOXIDE 28 mmol/L (22-29); CHLORIDE 106 mmol/L (98-107); CHOLESTEROL 149 mg/dL (131-200); CREATININE 0.79 mg/dL (0.60-1.30); GLOMERULAR FILTR. RATE CALC > 60 mL/min (>60); GLUCOSE,RANDOM 130 mg/dL (70-110); HDL CHOLESTEROL 30 mg/dL (40-60); LDL CHOL (CALC.) 97 mg/dL (0-130); POTASSIUM 3.4 mmol/L (3.5-5.1); SODIUM SERUM 143 mmol/L (136-145); THYROID STIMULATING HORMONE 2.33 uIU/mL (0.36-3.74); TOTAL PROTEIN, SERUM 6.3 g/dL (6.4-8.2); TRIGLYCERIDES 112 mg/dL (15-150); UREA NITROGEN, BLOOD 8 mg/dL (7-18)
[2019-01-19] MEDS ORDERED: MetFORMIN HCL 500 MG TABLET PO ONE (07:30)
[2019-01-19] MEDS ORDERED: FERROUS SULFATE 325 MG EC TABLET PO ONE (07:30)
[2019-01-19 08:26] VITALS: BP 117/72
[2019-01-19] MEDS ORDERED: CARBAMIDE PEROXIDE 10% 15 ML SOLUTION MM ONE (09:00)
[2019-01-19 16:31] VITALS: BP 137/88
[2019-01-19] MEDS: LORazepam 1 MG TABLET PO PRN (17:55)
[2019-01-19] MEDS ORDERED: RisperiDONE 2 MG TABLET PO SCH (21:00)
[2019-01-19] MEDS: DiphenhydrAMINE HCL 25 MG CAPSULE PO SCH (21:05)
[2019-01-20 06:16] LABS: GLUCOMETER DEV NAME(LOC) 3E.I; GLUCOSE,POINT OF CARE 110 MG/DL (70-110)
[2019-01-20] MEDS: INSULIN LISPRO 100 UNITS/ML SQ PRN ×4 (06:50→20:26)
[2019-01-20] MEDS: GlipiZIDE 5 MG TABLET PO SCH (06:50)
[2019-01-20 12:09] LABS: GLUCOMETER DEV NAME(LOC) 3E.I; GLUCOSE,POINT OF CARE 93 MG/DL (70-110)
[2019-01-20 12:09] LABS: GLUCOMETER DEV NAME(LOC) 3E.I; GLUCOSE,POINT OF CARE 202 MG/DL (70-110)
[2019-01-20 12:09] LABS: GLUCOSE,POINT OF CARE 271 MG/DL (70-110)
[2019-01-20 12:09] LABS: GLUCOSE,POINT OF CARE 302 MG/DL (70-110)
[2019-01-20 12:09] LABS: GLUCOMETER DEV NAME(LOC) 3E.I; GLUCOSE,POINT OF CARE 176 MG/DL (70-110)
[2019-01-20 12:09] LABS: GLUCOMETER DEV NAME(LOC) 3E.I; GLUCOSE,POINT OF CARE 183 MG/DL (70-110)
[2019-01-20 14:22] VITALS: BP 142/82
[2019-01-20 16:03] VITALS: BP 125/83
[2019-01-20] MEDS ORDERED: PALIPERIDONE 1.5 MG ER TABLET PO PRN (16:15)
[2019-01-20] MEDS: LORazepam 1 MG TABLET PO PRN (16:32)
[2019-01-20 16:40] LABS: GLUCOMETER DEV NAME(LOC) 3E.I; GLUCOSE,POINT OF CARE 212 MG/DL (70-110)
[2019-01-20] MEDS: TRIHEXYPHENIDYL HCL 2 MG TABLET PO SCH (17:27)
[2019-01-20] MEDS: PALIPERIDONE 3 MG ER TABLET PO SCH (20:18)
[2019-01-20] MEDS: DiphenhydrAMINE HCL 25 MG CAPSULE PO SCH (20:18)
[2019-01-20 20:29] LABS: GLUCOMETER DEV NAME(LOC) 3E.I; GLUCOSE,POINT OF CARE 182 MG/DL (70-110)
[2019-01-21 05:55] LABS: GLUCOMETER DEV NAME(LOC) 3E.I; GLUCOSE,POINT OF CARE 139 MG/DL (70-110)
[2019-01-21] MEDS: GlipiZIDE 5 MG TABLET PO SCH (06:54)
[2019-01-21 08:11] VITALS: BP 131/84
[2019-01-21] MEDS: TRIHEXYPHENIDYL HCL 2 MG TABLET PO SCH ×3 (08:47→16:39)
[2019-01-21 12:54] LABS: GLUCOMETER DEV NAME(LOC) 3E.I; GLUCOSE,POINT OF CARE 208 MG/DL (70-110)
[2019-01-21 16:49] LABS: GLUCOMETER DEV NAME(LOC) 3E.I; GLUCOSE,POINT OF CARE 147 MG/DL (70-110)
[2019-01-21] MEDS: INSULIN LISPRO 100 UNITS/ML SQ PRN (17:10)
[2019-01-21 17:16] VITALS: BP 114/65
[2019-01-21] MEDS: PALIPERIDONE 3 MG ER TABLET PO SCH (20:44)
[2019-01-21] MEDS: DiphenhydrAMINE HCL 25 MG CAPSULE PO SCH (20:45)
[2019-01-21 20:54] LABS: GLUCOMETER DEV NAME(LOC) 3E.I; GLUCOSE,POINT OF CARE 132 MG/DL (70-110)
[2019-01-21] MEDS: ZOLPIDEM TARTRATE 10 MG TABLET PO PRN (21:19)
[2019-01-22 06:20] LABS: GLUCOMETER DEV NAME(LOC) 3E.I; GLUCOSE,POINT OF CARE 118 MG/DL (70-110)
[2019-01-22] MEDS: TRIHEXYPHENIDYL HCL 2 MG TABLET PO SCH ×2 (09:08→16:20)
[2019-01-22] MEDS: GlipiZIDE 5 MG TABLET PO SCH (09:08)
[2019-01-22 11:59] LABS: GLUCOMETER DEV NAME(LOC) 3E.I; GLUCOSE,POINT OF CARE 166 MG/DL (70-110)
[2019-01-22] MEDS: INSULIN LISPRO 100 UNITS/ML SQ PRN ×3 (12:10→21:28)
[2019-01-22] MEDS: TRIHEXYPHENIDYL HCL 5 MG TABLET PO SCH (16:20)
[2019-01-22 16:24] LABS: GLUCOMETER DEV NAME(LOC) 3E.I; GLUCOSE,POINT OF CARE 145 MG/DL (70-110)
[2019-01-22 16:41] VITALS: BP 98/72
[2019-01-22 20:34] LABS: GLUCOMETER DEV NAME(LOC) 3E.I; GLUCOSE,POINT OF CARE 267 MG/DL (70-110)
[2019-01-22] MEDS: PALIPERIDONE 3 MG ER TABLET PO SCH (21:12)
[2019-01-22] MEDS: DiphenhydrAMINE HCL 25 MG CAPSULE PO SCH (21:12)
[2019-01-22] MEDS: ZOLPIDEM TARTRATE 10 MG TABLET PO PRN (22:00)
[2019-01-23 05:25] LABS: GLUCOMETER DEV NAME(LOC) 3E.C; GLUCOSE,POINT OF CARE 127 MG/DL (70-110)
[2019-01-23] MEDS: GlipiZIDE 5 MG TABLET PO SCH (06:11)
[2019-01-23 10:36] VITALS: BP 113/78
[2019-01-23] MEDS: TRIHEXYPHENIDYL HCL 5 MG TABLET PO SCH ×2 (10:46→16:49)
[2019-01-23 12:00] LABS: GLUCOMETER DEV NAME(LOC) 3E.I; GLUCOSE,POINT OF CARE 99 MG/DL (70-110)
[2019-01-23] MEDS: INSULIN LISPRO 100 UNITS/ML SQ PRN ×2 (12:41→16:53)
[2019-01-23 16:58] VITALS: BP 113/82
[2019-01-23 17:09] LABS: GLUCOMETER DEV NAME(LOC) 3E.I; GLUCOSE,POINT OF CARE 172 MG/DL (70-110)
[2019-01-23] MEDS: PALIPERIDONE 3 MG ER TABLET PO SCH (20:39)
[2019-01-23] MEDS: DiphenhydrAMINE HCL 25 MG CAPSULE PO SCH (20:40)
[2019-01-23 21:39] LABS: GLUCOMETER DEV NAME(LOC) 3E.I; GLUCOSE,POINT OF CARE 130 MG/DL (70-110)
[2019-01-24 05:34] LABS: GLUCOMETER DEV NAME(LOC) 3E.I; GLUCOSE,POINT OF CARE 122 MG/DL (70-110)
[2019-01-24] MEDS: INSULIN LISPRO 100 UNITS/ML SQ PRN ×3 (06:22→22:24)
[2019-01-24] MEDS: GlipiZIDE 5 MG TABLET PO SCH (06:22)
[2019-01-24 09:21] VITALS: BP 131/77
[2019-01-24] MEDS: TRIHEXYPHENIDYL HCL 5 MG TABLET PO SCH ×2 (09:42→17:55)
[2019-01-24] MEDS: MULTIVITAMINS WITH MINERALS, THERAPEUTIC TABLET PO SCH (09:43)
[2019-01-24 11:24] LABS: GLUCOMETER DEV NAME(LOC) 3E.I; GLUCOSE,POINT OF CARE 104 MG/DL (70-110)
[2019-01-24 16:40] LABS: GLUCOMETER DEV NAME(LOC) 3E.I; GLUCOSE,POINT OF CARE 222 MG/DL (70-110)
[2019-01-24 18:09] VITALS: BP 124/77
[2019-01-24] MEDS: DiphenhydrAMINE HCL 25 MG CAPSULE PO SCH (20:23)
[2019-01-24] MEDS: PALIPERIDONE 3 MG ER TABLET PO SCH (20:23)
[2019-01-24 21:34] LABS: GLUCOMETER DEV NAME(LOC) 3E.I; GLUCOSE,POINT OF CARE 103 MG/DL (70-110)
[2019-01-25 05:44] LABS: GLUCOMETER DEV NAME(LOC) 3E.I; GLUCOSE,POINT OF CARE 108 MG/DL (70-110)
[2019-01-25] MEDS: GlipiZIDE 5 MG TABLET PO SCH (06:51)
[2019-01-25] MEDS: INSULIN LISPRO 100 UNITS/ML SQ PRN ×4 (06:52→20:49)
[2019-01-25 08:06] VITALS: BP 110/59
[2019-01-25] MEDS: TRIHEXYPHENIDYL HCL 5 MG TABLET PO SCH ×2 (09:36→16:12)
[2019-01-25] MEDS: MULTIVITAMINS WITH MINERALS, THERAPEUTIC TABLET PO SCH (09:36)
[2019-01-25 11:40] LABS: GLUCOMETER DEV NAME(LOC) 3E.I; GLUCOSE,POINT OF CARE 103 MG/DL (70-110)
[2019-01-25 16:24] LABS: GLUCOMETER DEV NAME(LOC) 3E.I; GLUCOSE,POINT OF CARE 170 MG/DL (70-110)
[2019-01-25 17:29] VITALS: BP 101/63
[2019-01-25] MEDS: DiphenhydrAMINE HCL 25 MG CAPSULE PO SCH (20:43)
[2019-01-25] MEDS: PALIPERIDONE 3 MG ER TABLET PO SCH (20:43)
[2019-01-25 20:58] LABS: GLUCOMETER DEV NAME(LOC) 3E.I; GLUCOSE,POINT OF CARE 141 MG/DL (70-110)
[2019-01-26 06:10] LABS: GLUCOMETER DEV NAME(LOC) 3E.I; GLUCOSE,POINT OF CARE 128 MG/DL (70-110)
[2019-01-26] MEDS: INSULIN LISPRO 100 UNITS/ML SQ PRN ×2 (06:42→13:16)
[2019-01-26] MEDS: GlipiZIDE 5 MG TABLET PO SCH (07:16)
[2019-01-26 08:39] VITALS: BP 132/72
[2019-01-26] MEDS: MULTIVITAMINS WITH MINERALS, THERAPEUTIC TABLET PO SCH (10:50)
[2019-01-26] MEDS: TRIHEXYPHENIDYL HCL 5 MG TABLET PO SCH ×2 (10:50→16:56)
[2019-01-26 11:34] LABS: GLUCOMETER DEV NAME(LOC) 3E.I; GLUCOSE,POINT OF CARE 92 MG/DL (70-110)
[2019-01-26 16:38] VITALS: BP 104/66
[2019-01-26 17:04] LABS: GLUCOMETER DEV NAME(LOC) 3E.I; GLUCOSE,POINT OF CARE 133 MG/DL (70-110)
[2019-01-26] MEDS: DiphenhydrAMINE HCL 25 MG CAPSULE PO SCH (20:50)
[2019-01-26] MEDS: PALIPERIDONE 3 MG ER TABLET PO SCH (20:50)
[2019-01-26 20:59] LABS: GLUCOMETER DEV NAME(LOC) 3E.I; GLUCOSE,POINT OF CARE 137 MG/DL (70-110)
[2019-01-27 05:44] LABS: GLUCOMETER DEV NAME(LOC) 3E.I; GLUCOSE,POINT OF CARE 134 MG/DL (70-110)
[2019-01-27] MEDS: GlipiZIDE 5 MG TABLET PO SCH (06:22)
[2019-01-27] MEDS: MULTIVITAMINS WITH MINERALS, THERAPEUTIC TABLET PO SCH (10:57)
[2019-01-27] MEDS: TRIHEXYPHENIDYL HCL 5 MG TABLET PO SCH ×2 (10:58→16:39)
[2019-01-27 12:09] LABS: GLUCOMETER DEV NAME(LOC) 3E.I; GLUCOSE,POINT OF CARE 144 MG/DL (70-110)
[2019-01-27 13:56] VITALS: BP 107/71
[2019-01-27 16:35] LABS: GLUCOMETER DEV NAME(LOC) 3E.I; GLUCOSE,POINT OF CARE 212 MG/DL (70-110)
[2019-01-27 16:53] VITALS: BP 112/73
[2019-01-27] MEDS: INSULIN LISPRO 100 UNITS/ML SQ PRN ×2 (17:34→21:35)
[2019-01-27] MEDS: PALIPERIDONE 3 MG ER TABLET PO SCH (20:24)
[2019-01-27] MEDS: DiphenhydrAMINE HCL 25 MG CAPSULE PO SCH (20:24)
[2019-01-27 21:34] LABS: GLUCOMETER DEV NAME(LOC) 3E.I; GLUCOSE,POINT OF CARE 156 MG/DL (70-110)
[2019-01-28 06:09] LABS: GLUCOMETER DEV NAME(LOC) 3E.I; GLUCOSE,POINT OF CARE 141 MG/DL (70-110)
[2019-01-28] MEDS: GlipiZIDE 5 MG TABLET PO SCH (07:12)
[2019-01-28] MEDS: INSULIN LISPRO 100 UNITS/ML SQ PRN ×4 (07:15→22:10)
[2019-01-28 08:51] VITALS: BP 116/78
[2019-01-28] MEDS: MULTIVITAMINS WITH MINERALS, THERAPEUTIC TABLET PO SCH (09:12)
[2019-01-28] MEDS: TRIHEXYPHENIDYL HCL 5 MG TABLET PO SCH ×2 (09:12→16:34)
[2019-01-28 11:34] LABS: GLUCOMETER DEV NAME(LOC) 3E.I; GLUCOSE,POINT OF CARE 140 MG/DL (70-110)
[2019-01-28 17:09] LABS: GLUCOMETER DEV NAME(LOC) 3E.I; GLUCOSE,POINT OF CARE 103 MG/DL (70-110)
[2019-01-28 19:23] VITALS: BP 110/66
[2019-01-28] MEDS: ZOLPIDEM TARTRATE 10 MG TABLET PO PRN (21:10)
[2019-01-28] MEDS: DiphenhydrAMINE HCL 25 MG CAPSULE PO SCH (21:19)
[2019-01-28] MEDS: PALIPERIDONE 3 MG ER TABLET PO SCH (21:19)
[2019-01-28 21:57] LABS: GLUCOMETER DEV NAME(LOC) 3E.I; GLUCOSE,POINT OF CARE 141 MG/DL (70-110)
[2019-01-29 05:50] LABS: GLUCOMETER DEV NAME(LOC) 3E.I; GLUCOSE,POINT OF CARE 113 MG/DL (70-110)
[2019-01-29] MEDS: GlipiZIDE 5 MG TABLET PO SCH (07:07)
[2019-01-29 09:10] VITALS: BP 108/63
[2019-01-29] MEDS: TRIHEXYPHENIDYL HCL 5 MG TABLET PO SCH ×3 (10:57→16:40)
[2019-01-29] MEDS: MULTIVITAMINS WITH MINERALS, THERAPEUTIC TABLET PO SCH (10:57)
[2019-01-29 11:30] LABS: GLUCOMETER DEV NAME(LOC) 3E.I; GLUCOSE,POINT OF CARE 111 MG/DL (70-110)
[2019-01-29] MEDS: INSULIN LISPRO 100 UNITS/ML SQ PRN ×2 (11:39→17:02)
[2019-01-29 16:48] VITALS: BP 96/69
[2019-01-29 17:14] LABS: GLUCOMETER DEV NAME(LOC) 3E.I; GLUCOSE,POINT OF CARE 168 MG/DL (70-110)
[2019-01-29] MEDS: PALIPERIDONE 3 MG ER TABLET PO SCH (21:28)
[2019-01-29] MEDS: DiphenhydrAMINE HCL 25 MG CAPSULE PO SCH (21:28)
[2019-01-29 22:20] LABS: GLUCOMETER DEV NAME(LOC) 3E.I; GLUCOSE,POINT OF CARE 156 MG/DL (70-110)
[2019-01-30 06:20] LABS: GLUCOMETER DEV NAME(LOC) 3E.I; GLUCOSE,POINT OF CARE 117 MG/DL (70-110)
[2019-01-30] MEDS: GlipiZIDE 5 MG TABLET PO SCH (07:00)
[2019-01-30] MEDS: TRIHEXYPHENIDYL HCL 5 MG TABLET PO SCH ×3 (09:34→16:34)
[2019-01-30] MEDS: MULTIVITAMINS WITH MINERALS, THERAPEUTIC TABLET PO SCH (09:34)
[2019-01-30 10:36] VITALS: BP 111/66
[2019-01-30] MEDS: INSULIN LISPRO 100 UNITS/ML SQ PRN ×2 (11:42→17:25)
[2019-01-30 11:44] LABS: GLUCOMETER DEV NAME(LOC) 3E.I; GLUCOSE,POINT OF CARE 87 MG/DL (70-110)
[2019-01-30 16:56] VITALS: BP 113/68
[2019-01-30 17:19] LABS: GLUCOMETER DEV NAME(LOC) 3E.I; GLUCOSE,POINT OF CARE 223 MG/DL (70-110)
[2019-01-30] MEDS ORDERED: MIRTAZAPINE 15 MG TABLET PO SCH (21:00)
[2019-01-30 21:14] LABS: GLUCOMETER DEV NAME(LOC) 3E.I; GLUCOSE,POINT OF CARE 108 MG/DL (70-110)
[2019-01-30] MEDS: DiphenhydrAMINE HCL 25 MG CAPSULE PO SCH (21:16)
[2019-01-30] MEDS: PALIPERIDONE 3 MG ER TABLET PO SCH (21:16)
[2019-01-31 06:29] LABS: GLUCOMETER DEV NAME(LOC) 3E.I; GLUCOSE,POINT OF CARE 117 MG/DL (70-110)
[2019-01-31] MEDS: GlipiZIDE 5 MG TABLET PO SCH (07:11)
[2019-01-31 08:54] VITALS: BP 122/65
[2019-01-31] MEDS: TRIHEXYPHENIDYL HCL 5 MG TABLET PO SCH ×3 (08:59→16:28)
[2019-01-31] MEDS: MULTIVITAMINS WITH MINERALS, THERAPEUTIC TABLET PO SCH (08:59)
[2019-01-31 11:24] LABS: GLUCOMETER DEV NAME(LOC) 3E.I; GLUCOSE,POINT OF CARE 91 MG/DL (70-110)
[2019-01-31] MEDS: INSULIN LISPRO 100 UNITS/ML SQ PRN ×2 (11:31→17:30)
[2019-01-31 16:24] LABS: GLUCOMETER DEV NAME(LOC) 3E.I; GLUCOSE,POINT OF CARE 222 MG/DL (70-110)
[2019-01-31 17:06] VITALS: BP 120/62
[2019-01-31] MEDS: DiphenhydrAMINE HCL 25 MG CAPSULE PO SCH (20:31)
[2019-01-31] MEDS: MIRTAZAPINE 30 MG TABLET PO SCH (20:31)
[2019-01-31 20:49] LABS: GLUCOMETER DEV NAME(LOC) 3E.I; GLUCOSE,POINT OF CARE 149 MG/DL (70-110)
[2019-02-01 06:20] LABS: GLUCOMETER DEV NAME(LOC) 3E.I; GLUCOSE,POINT OF CARE 133 MG/DL (70-110)
[2019-02-01] MEDS: GlipiZIDE 5 MG TABLET PO SCH (06:52)
[2019-02-01 08:51] VITALS: BP 112/65
[2019-02-01] MEDS: TRIHEXYPHENIDYL HCL 5 MG TABLET PO SCH ×3 (09:15→16:09)
[2019-02-01] MEDS: MULTIVITAMINS WITH MINERALS, THERAPEUTIC TABLET PO SCH (09:15)
[2019-02-01 11:30] LABS: GLUCOMETER DEV NAME(LOC) 3E.I; GLUCOSE,POINT OF CARE 163 MG/DL (70-110)
[2019-02-01] MEDS: INSULIN LISPRO 100 UNITS/ML SQ PRN ×3 (11:35→20:51)
[2019-02-01 17:14] LABS: GLUCOMETER DEV NAME(LOC) 3E.I; GLUCOSE,POINT OF CARE 166 MG/DL (70-110)
[2019-02-01 17:39] VITALS: BP 97/60
[2019-02-01] MEDS: MIRTAZAPINE 30 MG TABLET PO SCH (20:48)
[2019-02-01] MEDS: DiphenhydrAMINE HCL 25 MG CAPSULE PO SCH (20:48)
[2019-02-01 20:58] LABS: GLUCOMETER DEV NAME(LOC) 3E.I; GLUCOSE,POINT OF CARE 180 MG/DL (70-110)
[2019-02-02 06:29] LABS: GLUCOMETER DEV NAME(LOC) 3E.I; GLUCOSE,POINT OF CARE 111 MG/DL (70-110)
[2019-02-02] MEDS: GlipiZIDE 5 MG TABLET PO SCH (06:30)
[2019-02-02] MEDS: TRIHEXYPHENIDYL HCL 5 MG TABLET PO SCH ×3 (09:01→17:19)
[2019-02-02] MEDS: MULTIVITAMINS WITH MINERALS, THERAPEUTIC TABLET PO SCH (09:01)
[2019-02-02 10:13] VITALS: BP 121/68
[2019-02-02 11:19] LABS: GLUCOMETER DEV NAME(LOC) 3E.I; GLUCOSE,POINT OF CARE 102 MG/DL (70-110)
[2019-02-02 16:14] LABS: GLUCOMETER DEV NAME(LOC) 3E.I; GLUCOSE,POINT OF CARE 174 MG/DL (70-110)
[2019-02-02 16:46] VITALS: BP 102/67
[2019-02-02] MEDS: INSULIN LISPRO 100 UNITS/ML SQ PRN ×2 (17:20→21:09)
[2019-02-02] MEDS: MIRTAZAPINE 30 MG TABLET PO SCH (20:44)
[2019-02-02] MEDS: DiphenhydrAMINE HCL 25 MG CAPSULE PO SCH (20:45)
[2019-02-02 20:54] LABS: GLUCOMETER DEV NAME(LOC) 3E.I; GLUCOSE,POINT OF CARE 154 MG/DL (70-110)
[2019-02-03 05:56] LABS: GLUCOMETER DEV NAME(LOC) 3E.I; GLUCOSE,POINT OF CARE 127 MG/DL (70-110)
[2019-02-03] MEDS: GlipiZIDE 5 MG TABLET PO SCH (07:14)
[2019-02-03 08:43] VITALS: BP 131/94
[2019-02-03] MEDS: TRIHEXYPHENIDYL HCL 5 MG TABLET PO SCH ×3 (10:03→17:32)
[2019-02-03] MEDS: MULTIVITAMINS WITH MINERALS, THERAPEUTIC TABLET PO SCH (10:04)
[2019-02-03 11:45] LABS: GLUCOMETER DEV NAME(LOC) 3E.I; GLUCOSE,POINT OF CARE 116 MG/DL (70-110)
[2019-02-03] MEDS: INSULIN LISPRO 100 UNITS/ML SQ PRN ×2 (12:02→21:34)
[2019-02-03 17:00] VITALS: BP 102/56
[2019-02-03 17:29] LABS: GLUCOMETER DEV NAME(LOC) 3E.I; GLUCOSE,POINT OF CARE 121 MG/DL (70-110)
[2019-02-03] MEDS: MIRTAZAPINE 30 MG TABLET PO SCH (21:13)
[2019-02-03] MEDS: DiphenhydrAMINE HCL 25 MG CAPSULE PO SCH (21:13)
[2019-02-03 21:15] LABS: GLUCOMETER DEV NAME(LOC) 3E.I; GLUCOSE,POINT OF CARE 169 MG/DL (70-110)
[2019-02-04 06:15] LABS: GLUCOMETER DEV NAME(LOC) 3E.I; GLUCOSE,POINT OF CARE 129 MG/DL (70-110)
[2019-02-04] MEDS: GlipiZIDE 5 MG TABLET PO SCH (07:05)
[2019-02-04] MEDS: TRIHEXYPHENIDYL HCL 5 MG TABLET PO SCH ×3 (10:54→17:19)
[2019-02-04] MEDS: MULTIVITAMINS WITH MINERALS, THERAPEUTIC TABLET PO SCH (10:54)
[2019-02-04 12:00] LABS: GLUCOMETER DEV NAME(LOC) 3E.I; GLUCOSE,POINT OF CARE 114 MG/DL (70-110)
[2019-02-04 16:55] LABS: GLUCOMETER DEV NAME(LOC) 3E.I; GLUCOSE,POINT OF CARE 108 MG/DL (70-110)
[2019-02-04 17:00] VITALS: BP 102/56
[2019-02-04] MEDS: DiphenhydrAMINE HCL 25 MG CAPSULE PO SCH (20:22)
[2019-02-04] MEDS: MIRTAZAPINE 30 MG TABLET PO SCH (20:22)
[2019-02-04] MEDS: INSULIN LISPRO 100 UNITS/ML SQ PRN (21:04)
[2019-02-04 21:10] LABS: GLUCOMETER DEV NAME(LOC) 3E.I; GLUCOSE,POINT OF CARE 150 MG/DL (70-110)
[2019-02-05 05:45] LABS: GLUCOMETER DEV NAME(LOC) 3E.I; GLUCOSE,POINT OF CARE 106 MG/DL (70-110)
[2019-02-05] MEDS: GlipiZIDE 5 MG TABLET PO SCH (07:02)
[2019-02-05 08:00] VITALS: BP 106/63
[2019-02-05] MEDS: MULTIVITAMINS WITH MINERALS, THERAPEUTIC TABLET PO SCH (08:57)
[2019-02-05] MEDS: TRIHEXYPHENIDYL HCL 5 MG TABLET PO SCH ×3 (08:57→16:49)
[2019-02-05 11:49] LABS: GLUCOMETER DEV NAME(LOC) 3E.I; GLUCOSE,POINT OF CARE 99 MG/DL (70-110)
[2019-02-05 16:38] VITALS: BP 106/77
[2019-02-05 17:14] LABS: GLUCOMETER DEV NAME(LOC) 3E.I; GLUCOSE,POINT OF CARE 206 MG/DL (70-110)
[2019-02-05] MEDS: INSULIN LISPRO 100 UNITS/ML SQ PRN ×2 (17:39→21:31)
[2019-02-05] MEDS: MIRTAZAPINE 30 MG TABLET PO SCH (20:38)
[2019-02-05] MEDS: DiphenhydrAMINE HCL 25 MG CAPSULE PO SCH (20:38)
[2019-02-05 21:24] LABS: GLUCOMETER DEV NAME(LOC) 3E.I; GLUCOSE,POINT OF CARE 149 MG/DL (70-110)
[2019-02-06 06:10] LABS: GLUCOMETER DEV NAME(LOC) 3E.I; GLUCOSE,POINT OF CARE 118 MG/DL (70-110)
[2019-02-06] MEDS: GlipiZIDE 5 MG TABLET PO SCH (07:18)
[2019-02-06] MEDS: MULTIVITAMINS WITH MINERALS, THERAPEUTIC TABLET PO SCH (08:56)
[2019-02-06] MEDS: TRIHEXYPHENIDYL HCL 5 MG TABLET PO SCH ×3 (08:56→16:30)
[2019-02-06] MEDS ORDERED: PALIPERIDONE PALMITATE 117 MG/0.75 ML SYRINGE IM ONE (09:00)
[2019-02-06 09:48] VITALS: BP 108/70
[2019-02-06 11:14] LABS: GLUCOMETER DEV NAME(LOC) 3EX.; GLUCOSE,POINT OF CARE 132 MG/DL (70-110)
[2019-02-06 16:28] VITALS: BP 121/68
[2019-02-06 16:34] LABS: GLUCOMETER DEV NAME(LOC) 3E.I; GLUCOSE,POINT OF CARE 106 MG/DL (70-110)
[2019-02-06] MEDS: MIRTAZAPINE 30 MG TABLET PO SCH (20:37)
[2019-02-06] MEDS: DiphenhydrAMINE HCL 25 MG CAPSULE PO SCH (20:37)
[2019-02-06] MEDS: INSULIN LISPRO 100 UNITS/ML SQ PRN (21:08)
[2019-02-06 21:19] LABS: GLUCOMETER DEV NAME(LOC) 3E.I; GLUCOSE,POINT OF CARE 141 MG/DL (70-110)
[2019-02-06] MEDS: LORazepam 1 MG TABLET PO PRN (23:45)
[2019-02-06] MEDS: ZOLPIDEM TARTRATE 10 MG TABLET PO PRN (23:45)
[2019-02-07] VITALS: BP 114/69
[2019-02-07 06:19] LABS: GLUCOMETER DEV NAME(LOC) 3E.I; GLUCOSE,POINT OF CARE 121 MG/DL (70-110)
[2019-02-07] MEDS: GlipiZIDE 5 MG TABLET PO SCH (06:54)
[2019-02-07] MEDS: MULTIVITAMINS WITH MINERALS, THERAPEUTIC TABLET PO SCH (07:55)
[2019-02-07] MEDS: BENZTROPINE MESYLATE 2 MG TABLET PO SCH ×3 (07:55→16:05)
[2019-02-07 09:28] VITALS: BP 116/82
[2019-02-07 11:14] LABS: GLUCOMETER DEV NAME(LOC) 3EX.; GLUCOSE,POINT OF CARE 97 MG/DL (70-110)
[2019-02-07 16:00] VITALS: BP 108/71
[2019-02-07 16:04] LABS: GLUCOMETER DEV NAME(LOC) 3E.I; GLUCOSE,POINT OF CARE 107 MG/DL (70-110)
[2019-02-07] MEDS: INSULIN LISPRO 100 UNITS/ML SQ PRN ×2 (17:13→21:56)
[2019-02-07] MEDS: DiphenhydrAMINE HCL 25 MG CAPSULE PO SCH (21:26)
[2019-02-07] MEDS: MIRTAZAPINE 15 MG TABLET PO SCH (21:27)
[2019-02-07 21:40] LABS: GLUCOMETER DEV NAME(LOC) 3E.I; GLUCOSE,POINT OF CARE 139 MG/DL (70-110)
[2019-02-08] MEDS: GlipiZIDE 5 MG TABLET PO SCH (06:07)
[2019-02-08 06:10] LABS: GLUCOMETER DEV NAME(LOC) 3E.I; GLUCOSE,POINT OF CARE 111 MG/DL (70-110)
[2019-02-08 08:11] VITALS: BP 104/62
[2019-02-08] MEDS: BENZTROPINE MESYLATE 2 MG TABLET PO SCH ×3 (08:30→17:10)
[2019-02-08] MEDS: MULTIVITAMINS WITH MINERALS, THERAPEUTIC TABLET PO SCH (08:31)
[2019-02-08 11:49] LABS: GLUCOMETER DEV NAME(LOC) 3E.I; GLUCOSE,POINT OF CARE 123 MG/DL (70-110)
[2019-02-08] MEDS: INSULIN LISPRO 100 UNITS/ML SQ PRN ×2 (11:58→22:20)
[2019-02-08 16:15] VITALS: BP 115/72
[2019-02-08 17:04] LABS: GLUCOMETER DEV NAME(LOC) 3E.I; GLUCOSE,POINT OF CARE 88 MG/DL (70-110)
[2019-02-08] MEDS: MIRTAZAPINE 15 MG TABLET PO SCH (20:34)
[2019-02-08] MEDS: DiphenhydrAMINE HCL 25 MG CAPSULE PO SCH (20:34)
[2019-02-08] MEDS: ZOLPIDEM TARTRATE 10 MG TABLET PO PRN (20:50)
[2019-02-08 22:34] LABS: GLUCOMETER DEV NAME(LOC) 3E.I; GLUCOSE,POINT OF CARE 245 MG/DL (70-110)
[2019-02-09 06:15] LABS: GLUCOMETER DEV NAME(LOC) 3E.I; GLUCOSE,POINT OF CARE 103 MG/DL (70-110)
[2019-02-09] MEDS: GlipiZIDE 5 MG TABLET PO SCH (06:47)
[2019-02-09] MEDS: BENZTROPINE MESYLATE 2 MG TABLET PO SCH ×3 (08:11→17:02)
[2019-02-09] MEDS: MULTIVITAMINS WITH MINERALS, THERAPEUTIC TABLET PO SCH (08:11)
[2019-02-09 09:23] VITALS: BP 108/72
[2019-02-09 11:54] LABS: GLUCOMETER DEV NAME(LOC) 3E.I; GLUCOSE,POINT OF CARE 125 MG/DL (70-110)
[2019-02-09 16:49] LABS: GLUCOMETER DEV NAME(LOC) 3E.I; GLUCOSE,POINT OF CARE 160 MG/DL (70-110)
[2019-02-09] MEDS: INSULIN LISPRO 100 UNITS/ML SQ PRN (18:00)
[2019-02-09] MEDS: DiphenhydrAMINE HCL 25 MG CAPSULE PO SCH (20:36)
[2019-02-09] MEDS: MIRTAZAPINE 15 MG TABLET PO SCH (20:36)
[2019-02-09] MEDS: ZOLPIDEM TARTRATE 10 MG TABLET PO PRN (20:37)
[2019-02-09 21:13] VITALS: BP 107/76
[2019-02-09 21:29] LABS: GLUCOMETER DEV NAME(LOC) 3E.I; GLUCOSE,POINT OF CARE 115 MG/DL (70-110)
[2019-02-10 05:20] LABS: GLUCOMETER DEV NAME(LOC) 3E.I; GLUCOSE,POINT OF CARE 113 MG/DL (70-110)
[2019-02-10] MEDS: GlipiZIDE 5 MG TABLET PO SCH (06:38)
[2019-02-10 08:21] VITALS: BP 117/71
[2019-02-10] MEDS: BENZTROPINE MESYLATE 2 MG TABLET PO SCH ×3 (08:21→17:12)
[2019-02-10] MEDS: MULTIVITAMINS WITH MINERALS, THERAPEUTIC TABLET PO SCH (08:22)
[2019-02-10] MEDS ORDERED: TUBERCULIN, PURIFIED PROTEIN DERIVATIVE 5 TU/0.1 ML SYRINGE ID ONE ×2 (13:00)
[2019-02-10 17:29] VITALS: BP 106/55
[2019-02-10 17:29] LABS: GLUCOMETER DEV NAME(LOC) 3E.I; GLUCOSE,POINT OF CARE 148 MG/DL (70-110)
[2019-02-10] MEDS: INSULIN LISPRO 100 UNITS/ML SQ PRN ×2 (17:32→21:14)
[2019-02-10] MEDS: MIRTAZAPINE 15 MG TABLET PO SCH (21:10)
[2019-02-10] MEDS: DiphenhydrAMINE HCL 25 MG CAPSULE PO SCH (21:10)
[2019-02-10 21:13] LABS: GLUCOMETER DEV NAME(LOC) 3E.C; GLUCOSE,POINT OF CARE 147 MG/DL (70-110)
[2019-02-11] MEDS: GlipiZIDE 5 MG TABLET PO SCH (07:04)
[2019-02-11 07:14] LABS: GLUCOMETER DEV NAME(LOC) 3E.I; GLUCOSE,POINT OF CARE 99 MG/DL (70-110)
[2019-02-11] MEDS: BENZTROPINE MESYLATE 2 MG TABLET PO SCH ×3 (08:41→16:06)
[2019-02-11] MEDS: MULTIVITAMINS WITH MINERALS, THERAPEUTIC TABLET PO SCH (08:41)
[2019-02-11 11:54] LABS: GLUCOMETER DEV NAME(LOC) 3EX.; GLUCOSE,POINT OF CARE 126 MG/DL (70-110)
[2019-02-11 13:18] VITALS: BP 99/65
[2019-02-11] MEDS: INSULIN LISPRO 100 UNITS/ML SQ PRN (14:04)
[2019-02-11 16:19] LABS: GLUCOMETER DEV NAME(LOC) 3EX.; GLUCOSE,POINT OF CARE 101 MG/DL (70-110)
[2019-02-11 16:30] VITALS: BP 122/69
[2019-02-11] MEDS: MIRTAZAPINE 15 MG TABLET PO SCH (20:37)
[2019-02-11] MEDS: DiphenhydrAMINE HCL 25 MG CAPSULE PO SCH (20:37)
[2019-02-11] MEDS: ZOLPIDEM TARTRATE 10 MG TABLET PO PRN (20:55)
[2019-02-11 21:04] LABS: GLUCOMETER DEV NAME(LOC) 3E.I; GLUCOSE,POINT OF CARE 125 MG/DL (70-110)
[2019-02-12 05:51] LABS: GLUCOMETER DEV NAME(LOC) 3E.I; GLUCOSE,POINT OF CARE 105 MG/DL (70-110)
[2019-02-12] MEDS: GlipiZIDE 5 MG TABLET PO SCH (06:14)
[2019-02-12] MEDS: MULTIVITAMINS WITH MINERALS, THERAPEUTIC TABLET PO SCH (08:56)
[2019-02-12] MEDS: BENZTROPINE MESYLATE 2 MG TABLET PO SCH ×3 (08:56→16:25)
[2019-02-12 09:00] VITALS: BP 105/58
[2019-02-12] MEDS: INSULIN LISPRO 100 UNITS/ML SQ PRN ×2 (11:52→20:26)
[2019-02-12 12:19] LABS: GLUCOMETER DEV NAME(LOC) 3E.I; GLUCOSE,POINT OF CARE 81 MG/DL (70-110)
[2019-02-12 16:28] VITALS: BP 105/82
[2019-02-12 16:34] LABS: GLUCOMETER DEV NAME(LOC) 3EX.; GLUCOSE,POINT OF CARE 113 MG/DL (70-110)
[2019-02-12] MEDS: MIRTAZAPINE 15 MG TABLET PO SCH (20:20)
[2019-02-12] MEDS: DiphenhydrAMINE HCL 25 MG CAPSULE PO SCH (20:27)
[2019-02-12 21:19] LABS: GLUCOMETER DEV NAME(LOC) 3EX.; GLUCOSE,POINT OF CARE 177 MG/DL (70-110)
[2019-02-13 05:34] LABS: GLUCOMETER DEV NAME(LOC) 3E.I; GLUCOSE,POINT OF CARE 105 MG/DL (70-110)
[2019-02-13] MEDS: GlipiZIDE 5 MG TABLET PO SCH (06:36)
[2019-02-13] MEDS: BENZTROPINE MESYLATE 2 MG TABLET PO SCH ×3 (09:17→16:59)
[2019-02-13] MEDS: MULTIVITAMINS WITH MINERALS, THERAPEUTIC TABLET PO SCH (09:17)
[2019-02-13 09:40] VITALS: BP 107/63
[2019-02-13 11:49] LABS: GLUCOMETER DEV NAME(LOC) 3E.I; GLUCOSE,POINT OF CARE 74 MG/DL (70-110)
[2019-02-13] MEDS: INSULIN LISPRO 100 UNITS/ML SQ PRN ×2 (13:01→17:27)
[2019-02-13 17:18] VITALS: BP 106/60
[2019-02-13 17:20] LABS: GLUCOMETER DEV NAME(LOC) 3E.I; GLUCOSE,POINT OF CARE 164 MG/DL (70-110)
[2019-02-13] MEDS: DiphenhydrAMINE HCL 25 MG CAPSULE PO SCH (21:14)
[2019-02-13] MEDS: MIRTAZAPINE 15 MG TABLET PO SCH (21:15)
[2019-02-13 21:24] LABS: GLUCOMETER DEV NAME(LOC) 3E.I; GLUCOSE,POINT OF CARE 132 MG/DL (70-110)
[2019-02-14 00:10] VITALS: BP 106/67
[2019-02-14 05:42] LABS: GLUCOMETER DEV NAME(LOC) 3E.I; GLUCOSE,POINT OF CARE 109 MG/DL (70-110)
[2019-02-14] MEDS: INSULIN LISPRO 100 UNITS/ML SQ PRN (06:42)
[2019-02-14] MEDS: GlipiZIDE 5 MG TABLET PO SCH (06:59)
[2019-02-14 08:00] VITALS: BP 99/60
[2019-02-14] MEDS: BENZTROPINE MESYLATE 2 MG TABLET PO SCH ×3 (08:17→16:21)
[2019-02-14] MEDS: MULTIVITAMINS WITH MINERALS, THERAPEUTIC TABLET PO SCH (08:18)
[2019-02-14 11:18] LABS: GLUCOMETER DEV NAME(LOC) 3EX.; GLUCOSE,POINT OF CARE 133 MG/DL (70-110)
[2019-02-14 17:56] VITALS: BP 108/65
[2019-02-14] MEDS: DiphenhydrAMINE HCL 25 MG CAPSULE PO SCH (20:15)
[2019-02-14] MEDS: MIRTAZAPINE 15 MG TABLET PO SCH (20:15)
[2019-02-14 23:44] LABS: GLUCOMETER DEV NAME(LOC) 3EX.; GLUCOSE,POINT OF CARE 142 MG/DL (70-110)
[2019-02-15 05:54] LABS: GLUCOMETER DEV NAME(LOC) 3E.I; GLUCOSE,POINT OF CARE 107 MG/DL (70-110)
[2019-02-15] MEDS: GlipiZIDE 5 MG TABLET PO SCH (06:25)
[2019-02-15] MEDS: BENZTROPINE MESYLATE 2 MG TABLET PO SCH ×3 (08:03→16:29)
[2019-02-15] MEDS: MULTIVITAMINS WITH MINERALS, THERAPEUTIC TABLET PO SCH (08:03)
[2019-02-15 08:11] VITALS: BP 114/63
[2019-02-15 10:48] LABS: GLUCOMETER DEV NAME(LOC) 3EX.; GLUCOSE,POINT OF CARE 85 MG/DL (70-110)
[2019-02-15 16:16] VITALS: BP 118/73
[2019-02-15 16:18] LABS: GLUCOMETER DEV NAME(LOC) 3EX.; GLUCOSE,POINT OF CARE 167 MG/DL (70-110)
[2019-02-15] MEDS: INSULIN LISPRO 100 UNITS/ML SQ PRN ×2 (17:13→21:33)
[2019-02-15] MEDS: MIRTAZAPINE 15 MG TABLET PO SCH (20:09)
[2019-02-15] MEDS: DiphenhydrAMINE HCL 25 MG CAPSULE PO SCH (20:09)
[2019-02-15 20:39] LABS: GLUCOMETER DEV NAME(LOC) 3EX.; GLUCOSE,POINT OF CARE 159 MG/DL (70-110)
[2019-02-16 05:44] LABS: GLUCOMETER DEV NAME(LOC) 3E.I; GLUCOSE,POINT OF CARE 106 MG/DL (70-110)
[2019-02-16] MEDS: GlipiZIDE 5 MG TABLET PO SCH (06:42)
[2019-02-16 08:25] VITALS: BP 99/64
[2019-02-16] MEDS: MULTIVITAMINS WITH MINERALS, THERAPEUTIC TABLET PO SCH (08:38)
[2019-02-16] MEDS: BENZTROPINE MESYLATE 2 MG TABLET PO SCH ×3 (08:38→16:08)
[2019-02-16 11:34] LABS: GLUCOMETER DEV NAME(LOC) 3E.I; GLUCOSE,POINT OF CARE 92 MG/DL (70-110)
[2019-02-16 16:21] VITALS: BP 127/76
[2019-02-16 16:24] LABS: GLUCOMETER DEV NAME(LOC) 3E.I; GLUCOSE,POINT OF CARE 153 MG/DL (70-110)
[2019-02-16] MEDS: INSULIN LISPRO 100 UNITS/ML SQ PRN (16:55)
[2019-02-16] MEDS: MIRTAZAPINE 15 MG TABLET PO SCH (20:24)
[2019-02-16] MEDS: DiphenhydrAMINE HCL 25 MG CAPSULE PO SCH (20:31)
[2019-02-17 05:29] LABS: GLUCOMETER DEV NAME(LOC) 3E.I; GLUCOSE,POINT OF CARE 105 MG/DL (70-110)
[2019-02-17] MEDS: GlipiZIDE 5 MG TABLET PO SCH (06:48)
[2019-02-17] MEDS: MULTIVITAMINS WITH MINERALS, THERAPEUTIC TABLET PO SCH (08:17)
[2019-02-17] MEDS: BENZTROPINE MESYLATE 2 MG TABLET PO SCH ×3 (08:17→16:02)
[2019-02-17 08:22] VITALS: BP 102/55
[2019-02-17 11:49] LABS: GLUCOMETER DEV NAME(LOC) 3EX.; GLUCOSE,POINT OF CARE 139 MG/DL (70-110)
[2019-02-17 16:13] LABS: GLUCOMETER DEV NAME(LOC) 3EX.; GLUCOSE,POINT OF CARE 161 MG/DL (70-110)
[2019-02-17 16:41] VITALS: BP 96/55
[2019-02-17] MEDS: INSULIN LISPRO 100 UNITS/ML SQ PRN ×2 (16:57→21:27)
[2019-02-17] MEDS: DiphenhydrAMINE HCL 25 MG CAPSULE PO SCH (20:07)
[2019-02-17] MEDS: MIRTAZAPINE 15 MG TABLET PO SCH (20:07)
[2019-02-17 20:13] LABS: GLUCOMETER DEV NAME(LOC) 3EX.; GLUCOSE,POINT OF CARE 194 MG/DL (70-110)
[2019-02-18 05:46] LABS: GLUCOMETER DEV NAME(LOC) 3E.I; GLUCOSE,POINT OF CARE 113 MG/DL (70-110)
[2019-02-18] MEDS: GlipiZIDE 5 MG TABLET PO SCH (07:08)
[2019-02-18 08:03] VITALS: BP 122/58
[2019-02-18] MEDS: BENZTROPINE MESYLATE 2 MG TABLET PO SCH ×3 (08:21→16:42)
[2019-02-18] MEDS: MULTIVITAMINS WITH MINERALS, THERAPEUTIC TABLET PO SCH (08:21)
[2019-02-18 11:55] LABS: GLUCOMETER DEV NAME(LOC) 3E.I; GLUCOSE,POINT OF CARE 81 MG/DL (70-110)
[2019-02-18 17:00] VITALS: BP 98/57
[2019-02-18 17:09] LABS: GLUCOMETER DEV NAME(LOC) 3EX.; GLUCOSE,POINT OF CARE 89 MG/DL (70-110)
[2019-02-18 20:21] LABS: GLUCOMETER DEV NAME(LOC) 3EX.; GLUCOSE,POINT OF CARE 188 MG/DL (70-110)
[2019-02-18] MEDS: DiphenhydrAMINE HCL 25 MG CAPSULE PO SCH (20:38)
[2019-02-18] MEDS: MIRTAZAPINE 15 MG TABLET PO SCH (20:38)
[2019-02-18] MEDS: INSULIN LISPRO 100 UNITS/ML SQ PRN (21:21)
[2019-02-19 06:14] LABS: GLUCOMETER DEV NAME(LOC) 3E.I; GLUCOSE,POINT OF CARE 108 MG/DL (70-110)
[2019-02-19] MEDS: GlipiZIDE 5 MG TABLET PO SCH (06:31)
[2019-02-19] MEDS: BENZTROPINE MESYLATE 2 MG TABLET PO SCH ×3 (08:21→17:10)
[2019-02-19] MEDS: MULTIVITAMINS WITH MINERALS, THERAPEUTIC TABLET PO SCH (08:21)
[2019-02-19 11:24] LABS: GLUCOMETER DEV NAME(LOC) 3EX.; GLUCOSE,POINT OF CARE 104 MG/DL (70-110)
[2019-02-19] MEDS: INSULIN LISPRO 100 UNITS/ML SQ PRN ×2 (17:22→20:57)
[2019-02-19 17:29] LABS: GLUCOMETER DEV NAME(LOC) 3EX.; GLUCOSE,POINT OF CARE 182 MG/DL (70-110)
[2019-02-19 17:41] VITALS: BP 123/72
[2019-02-19] MEDS: DiphenhydrAMINE HCL 25 MG CAPSULE PO SCH (20:55)
[2019-02-19] MEDS: MIRTAZAPINE 15 MG TABLET PO SCH (20:55)
[2019-02-19 21:04] LABS: GLUCOMETER DEV NAME(LOC) 3EX.; GLUCOSE,POINT OF CARE 170 MG/DL (70-110)
[2019-02-20 05:25] LABS: GLUCOMETER DEV NAME(LOC) 3E.I; GLUCOSE,POINT OF CARE 132 MG/DL (70-110)
[2019-02-20] MEDS: GlipiZIDE 5 MG TABLET PO SCH (06:26)
[2019-02-20 08:05] VITALS: BP 105/68
[2019-02-20] MEDS: MULTIVITAMINS WITH MINERALS, THERAPEUTIC TABLET PO SCH (08:27)
[2019-02-20] MEDS: BENZTROPINE MESYLATE 2 MG TABLET PO SCH ×3 (08:27→16:12)
[2019-02-20 11:19] LABS: GLUCOMETER DEV NAME(LOC) 3EX.; GLUCOSE,POINT OF CARE 102 MG/DL (70-110)
[2019-02-20 17:00] LABS: GLUCOMETER DEV NAME(LOC) 3E.I; GLUCOSE,POINT OF CARE 160 MG/DL (70-110)
[2019-02-20 18:08] VITALS: BP 111/69
[2019-02-20] MEDS: DiphenhydrAMINE HCL 25 MG CAPSULE PO SCH (20:04)
[2019-02-20] MEDS: MIRTAZAPINE 15 MG TABLET PO SCH (20:04)
[2019-02-21 06:14] LABS: GLUCOMETER DEV NAME(LOC) 3E.I; GLUCOSE,POINT OF CARE 130 MG/DL (70-110)
[2019-02-21] MEDS: INSULIN LISPRO 100 UNITS/ML SQ PRN ×2 (06:54→17:47)
[2019-02-21] MEDS: GlipiZIDE 5 MG TABLET PO SCH (07:05)
[2019-02-21 08:05] VITALS: BP 110/62
[2019-02-21] MEDS: BENZTROPINE MESYLATE 2 MG TABLET PO SCH ×3 (08:35→16:13)
[2019-02-21] MEDS: MULTIVITAMINS WITH MINERALS, THERAPEUTIC TABLET PO SCH (08:35)
[2019-02-21 11:09] LABS: GLUCOMETER DEV NAME(LOC) 3EX.; GLUCOSE,POINT OF CARE 104 MG/DL (70-110)
[2019-02-21 16:18] VITALS: BP 106/63
[2019-02-21 16:44] LABS: GLUCOMETER DEV NAME(LOC) 3EX.; GLUCOSE,POINT OF CARE 155 MG/DL (70-110)
[2019-02-21] MEDS: DiphenhydrAMINE HCL 25 MG CAPSULE PO SCH (20:05)
[2019-02-21] MEDS: MIRTAZAPINE 15 MG TABLET PO SCH (20:05)
[2019-02-21 20:44] LABS: GLUCOMETER DEV NAME(LOC) 3EX.; GLUCOSE,POINT OF CARE 184 MG/DL (70-110)
[2019-02-22 05:24] LABS: GLUCOMETER DEV NAME(LOC) 3E.I; GLUCOSE,POINT OF CARE 107 MG/DL (70-110)
[2019-02-22] MEDS: GlipiZIDE 5 MG TABLET PO SCH (07:14)
[2019-02-22] MEDS: MULTIVITAMINS WITH MINERALS, THERAPEUTIC TABLET PO SCH (08:47)
[2019-02-22] MEDS: BENZTROPINE MESYLATE 2 MG TABLET PO SCH ×3 (08:47→16:37)
[2019-02-22 09:00] VITALS: BP 105/69
[2019-02-22 11:24] LABS: GLUCOMETER DEV NAME(LOC) 3EX.; GLUCOSE,POINT OF CARE 154 MG/DL (70-110)
[2019-02-22] MEDS: INSULIN LISPRO 100 UNITS/ML SQ PRN ×2 (11:30→21:08)
[2019-02-22 16:00] VITALS: BP 141/80
[2019-02-22 16:49] LABS: GLUCOMETER DEV NAME(LOC) 3EX.; GLUCOSE,POINT OF CARE 134 MG/DL (70-110)
[2019-02-22] MEDS: MIRTAZAPINE 15 MG TABLET PO SCH (21:03)
[2019-02-22] MEDS: DiphenhydrAMINE HCL 25 MG CAPSULE PO SCH (21:07)
[2019-02-22 21:09] LABS: GLUCOMETER DEV NAME(LOC) 3EX.; GLUCOSE,POINT OF CARE 178 MG/DL (70-110)
[2019-02-23 05:24] LABS: GLUCOMETER DEV NAME(LOC) 3E.I; GLUCOSE,POINT OF CARE 102 MG/DL (70-110)
[2019-02-23] MEDS: GlipiZIDE 5 MG TABLET PO SCH (07:05)
[2019-02-23 08:02] VITALS: BP 102/56
[2019-02-23] MEDS: MULTIVITAMINS WITH MINERALS, THERAPEUTIC TABLET PO SCH (08:28)
[2019-02-23] MEDS: BENZTROPINE MESYLATE 2 MG TABLET PO SCH ×3 (08:28→16:36)
[2019-02-23 11:14] LABS: GLUCOMETER DEV NAME(LOC) 3EX.; GLUCOSE,POINT OF CARE 97 MG/DL (70-110)
[2019-02-23] MEDS: INSULIN LISPRO 100 UNITS/ML SQ PRN ×2 (12:42→21:29)
[2019-02-23 16:22] VITALS: BP 112/68
[2019-02-23 17:34] LABS: GLUCOMETER DEV NAME(LOC) 3EX.; GLUCOSE,POINT OF CARE 91 MG/DL (70-110)
[2019-02-23] MEDS: MIRTAZAPINE 15 MG TABLET PO SCH (20:47)
[2019-02-23] MEDS: DiphenhydrAMINE HCL 25 MG CAPSULE PO SCH (20:47)
[2019-02-24 05:44] LABS: GLUCOMETER DEV NAME(LOC) 3E.I; GLUCOSE,POINT OF CARE 112 MG/DL (70-110)
[2019-02-24] MEDS: GlipiZIDE 5 MG TABLET PO SCH (06:09)
[2019-02-24 08:00] VITALS: BP 90/64
[2019-02-24] MEDS: BENZTROPINE MESYLATE 2 MG TABLET PO SCH ×3 (08:33→16:39)
[2019-02-24] MEDS: MULTIVITAMINS WITH MINERALS, THERAPEUTIC TABLET PO SCH (08:33)
[2019-02-24 11:25] LABS: GLUCOMETER DEV NAME(LOC) 3EX.; GLUCOSE,POINT OF CARE 99 MG/DL (70-110)
[2019-02-24 16:45] LABS: GLUCOMETER DEV NAME(LOC) 3EX.; GLUCOSE,POINT OF CARE 96 MG/DL (70-110)
[2019-02-24 19:20] VITALS: BP 102/68
[2019-02-24] MEDS: INSULIN LISPRO 100 UNITS/ML SQ PRN (20:28)
[2019-02-24] MEDS: MIRTAZAPINE 15 MG TABLET PO SCH (20:29)
[2019-02-24 20:34] LABS: GLUCOMETER DEV NAME(LOC) 3EX.; GLUCOSE,POINT OF CARE 201 MG/DL (70-110)
[2019-02-24] MEDS: DiphenhydrAMINE HCL 25 MG CAPSULE PO SCH (20:34)
[2019-02-25 05:44] LABS: GLUCOMETER DEV NAME(LOC) 3E.I; GLUCOSE,POINT OF CARE 111 MG/DL (70-110)
[2019-02-25] MEDS: GlipiZIDE 5 MG TABLET PO SCH (07:21)
[2019-02-25] MEDS: MULTIVITAMINS WITH MINERALS, THERAPEUTIC TABLET PO SCH (08:03)
[2019-02-25] MEDS: BENZTROPINE MESYLATE 2 MG TABLET PO SCH ×3 (08:03→16:03)
[2019-02-25 08:29] VITALS: BP 101/64
[2019-02-25 11:34] LABS: GLUCOMETER DEV NAME(LOC) 3EX.; GLUCOSE,POINT OF CARE 82 MG/DL (70-110)
[2019-02-25 16:09] LABS: GLUCOMETER DEV NAME(LOC) 3EX.; GLUCOSE,POINT OF CARE 115 MG/DL (70-110)
[2019-02-25 17:44] VITALS: BP 121/72
[2019-02-25] MEDS: DiphenhydrAMINE HCL 25 MG CAPSULE PO SCH (20:14)
[2019-02-25] MEDS: MIRTAZAPINE 15 MG TABLET PO SCH (20:14)
[2019-02-25] MEDS: INSULIN LISPRO 100 UNITS/ML SQ PRN (20:21)
[2019-02-25 20:47] LABS: GLUCOMETER DEV NAME(LOC) 3EX.; GLUCOSE,POINT OF CARE 151 MG/DL (70-110)
[2019-02-26 05:45] LABS: GLUCOMETER DEV NAME(LOC) 3E.I; GLUCOSE,POINT OF CARE 109 MG/DL (70-110)
[2019-02-26] MEDS: GlipiZIDE 5 MG TABLET PO SCH (06:47)
[2019-02-26 08:05] VITALS: BP 118/83
[2019-02-26] MEDS: BENZTROPINE MESYLATE 2 MG TABLET PO SCH ×3 (08:49→16:20)
[2019-02-26] MEDS: MULTIVITAMINS WITH MINERALS, THERAPEUTIC TABLET PO SCH (08:49)
[2019-02-26 11:59] LABS: GLUCOMETER DEV NAME(LOC) 3E.I; GLUCOSE,POINT OF CARE 113 MG/DL (70-110)
[2019-02-26] MEDS: INSULIN LISPRO 100 UNITS/ML SQ PRN ×2 (11:59→20:33)
[2019-02-26 16:30] LABS: GLUCOMETER DEV NAME(LOC) 3EX.; GLUCOSE,POINT OF CARE 137 MG/DL (70-110)
[2019-02-26 17:06] VITALS: BP 105/68
[2019-02-26] MEDS: MIRTAZAPINE 15 MG TABLET PO SCH (20:06)
[2019-02-26] MEDS: DiphenhydrAMINE HCL 25 MG CAPSULE PO SCH (20:12)
[2019-02-26 20:19] LABS: GLUCOMETER DEV NAME(LOC) 3EX.; GLUCOSE,POINT OF CARE 198 MG/DL (70-110)
[2019-02-27 05:35] LABS: GLUCOMETER DEV NAME(LOC) 3E.I; GLUCOSE,POINT OF CARE 112 MG/DL (70-110)
[2019-02-27] MEDS: GlipiZIDE 5 MG TABLET PO SCH (06:22)
[2019-02-27 08:05] VITALS: BP 145/86
[2019-02-27] MEDS: MULTIVITAMINS WITH MINERALS, THERAPEUTIC TABLET PO SCH (08:17)
[2019-02-27] MEDS: BENZTROPINE MESYLATE 2 MG TABLET PO SCH ×3 (08:17→16:08)
[2019-02-27] MEDS: DULoxetine HCL 20 MG CAPSULE PO SCH (08:18)
[2019-02-27] MEDS: INSULIN LISPRO 100 UNITS/ML SQ PRN ×2 (11:32→16:38)
[2019-02-27 11:34] LABS: GLUCOMETER DEV NAME(LOC) 3EX.; GLUCOSE,POINT OF CARE 104 MG/DL (70-110)
[2019-02-27 16:19] LABS: GLUCOMETER DEV NAME(LOC) 3EX.; GLUCOSE,POINT OF CARE 149 MG/DL (70-110)
[2019-02-27 17:01] VITALS: BP 123/75
[2019-02-27] MEDS: MIRTAZAPINE 15 MG TABLET PO SCH (20:14)
[2019-02-27] MEDS: DiphenhydrAMINE HCL 25 MG CAPSULE PO SCH (20:14)
[2019-02-27 20:23] LABS: GLUCOMETER DEV NAME(LOC) 3EX.; GLUCOSE,POINT OF CARE 120 MG/DL (70-110)
[2019-02-28 05:39] LABS: GLUCOMETER DEV NAME(LOC) 3E.I; GLUCOSE,POINT OF CARE 114 MG/DL (70-110)
[2019-02-28] MEDS: GlipiZIDE 5 MG TABLET PO SCH (06:35)
[2019-02-28 08:00] VITALS: BP 119/67
[2019-02-28] MEDS: BENZTROPINE MESYLATE 2 MG TABLET PO SCH ×3 (08:29→16:38)
[2019-02-28] MEDS: MULTIVITAMINS WITH MINERALS, THERAPEUTIC TABLET PO SCH (08:29)
[2019-02-28] MEDS: DULoxetine HCL 20 MG CAPSULE PO SCH (08:30)
[2019-02-28 11:24] LABS: GLUCOMETER DEV NAME(LOC) 3EX.; GLUCOSE,POINT OF CARE 104 MG/DL (70-110)
[2019-02-28 17:03] LABS: GLUCOMETER DEV NAME(LOC) 3E.I; GLUCOSE,POINT OF CARE 142 MG/DL (70-110)
[2019-02-28] MEDS: INSULIN LISPRO 100 UNITS/ML SQ PRN ×2 (17:06→21:19)
[2019-02-28 19:44] VITALS: BP 112/73
[2019-02-28] MEDS: DiphenhydrAMINE HCL 25 MG CAPSULE PO SCH (20:34)
[2019-02-28] MEDS: MIRTAZAPINE 15 MG TABLET PO SCH (20:34)
[2019-02-28 20:54] LABS: GLUCOMETER DEV NAME(LOC) 3E.I; GLUCOSE,POINT OF CARE 150 MG/DL (70-110)
[2019-03-01 05:29] LABS: GLUCOMETER DEV NAME(LOC) 3E.I; GLUCOSE,POINT OF CARE 112 MG/DL (70-110)
[2019-03-01] MEDS: GlipiZIDE 5 MG TABLET PO SCH (07:07)
[2019-03-01] MEDS: MULTIVITAMINS WITH MINERALS, THERAPEUTIC TABLET PO SCH (08:01)
[2019-03-01] MEDS: BENZTROPINE MESYLATE 2 MG TABLET PO SCH ×3 (08:01→16:44)
[2019-03-01] MEDS: DULoxetine HCL 20 MG CAPSULE PO SCH (08:01)
[2019-03-01 08:53] VITALS: BP 104/78
[2019-03-01 11:03] LABS: GLUCOMETER DEV NAME(LOC) 3EX.; GLUCOSE,POINT OF CARE 90 MG/DL (70-110)
[2019-03-01 16:19] LABS: GLUCOMETER DEV NAME(LOC) 3EX.; GLUCOSE,POINT OF CARE 155 MG/DL (70-110)
[2019-03-01] MEDS: INSULIN LISPRO 100 UNITS/ML SQ PRN ×2 (16:41→20:21)
[2019-03-01 16:58] VITALS: BP 125/72
[2019-03-01] MEDS: DiphenhydrAMINE HCL 25 MG CAPSULE PO SCH (20:05)
[2019-03-01] MEDS: MIRTAZAPINE 15 MG TABLET PO SCH (20:05)
[2019-03-01 20:14] LABS: GLUCOMETER DEV NAME(LOC) 3EX.; GLUCOSE,POINT OF CARE 188 MG/DL (70-110)
[2019-03-02 05:39] LABS: GLUCOMETER DEV NAME(LOC) 3E.I; GLUCOSE,POINT OF CARE 116 MG/DL (70-110)
[2019-03-02] MEDS: GlipiZIDE 5 MG TABLET PO SCH (06:21)
[2019-03-02] MEDS: MULTIVITAMINS WITH MINERALS, THERAPEUTIC TABLET PO SCH (08:03)
[2019-03-02] MEDS: BENZTROPINE MESYLATE 2 MG TABLET PO SCH ×3 (08:03→16:01)
[2019-03-02] MEDS: DULoxetine HCL 20 MG CAPSULE PO SCH (08:03)
[2019-03-02 09:49] VITALS: BP 123/73
[2019-03-02 10:54] LABS: GLUCOMETER DEV NAME(LOC) 3EX.; GLUCOSE,POINT OF CARE 108 MG/DL (70-110)
[2019-03-02 16:13] LABS: GLUCOMETER DEV NAME(LOC) 3EX.; GLUCOSE,POINT OF CARE 180 MG/DL (70-110)
[2019-03-02] MEDS: INSULIN LISPRO 100 UNITS/ML SQ PRN ×2 (16:54→20:31)
[2019-03-02 17:17] VITALS: BP 119/68
[2019-03-02] MEDS: MIRTAZAPINE 15 MG TABLET PO SCH (20:21)
[2019-03-02] MEDS: DiphenhydrAMINE HCL 25 MG CAPSULE PO SCH (20:21)
[2019-03-02 20:33] LABS: GLUCOMETER DEV NAME(LOC) 3EX.; GLUCOSE,POINT OF CARE 151 MG/DL (70-110)
[2019-03-03 05:29] LABS: GLUCOMETER DEV NAME(LOC) 3E.I; GLUCOSE,POINT OF CARE 116 MG/DL (70-110)
[2019-03-03] MEDS: GlipiZIDE 5 MG TABLET PO SCH (06:24)
[2019-03-03] MEDS: BENZTROPINE MESYLATE 2 MG TABLET PO SCH ×3 (08:18→16:41)
[2019-03-03] MEDS: MULTIVITAMINS WITH MINERALS, THERAPEUTIC TABLET PO SCH (08:18)
[2019-03-03] MEDS: DULoxetine HCL 20 MG CAPSULE PO SCH (08:19)
[2019-03-03 09:00] VITALS: BP 117/71
[2019-03-03] MEDS ORDERED: PALIPERIDONE PALMITATE 117 MG/0.75 ML SYRINGE IM SCH (09:00)
[2019-03-03 11:29] LABS: GLUCOMETER DEV NAME(LOC) 3EX.; GLUCOSE,POINT OF CARE 94 MG/DL (70-110)
[2019-03-03] MEDS: INSULIN LISPRO 100 UNITS/ML SQ PRN ×3 (11:40→20:34)
[2019-03-03 16:10] VITALS: BP 121/76
[2019-03-03 17:14] LABS: GLUCOMETER DEV NAME(LOC) 3EX.; GLUCOSE,POINT OF CARE 169 MG/DL (70-110)
[2019-03-03] MEDS: DiphenhydrAMINE HCL 25 MG CAPSULE PO SCH (20:38)
[2019-03-03] MEDS: MIRTAZAPINE 15 MG TABLET PO SCH (20:38)
[2019-03-03 20:39] LABS: GLUCOMETER DEV NAME(LOC) 3EX.; GLUCOSE,POINT OF CARE 166 MG/DL (70-110)
[2019-03-04 06:19] LABS: GLUCOMETER DEV NAME(LOC) 3E.I; GLUCOSE,POINT OF CARE 117 MG/DL (70-110)
[2019-03-04] MEDS: GlipiZIDE 5 MG TABLET PO SCH (06:23)
[2019-03-04] MEDS: MULTIVITAMINS WITH MINERALS, THERAPEUTIC TABLET PO SCH (08:41)
[2019-03-04] MEDS: DULoxetine HCL 30 MG CAPSULE PO SCH (08:42)
[2019-03-04] MEDS: BENZTROPINE MESYLATE 2 MG TABLET PO SCH ×3 (08:42→16:35)
[2019-03-04 10:39] VITALS: BP 116/77
[2019-03-04 11:39] LABS: GLUCOMETER DEV NAME(LOC) 3EX.; GLUCOSE,POINT OF CARE 171 MG/DL (70-110)
[2019-03-04] MEDS: INSULIN LISPRO 100 UNITS/ML SQ PRN ×3 (12:14→20:33)
[2019-03-04 16:14] VITALS: BP 115/75
[2019-03-04 17:55] LABS: GLUCOMETER DEV NAME(LOC) 3EX.; GLUCOSE,POINT OF CARE 133 MG/DL (70-110)
[2019-03-04] MEDS: MIRTAZAPINE 15 MG TABLET PO SCH (20:26)
[2019-03-04] MEDS: DiphenhydrAMINE HCL 25 MG CAPSULE PO SCH (20:36)
[2019-03-04 20:44] LABS: GLUCOMETER DEV NAME(LOC) 3EX.; GLUCOSE,POINT OF CARE 211 MG/DL (70-110)
[2019-03-05] MEDS: INSULIN LISPRO 100 UNITS/ML SQ PRN ×4 (06:01→21:34)
[2019-03-05 06:24] LABS: GLUCOMETER DEV NAME(LOC) 3E.I; GLUCOSE,POINT OF CARE 142 MG/DL (70-110)
[2019-03-05] MEDS: GlipiZIDE 5 MG TABLET PO SCH (06:29)
[2019-03-05 08:00] VITALS: BP 133/79
[2019-03-05] MEDS: DULoxetine HCL 30 MG CAPSULE PO SCH (10:06)
[2019-03-05] MEDS: MULTIVITAMINS WITH MINERALS, THERAPEUTIC TABLET PO SCH (10:06)
[2019-03-05] MEDS: BENZTROPINE MESYLATE 2 MG TABLET PO SCH ×3 (10:06→16:47)
[2019-03-05 11:59] LABS: GLUCOMETER DEV NAME(LOC) 3E.I; GLUCOSE,POINT OF CARE 145 MG/DL (70-110)
[2019-03-05 16:52] VITALS: BP 117/68
[2019-03-05 16:59] LABS: GLUCOMETER DEV NAME(LOC) 3EX.; GLUCOSE,POINT OF CARE 160 MG/DL (70-110)
[2019-03-05] MEDS: MIRTAZAPINE 15 MG TABLET PO SCH (21:21)
[2019-03-05] MEDS: DiphenhydrAMINE HCL 25 MG CAPSULE PO SCH (21:22)
[2019-03-05 21:34] LABS: GLUCOMETER DEV NAME(LOC) 3EX.; GLUCOSE,POINT OF CARE 213 MG/DL (70-110)
[2019-03-06 05:49] LABS: GLUCOMETER DEV NAME(LOC) 3E.I; GLUCOSE,POINT OF CARE 114 MG/DL (70-110)
[2019-03-06] MEDS: GlipiZIDE 5 MG TABLET PO SCH (07:06)
[2019-03-06] MEDS: BENZTROPINE MESYLATE 2 MG TABLET PO SCH ×3 (07:59→16:00)
[2019-03-06] MEDS: MULTIVITAMINS WITH MINERALS, THERAPEUTIC TABLET PO SCH (07:59)
[2019-03-06] MEDS: DULoxetine HCL 30 MG CAPSULE PO SCH (07:59)
[2019-03-06 08:20] VITALS: BP 102/74
[2019-03-06 11:29] LABS: GLUCOMETER DEV NAME(LOC) 3EX.; GLUCOSE,POINT OF CARE 140 MG/DL (70-110)
[2019-03-06] MEDS: INSULIN LISPRO 100 UNITS/ML SQ PRN ×2 (16:28→21:10)
[2019-03-06 16:29] VITALS: BP 124/75
[2019-03-06 16:29] LABS: GLUCOMETER DEV NAME(LOC) 3EX.; GLUCOSE,POINT OF CARE 141 MG/DL (70-110)
[2019-03-06] MEDS: MIRTAZAPINE 15 MG TABLET PO SCH (20:28)
[2019-03-06] MEDS: DiphenhydrAMINE HCL 25 MG CAPSULE PO SCH (20:28)
[2019-03-06 20:44] LABS: GLUCOMETER DEV NAME(LOC) 3E.I; GLUCOSE,POINT OF CARE 157 MG/DL (70-110)
[2019-03-07] MEDS: GlipiZIDE 5 MG TABLET PO SCH (06:18)
[2019-03-07 06:19] LABS: GLUCOMETER DEV NAME(LOC) 3E.I; GLUCOSE,POINT OF CARE 104 MG/DL (70-110)
[2019-03-07] MEDS: INSULIN LISPRO 100 UNITS/ML SQ PRN ×4 (06:41→22:42)
[2019-03-07 08:00] VITALS: BP 102/58
[2019-03-07] MEDS: BENZTROPINE MESYLATE 2 MG TABLET PO SCH ×3 (08:36→16:08)
[2019-03-07] MEDS: MULTIVITAMINS WITH MINERALS, THERAPEUTIC TABLET PO SCH (08:36)
[2019-03-07] MEDS: DULoxetine HCL 30 MG CAPSULE PO SCH (08:36)
[2019-03-07 11:34] LABS: GLUCOMETER DEV NAME(LOC) 3E.I; GLUCOSE,POINT OF CARE 160 MG/DL (70-110)
[2019-03-07 16:18] LABS: GLUCOMETER DEV NAME(LOC) 3EX.; GLUCOSE,POINT OF CARE 199 MG/DL (70-110)
[2019-03-07 16:57] VITALS: BP 107/75
[2019-03-07] MEDS: DiphenhydrAMINE HCL 25 MG CAPSULE PO SCH (20:22)
[2019-03-07] MEDS: MIRTAZAPINE 15 MG TABLET PO SCH (20:23)
[2019-03-07 20:34] LABS: GLUCOMETER DEV NAME(LOC) 3EX.; GLUCOSE,POINT OF CARE 188 MG/DL (70-110)
[2019-03-08 05:39] LABS: GLUCOMETER DEV NAME(LOC) 3E.I; GLUCOSE,POINT OF CARE 124 MG/DL (70-110)
[2019-03-08] MEDS: GlipiZIDE 5 MG TABLET PO SCH (06:06)
[2019-03-08] MEDS: MULTIVITAMINS WITH MINERALS, THERAPEUTIC TABLET PO SCH (08:17)
[2019-03-08] MEDS: BENZTROPINE MESYLATE 2 MG TABLET PO SCH ×3 (08:18→17:14)
[2019-03-08] MEDS: DULoxetine HCL 30 MG CAPSULE PO SCH (08:18)
[2019-03-08 09:00] VITALS: BP 120/62
[2019-03-08] MEDS: INSULIN LISPRO 100 UNITS/ML SQ PRN ×2 (11:02→21:11)
[2019-03-08 11:09] LABS: GLUCOMETER DEV NAME(LOC) 3EX.; GLUCOSE,POINT OF CARE 123 MG/DL (70-110)
[2019-03-08 17:00] VITALS: BP 113/83
[2019-03-08 17:19] LABS: GLUCOMETER DEV NAME(LOC) 3EX.; GLUCOSE,POINT OF CARE 130 MG/DL (70-110)
[2019-03-08] MEDS: DiphenhydrAMINE HCL 25 MG CAPSULE PO SCH (21:10)
[2019-03-08 21:13] LABS: GLUCOMETER DEV NAME(LOC) 3EX.; GLUCOSE,POINT OF CARE 181 MG/DL (70-110)
[2019-03-08] MEDS: MIRTAZAPINE 15 MG TABLET PO SCH (21:17)
[2019-03-09 05:29] LABS: GLUCOMETER DEV NAME(LOC) 3E.I; GLUCOSE,POINT OF CARE 117 MG/DL (70-110)
[2019-03-09] MEDS: GlipiZIDE 5 MG TABLET PO SCH (06:19)
[2019-03-09 09:00] VITALS: BP 113/65
[2019-03-09] MEDS: MULTIVITAMINS WITH MINERALS, THERAPEUTIC TABLET PO SCH (09:09)
[2019-03-09] MEDS: BENZTROPINE MESYLATE 2 MG TABLET PO SCH ×3 (09:09→12:12)
[2019-03-09] MEDS: DULoxetine HCL 30 MG CAPSULE PO SCH (09:10)
[2019-03-09 11:54] LABS: GLUCOMETER DEV NAME(LOC) 3EX.; GLUCOSE,POINT OF CARE 131 MG/DL (70-110)
[2019-03-09] MEDS: INSULIN LISPRO 100 UNITS/ML SQ PRN (12:13)
[2019-03-09 17:40] LABS: GLUCOMETER DEV NAME(LOC) 3EX.; GLUCOSE,POINT OF CARE 178 MG/DL (70-110)
[2019-03-09 18:17] VITALS: BP 110/68
[2019-03-09] MEDS: MIRTAZAPINE 15 MG TABLET PO SCH (20:17)
[2019-03-09] MEDS: DiphenhydrAMINE HCL 25 MG CAPSULE PO SCH (20:17)
[2019-03-10 05:34] LABS: GLUCOMETER DEV NAME(LOC) 3E.I; GLUCOSE,POINT OF CARE 140 MG/DL (70-110)
[2019-03-10] MEDS: GlipiZIDE 5 MG TABLET PO SCH (06:44)
[2019-03-10] MEDS: INSULIN LISPRO 100 UNITS/ML SQ PRN ×4 (07:06→21:12)
[2019-03-10 08:00] VITALS: BP 111/68
[2019-03-10] MEDS: MULTIVITAMINS WITH MINERALS, THERAPEUTIC TABLET PO SCH (08:34)
[2019-03-10] MEDS: BENZTROPINE MESYLATE 2 MG TABLET PO SCH ×3 (08:35→17:26)
[2019-03-10] MEDS: DULoxetine HCL 30 MG CAPSULE PO SCH (08:35)
[2019-03-10 11:55] LABS: GLUCOMETER DEV NAME(LOC) 3EX.; GLUCOSE,POINT OF CARE 129 MG/DL (70-110)
[2019-03-10 16:00] VITALS: BP 111/72
[2019-03-10 16:50] LABS: GLUCOMETER DEV NAME(LOC) 3EX.; GLUCOSE,POINT OF CARE 187 MG/DL (70-110)
[2019-03-10] MEDS: DiphenhydrAMINE HCL 25 MG CAPSULE PO SCH (20:09)
[2019-03-10] MEDS: MIRTAZAPINE 15 MG TABLET PO SCH (20:09)
[2019-03-10] MEDS: MAGNESIUM HYDROXIDE SUSPENSION 30 ML UDCUP PO PRN (20:10)
[2019-03-10 20:34] LABS: GLUCOMETER DEV NAME(LOC) 3EX.; GLUCOSE,POINT OF CARE 142 MG/DL (70-110)
[2019-03-11 05:40] LABS: GLUCOMETER DEV NAME(LOC) 3E.I; GLUCOSE,POINT OF CARE 126 MG/DL (70-110)
[2019-03-11] MEDS: GlipiZIDE 5 MG TABLET PO SCH (06:30)
[2019-03-11 08:00] VITALS: BP 133/87
[2019-03-11] MEDS: DULoxetine HCL 30 MG CAPSULE PO SCH (08:15)
[2019-03-11] MEDS: MULTIVITAMINS WITH MINERALS, THERAPEUTIC TABLET PO SCH (08:15)
[2019-03-11] MEDS: BENZTROPINE MESYLATE 2 MG TABLET PO SCH ×3 (08:15→16:03)
[2019-03-11 11:35] LABS: GLUCOMETER DEV NAME(LOC) 3EX.; GLUCOSE,POINT OF CARE 125 MG/DL (70-110)
[2019-03-11] MEDS: INSULIN LISPRO 100 UNITS/ML SQ PRN ×2 (11:40→17:07)
[2019-03-11 16:19] VITALS: BP 129/88
[2019-03-11 16:24] LABS: GLUCOMETER DEV NAME(LOC) 3EX.; GLUCOSE,POINT OF CARE 217 MG/DL (70-110)
[2019-03-11] MEDS: MIRTAZAPINE 15 MG TABLET PO SCH (20:16)
[2019-03-11] MEDS: DiphenhydrAMINE HCL 25 MG CAPSULE PO SCH (20:16)
[2019-03-11 20:29] LABS: GLUCOMETER DEV NAME(LOC) 3EX.; GLUCOSE,POINT OF CARE 89 MG/DL (70-110)
[2019-03-12 05:44] LABS: GLUCOMETER DEV NAME(LOC) 3E.I; GLUCOSE,POINT OF CARE 115 MG/DL (70-110)
[2019-03-12] MEDS: GlipiZIDE 5 MG TABLET PO SCH (07:02)
[2019-03-12] MEDS: MULTIVITAMINS WITH MINERALS, THERAPEUTIC TABLET PO SCH (08:22)
[2019-03-12] MEDS: BENZTROPINE MESYLATE 2 MG TABLET PO SCH ×3 (08:23→16:07)
[2019-03-12] MEDS: DULoxetine HCL 20 MG CAPSULE PO SCH (08:23)
[2019-03-12 09:00] VITALS: BP 139/80
[2019-03-12 11:49] LABS: GLUCOMETER DEV NAME(LOC) 3E.I; GLUCOSE,POINT OF CARE 169 MG/DL (70-110)
[2019-03-12] MEDS: INSULIN LISPRO 100 UNITS/ML SQ PRN ×3 (12:38→21:08)
[2019-03-12 16:18] LABS: GLUCOMETER DEV NAME(LOC) 3EX.; GLUCOSE,POINT OF CARE 235 MG/DL (70-110)
[2019-03-12 17:00] VITALS: BP 134/78
[2019-03-12] MEDS: DiphenhydrAMINE HCL 25 MG CAPSULE PO SCH (21:01)
[2019-03-12] MEDS: MIRTAZAPINE 15 MG TABLET PO SCH (21:01)
[2019-03-12 21:09] LABS: GLUCOMETER DEV NAME(LOC) 3EX.; GLUCOSE,POINT OF CARE 167 MG/DL (70-110)
[2019-03-13 05:25] LABS: GLUCOMETER DEV NAME(LOC) 3E.I; GLUCOSE,POINT OF CARE 127 MG/DL (70-110)
[2019-03-13] MEDS: GlipiZIDE 5 MG TABLET PO SCH (07:08)
[2019-03-13 08:00] VITALS: BP 150/96
[2019-03-13] MEDS: DULoxetine HCL 20 MG CAPSULE PO SCH (08:23)
[2019-03-13] MEDS: MULTIVITAMINS WITH MINERALS, THERAPEUTIC TABLET PO SCH (08:23)
[2019-03-13] MEDS: BENZTROPINE MESYLATE 2 MG TABLET PO SCH ×3 (08:23→16:01)
[2019-03-13] MEDS: INSULIN LISPRO 100 UNITS/ML SQ PRN ×3 (12:00→21:32)
[2019-03-13 15:59] LABS: GLUCOMETER DEV NAME(LOC) 3EX.; GLUCOSE,POINT OF CARE 190 MG/DL (70-110)
[2019-03-13 16:00] VITALS: BP 142/96
[2019-03-13] MEDS ORDERED: PALIPERIDONE PALMITATE 117 MG/0.75 ML SYRINGE IM ONE (18:00)
[2019-03-13] MEDS: DiphenhydrAMINE HCL 25 MG CAPSULE PO SCH (20:52)
[2019-03-13] MEDS: MIRTAZAPINE 15 MG TABLET PO SCH (20:52)
[2019-03-13 21:09] LABS: GLUCOMETER DEV NAME(LOC) 3EX.; GLUCOSE,POINT OF CARE 183 MG/DL (70-110)
[2019-03-14 05:55] LABS: GLUCOMETER DEV NAME(LOC) 3E.I; GLUCOSE,POINT OF CARE 142 MG/DL (70-110)
[2019-03-14] MEDS: GlipiZIDE 5 MG TABLET PO SCH (06:39)
[2019-03-14] MEDS: INSULIN LISPRO 100 UNITS/ML SQ PRN ×3 (06:39→17:03)
[2019-03-14 08:00] VITALS: BP 137/101
[2019-03-14] MEDS: BENZTROPINE MESYLATE 2 MG TABLET PO SCH ×3 (08:28→16:04)
[2019-03-14] MEDS: MULTIVITAMINS WITH MINERALS, THERAPEUTIC TABLET PO SCH (08:28)
[2019-03-14] MEDS: DULoxetine HCL 20 MG CAPSULE PO SCH (08:28)
[2019-03-14] MEDS: DOCUSATE SODIUM 100 MG CAPSULE PO PRN (08:28)
[2019-03-14 11:44] LABS: GLUCOMETER DEV NAME(LOC) 3EX.; GLUCOSE,POINT OF CARE 117 MG/DL (70-110)
[2019-03-14 12:48] VITALS: BP 131/81
[2019-03-14 17:00] VITALS: BP 138/90
[2019-03-14 17:14] LABS: GLUCOMETER DEV NAME(LOC) 3EX.; GLUCOSE,POINT OF CARE 272 MG/DL (70-110)
[2019-03-14] MEDS: MIRTAZAPINE 15 MG TABLET PO SCH (21:06)
[2019-03-14] MEDS: DiphenhydrAMINE HCL 25 MG CAPSULE PO SCH (21:06)
[2019-03-14 21:49] LABS: GLUCOMETER DEV NAME(LOC) 3EX.; GLUCOSE,POINT OF CARE 126 MG/DL (70-110)
[2019-03-15 06:14] LABS: GLUCOMETER DEV NAME(LOC) 3E.I; GLUCOSE,POINT OF CARE 122 MG/DL (70-110)
[2019-03-15] MEDS: INSULIN LISPRO 100 UNITS/ML SQ PRN ×4 (06:42→20:43)
[2019-03-15] MEDS: GlipiZIDE 5 MG TABLET PO SCH (07:12)
[2019-03-15 08:00] VITALS: BP 122/65
[2019-03-15] MEDS: DOCUSATE SODIUM 100 MG CAPSULE PO PRN (09:09)
[2019-03-15] MEDS: MULTIVITAMINS WITH MINERALS, THERAPEUTIC TABLET PO SCH (09:09)
[2019-03-15] MEDS: DULoxetine HCL 20 MG CAPSULE PO SCH (09:09)
[2019-03-15] MEDS: BENZTROPINE MESYLATE 2 MG TABLET PO SCH ×3 (09:09→16:01)
[2019-03-15 11:25] LABS: GLUCOMETER DEV NAME(LOC) 3EX.; GLUCOSE,POINT OF CARE 145 MG/DL (70-110)
[2019-03-15 16:16] VITALS: BP 115/81
[2019-03-15 16:19] LABS: GLUCOMETER DEV NAME(LOC) 3EX.; GLUCOSE,POINT OF CARE 157 MG/DL (70-110)
[2019-03-15] MEDS: DiphenhydrAMINE HCL 25 MG CAPSULE PO SCH (20:27)
[2019-03-15] MEDS: MIRTAZAPINE 15 MG TABLET PO SCH (20:30)
[2019-03-15 20:39] LABS: GLUCOMETER DEV NAME(LOC) 3EX.; GLUCOSE,POINT OF CARE 224 MG/DL (70-110)
[2019-03-16 05:40] LABS: GLUCOMETER DEV NAME(LOC) 3E.I; GLUCOSE,POINT OF CARE 122 MG/DL (70-110)
[2019-03-16] MEDS: GlipiZIDE 5 MG TABLET PO SCH (06:05)
[2019-03-16] MEDS: MULTIVITAMINS WITH MINERALS, THERAPEUTIC TABLET PO SCH (08:38)
[2019-03-16] MEDS: BENZTROPINE MESYLATE 2 MG TABLET PO SCH ×3 (08:38→16:05)
[2019-03-16] MEDS: DULoxetine HCL 20 MG CAPSULE PO SCH (08:38)
[2019-03-16 10:07] VITALS: BP 109/62
[2019-03-16] MEDS: INSULIN LISPRO 100 UNITS/ML SQ PRN ×3 (13:51→21:25)
[2019-03-16 16:14] LABS: GLUCOMETER DEV NAME(LOC) 3EX.; GLUCOSE,POINT OF CARE 161 MG/DL (70-110)
[2019-03-16 16:15] VITALS: BP 102/64
[2019-03-16 20:15] LABS: GLUCOMETER DEV NAME(LOC) 3EX.; GLUCOSE,POINT OF CARE 217 MG/DL (70-110)
[2019-03-16] MEDS: MIRTAZAPINE 15 MG TABLET PO SCH (20:35)
[2019-03-16] MEDS: DiphenhydrAMINE HCL 25 MG CAPSULE PO SCH (20:36)
[2019-03-17 05:35] LABS: GLUCOMETER DEV NAME(LOC) 3E.I; GLUCOSE,POINT OF CARE 125 MG/DL (70-110)
[2019-03-17] MEDS: GlipiZIDE 5 MG TABLET PO SCH (06:52)
[2019-03-17] MEDS: MULTIVITAMINS WITH MINERALS, THERAPEUTIC TABLET PO SCH (08:24)
[2019-03-17] MEDS: BENZTROPINE MESYLATE 2 MG TABLET PO SCH ×3 (08:25→16:04)
[2019-03-17] MEDS: DULoxetine HCL 20 MG CAPSULE PO SCH (08:25)
[2019-03-17 09:30] VITALS: BP 106/74
[2019-03-17 12:19] LABS: GLUCOMETER DEV NAME(LOC) 3EX.; GLUCOSE,POINT OF CARE 121 MG/DL (70-110)
[2019-03-17 16:05] VITALS: BP 121/67
[2019-03-17 17:00] LABS: GLUCOMETER DEV NAME(LOC) 3EX.; GLUCOSE,POINT OF CARE 205 MG/DL (70-110)
[2019-03-17] MEDS: INSULIN LISPRO 100 UNITS/ML SQ PRN ×2 (17:32→21:14)
[2019-03-17] MEDS: DiphenhydrAMINE HCL 25 MG CAPSULE PO SCH (20:13)
[2019-03-17] MEDS: MIRTAZAPINE 15 MG TABLET PO SCH (20:13)
[2019-03-17 20:34] LABS: GLUCOMETER DEV NAME(LOC) 3EX.; GLUCOSE,POINT OF CARE 180 MG/DL (70-110)
[2019-03-18] MEDS: GlipiZIDE 5 MG TABLET PO SCH (06:22)
[2019-03-18 06:24] LABS: GLUCOMETER DEV NAME(LOC) 3E.I; GLUCOSE,POINT OF CARE 130 MG/DL (70-110)
[2019-03-18 08:00] VITALS: BP 101/71
[2019-03-18] MEDS: DULoxetine HCL 20 MG CAPSULE PO SCH (08:31)
[2019-03-18] MEDS: DOCUSATE SODIUM 100 MG CAPSULE PO PRN (08:31)
[2019-03-18] MEDS: BENZTROPINE MESYLATE 2 MG TABLET PO SCH ×3 (08:31→16:47)
[2019-03-18] MEDS: MULTIVITAMINS WITH MINERALS, THERAPEUTIC TABLET PO SCH (08:31)
[2019-03-18 11:35] LABS: GLUCOMETER DEV NAME(LOC) 3EX.; GLUCOSE,POINT OF CARE 143 MG/DL (70-110)
[2019-03-18] MEDS: INSULIN LISPRO 100 UNITS/ML SQ PRN ×3 (12:09→21:24)
[2019-03-18 17:04] LABS: GLUCOMETER DEV NAME(LOC) 3EX.; GLUCOSE,POINT OF CARE 214 MG/DL (70-110)
[2019-03-18 17:42] VITALS: BP 122/68
[2019-03-18] MEDS: DiphenhydrAMINE HCL 25 MG CAPSULE PO SCH (20:28)
[2019-03-18] MEDS: MIRTAZAPINE 15 MG TABLET PO SCH (20:28)
[2019-03-18 20:59] LABS: GLUCOMETER DEV NAME(LOC) 3EX.; GLUCOSE,POINT OF CARE 207 MG/DL (70-110)
[2019-03-19 05:30] LABS: GLUCOMETER DEV NAME(LOC) 3EX.; GLUCOSE,POINT OF CARE 136 MG/DL (70-110)
[2019-03-19] MEDS: GlipiZIDE 5 MG TABLET PO SCH (07:18)
[2019-03-19] MEDS: DULoxetine HCL 20 MG CAPSULE PO SCH (08:11)
[2019-03-19] MEDS: BENZTROPINE MESYLATE 2 MG TABLET PO SCH ×3 (08:11→17:46)
[2019-03-19] MEDS: MULTIVITAMINS WITH MINERALS, THERAPEUTIC TABLET PO SCH (08:12)
[2019-03-19 08:57] VITALS: BP 126/69
[2019-03-19 16:16] VITALS: BP 112/72
[2019-03-19 17:44] LABS: GLUCOMETER DEV NAME(LOC) 3EX.; GLUCOSE,POINT OF CARE 188 MG/DL (70-110)
[2019-03-19] MEDS: INSULIN LISPRO 100 UNITS/ML SQ PRN (17:47)
[2019-03-19] MEDS: DiphenhydrAMINE HCL 25 MG CAPSULE PO SCH (21:08)
[2019-03-19] MEDS: MIRTAZAPINE 15 MG TABLET PO SCH (21:08)
[2019-03-19 21:34] LABS: GLUCOMETER DEV NAME(LOC) 3EX.; GLUCOSE,POINT OF CARE 174 MG/DL (70-110)
[2019-03-20 05:35] LABS: GLUCOMETER DEV NAME(LOC) 3E.I; GLUCOSE,POINT OF CARE 133 MG/DL (70-110)
[2019-03-20] MEDS: GlipiZIDE 5 MG TABLET PO SCH (07:30)
[2019-03-20] MEDS: BENZTROPINE MESYLATE 2 MG TABLET PO SCH ×3 (08:57→16:08)
[2019-03-20] MEDS: DULoxetine HCL 20 MG CAPSULE PO SCH (08:57)
[2019-03-20] MEDS: MULTIVITAMINS WITH MINERALS, THERAPEUTIC TABLET PO SCH (08:57)
[2019-03-20 09:33] VITALS: BP 110/78
[2019-03-20 11:49] LABS: GLUCOMETER DEV NAME(LOC) 3EX.; GLUCOSE,POINT OF CARE 103 MG/DL (70-110)
[2019-03-20] MEDS: INSULIN LISPRO 100 UNITS/ML SQ PRN ×3 (11:58→21:20)
[2019-03-20 16:39] LABS: GLUCOMETER DEV NAME(LOC) 3EX.; GLUCOSE,POINT OF CARE 240 MG/DL (70-110)
[2019-03-20 17:41] VITALS: BP 133/71
[2019-03-20] MEDS: MIRTAZAPINE 15 MG TABLET PO SCH (20:23)
[2019-03-20] MEDS: DiphenhydrAMINE HCL 25 MG CAPSULE PO SCH (20:23)
[2019-03-20 21:25] LABS: GLUCOMETER DEV NAME(LOC) 3E.I; GLUCOSE,POINT OF CARE 179 MG/DL (70-110)
[2019-03-21 06:30] LABS: GLUCOMETER DEV NAME(LOC) 3E.I; GLUCOSE,POINT OF CARE 133 MG/DL (70-110)
[2019-03-21] MEDS: INSULIN LISPRO 100 UNITS/ML SQ PRN ×4 (06:43→21:15)
[2019-03-21] MEDS: GlipiZIDE 5 MG TABLET PO SCH (07:05)
[2019-03-21] MEDS: MAGNESIUM HYDROXIDE SUSPENSION 30 ML UDCUP PO PRN (09:20)
[2019-03-21] MEDS: DULoxetine HCL 60 MG CAPSULE PO SCH (09:20)
[2019-03-21] MEDS: MULTIVITAMINS WITH MINERALS, THERAPEUTIC TABLET PO SCH (09:20)
[2019-03-21] MEDS: BENZTROPINE MESYLATE 2 MG TABLET PO SCH ×3 (09:21→16:15)
[2019-03-21 10:08] VITALS: BP 128/67
[2019-03-21 11:34] LABS: GLUCOMETER DEV NAME(LOC) 3EX.; GLUCOSE,POINT OF CARE 146 MG/DL (70-110)
[2019-03-21] MEDS: LORazepam 1 MG TABLET PO PRN (12:50)
[2019-03-21 16:49] LABS: GLUCOMETER DEV NAME(LOC) 3EX.; GLUCOSE,POINT OF CARE 161 MG/DL (70-110)
[2019-03-21 18:53] VITALS: BP 126/68
[2019-03-21] MEDS: MIRTAZAPINE 15 MG TABLET PO SCH (20:48)
[2019-03-21] MEDS: DiphenhydrAMINE HCL 25 MG CAPSULE PO SCH (20:48)
[2019-03-21 20:59] LABS: GLUCOMETER DEV NAME(LOC) 3EX.; GLUCOSE,POINT OF CARE 144 MG/DL (70-110)
[2019-03-22 05:35] LABS: GLUCOMETER DEV NAME(LOC) 3E.I; GLUCOSE,POINT OF CARE 120 MG/DL (70-110)
[2019-03-22] MEDS: GlipiZIDE 5 MG TABLET PO SCH (07:05)
[2019-03-22 08:10] VITALS: BP 125/80
[2019-03-22] MEDS: DULoxetine HCL 60 MG CAPSULE PO SCH (08:26)
[2019-03-22] MEDS: BENZTROPINE MESYLATE 2 MG TABLET PO SCH ×3 (08:26→16:46)
[2019-03-22] MEDS: MULTIVITAMINS WITH MINERALS, THERAPEUTIC TABLET PO SCH (08:26)
[2019-03-22 12:05] LABS: GLUCOMETER DEV NAME(LOC) 3EX.; GLUCOSE,POINT OF CARE 130 MG/DL (70-110)
[2019-03-22 17:20] LABS: GLUCOMETER DEV NAME(LOC) 3EX.; GLUCOSE,POINT OF CARE 154 MG/DL (70-110)
[2019-03-22] MEDS: INSULIN LISPRO 100 UNITS/ML SQ PRN (17:41)
[2019-03-22] MEDS: MIRTAZAPINE 15 MG TABLET PO SCH (20:31)
[2019-03-22] MEDS: DiphenhydrAMINE HCL 25 MG CAPSULE PO SCH (20:37)
[2019-03-22 21:36] VITALS: BP 103/72
[2019-03-23 06:54] LABS: GLUCOMETER DEV NAME(LOC) 3E.I; GLUCOSE,POINT OF CARE 128 MG/DL (70-110)
[2019-03-23] MEDS: GlipiZIDE 5 MG TABLET PO SCH (07:01)
[2019-03-23] MEDS: DULoxetine HCL 60 MG CAPSULE PO SCH (08:49)
[2019-03-23] MEDS: BENZTROPINE MESYLATE 2 MG TABLET PO SCH ×3 (08:49→16:36)
[2019-03-23] MEDS: MULTIVITAMINS WITH MINERALS, THERAPEUTIC TABLET PO SCH (08:49)
[2019-03-23 10:13] VITALS: BP 108/72
[2019-03-23 11:55] LABS: GLUCOMETER DEV NAME(LOC) 3EX.; GLUCOSE,POINT OF CARE 157 MG/DL (70-110)
[2019-03-23] MEDS: INSULIN LISPRO 100 UNITS/ML SQ PRN ×3 (12:18→20:55)
[2019-03-23 16:33] VITALS: BP 107/67
[2019-03-23 16:49] LABS: GLUCOMETER DEV NAME(LOC) 3EX.; GLUCOSE,POINT OF CARE 180 MG/DL (70-110)
[2019-03-23] MEDS: MIRTAZAPINE 15 MG TABLET PO SCH (20:38)
[2019-03-23] MEDS: DiphenhydrAMINE HCL 25 MG CAPSULE PO SCH (20:38)
[2019-03-23 20:50] LABS: GLUCOMETER DEV NAME(LOC) 3EX.; GLUCOSE,POINT OF CARE 204 MG/DL (70-110)
[2019-03-24 06:05] LABS: GLUCOMETER DEV NAME(LOC) 3E.I; GLUCOSE,POINT OF CARE 121 MG/DL (70-110)
[2019-03-24] MEDS: GlipiZIDE 5 MG TABLET PO SCH (06:56)
[2019-03-24] MEDS: BENZTROPINE MESYLATE 2 MG TABLET PO SCH ×3 (08:18→17:04)
[2019-03-24] MEDS: DULoxetine HCL 60 MG CAPSULE PO SCH (08:19)
[2019-03-24] MEDS: MULTIVITAMINS WITH MINERALS, THERAPEUTIC TABLET PO SCH (08:19)
[2019-03-24 10:23] VITALS: BP 124/74
[2019-03-24 11:05] LABS: GLUCOMETER DEV NAME(LOC) 3EX.; GLUCOSE,POINT OF CARE 114 MG/DL (70-110)
[2019-03-24 16:10] VITALS: BP 114/79
[2019-03-24 16:14] LABS: GLUCOMETER DEV NAME(LOC) 3EX.; GLUCOSE,POINT OF CARE 189 MG/DL (70-110)
[2019-03-24] MEDS: INSULIN LISPRO 100 UNITS/ML SQ PRN ×2 (17:00→21:50)
[2019-03-24] MEDS: LORazepam 1 MG TABLET PO PRN (18:28)
[2019-03-24] MEDS: MIRTAZAPINE 15 MG TABLET PO SCH (20:24)
[2019-03-24] MEDS: DiphenhydrAMINE HCL 25 MG CAPSULE PO SCH (20:24)
[2019-03-24 21:14] LABS: GLUCOMETER DEV NAME(LOC) 3EX.; GLUCOSE,POINT OF CARE 183 MG/DL (70-110)
[2019-03-25 05:34] LABS: GLUCOMETER DEV NAME(LOC) 3E.I; GLUCOSE,POINT OF CARE 128 MG/DL (70-110)
[2019-03-25 06:45] VITALS: BP 109/87
[2019-03-25] MEDS: GlipiZIDE 5 MG TABLET PO SCH (07:04)
[2019-03-25] MEDS: BENZTROPINE MESYLATE 2 MG TABLET PO SCH ×3 (08:07→17:28)
[2019-03-25] MEDS: DULoxetine HCL 60 MG CAPSULE PO SCH (08:07)
[2019-03-25] MEDS: MULTIVITAMINS WITH MINERALS, THERAPEUTIC TABLET PO SCH (08:07)
[2019-03-25 09:11] VITALS: BP 137/66
[2019-03-25 11:14] LABS: GLUCOMETER DEV NAME(LOC) 3EX.; GLUCOSE,POINT OF CARE 61 MG/DL (70-110)
[2019-03-25 12:26] LABS: GLUCOMETER DEV NAME(LOC) 3EX.; GLUCOSE,POINT OF CARE 242 MG/DL (70-110)
[2019-03-25 16:26] VITALS: BP 100/71
[2019-03-25 17:19] LABS: GLUCOMETER DEV NAME(LOC) 3EX.; GLUCOSE,POINT OF CARE 151 MG/DL (70-110)
[2019-03-25] MEDS: INSULIN LISPRO 100 UNITS/ML SQ PRN (17:29)
[2019-03-25 20:40] LABS: GLUCOMETER DEV NAME(LOC) 3EX.; GLUCOSE,POINT OF CARE 112 MG/DL (70-110)
[2019-03-25] MEDS: DiphenhydrAMINE HCL 25 MG CAPSULE PO SCH (21:03)
[2019-03-25] MEDS: MIRTAZAPINE 15 MG TABLET PO SCH (21:03)
[2019-03-26 05:40] LABS: GLUCOMETER DEV NAME(LOC) 3E.I; GLUCOSE,POINT OF CARE 128 MG/DL (70-110)
[2019-03-26] MEDS: GlipiZIDE 5 MG TABLET PO SCH (06:02)
[2019-03-26] MEDS: LORazepam 1 MG TABLET PO PRN (06:18)
[2019-03-26] MEDS: DOCUSATE SODIUM 100 MG CAPSULE PO PRN (08:25)
[2019-03-26] MEDS: DULoxetine HCL 60 MG CAPSULE PO SCH (08:26)
[2019-03-26] MEDS: BENZTROPINE MESYLATE 2 MG TABLET PO SCH ×3 (08:26→16:53)
[2019-03-26] MEDS: MULTIVITAMINS WITH MINERALS, THERAPEUTIC TABLET PO SCH (08:26)
[2019-03-26 10:04] VITALS: BP 123/81
[2019-03-26 11:29] LABS: GLUCOMETER DEV NAME(LOC) 3EX.; GLUCOSE,POINT OF CARE 91 MG/DL (70-110)
[2019-03-26] MEDS: INSULIN LISPRO 100 UNITS/ML SQ PRN ×3 (11:43→20:53)
[2019-03-26 17:10] LABS: GLUCOMETER DEV NAME(LOC) 3EX.; GLUCOSE,POINT OF CARE 148 MG/DL (70-110)
[2019-03-26 18:47] VITALS: BP 97/65
[2019-03-26] MEDS: DiphenhydrAMINE HCL 25 MG CAPSULE PO SCH (20:14)
[2019-03-26] MEDS: MIRTAZAPINE 15 MG TABLET PO SCH (20:14)
[2019-03-26 20:45] LABS: GLUCOMETER DEV NAME(LOC) 3EX.; GLUCOSE,POINT OF CARE 232 MG/DL (70-110)
[2019-03-27 05:44] LABS: GLUCOMETER DEV NAME(LOC) 3E.I; GLUCOSE,POINT OF CARE 125 MG/DL (70-110)
[2019-03-27 05:58] VITALS: BP 139/85
[2019-03-27] MEDS: GlipiZIDE 5 MG TABLET PO SCH (06:54)
[2019-03-27 08:00] VITALS: BP 137/70
[2019-03-27] MEDS: MULTIVITAMINS WITH MINERALS, THERAPEUTIC TABLET PO SCH (08:23)
[2019-03-27] MEDS: BENZTROPINE MESYLATE 2 MG TABLET PO SCH ×3 (08:23→16:03)
[2019-03-27] MEDS: DULoxetine HCL 60 MG CAPSULE PO SCH (08:23)
[2019-03-27] MEDS: INSULIN LISPRO 100 UNITS/ML SQ PRN ×2 (11:33→17:12)
[2019-03-27 11:34] LABS: GLUCOMETER DEV NAME(LOC) 3EX.; GLUCOSE,POINT OF CARE 118 MG/DL (70-110)
[2019-03-27 16:35] VITALS: BP 122/74
[2019-03-27 16:50] LABS: GLUCOMETER DEV NAME(LOC) 3EX.; GLUCOSE,POINT OF CARE 233 MG/DL (70-110)
[2019-03-27] MEDS: MIRTAZAPINE 15 MG TABLET PO SCH (20:13)
[2019-03-27] MEDS: DiphenhydrAMINE HCL 25 MG CAPSULE PO SCH (20:13)
[2019-03-27 21:05] LABS: GLUCOMETER DEV NAME(LOC) 3EX.; GLUCOSE,POINT OF CARE 144 MG/DL (70-110)
[2019-03-28 05:59] LABS: GLUCOMETER DEV NAME(LOC) 3E.I; GLUCOSE,POINT OF CARE 136 MG/DL (70-110)
[2019-03-28 06:24] VITALS: BP 136/94
[2019-03-28] MEDS: GlipiZIDE 5 MG TABLET PO SCH (07:09)
[2019-03-28 08:00] VITALS: BP 117/80
[2019-03-28] MEDS: DULoxetine HCL 60 MG CAPSULE PO SCH (08:10)
[2019-03-28] MEDS: MULTIVITAMINS WITH MINERALS, THERAPEUTIC TABLET PO SCH (08:10)
[2019-03-28] MEDS: BENZTROPINE MESYLATE 2 MG TABLET PO SCH ×3 (08:10→17:25)
[2019-03-28] MEDS: INSULIN LISPRO 100 UNITS/ML SQ PRN ×2 (11:39→21:28)
[2019-03-28 12:05] LABS: GLUCOMETER DEV NAME(LOC) 3EX.; GLUCOSE,POINT OF CARE 143 MG/DL (70-110)
[2019-03-28 16:19] VITALS: BP 119/88
[2019-03-28 17:45] LABS: GLUCOMETER DEV NAME(LOC) 3EX.; GLUCOSE,POINT OF CARE 137 MG/DL (70-110)
[2019-03-28] MEDS: DiphenhydrAMINE HCL 25 MG CAPSULE PO SCH (20:22)
[2019-03-28] MEDS: MIRTAZAPINE 15 MG TABLET PO SCH (20:22)
[2019-03-28 20:50] LABS: GLUCOMETER DEV NAME(LOC) 3EX.; GLUCOSE,POINT OF CARE 213 MG/DL (70-110)
[2019-03-28] MEDS: ZOLPIDEM TARTRATE 10 MG TABLET PO PRN (21:28)
[2019-03-29] MEDS: LORazepam 1 MG TABLET PO PRN (05:53)
[2019-03-29 05:54] LABS: GLUCOMETER DEV NAME(LOC) 3E.I; GLUCOSE,POINT OF CARE 149 MG/DL (70-110)
[2019-03-29 06:04] VITALS: BP 113/86
[2019-03-29] MEDS: INSULIN LISPRO 100 UNITS/ML SQ PRN ×4 (06:08→21:22)
[2019-03-29] MEDS: GlipiZIDE 5 MG TABLET PO SCH (07:10)
[2019-03-29 08:24] VITALS: BP 131/91
[2019-03-29] MEDS: DULoxetine HCL 60 MG CAPSULE PO SCH (08:56)
[2019-03-29] MEDS: MULTIVITAMINS WITH MINERALS, THERAPEUTIC TABLET PO SCH (08:57)
[2019-03-29] MEDS: BENZTROPINE MESYLATE 2 MG TABLET PO SCH ×3 (08:57→16:24)
[2019-03-29 11:45] LABS: GLUCOMETER DEV NAME(LOC) 3EX.; GLUCOSE,POINT OF CARE 117 MG/DL (70-110)
[2019-03-29 16:02] VITALS: BP 116/78
[2019-03-29 16:25] LABS: GLUCOMETER DEV NAME(LOC) 3EX.; GLUCOSE,POINT OF CARE 145 MG/DL (70-110)
[2019-03-29] MEDS: ZOLPIDEM TARTRATE 10 MG TABLET PO PRN (20:27)
[2019-03-29] MEDS: MIRTAZAPINE 15 MG TABLET PO SCH (20:28)
[2019-03-29] MEDS: DiphenhydrAMINE HCL 25 MG CAPSULE PO SCH (20:31)
[2019-03-29 21:14] LABS: GLUCOMETER DEV NAME(LOC) 3EX.; GLUCOSE,POINT OF CARE 186 MG/DL (70-110)
[2019-03-30 05:20] VITALS: BP 143/89
[2019-03-30] MEDS: LORazepam 1 MG TABLET PO PRN ×2 (05:24→08:41)
[2019-03-30 05:55] LABS: GLUCOMETER DEV NAME(LOC) 3E.I; GLUCOSE,POINT OF CARE 127 MG/DL (70-110)
[2019-03-30] MEDS: GlipiZIDE 5 MG TABLET PO SCH (06:45)
[2019-03-30 08:00] VITALS: BP 123/66
[2019-03-30] MEDS: DULoxetine HCL 60 MG CAPSULE PO SCH (08:40)
[2019-03-30] MEDS: BENZTROPINE MESYLATE 2 MG TABLET PO SCH ×3 (08:40→16:38)
[2019-03-30] MEDS: MULTIVITAMINS WITH MINERALS, THERAPEUTIC TABLET PO SCH (08:40)
[2019-03-30 11:30] LABS: GLUCOMETER DEV NAME(LOC) 3EX.; GLUCOSE,POINT OF CARE 115 MG/DL (70-110)
[2019-03-30] MEDS: INSULIN LISPRO 100 UNITS/ML SQ PRN ×3 (11:30→21:21)
[2019-03-30 16:25] LABS: GLUCOMETER DEV NAME(LOC) 3EX.; GLUCOSE,POINT OF CARE 169 MG/DL (70-110)
[2019-03-30 16:41] VITALS: BP 112/58
[2019-03-30 20:24] LABS: GLUCOMETER DEV NAME(LOC) 3EX.; GLUCOSE,POINT OF CARE 164 MG/DL (70-110)
[2019-03-30] MEDS: MIRTAZAPINE 15 MG TABLET PO SCH (20:43)
[2019-03-30] MEDS: DiphenhydrAMINE HCL 25 MG CAPSULE PO SCH (20:43)
[2019-03-30] MEDS: ZOLPIDEM TARTRATE 10 MG TABLET PO PRN (21:25)
[2019-03-31 05:34] VITALS: BP 132/90
[2019-03-31 05:35] LABS: GLUCOMETER DEV NAME(LOC) 3E.I; GLUCOSE,POINT OF CARE 120 MG/DL (70-110)
[2019-03-31] MEDS: GlipiZIDE 5 MG TABLET PO SCH (06:57)
[2019-03-31 08:00] VITALS: BP 129/80
[2019-03-31] MEDS: MULTIVITAMINS WITH MINERALS, THERAPEUTIC TABLET PO SCH (08:40)
[2019-03-31] MEDS: BENZTROPINE MESYLATE 2 MG TABLET PO SCH ×3 (08:40→16:51)
[2019-03-31] MEDS: DULoxetine HCL 60 MG CAPSULE PO SCH (08:41)
[2019-03-31] MEDS: LORazepam 1 MG TABLET PO PRN (11:38)
[2019-03-31 12:05] LABS: GLUCOMETER DEV NAME(LOC) 3EX.; GLUCOSE,POINT OF CARE 144 MG/DL (70-110)
[2019-03-31] MEDS: INSULIN LISPRO 100 UNITS/ML SQ PRN ×2 (12:22→21:32)
[2019-03-31 16:47] VITALS: BP 109/67
[2019-03-31 17:05] LABS: GLUCOMETER DEV NAME(LOC) 3EX.; GLUCOSE,POINT OF CARE 108 MG/DL (70-110)
[2019-03-31] MEDS: DiphenhydrAMINE HCL 25 MG CAPSULE PO SCH (21:19)
[2019-03-31] MEDS: MIRTAZAPINE 15 MG TABLET PO SCH (21:19)
[2019-03-31 22:05] LABS: GLUCOMETER DEV NAME(LOC) 3EX.; GLUCOSE,POINT OF CARE 183 MG/DL (70-110)
[2019-04-01 06:40] LABS: GLUCOMETER DEV NAME(LOC) 3E.I; GLUCOSE,POINT OF CARE 129 MG/DL (70-110)
[2019-04-01] MEDS: GlipiZIDE 5 MG TABLET PO SCH (06:50)
[2019-04-01 08:00] VITALS: BP 142/72
[2019-04-01] MEDS: MULTIVITAMINS WITH MINERALS, THERAPEUTIC TABLET PO SCH (08:06)
[2019-04-01] MEDS: LORazepam 1 MG TABLET PO PRN (08:06)
[2019-04-01] MEDS: BENZTROPINE MESYLATE 2 MG TABLET PO SCH ×3 (08:06→16:34)
[2019-04-01] MEDS: DULoxetine HCL 60 MG CAPSULE PO SCH (08:06)
[2019-04-01 11:35] LABS: GLUCOMETER DEV NAME(LOC) 3EX.; GLUCOSE,POINT OF CARE 91 MG/DL (70-110)
[2019-04-01] MEDS: INSULIN LISPRO 100 UNITS/ML SQ PRN ×2 (13:04→17:18)
[2019-04-01 17:00] VITALS: BP 109/71
[2019-04-01 17:10] LABS: GLUCOMETER DEV NAME(LOC) 3EX.; GLUCOSE,POINT OF CARE 239 MG/DL (70-110)
[2019-04-01] MEDS: MIRTAZAPINE 15 MG TABLET PO SCH (20:54)
[2019-04-01] MEDS: DiphenhydrAMINE HCL 25 MG CAPSULE PO SCH (20:54)
[2019-04-01 21:15] LABS: GLUCOMETER DEV NAME(LOC) 3EX.; GLUCOSE,POINT OF CARE 137 MG/DL (70-110)
[2019-04-02] MEDS: LORazepam 1 MG TABLET PO PRN (04:19)
[2019-04-02 04:45] VITALS: BP 138/94
[2019-04-02 05:35] LABS: GLUCOMETER DEV NAME(LOC) 3E.I; GLUCOSE,POINT OF CARE 170 MG/DL (70-110)
[2019-04-02] MEDS: INSULIN LISPRO 100 UNITS/ML SQ PRN ×3 (07:03→20:47)
[2019-04-02] MEDS: GlipiZIDE 5 MG TABLET PO SCH (07:06)
[2019-04-02] MEDS: DULoxetine HCL 60 MG CAPSULE PO SCH (08:36)
[2019-04-02] MEDS: BENZTROPINE MESYLATE 2 MG TABLET PO SCH ×3 (08:36→17:11)
[2019-04-02] MEDS: MULTIVITAMINS WITH MINERALS, THERAPEUTIC TABLET PO SCH (08:36)
[2019-04-02 09:00] VITALS: BP 102/72
[2019-04-02 12:00] LABS: GLUCOMETER DEV NAME(LOC) 3EX.; GLUCOSE,POINT OF CARE 90 MG/DL (70-110)
[2019-04-02] MEDS ORDERED: PALI117D IM (13:22)
[2019-04-02] MEDS ORDERED: DIPH25 PO (13:22)
[2019-04-02] MEDS ORDERED: MIRT15 PO (13:22)
[2019-04-02] MEDS ORDERED: BENZ2TAB10 PO (13:22)
[2019-04-02] MEDS ORDERED: DULO60CA44 PO (13:22)
[2019-04-02] MEDS: DOCUSATE SODIUM 100 MG CAPSULE PO PRN (13:38)
[2019-04-02] MEDS ORDERED: PNEUMOCOCCAL VACCINE POLYVALENT 0.5 ML VIAL [PPSV23] IM ONE (15:45)
[2019-04-02] MEDS ORDERED: HEPATITIS A VACCINE, INACTI [ADULT] 1,440 UNITS/ML VIAL IM ONE (15:45)
[2019-04-02 17:21] LABS: GLUCOMETER DEV NAME(LOC) 3EX.; GLUCOSE,POINT OF CARE 102 MG/DL (70-110)
[2019-04-02] MEDS: DiphenhydrAMINE HCL 25 MG CAPSULE PO SCH (20:18)
[2019-04-02] MEDS: MIRTAZAPINE 15 MG TABLET PO SCH (20:19)
[2019-04-02 20:26] VITALS: BP 117/81
[2019-04-02 20:26] LABS: GLUCOMETER DEV NAME(LOC) 3EX.; GLUCOSE,POINT OF CARE 223 MG/DL (70-110)
[2019-04-03 05:26] VITALS: BP 142/87
[2019-04-03 05:45] LABS: GLUCOMETER DEV NAME(LOC) 3E.I; GLUCOSE,POINT OF CARE 158 MG/DL (70-110)
[2019-04-03] MEDS: GlipiZIDE 5 MG TABLET PO SCH (06:50)
[2019-04-03] MEDS: INSULIN LISPRO 100 UNITS/ML SQ PRN ×3 (06:50→17:31)
[2019-04-03] MEDS: BENZTROPINE MESYLATE 2 MG TABLET PO SCH ×3 (08:54→16:47)
[2019-04-03] MEDS: MULTIVITAMINS WITH MINERALS, THERAPEUTIC TABLET PO SCH (08:54)
[2019-04-03] MEDS: DULoxetine HCL 60 MG CAPSULE PO SCH (08:54)
[2019-04-03 09:00] VITALS: BP 126/79
[2019-04-03] MEDS: LORazepam 1 MG TABLET PO PRN (09:27)
[2019-04-03 11:55] LABS: GLUCOMETER DEV NAME(LOC) 3EX.; GLUCOSE,POINT OF CARE 190 MG/DL (70-110)
[2019-04-03] MEDS ORDERED: MULT-1239 PO (14:12)
[2019-04-03 17:10] LABS: GLUCOMETER DEV NAME(LOC) 3EX.; GLUCOSE,POINT OF CARE 177 MG/DL (70-110)
[2019-04-03 18:15] VITALS: BP 120/78
[2019-04-03] MEDS: DiphenhydrAMINE HCL 25 MG CAPSULE PO SCH (20:35)
[2019-04-03] MEDS: MIRTAZAPINE 15 MG TABLET PO SCH (20:35)
[2019-04-03 20:49] LABS: GLUCOMETER DEV NAME(LOC) 3EX.; GLUCOSE,POINT OF CARE 117 MG/DL (70-110)
[2019-04-04 06:25] LABS: GLUCOMETER DEV NAME(LOC) 3E.I; GLUCOSE,POINT OF CARE 184 MG/DL (70-110)
[2019-04-04] MEDS: GlipiZIDE 5 MG TABLET PO SCH (06:54)
[2019-04-04] MEDS: INSULIN LISPRO 100 UNITS/ML SQ PRN ×2 (07:00→12:21)
[2019-04-04] MEDS: MULTIVITAMINS WITH MINERALS, THERAPEUTIC TABLET PO SCH (08:36)
[2019-04-04] MEDS: BENZTROPINE MESYLATE 2 MG TABLET PO SCH ×2 (08:36→12:04)
[2019-04-04] MEDS: DULoxetine HCL 60 MG CAPSULE PO SCH (08:37)
[2019-04-04 09:51] VITALS: BP 124/78
[2019-04-04 11:50] LABS: GLUCOMETER DEV NAME(LOC) 3EX.; GLUCOSE,POINT OF CARE 163 MG/DL (70-110)
[2019-04-04] MEDS: LORazepam 1 MG TABLET PO PRN (13:58)
[2019-04-10] MEDS ORDERED: PALIPERIDONE PALMITATE 117 MG/0.75 ML SYRINGE IM SCH (09:00)
== END 2019-04-04 15:25 | DRG 885 ==
LOC: EMS 14:43 → 3EX 20:48
PROVIDERS: ADMIT Psychiatry & Neurology Psychiatry; ATTEND Psychiatry & Neurology Psychiatry
PROC: 3E0234Z Introduction of Serum, Toxoid and Vaccine into Muscle, Percutaneous Approach (ICD-10-PCS; principal; 2019-04-02)
DX: F25.1 Schizoaffective disorder, depressive type (principal); R45.851 Suicidal ideations; D64.9 Anemia, unspecified; K21.9 Gastro-esophageal reflux disease without esophagitis; E55.9 Vitamin D deficiency, unspecified; K29.70 Gastritis, unspecified, without bleeding; Z91.14 Patient's other noncompliance with medication regimen; E86.0 Dehydration; Z59.0 Homelessness; E11.65 Type 2 diabetes mellitus with hyperglycemia; Z91.19 Patient's noncompliance with other medical treatment and regimen; F41.9 Anxiety disorder, unspecified; K59.00 Constipation, unspecified; Z79.899 Other long term (current) drug therapy; Z87.11 Personal history of peptic ulcer disease; Z23 Encounter for immunization
CPT/HCPCS: 83036; 84443; 87081; 90632; 90732; 96374; 96375; G0378; G0480; J2060; J7030